=== PATIENT | male | born 1935 | race Caucasian/White ===

== ENCOUNTER → 2020-10-27 08:58 | Outpatient (BNVA) | payer MEDICARE, SELFPAY | PROVIDERS: PCP Internal Medicine; Visit Provider Urology | DX: N20.0 Calculus of kidney (principal); N40.1 Benign prostatic hyperplasia with lower urinary tract symptoms; N13.8 Other obstructive and reflux uropathy; R39.12 Poor urinary stream | CPT/HCPCS: 99202 ==

== ENCOUNTER 2020-11-18 09:57 | Outpatient (REF) | payer MEDICARE, SELFPAY ==
--- NOTE | 2020-11-18 10:00 | US_ITS ---
EXAMINATION: US RETROPERITONEAL COMPLETE (RENAL) CLINICAL INFORMATION: Calculus of kidney. BPH. Poor urinary stream. COMPARISON: CT abdomen and pelvis 06/05/2019. Renal ultrasound 03/21/2019 and 03/21/2018. KUB 01/31/2018 and 12/06/2017. TECHNIQUE: Real-time imaging of the solitary left kidney and bladder. FINDINGS: RIGHT KIDNEY: Surgically absent. LEFT KIDNEY: 14.5 x 6.7 x 5.2 cm (SAG x AP x TRV). The kidney is normal in size, moderately lobulated contour, and normal echogenicity. Renal cortical thickness is normal. No renal calculi or hydronephrosis. There are 2 anechoic cyst in the upper poles measuring 0.8 x 0.7 x 0.6 cm and 1.1 x 0.9 x 1.1 cm. There is pericapsular hypoechoic area in the midpole measuring 5.2 x 0.7 x 0.5 cm. There is trace free fluid around the kidney. BLADDER: Well distended and normal. Left ureteral jet is demonstrated; right is not. Prevoid bladder volume is 181 mL. Postvoid bladder volume is 18 mL. ADDITIONAL FINDINGS: The prostate volume is 17 mL. 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 Left kidney hypoechoic area in the pericapsular region, question old inflammatory process or old hematoma. It measures 5.2 cm. 2 upper pole left renal cysts. They were not visualized on the previous CT abdomen exam 11/10/2017 or ultrasound 12/27/2017.
== END 2020-11-18 09:58 | disposition home or self-care (01) ==
LOC: HO.US 09:57
PROVIDERS: Visit Provider Urology
DX: R39.12 Poor urinary stream (principal); N40.1 Benign prostatic hyperplasia with lower urinary tract symptoms; N13.8 Other obstructive and reflux uropathy
CPT/HCPCS: 76770

== ENCOUNTER → 2020-11-27 10:58 | Outpatient (BNVA) | payer MEDICARE, SELFPAY | PROVIDERS: PCP Internal Medicine; Visit Provider Urology | DX: N40.1 Benign prostatic hyperplasia with lower urinary tract symptoms (principal); N13.8 Other obstructive and reflux uropathy; N28.1 Cyst of kidney, acquired; S37.019A Minor contusion of unspecified kidney, initial encounter | CPT/HCPCS: Q3014 ==

== ENCOUNTER 2021-03-15 10:18 | Outpatient (REF) | payer MEDICARE, SELFPAY ==
[2021-03-15 10:36] LABS: MANUAL DIFF FLAG NO
[2021-03-15 11:06] LABS: Basophils Absolute Auto 0.1 X10*3/uL (0.0-0.2); Basophils Percent Auto 0.6 % (0-2); Eosinophils Absolute Auto 0.2 X10*3/uL (0.0-0.4); Eosinophils Percent Auto 2.8 % (0-4); Hematocrit 43.6 % (42-52); Imm Gran Abs Auto 0.02 X10*3/uL (0.00-0.03); Imm Gran Pct Auto 0.2 % (0.0-0.4); Lymphocytes Absolute Auto 2.7 X10*3/uL (1.2-4.9); Lymphocytes Percent Auto 31.9 % (20-40); Mean Corpuscular HGB Conc 32.1 g/dl (31.0-36.0); Mean Corpuscular Hemoglobin 28.6 pg (27.0-33.0); Mean Corpuscular Volume 89.2 fL (80-98); Mean Platelet Volume 11.2 fL (9.4-12.4); Monocytes Absolute Auto 0.9 X10*3/uL (0.1-1.2); Monocytes Percent Auto 10.8 % (2-11); Neutrophils Absolute Auto 4.6 X10*3/uL (2.0-8.3); Neutrophils Percent Auto 53.7 % (45-73); Platelet Count 176 X10*3/uL (160-400); Red Blood Count 4.89 X10*6/uL (4.60-5.80); Red Cell Distribution Width 14.5 % (11.0-16.0); White Blood Count 8.6 X10*3/uL (4.8-10.8)
[2021-03-15 11:42] LABS: Glucose Urine UA NEG (NEG); Leukocyte Esterase Urine 2+ (NEG); Nitrite Urine NEG (NEG); Urine Blood NEG (NEG); Urine Ketones NEG (NEG); Urine Protein NEG (NEG-TRACE)
[2021-03-15 11:54] LABS: Appearance Urine HAZY; Color Urine YELLOW
[2021-03-15 12:12] LABS: Alanine Aminotransferase 30 U/L (0-40); Albumin Level 4.1 g/dL (3.5-5.0); Alkaline Phosphatase 99 U/L (39-117); Anion Gap 15 (12-20); Aspartate Amino Transferase 24 U/L (5-37); Bilirubin Total 0.6 mg/dL (0.0-1.0); Blood Urea Nitrogen 43 mg/dL (9-16); Calcium 9.3 mg/dL (8.4-10.2); Carbon Dioxide 21 mmol/L (22-29); Chloride 110 mmol/L (96-108); Cholesterol 133 mg/dL; Estimated Glomerular Filt Rate 37; Glucose Fasting 112 mg/dL (60-99); HDL Cholesterol 29 mg/dL; LDL Cholesterol Calculated 85 mg/dl; Potassium 4.8 mmol/L (3.3-5.1); Sodium 141 mmol/L (135-145); Total Protein 6.6 g/dL (6.5-8.0); Triglycerides 95 mg/dL
[2021-03-15 12:19] LABS: PSA,Total (Free>4and<10) 0.32 ng/mL (0.00-4.00)
[2021-03-15 12:32] LABS: RBC Urine 0-2 /HPF (0); Renal Epithelial Cells Urine TRACE /LPF; Squamous Epithelial Cell Urine 1+ /LPF
[2021-03-15 13:35] LABS: Reflex LDLD? No
== END 2021-03-15 10:19 | disposition home or self-care (01) ==
LOC: HO.LNP 10:18
PROVIDERS: Visit Provider Internal Medicine
DX: I10 Essential (primary) hypertension (principal); N40.0 Benign prostatic hyperplasia without lower urinary tract symptoms; E78.00 Pure hypercholesterolemia, unspecified
CPT/HCPCS: 80053; 80061; 81001; 81003; 84153; 85025

== ENCOUNTER 2021-04-02 11:05 | Outpatient (REF) | payer MEDICARE, SELFPAY ==
[2021-04-02 12:52] LABS: Blood Urea Nitrogen 26 mg/dL (9-16); Estimated Glomerular Filt Rate 49
== END 2021-04-02 11:06 | disposition home or self-care (01) ==
LOC: HO.LNP 11:05
PROVIDERS: PCP Internal Medicine; Visit Provider Internal Medicine
DX: R79.89 Other specified abnormal findings of blood chemistry (principal)
CPT/HCPCS: 82565; 84520

== ENCOUNTER → 2021-05-27 10:04 | Outpatient (BNVA) | payer MEDICARE, SELFPAY | PROVIDERS: PCP Internal Medicine; Visit Provider Urology | DX: R39.12 Poor urinary stream (principal) | CPT/HCPCS: 51798; 99212 ==

== ENCOUNTER 2021-09-16 10:15 | Outpatient (REF) | payer MEDICARE, SELFPAY ==
[2021-09-16 11:05] LABS: Alanine Aminotransferase 32 U/L (0-40); Albumin Level 4.2 g/dL (3.5-5.0); Alkaline Phosphatase 145 U/L (39-117); Aspartate Amino Transferase 28 U/L (5-37); Bilirubin Direct 0.4 mg/dL (0.0-0.5); Cholesterol 138 mg/dL; HDL Cholesterol 31 mg/dL; LDL Cholesterol Calculated 87 mg/dl; Total Protein 6.8 g/dL (6.5-8.0); Triglycerides 101 mg/dL
== END 2021-09-16 10:16 | disposition home or self-care (01) ==
LOC: HO.LNP 10:15
PROVIDERS: Visit Provider Internal Medicine
DX: E78.00 Pure hypercholesterolemia, unspecified (principal)
CPT/HCPCS: 80061; 80076

== ENCOUNTER 2021-09-30 12:14 | Outpatient (REF) | payer MEDICARE, SELFPAY ==
--- NOTE | ~2021-09-30 | XR_ITS ---
EXAMINATION: KNEE X-RAY CLINICAL INFORMATION: Pain COMPARISON: Previous x-rays September 2017 and May 2019 TECHNIQUE: Standing AP view of both knees and lateral and sunrise view of the right knee FINDINGS: Right: There is a right 3 component knee replacement in satisfactory fracture, dislocation or x-ray evidence of loosening is seen. There is no joint effusion. There is evidence of atherosclerotic disease. Left knee: There is a left knee replacement in satisfactory position. XR/XR knee RT 2V IMPRESSION: I lateral knee replacements. Atherosclerotic disease.
--- NOTE | ~2021-09-30 | XR_ITS ---
EXAMINATION: XR PELVIS CLINICAL INFORMATION: Hip pain COMPARISON: None TECHNIQUE: AP view of the pelvis. FINDINGS: Bone alignment is normal. No fracture or dislocation is seen. There is bilateral hip arthritis with joint space narrowing and osteophyte formation. Bones of the pelvis are unremarkable. There are degenerative changes of visualized lower lumbar spine. XR/XR pelvis 1-2V IMPRESSION: Bilateral hip arthritis. Degenerative changes of the lumbar spine.
--- NOTE | ~2021-09-30 | XR_ITS ---
EXAMINATION: KNEE X-RAY CLINICAL INFORMATION: Pain COMPARISON: Previous x-rays September 2017 and May 2019 TECHNIQUE: Standing AP view of both knees and lateral and sunrise view of the right knee FINDINGS: Right: There is a right 3 component knee replacement in satisfactory fracture, dislocation or x-ray evidence of loosening is seen. There is no joint effusion. There is evidence of atherosclerotic disease. Left knee: There is a left knee replacement in satisfactory position. XR/XR knee standing BI IMPRESSION: I lateral knee replacements. Atherosclerotic disease.
== END 2021-09-30 12:15 | disposition home or self-care (01) ==
LOC: HO.HOSX 12:14
PROVIDERS: Visit Provider Orthopaedic Surgery
DX: M70.62 Trochanteric bursitis, left hip (principal); M25.561 Pain in right knee
CPT/HCPCS: 20610; 72170; 73560; 73565; 99212; J1100

== ENCOUNTER → 2021-11-25 10:27 | Outpatient (BNVA) | payer MEDICARE, SELFPAY | PROVIDERS: PCP Internal Medicine; Visit Provider Urology | DX: N40.1 Benign prostatic hyperplasia with lower urinary tract symptoms (principal); N20.0 Calculus of kidney; N13.8 Other obstructive and reflux uropathy | CPT/HCPCS: 99212 ==

== ENCOUNTER → 2021-12-27 13:20 | Outpatient (BNVA) | payer MEDICARE, SELFPAY | PROVIDERS: PCP Internal Medicine; Visit Provider Orthopaedic Surgery | DX: M70.62 Trochanteric bursitis, left hip (principal) | CPT/HCPCS: 20610; 99212; J1100 ==

== ENCOUNTER 2022-02-26 12:30 | Emergency (ER) | payer MEDICARE, SELFPAY ==
--- NOTE | ~2022-02-26 | XR_ITS ---
EXAMINATION: XR CHEST CLINICAL INFORMATION: Cough and congestion, COVID positive. COMPARISON: 02/09/2018 chest radiograph. TECHNIQUE: Frontal view of the chest was obtained. FINDINGS: The lungs appear clear. The heart and mediastinal structures are unremarkable. Multilevel sternotomy wires are intact. XR/XR chest 1V IMPRESSION: No acute cardiopulmonary process.
[2022-02-26 12:58] VITALS: BP 132/73; PULSE 57; RESP 16; TEMP 36.3; O2SAT 94; BMI 32.1
[2022-02-26 13:03] VITALS: O2SAT 94
[2022-02-26 13:48] LABS: MANUAL DIFF FLAG NO
[2022-02-26 13:49] LABS: Basophils Percent Auto 0.6 % (0-2); Eosinophils Absolute Auto 0.1 X10*3/uL (0.0-0.4); Eosinophils Percent Auto 1.9 % (0-4); Hematocrit 43.2 % (42.0-52.0); Hemoglobin 14.3 g/dl (14.0-18.0); Imm Gran Abs Auto 0.03 X10*3/uL (0.00-0.03); Imm Gran Pct Auto 0.4 % (0.0-0.4); Lymphocytes Absolute Auto 1.2 X10*3/uL (1.2-4.9); Mean Corpuscular HGB Conc 33.1 g/dl (31.0-36.0); Mean Corpuscular Hemoglobin 28.1 pg (27.0-33.0); Mean Corpuscular Volume 84.9 fL (80.0-98.0); Mean Platelet Volume 10.4 fL (9.4-12.4); Monocytes Absolute Auto 0.9 X10*3/uL (0.1-1.2); Monocytes Percent Auto 12.5 % (2-11); Neutrophils Absolute Auto 4.6 x10*3/uL (2.0-8.3); Neutrophils Percent Auto 66.6 % (45-73); Platelet Count 166 X10*3/uL (160-400); Red Blood Count 5.09 X10*6/uL (4.60-5.80); Red Cell Distribution Width 14.2 % (11.0-16.0); White Blood Count 6.9 X10*3/uL (4.8-10.8)
[2022-02-26 13:49] LABS: IDNOW Serial# 55D5AD1C; Influenza A Negative (Negative); Influenza B2 Negative (Negative)
[2022-02-26 13:52] LABS: COVID-19 Test Negative (Negative)
--- NOTE | 2022-02-26 14:03 | ED_ITS ---
HPI - URI/Sore Throat General Chief Complaint: Upper Respiratory Symptoms Stated Complaint: COVID + Time Seen by Provider: 02/26/22 12:48 Source: patient and family ( at bedside with similar symptoms) Mode of arrival: ambulatory Limitations: no limitations History of Present Illness HPI Narrative: 86-year-old male with a past medical history of hypertension, hyperlipidemia and past surgical history of triple bypass not on any blood thinners per patient presenting to the ED with complaints of productive cough with yellow colored sputum for approximately 10 days. Reports that he is vaccinated to COVID with the Moderna vaccine. Reports that he recently went to [place] and returned back on 02/22/2022. Reports that his and [id number] had similar symptoms. Reports that his just tested positive for COVID with at home test. He reports he took at home test which was negative. He denies any fevers, chills, dizziness, headaches, neck pain/stiffness, loss of taste or smell, sore throat, nasal congestion/rhinorrhea, chest pain or shortness of breath, dyspnea on exertion, orthopnea, palpitations, paresthesias, nausea/vomiting/diarrhea constipation, black or bloody stools, abdominal pain, back pain, dysuria, hematuria, abnormal penile discharge, lower extremity edema or calf tenderness or any other symptoms complaints or concerns at this time MD elicited complaint: cough Onset (ago): day(s) (10) Consistency: constant and progressively worsening Severity: moderate Description of mucous: clear, watery and yellow Able to tolerate fluids by mouth: Yes Exacerbating factors: nothing Relieving factors: nothing Context: sick contacts ([id number] in [place] has similar symptom) and recent travel (They just arrived back from [place] on Monday02/22/22) Associated symptoms: chills, myalgias and cough Treatments prior to arrival: none Related Data Home Medications Medication Instructions Recorded Confirmed amlodipine 10 mg tablet 10 mg PO DAILY 10/27/20 amlodipine 5 mg tablet 5 mg PO DAILY 10/27/20 cephalexin 500 mg capsule 500 mg PO QID 10/27/20 flu vacc 2019-(65yr ml IM 10/27/20 up)-MF59C(PF) 60 mcg(15 mcgx4)/0.5 mL IM syringe lisinopril 10 mg tablet 10 mg PO DAILY 10/27/20 lisinopril 20 1 tab PO DAILY 10/27/20 mg-hydrochlorothiazide 25 mg tablet nitroglycerin 0.4 mg sublingual 1 mg SUBLINGUAL PRN 10/27/20 tablet tamsulosin 0.4 mg capsule 0.4 mg PO DAILY 10/27/20 atorvastatin 80 mg tablet 40 mg PO DAILY tab 09/30/21 metoprolol tartrate 50 mg tablet 25 mg PO BID tab 09/30/21 isosorbide mononitrate 60 mg 60 mg PO DAILY 11/25/21 tablet,extended release 24 hr Previous Rx's Medication Instructions Recorded tamsulosin 0.4 mg capsule 0.8 mg PO BEDTIME 90 Days #180 cap 01/28/22 azithromycin 250 mg tablet See Rx Instructions PO .COMPLEX #6 02/26/22 tab prednisone 20 mg tablet 40 mg PO DAILY 5 Days #10 tab 02/26/22 Allergies Allergy/AdvReac Type Severity Reaction Status Date / Time Codeine Phosphate Allergy Unknown Unknown Verified 12/27/21 13:23 oxycodone [OxyContin] Allergy Unknown Unknown Verified 12/27/21 13:23 codeine [CODEINE] AdvReac Mild NAUSEA & Verified 12/27/21 13:23 VOMITING Review of Systems Review of Systems: Constitutional : No Weight loss, No Fever, No Chills, No Night Sweats, No Fatigue, No Malaise ENT/Mouth : No Hearing loss, No Ear Pain, No Nasal Congestion, No Sinus Pain, No Hoarseness, No sore throat, No Rhinorrhea, No Swallowing Difficulty Eyes: No Eye Pain, No Swelling, No Redness, No Foreign Body, No Discharge, No Vision Changes Cardiovascular : No Chest Pain, No SOB, No Dyspnea on Exertion, No Orthopnea, No Edema, No Palpitations Respiratory : + Cough, + Sputum, No Wheezing, No Smoke Exposure, No Dyspnea Gastrointestinal : No Nausea, No Vomiting, No Diarrhea, No Constipation, No abdominal Pain, No Hematochezia, No Melena Genitourinary : no irregular bleeding, No Dysuria, No Urinary Frequency, No Hematuria, No Urinary Incontinence, No Urgency, No Flank Pain, No Urinary Flow Changes, No Hesitancy Musculoskeletal : No joint pain, No Myalgias, No Joint Swelling Skin : No Skin Lesions, No rash Neuro : No Weakness, No Numbness, No Paresthesias, No Loss of Consciousness, No Dizziness, No Headache Psych : No Anxiety/Panic, No Depression, No SI/HI/AH/VH, No Social Issues, Heme/Lymph: No Bruising, No Bleeding,No Lymphadenopathy Endocrine : No Polyuria, No Polydipsia, No Temperature Intolerance Yes all other systems are reviewed and are negative [facility] Past Medical History Attestation statement: The following information was validated with the patient. Social History Social History Advance Directives: No Advance Directives Information Provided: No Physical Exam Vital Signs: Vital Signs: Last Vital Signs Temp 97.6 F 02/26/22 14:14 Pulse 58 02/26/22 14:14 Resp 17 02/26/22 14:14 BP 168/77 H 02/26/22 14:14 Pulse Ox 95 02/26/22 14:14 BMI result Body Mass Index 32.1 vital signs have been reviewed as normal and appeared to be correct. Blood pressure normal. Heart rate normal. Respiration rate normal. Temperature normal. Oxygen saturation 94. Appearance: Alert. Oriented X3. No acute distress. Head: Normal external exam. Normocephalic. Atraumatic. Eyes: PERRLA. EOMI. Conjunctiva and sclera normal. Eyelids normal. ENT: EAC normal. TM's Normal. Pharynx normal. Uvula midline. Moist mucous membranes. No lesions/ulcerations or masses noted on the tongue. Normal voice. No trismus noted. No drooling noted. No muffled voice noted. Neck: Normal inspection. Neck supple. FROM. No adenopathy. Thyroid Normal. No tracheal deviation noted. No crepitus is noted. No meningeal signs. No neck mass noted. No signs of trauma noted. CVS: Normal heart rate and rhythm. Heart sound normal. Pulses normal throughout. No murmurs/rales/gallops. Respiratory: No respiratory distress. Painless inspiration. Breath sounds n ormal. No wheezes/rales/rhonchi noted. Chest nontender. No crepitus is noted. No signs of trauma noted. No accessory muscle usage noted or decreased air movement noted. No signs of trauma. Abdomen: Soft and nontender. Bowel sounds normal in all 4 quadrants. No distention noted. No organomegaly noted. No visible injury noted. Back: No CVA tenderness. Full range of motion noted. Nontender. No signs of trauma. Patient neuro intact bilaterally and distally on all 4 extremities. Patient's reflexes intact bilaterally and distally on all 4 extremities. No rashes/lesion/induration/fluctuance or signs of infection noted. Skin: Skin warm and dry. Normal skin color. Normal skin turgor. No rashes/lesions/lacerations noted. Extremities: Mild lower extremity edema noted bilaterally. No pitting edema noted. No calf tenderness is noted. Extremities exhibit normal range of motion and nontender. Neuro: Oriented X 3. No motor deficit. No sensory deficit. Reflexes normal. Normal steady gait. No focal neuro deficits noted. CN's II-XII intact bilaterally? Vascular: + radial pulses/+ 2 distal pedal pulses/+2 dorsalis pedis b/l. Normal cap refill. No cyanosis noted to upper extremity nails and lower extremity toes nails. Course Course Course Narrative: 13pm - 86-year-old male with a past medical history of hypertension, hyperlipidemia and past surgical history of triple bypass not on any blood thinners per patient presenting to the ED with complaints of productive cough with yellow colored sputum for approximately 10 days. Reports that he is vaccinated to COVID with t he Moderna vaccine. Reports that he recently went to [place] and returned back on 02/22/2022. Reports that his and [id number] had similar symptoms. Reports that his just tested positive for COVID with at home test. He reports he took at home test which was negative. Plan: Labs, chest x-ray ambulating pulse oximetry then re-evaluate. Reevaluation(s) Reevaluation #1: - labs reviewed and BNP 177 otherwise all other labs are within normal limits. Patient is negative for COVID and for influenza. His actually tested positive for COVID. - ambulating pulse oximetry went from 94 to high 90s per tech. Patient did not desat his oxygen actually went up when he was walking - chest x-ray within normal limits. - therefore at this time will DC home with antibiotics for possible bronchitis along with prednisone and instructions to return if any new or worsening symptoms to follow up with PCP. Patient understands agrees with this plan. Time: 14:23 [facility] - URI/Sore Throat Medical Records Attestation: I reviewed the patient's medical records. Lab Data Attestation: I reviewed the patient's lab results. Result diagrams: 02/26/22 13:42 02/26/22 13:42 Labs: Lab Results 02/26/22 02/26/22 02/26/22 Range/Units 13:09 13:09 13:42 WBC 6.9 (4.8-10.8) X10*3/uL RBC 5.09 (4.60-5.80) X10*6/uL Hgb 14.3 (14.0-18.0) g/dl Hct 43.2 (42.0-52.0) % MCV 84.9 (80.0-98.0) fL MCH 28.1 (27.0-33.0) pg MCHC 33.1 (31.0-36.0) g/dl RDW 14.2 (11.0-16.0) % Plt Count 166 (160-400) X10*3/uL MPV 10.4 (9.4-12.4) fL Immature Gran % (Auto) 0.4 (0.0-0.4) % Neut % (Auto) 66.6 (45-73) % Lymph % (Auto) 18.0 L (20-40) % [place] % (Auto) 12.5 H (2-11) % Eos % (Auto) 1.9 (0-4) % Baso % (Auto) 0.6 (0-2) % Lymph # (Auto) 1.2 (1.2-4.9) X10*3/uL [place] # (Auto) 0.9 (0.1-1.2) X10*3/uL Eos # (Auto) 0.1 (0.0-0.4) X10*3/uL Baso # (Auto) 0.0 (0.0-0.2) X10*3/uL Abs Immat Gran (auto) 0.03 (0.00-0.03) X10*3/uL Absolute Neuts (auto) 4.6 (2.0-8.3) x10*3/uL Absolute Nucleated RBC 0.000 (0.0-0.012) X10*3/uL Nucleated RBC % (auto) 0.0 (0.0-0.2) /100WBC Sodium (135-145) mmol/L Potassium (3.3-5.1) mmol/L Chloride (96-108) mmol/L Carbon Dioxide (22-29) mmol/L Anion Gap (12-20) BUN (9-16) mg/dL Creatinine (0.5-1.4) mg/dL Estim Creat Clear Calc Estimated GFR Random Glucose (60-115) mg/dL Calcium (8.4-10.2) mg/dL Magnesium (1.6-2.6) mg/dL Total Bilirubin (0.0-1.0) mg/dL AST (5-37) U/L ALT (0-40) U/L Alkaline Phosphatase (39-117) U/L B-Natriuretic Peptide (<100) pg/mL Total Protein (6.5-8.0) g/dL Albumin (3.5-5.0) g/dL COVID-19 (OCTAVIO) Negative (Negative) COVID-19 Clin Com See Note Influenza Type A (PATRICIA) Negative (Negative) Influenza Type B (PATRICIA) Negative (Negative) Influenza A & B Note See Note 02/26/22 02/26/22 Range/Units 13:42 13:43 WBC (4.8-10.8) X10*3/uL RBC (4.60-5.80) X10*6/uL Hgb (14.0-18.0) g/dl Hct (42.0-52.0) % MCV (80.0-98.0) fL MCH (27.0-33.0) pg MCHC (31.0-36.0) g/dl RDW (11.0-16.0) % Plt Count (160-400) X10*3/uL MPV (9.4-12.4) fL Immature Gran % (Auto) (0.0-0.4) % Neut % (Auto) (45-73) % Lymph % (Auto) (20-40) % [place] % (Auto) (2-11) % Eos % (Auto) (0-4) % Baso % (Auto) (0-2) % Lymph # (Auto) (1.2-4.9) X10*3/uL [place] # (Auto) (0.1-1.2) X10*3/uL Eos # (Auto) (0.0-0.4) X10*3/uL Baso # (Auto) (0.0-0.2) X10*3/uL Abs Immat Gran (auto) (0.00-0.03) X10*3/uL Absolute Neuts (auto) (2.0-8.3) x10*3/uL Absolute Nucleated RBC (0.0-0.012) X10*3/uL Nucleated RBC % (auto) (0.0-0.2) /100WBC Sodium 137 (135-145) mmol/L Potassium 4.4 (3.3-5.1) mmol/L Chloride 107 (96-108) mmol/L Carbon Dioxide 23 (22-29) mmol/L Anion Gap 11 L (12-20) BUN 25 H (9-16) mg/dL Creatinine 1.23 (0.5-1.4) mg/dL Estim Creat Clear Calc 52.9 Estimated GFR 56 Random Glucose 110 (60-115) mg/dL Calcium 10.1 D (8.4-10.2) mg/dL Magnesium 1.8 (1.6-2.6) mg/dL Total Bilirubin 1.0 (0.0-1.0) mg/dL AST 20 (5-37) U/L ALT 25 (0-40) U/L Alkaline Phosphatase 117 (39-117) U/L B-Natriuretic Peptide 177 H (<100) pg/mL Total Protein 6.3 L (6.5-8.0) g/dL Albumin 3.9 (3.5-5.0) g/dL COVID-19 (OCTAVIO) (Negative) COVID-19 Clin Com Influenza Type A (PATRICIA) (Negative) Influenza Type B (PATRICIA) (Negative) Influenza A & B Note Imaging Data Chest x-ray: Attestation: I personally reviewed and interpreted this imaging study as follows: Radiologist's impression: FINDINGS: The lungs appear clear. The heart and mediastinal structures are unremarkable. Multilevel sternotomy wires are intact. XR/XR chest 1V IMPRESSION: No acute cardiopulmonary process. Discharge Plan Discharge Clinical Impression: Bronchitis, Close exposure to COVID-19 virus Patient Disposition: Home, Self-Care Instructions: Acute Bronchitis (ED) Prescriptions: New azithromycin 250 mg tablet See Rx Instructions PO .COMPLEX Qty: 6 0RF Rx Instructions: take 500 mg today (day 1), then 250 mg for 4 days (days 2-5) prednisone 20 mg tablet 40 mg PO DAILY 5 Days Qty: 10 0RF No Action tamsulosin 0.4 mg capsule 0.8 mg PO BEDTIME 90 Days Qty: 180 3RF lisinopril 10 mg tablet 10 mg PO DAILY 0RF amlodipine 10 mg tablet 10 mg PO DAILY 0RF amlodipine 5 mg tablet 5 mg PO DAILY 0RF nitroglycerin 0.4 mg tablet, sublingual 1 mg sublingual PRN0RF lisinopril-hydrochlorothiazide 20-25 mg tablet 1 tab PO DAILY 0RF tamsulosin 0.4 mg capsule 0.4 mg PO DAILY 0RF Fluad Quad 2020-(65y up)(PF) 60 mcg (15 mcg x 4)/0.5 mL syringe IM 0RF cephalexin 500 mg capsule 500 mg PO QID 0RF atorvastatin 80 mg tablet 40 mg PO DAILY 0RF metoprolol tartrate 50 mg tablet 25 mg PO BID 0RF isosorbide mononitrate 60 mg tablet extended release 24 hr 60 mg PO DAILY 0RF Referrals: Brennen Chavira MD [Primary Care Provider] - 2 days Print Language: Ukrainian
[2022-02-26 14:04] LABS: Alanine Aminotransferase 25 U/L (0-40); Albumin Level 3.9 g/dL (3.5-5.0); Alkaline Phosphatase 117 U/L (39-117); Anion Gap 11 (12-20); Aspartate Amino Transferase 20 U/L (5-37); Blood Urea Nitrogen 25 mg/dL (9-16); Calcium 10.1 mg/dL (8.4-10.2); Carbon Dioxide 23 mmol/L (22-29); Creatinine Clr Calc Pharmacy 52.9; Estimated Glomerular Filt Rate 56; Glucose Random 110 mg/dL (60-115); Magnesium 1.8 mg/dL (1.6-2.6); Total Protein 6.3 g/dL (6.5-8.0)
[2022-02-26 14:08] LABS: B Type Natriuretic Peptide 177 pg/mL (<100)
[2022-02-26 14:14] VITALS: BP 168/77; PULSE 58; RESP 17; TEMP 36.4; O2SAT 95
[2022-02-26 14:17] LABS: Chloride 107 mmol/L (96-108); Potassium 4.4 mmol/L (3.3-5.1); Sodium 137 mmol/L (135-145)
== END 2022-02-26 15:17 | disposition home or self-care (01) ==
PROVIDERS: Physician Assistant Medical; Emergency Provider Emergency Medicine; PCP Internal Medicine
DX: J40 Bronchitis, not specified as acute or chronic (principal); I10 Essential (primary) hypertension; Z20.822 Contact with and (suspected) exposure to COVID-19; Z95.1 Presence of aortocoronary bypass graft
CPT/HCPCS: 36415; 71045; 80053; 83735; 83880; 85025; 87502; 87635; 99283; 99284

== ENCOUNTER 2022-03-18 11:17 | Outpatient (REF) | payer MEDICARE, SELFPAY ==
[2022-03-18 11:34] LABS: MANUAL DIFF FLAG NO
[2022-03-18 11:40] LABS: Basophils Percent Auto 0.3 % (0-2); Eosinophils Absolute Auto 0.2 X10*3/uL (0.0-0.4); Eosinophils Percent Auto 2.2 % (0-4); Hematocrit 48.1 % (42.0-52.0); Hemoglobin 15.6 g/dl (14.0-18.0); Imm Gran Abs Auto 0.02 X10*3/uL (0.00-0.03); Imm Gran Pct Auto 0.2 % (0.0-0.4); Lymphocytes Absolute Auto 2.6 X10*3/uL (1.2-4.9); Lymphocytes Percent Auto 28.3 % (20-40); Mean Corpuscular HGB Conc 32.4 g/dl (31.0-36.0); Mean Corpuscular Hemoglobin 28.2 pg (27.0-33.0); Mean Corpuscular Volume 86.8 fL (80.0-98.0); Mean Platelet Volume 10.8 fL (9.4-12.4); Monocytes Absolute Auto 0.8 X10*3/uL (0.1-1.2); Monocytes Percent Auto 8.5 % (2-11); Neutrophils Absolute Auto 5.6 x10*3/uL (2.0-8.3); Neutrophils Percent Auto 60.5 % (45-73); Platelet Count 215 X10*3/uL (160-400); Red Blood Count 5.54 X10*6/uL (4.60-5.80); Red Cell Distribution Width 14.6 % (11.0-16.0); White Blood Count 9.3 X10*3/uL (4.8-10.8)
[2022-03-18 11:42] LABS: Appearance Urine CLEAR; Color Urine YELLOW; Glucose Urine UA NEG (NEG); Leukocyte Esterase Urine TRACE (NEG); Nitrite Urine NEG (NEG); Urine Blood NEG (NEG); Urine Ketones NEG (NEG); Urine Protein NEG (NEG-TRACE)
[2022-03-18 11:55] LABS: Alanine Aminotransferase 26 U/L (0-40); Albumin Level 4.1 g/dL (3.5-5.0); Alkaline Phosphatase 145 U/L (39-117); Anion Gap 16 (12-20); Aspartate Amino Transferase 20 U/L (5-37); Bilirubin Total 0.8 mg/dL (0.0-1.0); Blood Urea Nitrogen 18 mg/dL (9-16); Calcium 9.7 mg/dL (8.4-10.2); Carbon Dioxide 24 mmol/L (22-29); Chloride 106 mmol/L (96-108); Cholesterol 157 mg/dL; Estimated Glomerular Filt Rate 56; Glucose Fasting 108 mg/dL (60-99); HDL Cholesterol 33 mg/dL; LDL Cholesterol Calculated 107 mg/dl; Potassium 3.9 mmol/L (3.3-5.1); Sodium 142 mmol/L (135-145); Total Protein 6.9 g/dL (6.5-8.0); Triglycerides 89 mg/dL
[2022-03-18 12:15] LABS: PSA,Total (Free>4and<10) 0.33 ng/mL (0.00-4.00)
[2022-03-18 12:29] LABS: RBC Urine 0 /HPF (0); Squamous Epithelial Cell Urine TRACE /LPF; WBC Urine 0-2 /HPF (0-4)
== END 2022-03-18 11:18 | disposition home or self-care (01) ==
LOC: HO.LNP 11:17
PROVIDERS: Visit Provider Internal Medicine
DX: Z12.5 Encounter for screening for malignant neoplasm of prostate (principal); I10 Essential (primary) hypertension; E78.00 Pure hypercholesterolemia, unspecified; N40.0 Benign prostatic hyperplasia without lower urinary tract symptoms
CPT/HCPCS: 80053; 80061; 81001; 84153; 85025

== ENCOUNTER → 2022-03-31 12:15 | Outpatient (BNVA) | payer MEDICARE, SELFPAY | PROVIDERS: PCP Internal Medicine; Visit Provider Orthopaedic Surgery | DX: M70.62 Trochanteric bursitis, left hip (principal); M16.12 Unilateral primary osteoarthritis, left hip; M47.816 Spondylosis without myelopathy or radiculopathy, lumbar region | CPT/HCPCS: 20610; 99212; J1100 ==

== ENCOUNTER → 2022-04-05 10:54 | Outpatient (REF) | payer MEDICARE, SELFPAY ==
--- NOTE | ~2022-04-05 | NM_ITS ---
EXAMINATION: NM BONE SCAN OF THE WHOLE BODY CLINICAL INFORMATION: Increasing alkaline phosphatase with back pain, hip pain, history of kidney cancer and history of knee replacements. COMPARISON: Bone windows from chest CT dated 03/15/2019 and abdominal pelvis dated 11/10/2017. TECHNIQUE: Multiple gamma scintillation camera images of the whole body were performed 2.5 hours following the intravenous administration of 36 mCi Tc-99m MDP. FINDINGS: In the head: Some generalized uptake over the sinuses may represent sinus disease. This would be the maxillary ethmoid region. In the thoracic cage and upper extremities: Some mild uptake in the region of the costovertebral junction of the 6th rib on the right. This may be degenerative. Otherwise the rib uptake is within normal limits. Some uptake in the right greater than left AC joint most consistent with degenerative change and there is also uptake at the region of the sternoclavicular joint on the right which may well be degenerative/active degeneration. In the spine: Some mottled uptake in the thoracic spine is likely degenerative in nature. Some uptake at the thoracolumbar junction right which may well be degenerative in nature. There is also some uptake at L4-L5 on the left greater than L3-L4 and left posterior which may be degenerative. I would recommend current plain films to correlate. In the pelvis: No suspicious uptake. In the lower extremities: Uptake around photopenic areas likely representing the patient's replacements. No intense focus is seen. There is uptake in the ankle/proximal tarsal region of the left foot which may well be degenerative in nature. There is also some uptake in the region of the distal 4th or possibly 3rd digit of the left foot. Uptake is intense here. Again this could be degenerative. Consider plain film. There is some mild uptake in the mid to distal right femoral diaphysis of uncertain etiology. No other definite bony abnormalities are noted. The urinary bladder and faint visualization of the patient's left kidney noted. NM/NM bone scan whole body IMPRESSION: Multiple areas of uptake as described. I would recommend a plain film of the lumbosacral spine to correlate areas of uptake described which may well be degenerative and plain film of the right femur to correlate with a mild area of uptake. Also plain films of the left feet to interrogate the 3rd or 4th distal digit. Otherwise areas of uptake described are likely degenerative
== END ==
LOC: HO.NUCMED 10:54
PROVIDERS: PCP Internal Medicine; Visit Provider Internal Medicine
DX: R74.8 Abnormal levels of other serum enzymes (principal)
CPT/HCPCS: 78306; A9503

== ENCOUNTER → 2022-04-27 10:00 | Outpatient (BNVA) | payer MEDICARE, SELFPAY | PROVIDERS: PCP Internal Medicine; Visit Provider Nurse Practitioner Family | DX: M47.816 Spondylosis without myelopathy or radiculopathy, lumbar region (principal); M62.838 Other muscle spasm | CPT/HCPCS: 99202 ==

== ENCOUNTER 2022-05-05 09:11 | Outpatient (REF) | payer MEDICARE, SELFPAY ==
--- NOTE | ~2022-05-05 | XR_ITS ---
EXAMINATION: XR LUMBOSACRAL SPINE CLINICAL INFORMATION: Spondylosis without myelopathy or radiculopathy. COMPARISON: None TECHNIQUE: Three views of the lumbosacral spine. FINDINGS: There are 6 lumbar vertebrae. There is normal lumbar lordosis. The vertebral heights and alignment is normal. There is loss of disc at virtually at every disc level with moderate ventral spondylosis and a large bridging osteophytes on the right L1-L2 and ventrally at T12-L1 disc level... The paravertebral soft tissues are normal. XR/XR lumbar spine 2-3V IMPRESSION: Mild degenerative disc changes with spondylosis. No visible acute fracture or dislocation seen.
== END 2022-05-05 09:12 | disposition home or self-care (01) ==
LOC: HO.XRAY 09:11
PROVIDERS: PCP Internal Medicine; Visit Provider Nurse Practitioner Family
DX: M47.816 Spondylosis without myelopathy or radiculopathy, lumbar region (principal)
CPT/HCPCS: 72100

== ENCOUNTER → 2022-05-13 15:16 | Outpatient (BNVA) | payer MEDICARE, SELFPAY | PROVIDERS: PCP Internal Medicine; Visit Provider Nurse Practitioner Family | DX: M47.816 Spondylosis without myelopathy or radiculopathy, lumbar region (principal); M62.838 Other muscle spasm; G62.9 Polyneuropathy, unspecified; M21.372 Foot drop, left foot | CPT/HCPCS: 99212 ==

== ENCOUNTER 2022-06-07 06:12 | Outpatient (REF) | payer MEDICARE, SELFPAY ==
--- NOTE | ~2022-06-07 | FL_ITS ---
EXAMINATION: XR FLUOROSCOPY WITH IMAGES CLINICAL INFORMATION: M47.816 - Spondylosis without myelopathy or radiculopathy, lumbar region COMPARISON: Radiographs lumbar spine 05/05/2022 TECHNIQUE: Fluoroscopy performed by pain management physician. Fluoroscopy time: 0.8 minutes. Cumulative Dose: 2.22 mGy. DAP: 6.05 Gy-cm2. Images: 5. FINDINGS: There are spinal needles overlying the bilateral outer L4 and L5 neural foramen. There is trace contrast seen in the respective nerve sheaths. No visible vascular communication. There are multilevel degenerative disc changes again noted with disc narrowing and endplate sclerosis and vertebral spurring. FL/FL guidance in treatment room IMPRESSION: Fluoroscopy for pain management procedures.
== END 2022-06-07 06:13 | disposition home or self-care (01) ==
LOC: HO.RADIR 06:12
PROVIDERS: Visit Provider Anesthesiology
DX: M47.816 Spondylosis without myelopathy or radiculopathy, lumbar region (principal)
CPT/HCPCS: 64493; 64494

== ENCOUNTER → 2022-06-15 11:00 | Outpatient (BNVA) | payer MEDICARE, SELFPAY | PROVIDERS: PCP Internal Medicine; Visit Provider Nurse Practitioner Family | DX: M47.816 Spondylosis without myelopathy or radiculopathy, lumbar region (principal); M62.838 Other muscle spasm; G62.9 Polyneuropathy, unspecified | CPT/HCPCS: Q3014 ==

== ENCOUNTER 2022-07-19 09:57 | Day surgery (SDC) | payer MEDICARE, SELFPAY ==
--- NOTE | ~2022-07-19 | FL_ITS ---
EXAMINATION: XR FLUOROSCOPY WITH IMAGES CLINICAL INFORMATION: Sprint lumbar implant. COMPARISON: None. TECHNIQUE: Fluoroscopy performed by Dr. Abelardo Garcia. Fluoroscopy time: 0.2 minutes. Cumulative Dose: 9.13 mGy. DAP: 1.64 Gy-cm2. Images: 1. FINDINGS: There are bilateral electrodes positioned adjacent to the L4 pedicles. There is loss of disc height at the L5-S1, L4-L5 and L3-L4 disc levels with mild lateral spondylosis. No aggressive lytic or sclerotic process seen. 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 No visible acute fracture or dislocation seen. Fluoroscopy guidance was provided to the referring physician for pain management.
--- NOTE | 2022-07-19 07:28 | MHC.SHP ---
Pre-Procedural Eval Section A Date of Service: 07/19/22 The patient is an INPATIENT: No Changes since office visit: Yes Patient answered all questions The History & Physical has been completed within 30 days and I have reviewed it.: No Section B Chief Complaint: Spondylosis without myelopathy or radiculopathy, l Details of Present Illness: as above Relevant Family History (Specify if Yes): No Relevant Social History: None Present Medications: see Short Stay Collaborative assessment Medical History: No relevant PMH History of Previous Operations: No relevant previous surgery Allergies: Allergies Allergy/AdvReac Type Severity Reaction Status Date / Time oxycodone [OxyContin] Allergy Unknown Unknown Verified 06/07/22 13:46 codeine [CODEINE] AdvReac Mild NAUSEA & Verified 06/07/22 13:46 VOMITING Review of Systems Sugical H&P ROS: Negative: Constitution, Cardiovascular, Respiratory, Neurological, Psychiatric, Hem-Onc, Allergic/Immunologic, Gastrointestinal, Genitourinary, Musculoskeletal, Integumentary, Endocrine and Eyes/Ears/Nose/Throat Exam Surgical H&P Exam: Normal: HEENT, Normal: Heart, Normal: Lungs, Normal: Extremities, Normal: Abdomen, Normal: Skin and Normal: Neurological Plan Diagnosis/Plan: Unchanged I have reviewed the history and physical and performed a pertinent physical examination on my patient. No changes have occurred unless specified.
--- NOTE | 2022-07-19 08:34 | W.PM.OPN ---
Operative Note Operative Note Date of Service: 07/19/22 Narrative: Percutaneous implantation of peripheral nerve stimulation Sprint system. After the risks, benefits and alternatives were discussed with the patient and informed consent was obtained, patient was brought to the operating room and placed in the prone position. ? Time out was performed delineating correct site and side of the procedure , name and of the patient, patient participated in time out procedure.? Patient received antibiotics 2 g cefazolin approximately 30 minutes before the onset of the procedure. C-arm was brought over the operating field and clear picture of the L5 lamina on the right was delineated on the screen. ? The lower back of the patient was prepped with ChloraPrep and draped with full body fenestrated drape. The upper central portion of the lamina was chosen as a target of the needle tip insertion .The L6/ S1 lumbarized vertebra was also detected. After identifying and marking the intended target, the skin around the planned entry point and the subcutaneous tissues were injected with local anesthetic forming skin wheal. A percutaneous sleeve and stimulating probe lead introduction system were assembled, inserted and advanced through the skin wheal to the? point of interest under C-arm view in tunnel vision fashion, the introducer needle was delivered to a location in proximity to the nerve. multiple stimulations were performed and? Nerve target acquisition was confirmed noting generation of? in the? corresponding to the nerve being stimulated. Various electrical parameter combinations were tested overlapping the distribution of the patient?s typical region of pain. After that the procedure was repeated at the left side of the L5 VERTEBRA in the same very fashion. Th patient stated that the stimulation corresponded to the distribution of his pain. The stimulating probe was removed from the introducers and a percutaneous leads were guided through the needle and delivered to a location in similar proximity to the nerve. Final location was verified with electrical stimulation. The introducer needle was removed, and the exposed end of the percutaneous lead was attached to an external stimulator unit. Various electrical parameter combinations were again tested until the patient indicated paresthesia or muscle tension overlapping the distribution of the patient?s typical region of pain. After confirming that lead impedance was in the normal range, the external unit was detached, the needle was removed, and the lead was anchored at the skin. The lead was threaded into the connector block and electrical continuity and desired patient response was confirmed. The connector block was attached to the external stimulator unit. ? The site was covered with a sterile occlusive dressing . Upon completion of the procedure the patient was taken outside the OR where she recovered uneventfully she went home without immediate complications.
[2022-07-19 10:10] VITALS: BMI 31.4
--- NOTE | 2022-07-19 10:56 | P.BOP_ITS ---
Brief Operative Note Date of Service: 07/19/22 Pre-op diagnosis: spondylosis lumbar spine Post-op diagnosis: same Procedure: SPRINT PNS stimulation temporary implantation Implants: none permanent Surgeon: Abelardo Garcia MD Anesthesia: local Was an Board Saw Runner used for this Procedure?: No Estimated blood loss (mL): 4 Pathology: none sent Condition: stable Disposition: PACU
[2022-07-19 11:09] VITALS: BP 113/62; PULSE 52; RESP 20; TEMP 36.8; O2SAT 95
[2022-07-19 12:08] VITALS: BP 115/58; PULSE 52; RESP 18; O2SAT 96
== END 2022-07-19 12:10 | disposition home or self-care (01) ==
PROVIDERS: PCP Internal Medicine; Visit Provider Anesthesiology
PROC: (CPT 64555; principal; 2022-07-19 11:00)
DX: M47.816 Spondylosis without myelopathy or radiculopathy, lumbar region (principal); M62.838 Other muscle spasm; G62.9 Polyneuropathy, unspecified; Z88.8 Allergy status to other drugs, medicaments and biological substances
CPT/HCPCS: 64555; C1778; J0690

== ENCOUNTER → 2022-07-27 14:57 | Outpatient (BNVA) | payer MEDICARE, SELFPAY | PROVIDERS: PCP Internal Medicine; Visit Provider Anesthesiology | DX: M47.816 Spondylosis without myelopathy or radiculopathy, lumbar region (principal); M62.838 Other muscle spasm; G62.9 Polyneuropathy, unspecified | CPT/HCPCS: 99212 ==

== ENCOUNTER → 2022-08-18 10:37 | Outpatient (BNVA) | payer MEDICARE, SELFPAY | PROVIDERS: PCP Internal Medicine; Visit Provider Orthopaedic Surgery | DX: M70.62 Trochanteric bursitis, left hip (principal) | CPT/HCPCS: 20610; 99212; J1100 ==

== ENCOUNTER 2022-09-15 13:13 | Outpatient (REF) | payer MEDICARE, SELFPAY ==
--- NOTE | 2022-09-15 08:00 | EMG_ITS ---
Left tibial and peroneal motor studies were performed. Left superficial peroneal and sural sensory studies were performed. Tibial H-reflex was obtained and some muscles were tested in the leg with a needle. Because of some equipments placed in his lower back. Paraspinals could not be tested. 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 Because of lack of any significant response, type of neuropathy could not be determined. Maybe an upper extremity study can be done to figure out its nature, axonal versus demyelinating. Also, radiculopathy could not be ruled out because of the leads and equipment placed on his back. MD SHREYA Larsen/JONATHAN / [id number]
== END 2022-09-15 13:14 | disposition home or self-care (01) ==
LOC: HO.NEURO 13:13
PROVIDERS: PCP Internal Medicine; Visit Provider Nurse Practitioner Family
DX: G62.9 Polyneuropathy, unspecified (principal); M21.372 Foot drop, left foot
CPT/HCPCS: 95886; 95909

== ENCOUNTER 2022-09-16 10:25 | Outpatient (REF) | payer MEDICARE, SELFPAY ==
[2022-09-16 10:52] LABS: Alanine Aminotransferase 32 U/L (0-40); Alkaline Phosphatase 129 U/L (39-117); Aspartate Amino Transferase 27 U/L (5-37); Bilirubin Direct 0.3 mg/dL (0.0-0.5); Bilirubin Total 0.9 mg/dL (0.0-1.0); Cholesterol 147 mg/dL; HDL Cholesterol 36 mg/dL; LDL Cholesterol Calculated 96 mg/dl; Total Protein 6.9 g/dL (6.5-8.0); Triglycerides 77 mg/dL
[2022-09-16 11:30] LABS: Albumin Level 4.3 g/dL (3.5-5.0)
[2022-09-16 14:49] LABS: Reflex LDLD? No
== END 2022-09-16 10:26 | disposition home or self-care (01) ==
LOC: HO.LNP 10:25
PROVIDERS: Visit Provider Internal Medicine
DX: E78.00 Pure hypercholesterolemia, unspecified (principal)
CPT/HCPCS: 80061; 80076

== ENCOUNTER → 2022-09-19 14:02 | Outpatient (BNVA) | payer MEDICARE, SELFPAY | PROVIDERS: PCP Internal Medicine; Visit Provider Anesthesiology | DX: Z45.49 Encounter for adjustment and management of other implanted nervous system device (principal) | CPT/HCPCS: 99211 ==

== ENCOUNTER → 2022-10-03 14:43 | Outpatient (BNVA) | payer MEDICARE, SELFPAY | PROVIDERS: PCP Internal Medicine; Visit Provider Physician Assistant | DX: R10.12 Left upper quadrant pain (principal); R13.10 Dysphagia, unspecified; R14.0 Abdominal distension (gaseous) | CPT/HCPCS: 99202 ==

== ENCOUNTER 2022-10-04 13:36 | Outpatient (REF) | payer MEDICARE, SELFPAY | END 2022-10-04 13:37 | disposition home or self-care (01) | LOC: HO.LNP 13:36 | PROVIDERS: Visit Provider Physician Assistant | DX: A04.8 Other specified bacterial intestinal infections (principal) | CPT/HCPCS: 87338 ==

== ENCOUNTER → 2022-10-26 09:43 | Outpatient (BNVA) | payer MEDICARE, SELFPAY | PROVIDERS: PCP Internal Medicine; Visit Provider Anesthesiology | DX: G62.9 Polyneuropathy, unspecified (principal); M62.838 Other muscle spasm; M47.816 Spondylosis without myelopathy or radiculopathy, lumbar region | CPT/HCPCS: 99212 ==

== ENCOUNTER 2022-10-27 11:52 | Outpatient (REF) | payer MEDICARE, SELFPAY ==
--- NOTE | ~2022-10-27 | US_ITS ---
EXAMINATION: US RETROPERITONEAL LIMITED (RENAL ONLY) CLINICAL INFORMATION: Calculus of kidney. COMPARISON: Ultrasound retroperitoneal complete (renal) 11/18/2020. CT abdomen and pelvis with contrast 06/05/2019. Ultrasound retroperitoneal limited (renal only) 03/21/2019. X-ray abdomen KUB 01/31/2018 and 12/06/2017. TECHNIQUE: Real-time imaging of the kidneys. FINDINGS: RIGHT KIDNEY: Surgically absent. LEFT KIDNEY: 13.9 x 5.5 x 5.4 cm (SAG x AP x TRV). Lateral midpole 1.1 x 0.9 x 1.0 cm cyst. Upper medial 1.3 x 0.8 x 1.1 cm cyst. Possible extrarenal pelvis. Caliectasis present. Small amount of free fluid adjacent to the lower pole of left kidney. Limited visualization due to bowel gas and body habitus. US/US renal BI IMPRESSION: 1. Right kidney surgically absent. 2. Small amount of fluid adjacent to the lower pole of the left kidney. 3. Caliectasis with possible left extrarenal pelvis. No obstructing renal calculi identified. 4. Small left upper pole cysts, Bosniak 1. No further follow up indicated.
== END 2022-10-27 11:53 | disposition home or self-care (01) ==
LOC: HO.US 11:52
PROVIDERS: Visit Provider Urology
DX: N20.0 Calculus of kidney (principal)
CPT/HCPCS: 76775

== ENCOUNTER 2022-11-11 10:27 | Outpatient (REF) | payer MEDICARE, SELFPAY ==
--- NOTE | ~2022-11-11 | US_ITS ---
EXAMINATION: US ABDOMEN COMPLETE CLINICAL INFORMATION: Left upper quadrant pain. COMPARISON: Renal ultrasound 10/27/2022 and 11/18/2020. CT abdomen and pelvis 06/05/2019. X-ray KUB 01/31/2018 and 12/06/2017. TECHNIQUE: Real-time imaging of the abdominal viscera. Technically limited study secondary to bowel gas and body habitus. FINDINGS: PANCREAS: The head of partially visualized body of the pancreas is homogeneous echotexture without enlargement. The rest of the body and the tail of the pancreas is not seen. ABDOMINAL AORTA: The proximal, mid, and distal segments are normal in caliber. INFERIOR VENA CAVA: Visualized portions are normal. LIVER: The liver is normal in size. The liver contour is normal. There is diffuse increased liver echogenicity. No focal hepatic lesion. There is no intrahepatic biliary duct dilatation seen. GALLBLADDER: The gallbladder is physiologically distended. Multiple mobile gallstones are present. No evidence of gallbladder wall thickening or pericholecystic fluid. COMMON BILE DUCT: Normal in caliber measuring 0.2 cm in diameter. RIGHT KIDNEY: Surgically absent. LEFT KIDNEY: There is anechoic cyst in the upper pole measuring 1.1 x 0.9 x 1.0 cm and upper/midpole measuring 1.5 x 1.0 x 1.4 cm. There is an extrarenal kidney pelvis seen. SPLEEN: Normal. The spleen measures 11.1 cm in maximum dimension. FREE FLUID: None. US/US abdomen complete IMPRESSION: 1. Diffuse hepatic echogenicity without focal lesion. 2. Multiple echogenic gallstones without wall thickening. 3. Right kidney is surgically absent. 4. At least 2 left renal cysts. Extrarenal left kidney pelvis. 5. The rest of the abdominal ultrasound is unremarkable.
== END 2022-11-11 10:28 | disposition home or self-care (01) ==
LOC: HO.US 10:27
PROVIDERS: PCP Internal Medicine; Visit Provider Physician Assistant
DX: R10.12 Left upper quadrant pain (principal); R14.0 Abdominal distension (gaseous); R13.10 Dysphagia, unspecified
CPT/HCPCS: 76700

== ENCOUNTER → 2022-11-18 11:02 | Outpatient (BNVA) | payer MEDICARE, SELFPAY | PROVIDERS: PCP Internal Medicine; Visit Provider Orthopaedic Surgery | DX: M70.62 Trochanteric bursitis, left hip (principal) | CPT/HCPCS: 20610; 99212; J1100 ==

== ENCOUNTER 2022-11-25 08:28 | Outpatient (REF) | payer MEDICARE, SELFPAY ==
--- NOTE | ~2022-11-25 | FL_ITS ---
EXAMINATION: FL BARIUM SWALLOW CLINICAL INFORMATION: Left upper quadrant pain. COMPARISON: None. TECHNIQUE: Barium swallow examination is performed using fluoroscopic evaluation in addition to multiple fluoroscopic spot views. The patient is imaged both upright and prone and using both thick and thin sulfate along with half-inch diameter barium tablet. Fluoroscopy time: 1.5 minutes DAP: 10.049 Gycm2 Images: 37 FINDINGS: Patient swallowed thin and thick barium and a half-inch diameter barium tablet without difficulty. There is normal apposition of the vocal cords while saying E. There is normal elevation of the soft palate while saying candy. No nasopharyngeal reflux or tracheal aspiration was identified. No cricopharyngeal hypertrophy or Zenker's diverticulum is seen. There is dysmotility of the esophagus with tertiary contractions identified. There is gastroesophageal reflux to the level of the thoracic inlet which clears slowly. There is a small hiatal hernia present. No definite mucosal ulceration is appreciated. FL/FL barium swallow IMPRESSION: 1. Esophageal dysmotility. 2. A small hiatal hernia. 3. Gastroesophageal reflux.
== END 2022-11-25 08:29 | disposition home or self-care (01) ==
LOC: HO.XRAY 08:28
PROVIDERS: PCP Internal Medicine; Visit Provider Physician Assistant
DX: R10.12 Left upper quadrant pain (principal); R13.10 Dysphagia, unspecified; R14.0 Abdominal distension (gaseous); N40.1 Benign prostatic hyperplasia with lower urinary tract symptoms; N13.8 Other obstructive and reflux uropathy; N20.0 Calculus of kidney
CPT/HCPCS: 74220; 99212

== ENCOUNTER → 2023-02-20 10:56 | Outpatient (BNVA) | payer MEDICARE, SELFPAY | PROVIDERS: PCP Internal Medicine; Visit Provider Orthopaedic Surgery | DX: M70.62 Trochanteric bursitis, left hip (principal) | CPT/HCPCS: 20610; 99212; J1100 ==

== ENCOUNTER 2023-03-21 10:45 | Outpatient (REF) | payer MEDICARE, SELFPAY ==
[2023-03-21 10:50] LABS: MANUAL DIFF FLAG NO
[2023-03-21 11:15] LABS: Basophils Percent Auto 0.4 % (0-2); Eosinophils Absolute Auto 0.2 X10*3/uL (0.0-0.4); Eosinophils Percent Auto 2.3 % (0-4); Hematocrit 47.4 % (42.0-52.0); Hemoglobin 15.6 g/dl (14.0-18.0); Imm Gran Abs Auto 0.02 X10*3/uL (0.00-0.03); Imm Gran Pct Auto 0.3 % (0.0-0.4); Lymphocytes Absolute Auto 2.3 X10*3/uL (1.2-4.9); Lymphocytes Percent Auto 29.4 % (20-40); Mean Corpuscular HGB Conc 32.9 g/dl (31.0-36.0); Mean Corpuscular Hemoglobin 28.4 pg (27.0-33.0); Mean Corpuscular Volume 86.3 fL (80.0-98.0); Mean Platelet Volume 10.6 fL (9.4-12.4); Monocytes Absolute Auto 0.8 X10*3/uL (0.1-1.2); Monocytes Percent Auto 10.9 % (2-11); Neutrophils Absolute Auto 4.4 x10*3/uL (2.0-8.3); Neutrophils Percent Auto 56.7 % (45-73); Platelet Count 207 X10*3/uL (160-400); Red Blood Count 5.49 X10*6/uL (4.60-5.80); Red Cell Distribution Width 14.6 % (11.0-16.0); White Blood Count 7.7 X10*3/uL (4.8-10.8)
[2023-03-21 11:25] LABS: Appearance Urine Clear; Color Urine Yellow; Glucose Urine UA Negative (Negative); Leukocyte Esterase Urine Trace (Negative); Nitrite Urine Negative (Negative); PH 5.5 (5.0-9.0); UMIC TRIGGER UACC YES; Urine Blood Negative (Negative); Urine Ketones Negative (Negative); Urine Protein Negative (Neg-Trace)
[2023-03-21 11:33] LABS: Bacteria Urine None Seen (None Seen); Hyaline Casts Urine 0-2 /LPF (0-2); RBC Urine 0-2 /HPF (0-2); Squamous Epithelial Cell Urine 0-2 /HPF (0-2); WBC Urine 0-5 /HPF (0-5)
[2023-03-21 12:06] LABS: Alanine Aminotransferase 30 U/L (0-40); Albumin Level 4.3 g/dL (3.5-5.0); Alkaline Phosphatase 137 U/L (39-117); Anion Gap 13 (12-20); Aspartate Amino Transferase 25 U/L (5-37); Bilirubin Total 0.8 mg/dL (0.0-1.0); Blood Urea Nitrogen 18 mg/dL (9-16); Calcium 9.8 mg/dL (8.4-10.2); Carbon Dioxide 25 mmol/L (22-29); Chloride 108 mmol/L (96-108); Cholesterol 154 mg/dL; Estimated Glomerular Filt Rate 58; Glucose Fasting 125 mg/dL (60-99); HDL Cholesterol 34 mg/dL; LDL Cholesterol Calculated 105 mg/dl; PSA,Total (Free>4and<10) 0.74 ng/mL (0.00-4.00); Potassium 3.9 mmol/L (3.3-5.1); Sodium 142 mmol/L (135-145); Total Protein 6.9 g/dL (6.5-8.0); Triglycerides 78 mg/dL
== END 2023-03-21 10:46 | disposition home or self-care (01) ==
LOC: HO.LNP 10:45
PROVIDERS: Visit Provider Internal Medicine
DX: Z12.5 Encounter for screening for malignant neoplasm of prostate (principal); N40.0 Benign prostatic hyperplasia without lower urinary tract symptoms; E78.00 Pure hypercholesterolemia, unspecified; I10 Essential (primary) hypertension
CPT/HCPCS: 80053; 80061; 81001; 84153; 85025

== ENCOUNTER 2023-09-18 10:49 | Outpatient (REF) | payer MEDICARE, SELFPAY ==
[2023-09-18 11:42] LABS: Alanine Aminotransferase 21 U/L (0-40); Albumin Level 3.9 g/dL (3.5-5.0); Alkaline Phosphatase 127 U/L (39-117); Aspartate Amino Transferase 21 U/L (5-37); Bilirubin Direct 0.2 mg/dL (0.0-0.5); Bilirubin Total 0.7 mg/dL (0.0-1.0); Total Protein 6.7 g/dL (6.5-8.0)
[2023-09-18 11:47] LABS: Cholesterol 131 mg/dL (<200); HDL Cholesterol 31 mg/dL (>40); LDL Cholesterol Calculated 83 mg/dL (<100); Triglycerides 86 mg/dL (<150)
[2023-09-18 11:52] LABS: Reflex LDLD? No
== END 2023-09-18 10:50 | disposition home or self-care (01) ==
LOC: HO.LNP 10:49
PROVIDERS: Visit Provider Internal Medicine
DX: E78.00 Pure hypercholesterolemia, unspecified (principal)
CPT/HCPCS: 80061; 80076

== ENCOUNTER 2023-09-23 10:48 | Emergency (ER) | payer MEDICARE, SELFPAY ==
--- NOTE | ~2023-09-23 | CT_ITS ---
EXAMINATION: CT ABDOMEN AND PELVIS WITHOUT CONTRAST CLINICAL INFORMATION: Left groin pain. COMPARISON: Ultrasound abdomen 11/15/2022. CT abdomen and pelvis 06/05/2019. TECHNIQUE: Multidetector volumetric imaging was performed from the superior aspect of the liver through the pubic symphysis. Sagittal and coronal reformatted images were obtained on the technologist's workstation. This CT examination was performed using dose optimization techniques as appropriate, variously including the following: *Automated exposure control *Adjustment of mA and/or kV according to patient size (this includes techniques or standardized protocols for targeted exams where dose is matched to indication/reason for exam; i.e. extremities or head) *Use of iterative reconstruction technique DLP: 764 mGy-cm FINDINGS: LUNG BASES: There is platelike atelectasis left lung base. The heart size is normal. There are coronary artery and mitral valve calcifications. There is mild thickening of the GE junction in the distal esophagus question small hiatal hernia. LIVER, GALLBLADDER, AND BILIARY TREE: The liver is normal in size, shape, and attenuation. No focal hepatic lesion or biliary ductal dilatation is present. The large 1.7 cm radiopaque gallstone without wall thickening. PANCREAS: Unremarkable. SPLEEN: Unremarkable. ADRENAL GLANDS: Unremarkable. KIDNEYS AND URETERS: The kidneys are normal in size, shape, and attenuation. There are 2 4 mm radiopaque calculi in the lower pole left kidney. There is no calyx stasis or or hydronephrosis. There is mild perinephric stranding. The right kidney is absent. BLADDER: Unremarkable. GASTROINTESTINAL TRACT: There is scattered stool, diarrhea gland gas seen throughout the colon without distention. There is mild mural thickening midascending colon with adjacent atelectasis suggestive of acute diverticulitis. No extraluminal air or fluid collection seen. No proximal bowel obstruction. ABDOMINAL WALL: No significant hernia is appreciated. LYMPH NODES: Normal. VASCULAR: Unremarkable. PELVIC VISCERA: No free air or free fluid seen. OSSEOUS STRUCTURES: No aggressive lytic or sclerotic process seen. There is mild indistinctness with vacuum disc phenomena from T12-L1 through L4-S1 disc level. CT/CT abdomen pelvis wo IV con IMPRESSION: 1. Mild mural thickening mid ascending colon with adjacent diverticuli suggestive of acute diverticulitis. No extraluminal air or fluid collection seen. No proximal bowel obstruction. 2. Nonobstructive radiopaque calculi lower pole left kidney. 3. Cholelithiasis without wall thickening. 4. Mild thickening of the GE junction and distal esophagus question small hiatal hernia. 5. Degenerative disc changes with vacuum disc phenomena from T12-L1 through L5-S1 disc level. Fleischner guidelines were followed.
[2023-09-23 11:05] VITALS: BP 155/62; PULSE 67; RESP 16; TEMP 36.4; O2SAT 95; BMI 32.5
--- NOTE | 2023-09-23 11:06 | ED_ITS ---
HPI - Abdominal Pain General Chief Complaint: Abdominal Pain Stated Complaint: quest kidney stone Time Seen by Provider: 09/23/23 11:32 Source: patient Mode of arrival: ambulatory Limitations: no limitations History of Present Illness HPI narrative: 87 yo male wiht PMH of CAD s/p CABG, HLD, HTN, dysphagia, BPH, kidney stones s/p R nephrectomy (RCC) here with c/o L flank pain getting worse over the week but no associated fevers or n/v/d, hematuria/dysuria. He notes he does do exercises and might have hurt himself. He has no rash and the skin is not sensitive. Hurts to move. MD elicited complaint: abdominal pain and flank pain Pertinent past history: kidney stones Onset (ago): week(s) (1) Pain Consistency: intermittent Location: L flank Severity: moderate Quality: aching Radiation: none Migration to: no migration Exacerbating factors: movement Relieving factors: nothing Associated symptoms: denies other symptoms Related Data Home Medications Medication Instructions Recorded Confirmed flu vacc 2020-(65yr ml IM 10/27/20 09/19/22 up)-MF59C(PF) 60 mcg(15 mcgx4)/0.5 mL IM syringe nitroglycerin 0.4 mg sublingual 1 mg sublingual PRN prevention 10/27/20 09/19/22 tablet atorvastatin 80 mg tablet 40 mg PO DAILY 09/30/21 09/23/23 metoprolol tartrate 50 mg tablet 25 mg PO BID 09/30/21 09/23/23 isosorbide mononitrate 60 mg 60 mg PO DAILY 11/25/21 09/23/23 tablet,extended release 24 hr amlodipine 10 mg tablet 10 mg PO DAILY 06/07/22 09/23/23 Previous Rx's Medication Instructions Recorded tamsulosin 0.4 mg capsule 0.8 mg (2 x 0.4 mg) PO BEDTIME 90 01/16/23 days #180 caps omeprazole 20 mg capsule,delayed 20 mg PO DAILY #30 caps 04/03/23 release amoxicillin 875 mg-potassium 1 tab PO BID #13 tabs 09/23/23 clavulanate 125 mg tablet Allergies Allergy/AdvReac Type Severity Reaction Status Date / Time oxycodone [OxyContin] Allergy Unknown Unknown Verified 09/23/23 11:10 codeine [CODEINE] AdvReac Mild Nausea and Verified 09/23/23 11:10 Vomiting Review of Systems Review of Systems Constitutional : No Fever, No Chills ENT/Mouth : No sore throat Eyes: No Eye Pain, No Swelling, No Redness Cardiovascular : No Chest Pain, No SOB Respiratory : No Cough, No Sputum, No Wheezing Gastrointestinal : no Nausea, no Vomiting, No Diarrhea, no abdominal pain Genitourinary : no Dysuria, no urinary frequency, no Hematuria, positive Flank Pain, Musculoskeletal : No joint pain, No Myalgias Skin : No Skin Lesions, No rash Neuro : No Weakness, No Numbness, No Headache Psych : No Anxiety/Panic, No Depression Heme/Lymph: No Bruising, No Lymphadenopathy Endocrine : No Polyuria, No Polydipsia All other systems reviewed and are negative [facility] Past Medical History Attestation statement: The following information was validated with the patient. 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 Oriented X3. No acute distress. Eyes: Pupils equal, round and reactive to light. ENT: Pharynx normal. Neck: Normal inspection. Neck supple. CVS: Normal heart rate and rhythm. Pulses normal. Respiratory: No respiratory distress. Breath sounds normal. Abdomen: Soft and nontender. L flank there is ttp but is seems superficial and over oblique muscles no rash or skin hyperesthesia Skin: Skin warm and dry. Normal skin color. Normal skin turgor. Extremities: No lower extremity edema. No calf ttp Neuro: Oriented X 3. No motor deficit. No sensory deficit. Course Course Course Narrative: RME:?87 yo male with hx DDD, HTN, HDL, BPH, kidney stones, L renal cyst, absent R kidney, follows w/ Dr. Rey, presents w/ LLQ pain w/ radiation to groin beginning yesterday, constant since onset, 8/10 stabing pain. States feels like kidney pain . Last BM last night and was normal. Denies hematuria, dysuria, difficulty urinating, fever, chills N/V. PE: No CVAT. TTP LLQ, no rebound or guarding. Normoactive BS x4. Plan: labs, CT abd/pelvis w/o con Full HPI, ROS and PE to be performed by the primary ED provider. Medical Decision Making Medical Decision Making [facility] Narrative: 87 yo male wiht PMH of CAD s/p CABG, HLD, HTN, dysphagia, BPH, kidney stones s/p R nephrectomy (RCC) here with L flank pain that does seem muscular in nature he has no rash. No or GI symptoms but given history of stones and prior R nephrectomy will obtain CT scan for renal colic. He declines pain medications. Labs, UA and CT scan ordered. Differential Diagnosis Differential Diagnoses: The differential diagnosis associated with the presentation includes abdominal wall strain, renal colic Admission/Observation Consideration of admission/observation: Escalation of care including admission/observation considered not toxic, labs stable can be started on oral antibiotics Lab Data [facility] Lab Attestation statement: I reviewed the patient's lab results. 09/23/23 11:16 09/23/23 11:16 Labs: Lab Results 09/23/23 Range/Units 11:16 WBC 8.9 (4.8-10.8) X10*3/uL RBC 5.10 (4.60-5.80) X10*6/uL Hgb 14.6 (14.0-18.0) g/dl Hct 43.7 (42.0-52.0) % MCV 85.7 (80.0-98.0) fL MCH 28.6 (27.0-33.0) pg MCHC 33.4 (31.0-36.0) g/dl RDW 14.2 (11.0-16.0) % Plt Count 186 (160-400) X10*3/uL MPV 9.8 (9.4-12.4) fL Immature Gran % (Auto) 0.2 (0.0-0.4) % Neut % (Auto) 68.5 (45-73) % Lymph % (Auto) 17.9 L (20-40) % [place] % (Auto) 11.1 H (2-11) % Eos % (Auto) 1.9 (0-4) % Baso % (Auto) 0.4 (0-2) % Lymph # (Auto) 1.6 (1.2-4.9) X10*3/uL [place] # (Auto) 1.0 (0.1-1.2) X10*3/uL Eos # (Auto) 0.2 (0.0-0.4) X10*3/uL Baso # (Auto) 0.0 (0.0-0.2) X10*3/uL Abs Immat Gran (auto) 0.02 (0.00-0.03) X10*3/uL Absolute Neuts (auto) 6.1 (2.0-8.3) x10*3/uL Absolute Nucleated RBC 0.000 (0.0-0.012) X10*3/uL Nucleated RBC % (auto) 0.0 (0.0-0.2) /100WBC Sodium 142 (135-145) mmol/L Potassium 3.9 (3.3-5.1) mmol/L Chloride 109 H (96-108) mmol/L Carbon Dioxide 25 (22-29) mmol/L Anion Gap 12 (12-20) BUN 19 H (9-16) mg/dL Creatinine 1.09 (0.5-1.4) mg/dL Estim Creat Clear Calc 59.0 Estimated GFR > 60 Random Glucose 122 H (60-115) mg/dL Calcium 9.9 (8.4-10.2) mg/dL Magnesium 1.7 (1.6-2.6) mg/dL Lipase 16 (8-78) U/L Independent Interpretation I performed an independent interpretation of an: CT Scan (diverticulitis) Radiology Impression Discussion of test interpretation with radiology: I have reviewed the radiologist's reading. External Record Review External record reviewed: Inpatient record Prescription Management I considered prescription management with: Antibiotic Discharge Plan Discharge Clinical Impression: Diverticulitis Patient Disposition: Home, Self-Care Instructions: Diverticulitis (ED) Additional Instructions: return for fevers, worsening pain, vomiting, bloody stools or any other concerns. take a probiotic while on antibiotic this is over the counter. On amoxicillin-clavulanate, softer bowel movements are to be expected. Call your provider if you move your bowels more than 4 times a day, your bowel movements are almost all liquid, or you get a rash.? incidental findings on CT scan your doctor can be made aware of and follow up on 1. Mild mural thickening mid ascending colon with adjacent diverticuli suggestive of acute diverticulitis. No extraluminal air or fluid collection seen. No proximal bowel obstruction. 2. Nonobstructive radiopaque calculi lower pole left kidney. 3. Cholelithiasis without wall thickening. 4. Mild thickening of the GE junction and distal esophagus question small hiatal hernia. 5. Degenerative disc changes with vacuum disc phenomena from T12-L1 through L5-S1 disc level. Prescriptions: New amoxicillin-pot clavulanate 875-125 mg tablet 1 tab PO BID Qty: 13 0RF No Action tamsulosin 0.4 mg capsule 0.8 mg PO BEDTIME 90 Days Qty: 180 3RF omeprazole 20 mg capsule,delayed release(DR/EC) 20 mg PO DAILY Qty: 30 5RF nitroglycerin 0.4 mg tablet, sublingual 1 mg sublingual PRN (Reason: prevention) Fluad Quad (65y up)(PF) 60 mcg (15 mcg x 4)/0.5 mL syringe IM atorvastatin 80 mg tablet 40 mg PO DAILY metoprolol tartrate 50 mg tablet 25 mg PO BID isosorbide mononitrate 60 mg tablet extended release 24 hr 60 mg PO DAILY amlodipine 10 mg tablet 10 mg PO DAILY
[2023-09-23 11:21] LABS: MANUAL DIFF FLAG NO
[2023-09-23 11:22] LABS: Basophils Percent Auto 0.4 % (0-2); Eosinophils Absolute Auto 0.2 X10*3/uL (0.0-0.4); Eosinophils Percent Auto 1.9 % (0-4); Hematocrit 43.7 % (42.0-52.0); Hemoglobin 14.6 g/dl (14.0-18.0); Imm Gran Abs Auto 0.02 X10*3/uL (0.00-0.03); Imm Gran Pct Auto 0.2 % (0.0-0.4); Lymphocytes Absolute Auto 1.6 X10*3/uL (1.2-4.9); Lymphocytes Percent Auto 17.9 % (20-40); Mean Corpuscular HGB Conc 33.4 g/dl (31.0-36.0); Mean Corpuscular Hemoglobin 28.6 pg (27.0-33.0); Mean Corpuscular Volume 85.7 fL (80.0-98.0); Mean Platelet Volume 9.8 fL (9.4-12.4); Monocytes Percent Auto 11.1 % (2-11); Neutrophils Absolute Auto 6.1 x10*3/uL (2.0-8.3); Neutrophils Percent Auto 68.5 % (45-73); Platelet Count 186 X10*3/uL (160-400); Red Cell Distribution Width 14.2 % (11.0-16.0); White Blood Count 8.9 X10*3/uL (4.8-10.8)
[2023-09-23 11:30] VITALS: BP 174/71; PULSE 75; RESP 16; TEMP 36.9; O2SAT 98
--- NOTE | 2023-09-23 11:43 | PC.NURSE ---
a&ox3, vss and up to date aside from pt being slightly hypertensive at this time. nsr on the air sampling and monitoring. pt states he did not take morning meds - med rec completed - provider aware/speaking w/ pt at this time. pt c/o 06/08 left sided abdominal pain. pt states that pain radiates to flanks bilaterally. denies urinary sx/hx of kidney stones. resting comfortably in no apparent distress. pt aware of plan of care at this time. respirations even and unlabored. call roman placed within reach.
[2023-09-23 11:49] LABS: Anion Gap 12 (12-20); Blood Urea Nitrogen 19 mg/dL (9-16); Calcium 9.9 mg/dL (8.4-10.2); Carbon Dioxide 25 mmol/L (22-29); Chloride 109 mmol/L (96-108); Estimated Glomerular Filt Rate > 60; Glucose Random 122 mg/dL (60-115); Lipase 16 U/L (8-78); Magnesium 1.7 mg/dL (1.6-2.6); Potassium 3.9 mmol/L (3.3-5.1); Sodium 142 mmol/L (135-145)
--- NOTE | 2023-09-23 12:35 | PC.NURSE ---
urine obtained and sent to lab. pt awaiting to go to CT at this time. bedside. call roman placed within reach.
[2023-09-23 12:47] LABS: Appearance Urine Cloudy; Color Urine Yellow; Glucose Urine UA Negative (Negative); Leukocyte Esterase Urine Negative (Negative); Nitrite Urine Negative (Negative); PH 6.5 (5.0-9.0); Urine Blood Negative (Negative); Urine Ketones Negative (Negative); Urine Protein Negative (Neg-Trace)
--- NOTE | 2023-09-23 12:48 | PC.NURSE ---
medications administered per provider order.
[2023-09-23] MEDS: Amoxicillin/Potassium Clav 875 MG TABLET PO (12:54)
--- NOTE | 2023-09-23 12:56 | PC.NURSE ---
medications administered per provider order.
== END 2023-09-23 13:05 | disposition home or self-care (01) ==
PROVIDERS: Physician Assistant Medical; Emergency Provider Emergency Medicine; PCP Internal Medicine
DX: K57.32 Diverticulitis of large intestine without perforation or abscess without bleeding (principal); I10 Essential (primary) hypertension; E78.5 Hyperlipidemia, unspecified
CPT/HCPCS: 36415; 74176; 80048; 81003; 83690; 83735; 85025; 99284

== ENCOUNTER 2023-11-13 11:27 | Outpatient (REF) | payer MEDICARE, SELFPAY ==
--- NOTE | ~2023-11-13 | US_ITS ---
EXAMINATION: US RETROPERITONEAL LIMITED CLINICAL INFORMATION: Cyst of kidney, acquired. COMPARISON: CT abdomen and pelvis without contrast 09/23/2023. Ultrasound abdomen complete 11/11/2022. Renal ultrasound 10/27/2022. TECHNIQUE: Real-time imaging of the left kidney. FINDINGS: RIGHT KIDNEY: Surgically absent. LEFT KIDNEY: 14.7 x 5.7 x 5.1 cm (SAG x AP x TRV). The kidney has normal cortical thickness and cortical echotexture. No evidence of solid renal mass. A few small simple cysts are present, largest measuring up to 1.1 cm. No renal imaging follow-up is recommended for simple cysts. The small calyceal stones previously seen in the lower pole on 09/23/2023 are not sonographically visualized. Trace perinephric fluid is detected. No hydronephrosis. US/US renal LT IMPRESSION: Benign cysts of the left kidney. There are no suspicious-appearing left renal lesions.
== END 2023-11-13 11:28 | disposition home or self-care (01) ==
LOC: HO.US 11:27
PROVIDERS: Visit Provider Urology
DX: N28.1 Cyst of kidney, acquired (principal)
CPT/HCPCS: 76775

== ENCOUNTER 2023-11-24 11:32 | Outpatient (AMB) | payer MEDICARE, SELFPAY ==
--- NOTE | 2023-11-24 11:47 | A.OFFVIS_ITS ---
Intake Intake Visit Reasons: 1Y US(SET) Intake Note: Patient is Present for Follow Up US Urology Medication: Tamsulosin Antibiotic Allergies: None Blood Thinners: None Allergies oxycodone [OxyContin] Allergy (Unknown, Verified 09/23/23 11:10) Unknown codeine [CODEINE] Adverse Reaction (Mild, Verified 09/23/23 11:10) Nausea and Vomiting HPI HPI Comments History of Present Illness Details Robert is a very pleasant male. He is a patient of Dr. Chavira. He is seen for the following urologic conditions - nephrolithiasis - lower urinary tract symptoms Yearly follow-up Normal imaging Continue good response to tamsulosin 12 month follow-up Lower urinary tract symptoms Progressive symptoms Good response to tamsulosin 0.4 mg Nocturia 1-2 times PSA 03/21 0.7 Discussion regarding elevating legs in late afternoon Nephrolithiasis in setting of solitary kidney They are here for - further evaluation of nephrolithiasis Urolithiasis was diagnosed - a number of years ago The patient previously had kidney stones whose composition w - unknown Laboratory investigations include - no recent labs 24 Hour urine evaluation - none on file Prior treatment(s) include - early 2017 left ESWL - 11/19 renal ultrasound left perinephric hematoma. No evidence of stones Prior imaging includes - renal ultrasound March 2018 3 mm left l ower pole - 11/21 absent right kidney, left renal c yst, no evidence of stones - 10/21 renal ultrasound no evidence of stones on left kidney Therapeutic plan - continue renal ultrasound [facility] Medical History (Updated 11/24/23 @ 12:14 by West Rey MD) Nephrolithiasis Dysphagia Peripheral neuropathy Degenerative joint disease (DJD) of lumbar spine Hyperlipidemia Hypertension Renal hematoma BPH w urinary obs/LUTS Surgical History S/P triple vessel bypass Social History Household Members Other:: 4 kids Patient Tobacco Use Status: Never used Tobacco 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 No major barriers to patient understanding were identified. An opportunity to ask questions regarding the treatment plan was provided. All questions were answered. The patient expressed understanding and agreement with the above treatment plan. The patient is aware they should contact our office by phone for worsening of their current condition or the appearance of new urologic symptoms. Compliance is encouraged with any medications and followup testing that is ordered. It is a privilege to participate in the urologic care of your patient. If you have any questions or concerns regarding treatment for the above conditions, or other urologic issues, please do not hesitate to contact me. The office telephone contact is [phone]. This note is constructed using voice recognition software. While every effort has been made to ensure accuracy senior marketing data analyst errors may have been included. Yours sincerely, Dr West Rey MD, [facility] - Urology Providers of Expert, Compassionate Care for the Genitourinary System Coding Level of Care Code Est Pt Level 4 (14658) Diagnoses Nephrolithiasis N20.0
== END 2023-11-24 12:19 | disposition home or self-care (01) ==
PROVIDERS: PCP Internal Medicine; Visit Provider Urology
DX: N20.0 Calculus of kidney (principal)
CPT/HCPCS: 99213

== ENCOUNTER → 2023-11-24 11:32 | Outpatient (BNVA) | payer MEDICARE, SELFPAY | PROVIDERS: Visit Provider Urology | DX: N28.1 Cyst of kidney, acquired (principal); Z87.442 Personal history of urinary calculi; Q60.0 Renal agenesis, unilateral | CPT/HCPCS: 99212 ==

== ENCOUNTER 2024-03-28 10:55 | Outpatient (REF) | payer MEDICARE, SELFPAY ==
[2024-03-28 10:58] LABS: MANUAL DIFF FLAG NO
[2024-03-28 11:14] LABS: Basophils Percent Auto 0.4 % (0-2); Eosinophils Absolute Auto 0.2 X10*3/uL (0.0-0.4); Eosinophils Percent Auto 2.3 % (0-4); Hematocrit 44.9 % (42.0-52.0); Imm Gran Abs Auto 0.02 X10*3/uL (0.00-0.03); Imm Gran Pct Auto 0.2 % (0.0-0.4); Lymphocytes Absolute Auto 2.6 X10*3/uL (1.2-4.9); Lymphocytes Percent Auto 30.5 % (20-40); Mean Corpuscular HGB Conc 33.4 g/dl (31.0-36.0); Mean Corpuscular Volume 86.7 fL (80.0-98.0); Mean Platelet Volume 10.9 fL (9.4-12.4); Monocytes Absolute Auto 0.9 X10*3/uL (0.1-1.2); Monocytes Percent Auto 10.5 % (2-11); Neutrophils Absolute Auto 4.8 x10*3/uL (2.0-8.3); Neutrophils Percent Auto 56.1 % (45-73); Platelet Count 200 X10*3/uL (160-400); Red Blood Count 5.18 X10*6/uL (4.60-5.80); Red Cell Distribution Width 14.6 % (11.0-16.0); White Blood Count 8.6 X10*3/uL (4.8-10.8)
[2024-03-28 11:54] LABS: Alanine Aminotransferase 27 U/L (0-40); Albumin Level 4.1 g/dL (3.5-5.0); Alkaline Phosphatase 131 U/L (39-117); Anion Gap 12 (12-20); Aspartate Amino Transferase 25 U/L (5-37); Blood Urea Nitrogen 18 mg/dL (9-16); Calcium 10.1 mg/dL (8.4-10.2); Carbon Dioxide 26 mmol/L (22-29); Chloride 108 mmol/L (96-108); Cholesterol 124 mg/dL (<200); Estimated Glomerular Filt Rate 59; Glucose Fasting 112 mg/dL (60-99); HDL Cholesterol 33 mg/dL (>40); LDL Cholesterol Calculated 75 mg/dL (<100); Potassium 3.9 mmol/L (3.3-5.1); Sodium 142 mmol/L (135-145); Triglycerides 81 mg/dL (<150)
[2024-03-28 12:03] LABS: PSA,Total (Free>4and<10) 0.58 ng/mL (0.00-4.00)
== END 2024-03-28 10:56 | disposition home or self-care (01) ==
LOC: HO.LNP 10:55
PROVIDERS: Visit Provider Internal Medicine
DX: N40.0 Benign prostatic hyperplasia without lower urinary tract symptoms (principal); E78.00 Pure hypercholesterolemia, unspecified; I10 Essential (primary) hypertension; Z12.5 Encounter for screening for malignant neoplasm of prostate
CPT/HCPCS: 80053; 80061; 84153; 85025

== ENCOUNTER 2024-05-28 10:31 | Emergency (ER) | payer MEDICARE, SELFPAY ==
--- NOTE | ~2024-05-28 | US_ITS ---
EXAMINATION: US VENOUS ULTRASOUND WITH DOPPLER LOWER EXTREMITY, LEFT CLINICAL INFORMATION: Redness and swelling COMPARISON: None available. TECHNIQUE: Ultrasound of the deep veins is performed from the hip to the calf with compression sonography and color and pulse Doppler assessment. Spectral analysis with color-flow imaging is performed. FINDINGS: There is normal venous compression and respiratory variation and augmented flow. The visualized left common femoral vein, superficial femoral vein, profunda femoral vein, popliteal vein, and the trifurcation region shows no evidence of deep venous thrombosis. There is no significant popliteal fossa cyst. If the patient's symptoms persist, followup ultrasound in 5 days 7 days might be of value to exclude proximal propagation from a non-visualized calf vein. US/US venous duplex LE IMPRESSION: No DVT demonstrated in the left lower extremity.
--- NOTE | 2024-05-28 11:08 | ED.EXTPRO ---
HPI - Extremity Problem General Chief complaint: Extremity Problem Stated complaint: Soreness/redness L leg Time Seen by Provider: 05/28/24 12:50 Source: patient Limitations: no limitations History of Present Illness ED Provider: Estee Ravi PA-C HPI Narrative: 88-year-old male with history of prior CVA with left-sided residual deficits, subsequent gait instability who utilizes a cane to ambulate, also requiring a foot brace due to left foot drop, peripheral neuropathy, DJD, hypertension and hyperlipidemia presents with left lower extremity swelling x1 day. Patient has a chronic nonhealing wound superior to the left ankle. He noted the development of redness that began to track upward toward his knee throughout the course of the day. Patient called his primary care provider who suggested he go to the ER to rule out DVT and/or the presence of cellulitis. Patient denies fever. Related Data Home Medications ?Medication ?Instructions ?Recorded ?Confirmed flu vacc (65yr ml IM 10/27/20 09/19/22 up)-MF59C(PF) 60 mcg(15 mcgx4)/0.5 mL IM syringe nitroglycerin 0.4 mg sublingual 1 mg sublingual PRN prevention 10/27/20 09/19/22 tablet atorvastatin 80 mg tablet 40 mg PO DAILY 09/30/21 09/23/23 metoprolol tartrate 50 mg tablet 25 mg PO BID 09/30/21 09/23/23 isosorbide mononitrate 60 mg 60 mg PO DAILY 11/25/21 09/23/23 tablet,extended release 24 hr amlodipine 10 mg tablet 10 mg PO DAILY 06/07/22 09/23/23 Previous Rx's ?Medication ?Instructions ?Recorded amoxicillin 875 mg-potassium 1 tab PO BID #13 tabs 09/23/23 clavulanate 125 mg tablet tamsulosin 0.4 mg capsule 0.8 mg (2 x 0.4 mg) PO BEDTIME 90 01/15/24 days #180 caps omeprazole 20 mg capsule,delayed 20 mg PO DAILY #30 caps 04/02/24 release doxycycline monohydrate 100 mg 100 mg PO BID #14 caps 05/28/24 capsule Allergies Allergy/AdvReac Type Severity Reaction Status Date / Time oxycodone [OxyContin] Allergy Unknown Unknown Verified 05/28/24 11:10 codeine [CODEINE] AdvReac Mild Nausea and Verified 05/28/24 11:10 Vomiting Review of Systems Review of Systems: Yes all other systems are reviewed and are negative Constitutional: Constitutional: Denies fever(s) Cardiovascular: Cardiovascular: Denies chest pain and Denies dyspnea Respiratory: Respiratory: Denies dyspnea Integumentary/Breasts: Skin/Breast: Reports change in pigmentation PMFSH Past Medical History Attestation statement: The following information was validated with the patient. 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 There is a dime-size dry ulceration superior to the left ankle located medially. Warmth and erythema that is patchy that spans upward toward the tibial plateau. Skin: Other: Warm dry Neuro: General: patient oriented x3, no focal motor deficits and CN's II-XI intact bilaterally Psych: Other: Calm cooperative Course Course Course Narrative: This is a Rapid Medical Examination (RME) performed by Courtney Molina PA-C in triage. Full HPI, ROS, assessment and treatment plan per primary provider in the Main ED. 88 yo male with history of CAD s/p CABG, HLD, HTN, dysphagia, BPH, kidney stones s/p R nephrectomy (RCC), history of drop off and neuropathy who presents to the ER from home c/o left lower extremity redness, pain and swelling that started last night. He reports a chronic left lower extremity ulceration that has been present for months but the redness of the lower leg is new. He is newly on plavix for concern of possible recent stroke. VS are stable in triage. LLE with erythema & warmth of the lower leg just proximal to his leg brace, sparing the distal lower leg, 1+ pitting edema and small ulcer to the medial lower leg without drainage. speaking in complete sentences, no distress. afebrile and not tachycardic. Plan: LE doppler r/o DVT, labs Reevaluation(s) Reevaluation #1: 88-year-old male with history of prior CVA with left-sided residual deficits, subsequent gait instability who utilizes a cane to ambulate, also requiring a foot brace due to left foot drop, peripheral neuropathy, DJD, hypertension and hyperlipidemia presents with left lower extremity swelling x1 day. Patient has a chronic nonhealing wound superior to the left ankle. He noted the development of redness that began to track upward toward his knee throughout the course of the day. Patient called his primary care provider who suggested he go to the ER to rule out DVT and/or the presence of cellulitis. Patient denies fever. Problem: Age, gait instability, hypertension History: Per patient I have considered the following differential diagnoses: Cellulitis, purulent cellulitis, erysipelas, DVT Plan: Patient was seen in [facility], screening labs and an ultrasound to rule out DVT were obtained. No DVT. His exam was consistent with minimal cellulitis, we will place on doxycycline he can follow up with his primary care provider within the week. I have independently reviewed the following tests: Labs: Slight leukocytosis, not anemic, no electrolyte abnormality Ultrasound left lower extremity:[address] [place] [address] Ultrasound Report Signed Patient: Robert Flores MR#: [id number] : 1935 Acct:[id number] Age/Sex: 88 / M ADM Date: 05/28/24 Loc: HO.ED Attending Dr: Ordering Physician: Sarah Molina Date of Service: 05/28/24 Procedure(s): US venous duplex LE LT Accession Number(s): [id number] cc: Brennen Chavira MD; Sarah Molina~ EXAMINATION: US VENOUS ULTRASOUND WITH DOPPLER LOWER EXTREMITY, LEFT CLINICAL INFORMATION: Redness and swelling COMPARISON: None available. TECHNIQUE: Ultrasound of the deep veins is performed from the hip to the calf with compression sonography and color and pulse Doppler assessment. Spectral analysis with color-flow imaging is performed. FINDINGS: There is normal venous compression and respiratory variation and augmented flow. The visualized left common femoral vein, superficial femoral vein, profunda femoral vein, popliteal vein, and the trifurcation region shows no evidence of deep venous thrombosis. There is no significant popliteal fossa cyst. If the patient's symptoms persist, followup ultrasound in 5 days 7 days might be of value to exclude proximal propagation from a non-visualized calf vein. US/US venous duplex LE LT IMPRESSION: No DVT demonstrated in the left lower extremity. Medications Administered Discontinued Medications Generic Name Dose Route Start Last Admin Trade Name Freq PRN Reason Stop Dose Admin Doxycycline Monohydrate 100 mg 05/28/24 13:43 05/28/24 14:02 Doxycycline Monohydrate 100 Mg Capsule PO 05/28/24 13:44 100 mg ONCE ONE Administration Medical Decision Making Lab Data 05/28/24 11:23 05/28/24 11:23 Labs: Lab Results 05/28/24 Range/Units 11:23 WBC 11.9 H (4.8-10.8) X10*3/uL RBC 5.11 (4.60-5.80) X10*6/uL Hgb 15.1 (14.0-18.0) g/dl Hct 43.4 (42.0-52.0) % MCV 84.9 (80.0-98.0) fL MCH 29.5 (27.0-33.0) pg MCHC 34.8 (31.0-36.0) g/dl RDW 14.5 (11.0-16.0) % Plt Count 158 L (160-400) X10*3/uL MPV 10.1 (9.4-12.4) fL Immature Gran % (Auto) 0.3 (0.0-0.4) % Neut % (Auto) 75.0 H (45-73) % Lymph % (Auto) 13.5 L (20-40) % [place] % (Auto) 10.6 (2-11) % Eos % (Auto) 0.3 (0-4) % Baso % (Auto) 0.3 (0-2) % Lymph # (Auto) 1.6 (1.2-4.9) X10*3/uL [place] # (Auto) 1.3 H (0.1-1.2) X10*3/uL Eos # (Auto) 0.0 (0.0-0.4) X10*3/uL Baso # (Auto) 0.0 (0.0-0.2) X10*3/uL Abs Immat Gran (auto) 0.04 H (0.00-0.03) X10*3/uL Absolute Neuts (auto) 8.9 H (2.0-8.3) x10*3/uL Absolute Nucleated RBC 0.000 (0.0-0.012) X10*3/uL Nucleated RBC % (auto) 0.0 (0.0-0.2) /100WBC ESR 10 (0-15) MM/HR Sodium 137 (135-145) mmol/L Potassium 3.7 (3.3-5.1) mmol/L Chloride 107 (96-108) mmol/L Carbon Dioxide 24 (22-29) mmol/L Anion Gap 10 L (12-20) BUN 19 H (9-16) mg/dL Creatinine 1.31 (0.5-1.4) mg/dL Estim Creat Clear Calc 47.7 Estimated GFR 52 Random Glucose 157 H (60-115) mg/dL Calcium 10.2 (8.4-10.2) mg/dL Magnesium 1.8 (1.6-2.6) mg/dL Total Bilirubin 1.1 H (0.0-1.0) mg/dL Direct Bilirubin 0.3 (0.0-0.5) mg/dL AST 26 (5-37) U/L ALT 21 (0-40) U/L Alkaline Phosphatase 115 (39-117) U/L C-Reactive Protein 10.28 H (< or = 0.50) mg/dL Total Protein 6.8 (6.5-8.0) g/dL Albumin 3.9 (3.5-5.0) g/dL Discharge Plan Discharge Clinical Impression: Cellulitis Patient Disposition: Home, Self-Care Instructions: Cellulitis (ED) Additional Instructions: The ultrasound study was normal, you do not have a clot in the left leg. You are being treated for cellulitis. See home care instructions. Take the doxycycline as directed and follow up with your primary care provider within a week. Prescriptions: New doxycycline monohydrate 100 mg capsule 100 mg PO BID Qty: 14 0RF No Action tamsulosin 0.4 mg capsule 0.8 mg PO BEDTIME 90 Days Qty: 180 3RF omeprazole 20 mg capsule,delayed release(DR/EC) 20 mg PO DAILY Qty: 30 5RF amoxicillin-pot clavulanate 875-125 mg tablet 1 tab PO BID Qty: 13 0RF nitroglycerin 0.4 mg tablet, sublingual 1 mg sublingual PRN (Reason: prevention) Fluad Quad 2019-(65y up)(PF) 60 mcg (15 mcg x 4)/0.5 mL syringe IM atorvastatin 80 mg tablet 40 mg PO DAILY metoprolol tartrate 50 mg tablet 25 mg PO BID isosorbide mononitrate 60 mg tablet extended release 24 hr 60 mg PO DAILY amlodipine 10 mg tablet 10 mg PO DAILY Interventions: ED Discharge Assessment Last Done: 05/28/24 14:05 Print Language: Maltese
[2024-05-28 11:09] VITALS: BP 159/73; PULSE 88; RESP 16; TEMP 36.7; O2SAT 95; BMI 31.9
[2024-05-28 11:29] LABS: MANUAL DIFF FLAG NO
[2024-05-28 11:32] LABS: Basophils Percent Auto 0.3 % (0-2); Eosinophils Percent Auto 0.3 % (0-4); Hematocrit 43.4 % (42.0-52.0); Hemoglobin 15.1 g/dl (14.0-18.0); Imm Gran Abs Auto 0.04 X10*3/uL (0.00-0.03); Imm Gran Pct Auto 0.3 % (0.0-0.4); Lymphocytes Absolute Auto 1.6 X10*3/uL (1.2-4.9); Lymphocytes Percent Auto 13.5 % (20-40); Mean Corpuscular HGB Conc 34.8 g/dl (31.0-36.0); Mean Corpuscular Hemoglobin 29.5 pg (27.0-33.0); Mean Corpuscular Volume 84.9 fL (80.0-98.0); Mean Platelet Volume 10.1 fL (9.4-12.4); Monocytes Absolute Auto 1.3 X10*3/uL (0.1-1.2); Monocytes Percent Auto 10.6 % (2-11); Neutrophils Absolute Auto 8.9 x10*3/uL (2.0-8.3); Platelet Count 158 X10*3/uL (160-400); Red Blood Count 5.11 X10*6/uL (4.60-5.80); Red Cell Distribution Width 14.5 % (11.0-16.0); White Blood Count 11.9 X10*3/uL (4.8-10.8)
[2024-05-28 11:46] LABS: Alanine Aminotransferase 21 U/L (0-40); Albumin Level 3.9 g/dL (3.5-5.0); Alkaline Phosphatase 115 U/L (39-117); Anion Gap 10 (12-20); Aspartate Amino Transferase 26 U/L (5-37); Bilirubin Direct 0.3 mg/dL (0.0-0.5); Bilirubin Total 1.1 mg/dL (0.0-1.0); Blood Urea Nitrogen 19 mg/dL (9-16); C Reactive Protein 10.28 mg/dL (< or = 0.50); Calcium 10.2 mg/dL (8.4-10.2); Carbon Dioxide 24 mmol/L (22-29); Chloride 107 mmol/L (96-108); Creatinine Clr Calc Pharmacy 47.7; Estimated Glomerular Filt Rate 52; Glucose Random 157 mg/dL (60-115); Magnesium 1.8 mg/dL (1.6-2.6); Potassium 3.7 mmol/L (3.3-5.1); Sodium 137 mmol/L (135-145); Total Protein 6.8 g/dL (6.5-8.0)
--- NOTE | 2024-05-28 11:51 | PC.NURSE ---
patient arrives through external triage with complaints of some redness and swelling to his left lower leg. patient has a small approximately 1.5cm wound on his fuentes that he is being seen for, appears to be healing well. patient states he woke up this morning and his leg appeared more swollen and red and was painful to the touch. some swelling noted below the left knee and some redness noted above brace. brace removed, patient state he has neuropathy and drop foot in that leg so he is unable to feel much. no drainage noted to wound, patient denies pain to wound site. blood work drawn in triage. patient changed into appropriate hospital attire, remains at bedside awaiting MD li
[2024-05-28 12:04] VITALS: BP 117/66; PULSE 78; RESP 14; TEMP 36.6; O2SAT 94
[2024-05-28 12:20] LABS: Erythrocyte Sedimentation Rate 10 MM/HR (0-15)
[2024-05-28] MEDS: Doxycycline Monohydrate 100 MG CAPSULE PO (14:02)
[2024-05-28 14:05] VITALS: BP 117/66; PULSE 78; RESP 14; TEMP 36.6; O2SAT 94
== END 2024-05-28 14:13 | disposition home or self-care (01) ==
PROVIDERS: Physician Assistant; Emergency Provider Emergency Medicine; PCP Internal Medicine
DX: L03.116 Cellulitis of left lower limb (principal); R60.0 Localized edema; Z79.899 Other long term (current) drug therapy
CPT/HCPCS: 36415; 80048; 80076; 83735; 85025; 85652; 86140; 93971; 99284

== ENCOUNTER 2024-08-15 11:35 | Outpatient (AMB) | payer MEDICARE, SELFPAY ==
[2024-08-15 11:40] VITALS: BP 100/58; BMI 31.8
--- NOTE | 2024-08-15 11:40 | MHC.OFFVIS ---
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 of TIA. Was Dx w/ vertugo. Pt had diziness at the time, has not had dizziness spells since and also has a drop foot of the Left LE so he is usually unable to balance very well. 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 He had an episode where he noted some dizziness and vertigo this was associated with some nausea. He was subsequently sent into the hospital and was diagnosed with a TIA at [facility]. He had a CTA of the head and neck demonstrates carotid stenosis right of about 70% left of about 60%. This was performed on 04/20/2024. Unfortunately we do not have the official report of this. He has been seen by pain management in the past as well for neuropathy and radiculopathy. At the current time he seems to be ambulating fairly well with the use of walker. He now presents to us for vascular evaluation. 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 Review of Systems Const All systems reviewed & are unremarkable except as noted in HPI and below Reports no additional complaints ENT Reports Normal hearing present Card Denies chest pain, Denies chest pain at rest, Denies chest pain with activity and Denies pedal edema Resp Denies cough GI Denies abdominal pain Musc Denies abnormal gait, Denies muscle cramps and Denies radiating pain into limb Skin/Breast Denies skin ulcer and Denies wounds Neuro Reports Normal hearing present and Denies abnormal gait Psych Reports no additional complaints Physical Exam Vital Signs: Last Vital Signs BP 118/60 08/15/24 11:52 BMI result Body Mass Index 31.8 Const General: cooperative, healthy appearing and comfortable Orientation/consciousness: oriented to person, oriented to place and oriented to time HEENT Head: Yes normal to inspection Neck Neck: Yes normal visual inspection Carotids: no bruits Chest Chest palpation & inspection: normal inspection of the chest Resp Effort & Inspection: normal respiratory effort and able to speak in complete sentences Auscultation: clear to auscultation bilaterally, no crackles, no rales, no rhonchi and no wheezes Cardio Rate: regular rate Rhythm: regular rhythm Heart sounds: S1 normal heart sound present and S2 normal heart sound present Bruits: no carotid bruits Peripheral pulses: Peripheral pulses 2+ throughout GI Inspection: Yes normal to inspection Skin Wounds: no wounds Hair: normal Neuro General: oriented to person, oriented to place and oriented to time Cranial nerves: Yes CN's II-XII intact bilaterally and Yes Normal hearing present Cognition (Neuro): normal cognition Motor exam (neuro): 5/5 motor strength present throughout Extrem Other: venous exam: No significant superficial varicosities or spider telangiectasias, minimal edema General: No clubbing, No cyanosis and No edema Psych Appearance: grossly normal Mental Status: mental status grossly normal Speech and movement: Normal speech and movement present Results Reviewed Results Reviewed: Reported carotid stenosis of the right of 70% and left of 60% on CTA 04/20/2024 at [facility]. Unfortunately we do not have official report. Assessment & Plan Assessment & Plan (1) Bilateral carotid artery stenosis: Code(s): I65.23 - Occlusion and stenosis of bilateral carotid arteries Category: Medical Plan: In short patient has bilateral carotid stenosis. Unclear if this was the etiology of his problems or not. We are trying to get official records. I have taken the liberty of ordering a carotid ultrasound to get a baseline. At the current time he does seem to be stable. He is being maintained on an aspirin and statin. He will follow up with us after ultrasound testing. In the interim we will try to get official hospital reports. Thank you for allowing us to assist in his care. If there are any questions or concerns please do not hesitate to contact us. Orders: Orders US carotid duplex BI 1 Week I65.23 - Occlusion and stenosis of bilateral carotid arteries Coding Level of Care Code Est Pt Level 4 (93043) Diagnoses Bilateral carotid artery stenosis I65.23
[2024-08-15 11:52] VITALS: BP 118/60
== END 2024-08-15 12:12 | disposition home or self-care (01) ==
PROVIDERS: PCP Internal Medicine; Visit Provider Surgery Vascular Surgery
DX: I65.23 Occlusion and stenosis of bilateral carotid arteries (principal)
CPT/HCPCS: 99213

== ENCOUNTER 2024-10-07 11:02 | Outpatient (REF) | payer MEDICARE, SELFPAY ==
[2024-10-07 11:47] LABS: Alanine Aminotransferase 34 U/L (0-40); Albumin Level 3.9 g/dL (3.5-5.0); Alkaline Phosphatase 117 U/L (39-117); Aspartate Amino Transferase 31 U/L (5-37); Bilirubin Direct 0.2 mg/dL (0.0-0.5); Bilirubin Total 0.6 mg/dL (0.0-1.0); Cholesterol 126 mg/dL (<200); HDL Cholesterol 31 mg/dL (>40); LDL Cholesterol Calculated 78 mg/dL (<100); Total Protein 6.6 g/dL (6.5-8.0); Triglycerides 86 mg/dL (<150)
[2024-10-07 12:21] LABS: Reflex LDLD? No
--- OUTSIDE RECORDS SUMMARY | 2024-10-09 14:58 | XMS_ITS | Encounter Summary ---
Author Name [facility] [place] Organization [facility] [place] [facility] [place] Address [address] [place] [address] Care Team Providers Care Program Writer Name Role Phone JOSI ORTIZ Primary Care Provider MICHAEL Ludwig Unavailable Unavailable HARI RAYMOND Unavailable Unavailable Insurance Providers: All historical and current Section Date Range: From patient's date of to the date document was created. This section includes the names of all active insurance providers for the patient. Insurance Provider Type of Coverage Plan Name Start of Policy Coverage End of Policy Coverage Group Number Member ID Insurance Provider's Telephone Number Policy Prado's Name Patient's Relationship to Policy Prado [place] MED[place] PLAN C PSEUD O MEDFAIZAN JUAN E Sep 29, 2017 [id number] Caleb GARNER PATIENT [place] MEDICARE SUPPLEMEN TAL MEDFAIZAN JUAN E Sep 29, 2017 [id number] Caleb GARNER PATIENT MEDICARE (WNR) MEDICARE (M) PART B Apr 29, 2003 PART B [id number] Caleb GARNER PATIENT MEDICARE (WNR) MEDICARE (M) PART B Apr 29, 2003 PART B [id number] Caleb GARNER PATIENT MEDICARE (WNR) MEDICARE (M) PART A Aug 30, 2000 PART A [id number] Caleb GARNER PATIENT MEDICARE (WNR) MEDICARE (M) PART A Aug 30, 2000 PART A [id number] Caleb GARNER PATIENT Selected Encounter This section includes the information on record at [place] for the Encounter. Date/Time Encounter Type Encounter Description Reason Pro vider Source Oct 02, 2024 11:30 AM Outpatient Encounter OTOLARYNGOLOGY/ENT IHE Encounter Template Text not used by [place] Plan of Treatment: Future Appointments (+ 6 months) and Future Tests (+/- 45 days) The Plan of Treatment section includes future care activities for the patient from all [place] [facility]. This section includes future appointments and future orders which are active, pending or scheduled. Future Appointments This section includes appointments that were scheduled to occur 6 months from the date of the Encounter, up to a maximum of 20 appointments. The data comes from all [facility] facilities. Appointment Date/Time Appointment Type Appointme nt Facility Name Oct 31, 2024 02:00 PM AMBULATORY - MEDICINE [place] [facility] Active, Pending, and Scheduled Orders This section includes a listing of several types of active, pending, and scheduled orders, including clinic medications orders, diagnostic test orders, procedure orders and consult orders; where the start date of the order is 45 days before the date of the Encounter or 45 days after the date of theEncounter. The data comes from all [facility]. Test Date/Time Test Type Test Details Facility Name Oct 01, 2024 05:00 PM Consult Order OTOLARYNGO LOGY/ENT ONE Cons Pump House Technician's Choice [facility] Advance Directives: All historical and current Section Date Range: From patient's date of to the date document was created. This section includes ALL of a patient's completed or amended [place] Advance and Rescinded Directives. The entries below indicate that a directive exists for the patient, but an actual copy is not included with this document. The data comes from all [place] facilities. Date Advance Directives Provider Source Jan 31, 2007 ADVANCE DIRECTIVE NERY GROSSMAN [facility] Encounter Notes: All associated encounter notes This section contains the clinical notes associated to the Encounter. Date/Time Encounter Note(s) Provider Source Oct 02, 2024 11:30 AM LETTERS: LOCAL TITLE: PATIENT LETTER (B) STANDARD TITLE: LETTERS DATE OF NOTE: OCT 02, 2024@11:30 ENTRY DATE: OCT 02, 2024@11:30:36 AUTHOR: ERNESTINE UNDERWOOD COSIGNER: URGENCY: STATUS: COMPLETED OCT 02, 2024 BERNADETTE GARNER [address] [address] Dear BERNADETTE GARNER We would like to assist you in scheduling a OTOLARYNGOLOGY appointment at the [place]. We have been unable to reach you by phone. To schedule this appointment please call toll free Ext [phone]. Our booking appointment hours are Monday through Monday from 8:00 am to 4:00 pm. Please leave a message if you receive voicemail and let us know a good time and telephone number where we can reach you. If we dont hear back from you within 14 days from the date of this letter we will discontinue the request. If you have already scheduled this appointment, please disregard this letter. Your health is important to us. Sincerely, [facility] [address] [facility] [address] [place] [address] [place] [address] ext. [phone] [facility] [address] [facility] [address] [place] [address] [place] [address] [phone] [facility] [address] [facility] [address] [place] [address] [place] [address] ext. [phone] [facility] [address] [place] [address] ext. [phone] ERNESTINE UNDERWOOD [place] [facility]
--- OUTSIDE RECORDS SUMMARY | 2024-10-09 14:58 | XMS_ITS ---
Author Organization Brennen Chavira MD Address [address] [place] [phone] Care Team Providers Care Au Pair Name Role Phone Brennen Chavira Primary Care Provider [phone] REASON FOR VISIT HDF IMMUNIZATIONS Vaccine Route Administration Date Status Comme nts Influenza High Dose IM Intramuscular 07/22/2024 Administer ed Encounters Encounter Location Date Provider Diagnosis Brennen Chavira MD [address] [place] [phone] 07/22/2024 Brennen Chavira Encounter for immunization Z23 ASSESSMENTS Encounter Date Diagnosis Assessment Notes Treatment Notes Treatment Clinical Notes 07/22/2024 Encounter for immunization (ICD-10 - Z23) PLAN OF TREATMENT Next Appt Details Provider Name:Brennen mendez, 10/11/2024 01:30:00 PM, [address] [facility], Suite [facility], [place], [place], [phone], Provider Name:Brennen mendez, 03/28/2025 07:15:00 AM, [address] [facility], [address], [place], [place], [phone], Provider Name:Brennen mendez, 04/04/2025 11:00:00 AM, [address] [facility], [address], [place], [phone],
--- OUTSIDE RECORDS SUMMARY | 2024-10-09 14:58 | XMS_ITS | Encounter Summary ---
Author Name [facility] [place] [place] Organization [facility] [place] Address [address] [place] [address] Care Team Providers Care Job Tracer Name Role Phone JOSI ORTIZ Primary Care [...] Patient's Relationship to Policy Prado ELLIS BCBS [facility] MEDIGAP PLAN C PSEUD O MEDEX BRONLoren E Sep 29, 2017 [id number] [phone] Caleb GARNER PATIENT [place] MEDICARE SUPPLEMEN TAL MEDEX YESSICA E Sep 29, 2017 [id number] Caleb GARNER PATIENT MEDICARE (WNR) MEDICARE (M) PART B Apr 29, 2003 PART B [id number] [phone] Caleb GARNER PATIENT MEDICARE (WNR) MEDICARE (M) PART B Apr 29, 2003 PART B [id number] Caleb GARNER PATIENT MEDICARE (WNR) MEDICARE (M) PART A Aug 30, 2000 PART A [id number] Caleb GARNER PATIENT MEDICARE (WNR) MEDICARE (M) PART A Aug 30, 2000 PART A [id number] Caleb GARNER PATIENT Selected Encounter This section includes the information on record at [place] for the Encounter. Date/Time Encounter Type Encounter Description Reason Pro vider Source Oct 01, 2024 02:00 PM Outpatient Encounter AUDIOLOGY IHE Encounter Template Text not used by [place] Plan of Treatment: Future Appointments (+ 6 months) and Future Tests (+/- 45 days) The Plan of Treatment section includes future care activities for the patient from all [place] treatmentfacilities. This section includes future appointments and future orders which are active, pending or scheduled. Future Appointments This section includes appointments that were scheduled to occur 6 months from the date of the Encounter, up to a maximum of 20 appointments. The data comes from all [place] treatment facilities. Appointment Date/Time Appointment Type Appointme nt Facility Name Oct 31, 2024 02:00 PM AMBULATORY - MEDICINE [place] C [facility] Active, Pending, and Scheduled Orders This section includes a listing of several types of active, pending, and scheduled orders, including clinic medications orders, diagnostic test orders, procedure orders and consult orders; where the start date of the order is 45 days before the date of the Encounter or 45 days after the date of theEncounter. The data comes from all [facility] facilities. Test Date/Time Test Type Test Details Facility Name Oct 01, 2024 05:00 PM Consult Order OTOLARYNGO LOGY/ENT ONE Cons Automobile Body Repairer's Choice [facility] Advance Directives: All historical and current Section Date Range: From patient's date of to the date document was created. This section includes ALL of a patient's completed or amended [place] Advance and Rescinded Directives. The entries below indicate that a directive exists for the patient, but an actual copy is not included with this document. The data comes from all [place] facilities. Date Advance Directives Provider Source Jan 31, 2007 ADVANCE DIRECTIVE NERY GROSSMAN [facility] Encounter Notes: All associated encounter notes This section contains the clinical notes associated to the Encounter. Date/Time Encounter Note(s) Provider Source Oct 01, 2024 03:05 PM CLINICAL WARNING: LOCAL TITLE: COMMUNICATION AUTHORIZATION STANDARD TITLE: CLINICAL WARNING DATE OF NOTE: OCT 01, 2024@15:05 ENTRY DATE: OCT 01, 2024@15:05:17 AUTHOR: NEIL RAMIREZ EXP COSIGNER: URGENCY: STATUS: COMPLETED Family/Caregiver Name: Primary: Consuelo Garner - spouse [phone] Secondary: Nery Mead- daughter [phone] Tertiary: Authorized Clinic & Topics: All Clinic's & Topics: All Care/Coordination Primary Care: All Care/Coordination Mental Health: All Care/Coordination Specialty Care: All Care/Coordination [id number] Protected Info: [X] Drug Abuse [X] Alcohol Abuse [X] HIV [X] Sickle Cell Expiration: Date: [X] At [ ] Through [ ] At end of care /es/ NEIL RAMIREZ LEAD ASSURANCE ENGINEER Signed: 10/01/2024 15:06 NEIL RAMIREZ [place] [facility]
--- OUTSIDE RECORDS SUMMARY | 2024-10-09 14:58 | XMS_ITS ---
Author Organization Brennen Chavira MD Address [address] [place], [place] [id number] Care Team Providers Care Professor Of Radiology Name Role Phone Brennen Chavira Primary Care Provider RESULTS Component Value Reference Range Notes Liver Panel Reviewed date:10/07/2024 12:51:29 PM Interpretation: Performing Lab:[facility], [address] [place] [phone] Notes/Report: Bilirubin Total 0.6 0.0-1.0 mg/dL Bilirubin Direct 0.2 0.0-0.5 mg/dL Aspartate Amino Transferase 31 5-37 U/L Alanine Aminotransferase 34 0-40 U/L Total Protein 6.6 6.5-8.0 g/dL Albumin Level 3.9 3.5-5.0 g/dL Alkaline Phosphatase 117 39-117 U/L Lipid Panel with Reflex Reviewed date:10/08/2024 12:37:25 PM Interpretation: Performing Lab:[facility], [address] [place] [address] Notes/Report: Triglycerides 86 <150 mg/dL Desirable Triglyceride: [...] Location Date Provider Diagnosis Brennen Chavira MD [address] [place] [phone] 10/07/2024 Brennen Chavira Hypercholesterolemia E78.00 ASSESSMENTS Encounter Date Diagnosis Assessment Notes Treatment Notes Treatment Clinical Notes 10/07/2024 Hypercholesterolemia (ICD-10 - E78.00) PLAN OF TREATMENT Next Appt Details Provider Name:Brennen mendez, 10/11/2024 01:30:00 PM, [address] [place] [address], [phone], Provider Name:Brennen mendez, 03/28/2025 07:15:00 AM, [address] [place] [address], [phone], Provider Name:Brennen mendez, 04/04/2025 11:00:00 AM, [address] [place] [address], [phone],
--- OUTSIDE RECORDS SUMMARY | 2024-10-09 14:58 | XMS_ITS | Continuity of Care Document ---
Author Name [facility] Organization [facility] Care Team Providers Care Veterinary Radiologist Name Role Phone [facility] Unavailable Unavailable Problems Combined list of problems from Department of Defense and Veterans Affairs facilities. It does not include entries that were removed or entered in error. 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) Active Condition Jul 31, 2007 Entered By: JAVIER DUKE Comment: T1a N0 M0/I AJCC FORM 07/30/07 [facility] Carpal tunnel syndrome Active Condition Jul 10, 2014 Entered By: VÍCTOR ENRIQUEZ Comment: bilateral, R>L [facility] Carpal Tunnel Syndrome * (ICD-9-CM 354.0) Active Condition [facility] colonoscopy 03/07 normal, few diverticula Active Condition [place] Diabetic peripheral neuropathy (SNOMED CT 811559651) Active Condition [place] duodenal biopsy 03/10/2009 Active Condition March 13, 2009 Entered By: HARRISON MONROE Comment: without pathologic changeMar 30, 2009 Entered By: HARRISON MONROE Comment: EGD 03/07 no Lam's [place] Erectile Dysfunction * (ICD-9-CM 302.72) Active Condition [facility] HEARING LOSS NOS Active Condition JAMILA GUIDRY History of surgery Active Condition Aug 31, 2017 Entered By: JOSI ORTIZ Comment: December 2006 right nephrectomyAug 31, 2017 Entered By: JOSI ORTIZ Comment: CT surgery right handApr 09, 2019 Entered By: JOSI ORTIZ Comment: right nephrectomy - 2nd to renal cell CA [facility] HYPERLIPIDEMIA NEC/NOS Active Condition [facility] Ischemic heart disease Active Condition Jul 04, 2008 Entered By: FERDINAND BOOTHE Comment: Myocardial Stress Perfusion;wall motion;LVEF WNL WHV[facility]ay 2017 Entered By: BETHANY HERNANDEZ Comment: CABG 02/20/2018 [facility] Low Back Pain * (ICD-9-CM 724.2) Active Condition [facility] OBESITY, UNSP Active Condition [facility] Osteoarthrosis involving the knee (ICD-9-CM 715.98) Active Condition [facility] Renal cell carcinoma Active Condition Apr 09, 2019 Entered By: JOSI ORTIZ Comment: right nephrectomy ( PER cardiology notes 02/2019) [facility] Renal Insufficiency Active Condition [facility] Type 2 diabetes mellitus well controlled (SNOMED CT 593426578) Active Condition Aug 31, 2017 Entered By: JOSI ORTIZ Comment: mALB/Cr 8.9 [place] Under care of multiple providers Active Condition Apr 09, 2019 Entered By: JOSI ORTIZ Comment: Cardiology- [facility] - DR FALL/ YENI MACDONALD shower doors and panels fabricator 03/27/2016 Entered By: JOSI ORTIZ Comment: Orthoped- Instrum ( ( [phone]) [facility] Carcinoma, 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) Inactive Condition 01/20/2010 [facility] Chronic ischemic heart disease Inactive Condition 03/28/2018 [facility] CRAMP IN LIMB Inactive Condition 07/05/2006 [facility] [place] HYPERTENSION NOS Inactive Condition 08/23/2004 [facility] [place] Impaired Fasting Glucose Inactive Condition 04/21/2015 [facility] OSTEOARTHROS NOS-UNSPEC Inactive Condition 07/05/2006 [place] UNSPEC HYPRPLASIA PROSTATE Inactive Condition 07/05/2006 [place] VACCIN FOR INFLUENZA Inactive Condition 01/20/2010 [facility] Diagnosis: ICD-10-CM H90.A32 Mix cndct/snrl hear loss,uni,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 Diagnosis [facility] [place] [facility] Diagnosis: ICD-10-CM Z46.0 Encounter for fit/adjst of spectacles and contact lenses Active [facility] Diagnosis: ICD-10-CM H35.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 Medication Details Route Status Patient Instructions Prescription Expires Prescription Number Last Dispense Date Ordering Provider Order Date Order Qty Source AMLODIPINE BESYLATE 10MG TAB TAKE ONE TABLET BY MOUTH ORAL ACTIVE MERHAR,NO B 2023 [facility] ASPIRIN 81MG TAB,EC TAKE ONE TABLET BY MOUTH DAILY ORAL ACTIVE BOOTHECAROL ANN HARD A 2006 [facility] IELD ATORVASTATI N CA 80MG TAB TAKE ONE-HALF TABLET BY MOUTH ONCE DAILY ORAL ACTIVE PETROFF,S 2018 [facility] ISOSORBIDE MONONITRATE 60MG TAB,SA TAKE ONE TABLET BY MOUTH ORAL ACTIVE MERHAR,NO B 2023 [facility] METOPROLOL TARTRATE 50MG TAB TAKE ONE TABLET BY MOUTH TWICE DAILY ORAL ACTIVE PETROFF,S 2018 [facility] OMEPRAZOLE 20MG CAP,EC TAKE 1 CAPSULE BY MOUTH EVERY MORNING 30 MINUTES BEFORE BREAKFAS T ORAL ACTIVE MERHAR,NO AH B 2023 [facility] TAMSULOSIN HCL 0.4MG CAP TAKE 1 CAPSULE BY MOUTH ONCE DAILY ORAL ACTIVE PETROFF,S 2018 [facility] [place] [facility] Allergies, Adverse Reactions, Alerts Combined list of allergies from Department of Defense and Veterans Affairs facilities. It does not include entries that were removed or entered in error. Substance Category Reaction Severity Reaction type Status Date Reported Comments Source AMLODIPINE Propensity to adverse reactions to drug (finding) active 8 [facility] [place] [facility] CODEINE Propensity to adverse reactions to drug (finding) Nausea and vomiting active 8 [facility] CODEINE Propensity to adverse reactions to drug (finding) Nausea and vomiting, Delirium active 7 [facility] [place] [facility] Immunizations Combined list of available immunizations from the Department of Defense and Veterans Affairs facilities. Immunization Series Date Given Administered By Site Reaction Lot Number CVX Code Drug Medical Intern Status Comments Source COVID-19 (MODERNA), MRNA, LNP-S, PF, 100 MCG/0.5 ML DOSE 2 2020 207 complet ed MOD; [id number]; [facility] COVID-19 (MODERNA), MRNA, LNP-S, PF, 100 MCG/0.5 ML DOSE 1 2020 207 complet ed MOD; [id number]; 1 [facility] FLU,3 YRS (HISTORICAL) 2016 88 complet ed [facility] FLU,3 YRS (HISTORICAL) 2015 88 complet ed Site: Left Deltoid [facility] FLU,3 YRS (HISTORICAL) 2014 88 complet ed [facility] PNEUMOCOCCAL CONJUGATE PCV 13 2014 133 complet ed [place] ZOSTER (HISTORICAL) 2014 121 complet ed [place] FLU,3 YRS (HISTORICAL) 2013 88 [facility] [place] FLU,3 YRS (HISTORICAL) 2013 88 complet ed Site: Right Deltoid [facility] [facility] FLU,3 YRS (HISTORICAL) [address] [facility] [place] DTAP, UNSPECIFIED FORMULATION 2012 107 complet ed Site: Left Deltoid [place] FLU,3 YRS (HISTORICAL) 2011 88 complet ed [facility] FLU,3 YRS (HISTORICAL) 2010 88 complet ed Site: Left Deltoid [place] FLU,3 YRS (HISTORICAL) 2009 88 complet ed Site: Left Deltoid [place] FLU,3 YRS (HISTORICAL) 2007 88 complet ed Site: Left Deltoid [place] FLU,3 YRS (HISTORICAL) 2007 88 complet ed [facility] FLU,3 YRS (HISTORICAL) 2006 88 complet ed [facility] PNEUMOCOCCAL, UNSPECIFIED FORMULATION 2006 109 complet ed Site: Right Deltoid [facility] [facility] TD(ADULT) UNSPECIFIED FORMULATION 2006 139 complet ed [facility] FLU,3 YRS (HISTORICAL) 2005 88 complet ed [place] FLU VACCINE (HISTORICAL) 2004 88 complet ed [place] FLU VACCINE (HISTORICAL) 2003 88 complet ed [place] FLU,3 YRS (HISTORICAL) 2002 [place] [place] 88 complet ed [place] FLU,3 YRS (HISTORICAL) 2001 88 complet ed [place] PNEUMOCOCCAL, UNSPECIFIED FORMULATION 2001 109 complet ed Site: Right Deltoid [place] Encounters Combined list of: 1) Encounters from Department of Veterans Affairs facilities going back up to thelast 18 months. 2) Encounters from the Department of Defense facilities going back up to 280 months. Location Location Details Encounter Type Encounter Number Reason For Visit Attending Provider ADM Date DC Date Status Disposition Source [facility] [place] [id number] Diagnos is: ICD-10- CM H35.321 2 Exdtve age-rel mclr degn, right eye, with inact chrdl neovas< br/> ALBERTO COLEMAN H B 09/27 [facility] FIT SPECTACLES MONOFOCAL [id number] Diagnos is: ICD-10- CM Z46.0 Encount er for fit/adj st of spectac les and contact lenses< br/> YOLANDA COLEMANA H B 09/27 [facility] [place] [facility] [place] [facility] Outpatient Encounter [id number] 10/01 [facility] [place] [facility] [place] [facility] [place] [id number] Diagnos is: ICD-10- CM H90.A32 Mix cndct/s nrl hear loss,un i,l ear w rstrcd hear cntra side
SEN[place] 10/01 [facility] [place] [facility] [place] [facility] Outpatient Encounter [id number] 10/02 [place] [facility] [place] [facility] Social History Combined list of available smoking, tobacco, and other social history from Department of Defense and Veterans Affairs facilities. Social History Type Response Date Comment Sourc e Tobacco smoking status [facility] LIFETIME NON-TOBACCO USER 01/29 [place] History of tobacco use LIFETIME NON-TOBACCO USER 5 [place] History of tobacco use LIFETIME NON-SMOKER 08/23/2004 [place] History of tobacco use LIFETIME NON-SMOKER 06/10/2003 [place] History of tobacco use LIFETIME NON-SMOKER 01/07/2002 [place] Plan of Care List of future care activities from [facility] facilities. Additional future care activities may be listed in the Assessment and Plan section. Date/Time Care Activity Care Activity Detail Facili ty 10/31/2024 AMBULATORY - MEDICINE AMBULATORY - MEDICI [place] [facility] [place] [facility] 10/01/2024 Consult Order OTOLARYNGOLOGY/E NT ONE Cons Insurance Marketing Rep's Choice [facility] Advance Directives List of completed, amended, or rescinded Advance Directives on record at [facility] of Veterans Affairs facilities. An actual copy of the Directive is not included. Date Advance Directive Provider Source 01/31/2007 [facility]
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
--- OUTSIDE RECORDS SUMMARY | 2024-10-09 14:58 | XMS_ITS | Encounter Summary ---
Author Name [facility] [place] Organization [place] Address [address] [place] [address] Care Team Providers Care Assigner Name Role Phone JOSI ORTIZ Primary Care [...] Patient's Relationship to Policy Prado ELLIS BCBS [facility] MEDIGAP PLAN C PSEUD O MEDEX BRONLoren E Sep 29, 2017 [id number] [phone] Caleb GARNER PATIENT [place] SUPPLEMEN TAL MEDEX BRONLoren E Sep 29, 2017 [id number] Caleb GARNER PATIENT MEDICARE (WNR) MEDICARE (M) PART B Apr 29, 2003 PART B [id number] Caleb GARNER PATIENT MEDICARE (WNR) MEDICARE (M) PART B Apr 29, 2003 PART B [id number] Caleb GARNER PATIENT MEDICARE (WNR) MEDICARE (M) PART A Aug 30, 2000 PART A [id number] Caleb GARNER PATIENT MEDICARE (WNR) MEDICARE (M) PART A Aug 30, 2000 PART A [id number] [phone] Caleb GARNER PATIENT Selected Encounter This section includes the information on record at [place] for the Encounter. Date/Time Encounter Type Encounter Description Reason Provider Source Oct 01, 2024 02:00 PM TYMPANOMETRY AUDIOLOGY ICD-10-CM H90.A32 Mix cndct/snrl hear loss,uni,l ear w rstrcd hear cntra side SENIOR,SHRADDHA L IHE Encounter Template Text not used by [place] Assessments - Encounter Diagnoses This section includes the primary and secondary diagnoses documented for the Encounter. Date/Time Primary/Secondary Diagnosis Diagnosis Name Provider Source Oct 01, 2024 04:54 PM PRIMARY Mix cndct/snrl hear loss,uni,l ear w rstrcd hear cntra side SENIOR,SHRADDHA L [place] [facility] [place] [facility] Oct 01, 2024 04:54 PM SECONDARY Snsrnrl hear loss, uni, r ear, with rstrcd hear cntra side SENIOR,SHRADDHA L [place] [facility] [place] [facility] Oct 01, 2024 04:54 PM SECONDARY Tinnitus, bilateral SENIOR,SHRADDHA L [place] [facility] [place] [facility] Plan of Treatment: Future Appointments (+ 6 months) and Future Tests (+/- 45 days) The Plan of Treatment section includes future care activities for the patient from all [place] treatmentfacilities. This section includes future appointments and future orders which are active, pending or scheduled. Future Appointments This section includes appointments that were scheduled to occur 6 months from the date of the Encounter, up to a maximum of 20 appointments. The data comes from all [place] treatment facilities. Appointment Date/Time Appointment Type Appointme nt Facility Name Oct 31, 2024 02:00 PM AMBULATORY - MEDICINE [place] [facility] [place] [facility] Active, Pending, and Scheduled Orders This section includes a listing of several types of active, pending, and scheduled orders, including clinic medications orders, diagnostic test orders, procedure orders and consult orders; where the start date of the order is 45 days before the date of the Encounter or 45 days after the date of theEncounter. The data comes from all [place] treatment facilities. Test Date/Time Test Type Test Details Facility Name Oct 01, 2024 05:00 PM Consult Order OTOLARYNGO LOGY/ENT ONE Cons Apprentice [facility] [place] [facility] [place] [facility] Advance Directives: All historical and current Section Date Range: From patient's date of to the date document was created. This section includes ALL of a patient's completed or amended [place] Advance and Rescinded Directives. The entries below indicate that a directive exists for the patient, but an actual copy is not included with this document. The data comes from all [place] facilities. Date Advance Directives Provider Source Jan 31, 2007 ADVANCE DIRECTIVE NERY GROSSMAN [facility] Encounter Notes: All associated encounter notes This section contains the clinical notes associated to the Encounter. Date/Time Encounter Note(s) Provider Source Oct 01, 2024 11:39 AM AUDIOLOGY E & M NO TE: LOCAL TITLE: AUDIOLOGY CLINIC STANDARD TITLE: AUDIOLOGY E & M NOTE DATE OF NOTE: OCT 01, 2024@11:39 ENTRY DATE: OCT 01, 2024@11:39:31 AUTHOR: SHRADDHA RADFORD COSIGNER: URGENCY: STATUS: COMPLETED Dx CODE: H90.A32- Mixed hearing loss, left ear; H90.A21- SNHL, right ear; H93.13- Tinnitus, bilateral APPOINTMENT TYPE: Hearing Evaluation BACKGROUND/HISTORY: Jaleesa was seen today for an initial hearing evaluation, unaccompanied. 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 [place] states that he had very runny and smelly ears as a child and had many ear infections. He denies any history of trauma to the left ear. denies any concerns for his right ear, noting he hears much better from the right than the left ear. reports intermittent tinnitus bilaterally. He also notes that he's started to hear his heartbeat in his left ear only recently. [place] reports recent onset of vertigo as well and notes that it comes on randomly. [place] denies current or past use of hearing aids and denies ever seeing an ENT physician. Medical history includes: Active problems - Computerized Problem List is the source for the followin. Renal cell carcinoma 2. Under care of multiple providers 3. History of surgery 4. Type 2 diabetes mellitus well controlled (SNOMED CT [id number]) 5. Carpal Tunnel Syndrome * 6. Calculus of Kidney 7. Diabetic peripheral neuropathy (SNOMED CT [id number]) 8. colonoscopy 03/07 normal, few diverticula 9. duodenal biopsy 03/10/2009 10. Renal Insufficiency 11. Ischemic heart disease 12. Benign essential hypertension (SNOMED CT [id number]) 13. Low Back Pain * 14. Malignant neoplasm of kidney, except pelvis 15. Osteoarthrosis involving the knee 16. Erectile Dysfunction * 17. OBESITY, UNSP 18. HEARING LOSS NOS 19. HYPERLIPIDEMIA NEC/NOS ASSESSMENT: Results of today's testing are as follows: Otoscopy was WNL for the right ear and revealed a large perforation in the anterior superior of the left TM. Tympanometry revealed normal middle-ear function in the right ear (ECV: 1.3cc) and non-compliant middle-ear system in the left ear with a larger ear canal volume than the right (ECV: 2.0cc). Pure tone audiometric testing under headphones in the right ear revealed normal hearing from 250-2000 Hz, sloping to a moderately-severe to severe sensorineural hearing loss from 0996-6783 Hz. Testing in the left ear revealed moderately- severe to profound mixed hearing loss from 250-8000 Hz. SRT WORD RECOGNITION (Recorded [place] CNC 1/2 Word List) Right 20dBHL 92% @ 85dBHL/55dBm Left 55dBHL 60% @ 90dBHL/60dBm CLINICAL IMPRESSIONS: Given mixed hearing loss in the presence of a tympanic membrane perforation in the left ear, follow-up with ENT is recommended. He was advised that he may be a good candidate for amplification pending medical clearance for hearing aid use. EDUCATION/COUNSELING: The patient was counseled re: today's hearing test results. He demonstrated satisfactory understanding of the education and plan, and was given the opportunity to ask questions throughout today's visit. PLAN: 1. [facility] ENT consult submitted today. 2. [place] was welcomed to return for a 30 min hearing aid selection appointment if/when medical clearance is obtained. Patient Education Education provided on the following topics: Hearing test results Education provided to: P Response to Education: VU [place] Patient P Family F Significant Other SO Verbalizes Understanding VU Returns Demonstration RD Performs Independently PI Lacks Comprehension LC Refused Education RE Not Applicable NA /rosa/ DAVID ANDREWS, CCC-A STAFF HAND PACKAGER Signed: 10/01/2024 16:55 SHRADDHA RADFORD [facility]
--- OUTSIDE RECORDS SUMMARY | 2024-10-09 14:58 | XMS_ITS | Encounter Summary ---
Author Name [facility] Organization [facility] Address [address] [place] [id number] Care Team Providers Care Prop And Effects Designer Name Role Phone JOSI ORTIZ Primary Care [...] Relationship to Policy Prado ELLIS [place] MED[place] PLAN C PSEUD O MEDFAIZAN JUAN E Sep 29, 2017 [id number] Caleb GARNER PATIENT [place] MED[place] SUPPLEMEN TAL MEDEX YESSICA E Sep 29, 2017 [id number] Caleb GARNER PATIENT MEDICARE (WNR) MEDICARE (M) PART B Apr 29, 2003 PART B [id number] Caleb GARNER PATIENT MEDICARE (WNR) MEDICARE (M) PART B Apr 29, 2003 PART B [id number] Caleb GARNER PATIENT MEDICARE (WNR) MEDICARE (M) PART A Aug 30, 2000 PART A [id number] Caleb GARNER PATIENT MEDICARE (WNR) MEDICARE (M) PART A Aug 30, 2000 PART A [id number] [phone] Caleb GARNER PATIENT Selected Encounter This section includes the information on record at [place] for the Encounter. Date/Time Encounter Type Encounter Description Reason Provider Source Sep 27, 2024 08:47 AM FIT SPECTACLES MONOFOCAL OPTOMETRY ICD-10-CM Z46.0 Encounter for fit/adjst of spectacles and contact lenses JR COLEMAN IHE Encounter Template Text not used by [place] Assessments - Encounter Diagnoses This section includes the primary and secondary diagnoses documented for the Encounter. Date/Time Primary/Secondary Diagnosis Diagnosis Name Provider Source Sep 27, 2024 08:47 AM PRIMARY Encounter for fit/adjst of spectacles and contact lenses EMILY MCGHEE [facility] Plan of Treatment: Future Appointments (+ 6 months) and Future Tests (+/- 45 days) The Plan of Treatment section includes future care activities for the patient from all [place] treatmentfacilities. This section includes future appointments and future orders which are active, pending or scheduled. Future Appointments This section includes appointments that were scheduled to occur 6 months from the date of the Encounter, up to a maximum of 20 appointments. The data comes from all [place] treatment facilities. Appointment Date/Time Appointment Type Appointme nt Facility Name Oct 01, 2024 02:00 PM AMBULATORY - REHAB MEDICIN E [facility] [place] [facility] Oct 31, 2024 02:00 PM AM[facility]ULATORY - [facility] [place] [facility] Active, Pending, and Scheduled Orders This section includes a listing of several types of active, pending, and scheduled orders, including clinic medications orders, diagnostic test orders, procedure orders and consult orders; where the start date of the order is 45 days before the date of the Encounter or 45 days after the date of theEncounter. The data comes from all [place] treatment facilities. Test Date/Time Test Type Test Details Facility Name Oct 01, 2024 05:00 PM Consult Order OTOLARYNGO LOGY/ENT ONE Cons Rides Supervisor's Choice [facility] Advance Directives: All historical and current Section Date Range: From patient's date of to the date document was created. This section includes ALL of a patient's completed or amended [place] Advance and Rescinded Directives. The entries below indicate that a directive exists for the patient, but an actual copy is not included with this document. The data comes from all [place] facilities. Date Advance Directives Provider Source Jan 31, 2007 ADVANCE DIRECTIVE NGOCNERY M [facility] Encounter Notes: All associated encounter notes This section contains the clinical notes associated to the Encounter. Date/Time Encounter Note(s) Provider Source Sep 27, 2024 08:47 AM OPTOMETRY NOTE: LOCAL TITLE: OPTOMETRY NOTE STANDARD TITLE: OPTOMETRY NOTE DATE OF NOTE: SEP 27, 2024@08:47 ENTRY DATE: SEP 27, 2024@08:47:30 AUTHOR: SHRADDHA MARIANO COSIGNER: URGENCY: STATUS: COMPLETED OPTOMETRY NOTE Has ADDENDA The quote provided below is for informational purposes only. Please verify prior to the creation of a purchase order. BERNADETTE GARNER 2537 RX INFORMATION OD -0.25 -1.50 X70 Add:0.00 Pzm:0.00 Dir: Prz2:0.00 Dir2: OS -0.25 -1.50 X55 Add:0.00 Pzm:0.00 Dir: Prz2:0.00 Dir2: FITTING INFORMATION FPD:66.5 NPD:66.5 [place]:R: L: SEG HT:R: L: Tint:MORAN Shade:3 [place] Billable Items FRAME: S528 [facility] 54-18-140 Right Lens: PLASTIC SINGLE VISION CLEAR 1.498 PLASTIC CR39 Left Lens: PLASTIC SINGLE VISION CLEAR 1.498 PLASTIC CR39 UV400 SOLID TINT CLIN items 0001 - Single Vision - Glass Plastic Poly The quote provided below is for informational purposes only. Please verify prior to the creation of a purchase order. BERNADETTE GARNER 2537 RX INFORMATION OD +2.25 -1.50 X70 Add:0.00 Pzm:0.00 Dir: Prz2:0.00 Dir2: OS +2.25 -1.50 X55 Add:0.00 Pzm:0.00 Dir: Prz2:0.00 Dir2: FITTING INFORMATION FPD:63.5 NPD:63.5 [place]:R: L: SEG HT:R: L: Tint:None Shade:None [place] Billable Items FRAME: S528 GUNMETAL 54-18-140 Right Lens: POLY SINGLE VISION 1.586 POLY Left Lens: POLY SINGLE VISION 1.586 POLY CLIN items 0001 - Single Vision - Glass Plastic Poly The quote provided below is for informational purposes only. Please verify prior to the creation of a purchase order. BERNADETTE GARNER 2537 RX INFORMATION OD -0.25 -1.50 X70 Add:0.00 Pzm:0.00 Dir: Prz2:0.00 Dir2: OS -0.25 -1.50 X55 Add:0.00 Pzm:0.00 Dir: Prz2:0.00 Dir2: FITTING INFORMATION FPD:66.5 NPD: [place]:R: L: SEG HT:R: L: Tint:None Shade:None [place] Billable Items FRAME: S528 GUNMETAL 54-18-140 Right Lens: PLASTIC SINGLE VISION CLEAR 1.498 PLASTIC CR39 Left Lens: PLASTIC SINGLE VISION CLEAR 1.498 PLASTIC CR39 KLEAR ANTI-REFLECTIVE COATING CLIN items [employer] - AR Coating 0001 - Single Vision - Glass Plastic Poly /rosa/ HSRADDHA MARIANO INSPECTOR WIRE ROPE Signed: 09/27/2024 08:51 Receipt Acknowledged By: 09/30/2024 09:49 /rosa/ Emily Mcghee Optometry Health Chief Meteorologist 09/30/2024 ADDENDUM STATUS: COMPLETED PDS Farm Contractor fit patient with 3 pair(s) of sv eyeglasses on 09/27/2024. OPT HT entered consult(s) as requested for provider signature. /rosa/ Emily Mcghee Optometry Health Chief Meteorologist Signed: 09/30/2024 09:54 SHRADDHA MARIANO CNTRL [facility] [facility]
--- OUTSIDE RECORDS SUMMARY | 2024-10-09 14:59 | XMS_ITS ---
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 Name Role Phone Cait DAVIS, Brennen Primary Care Provider Alexandra Gilliland [phone] Encounters Encounter Location Date Provider Diagnosis [address] [address] 10/04/2023 Alexandra Aguiar Plan Of Treatment No Information Progress Notes * Robert GARNER FDOB:[birth year] (89 yo M)Acc No.[id number]:10/04/2023 Progress Note Patient:Robert KAPLAN Provider:?Alexandra Aguiar DPM :1935???Age:88 Y???Sex:Male Marlon e:10/04/2023 Address:[facility] [address], [id number] Pcp:Brennen Chavira MD Subjective: * Chief Complaints: * ??? * Medical History:? Objective: * Vitals:? Assessment: Plan: * Treatment: * Images: * The named appointment provid er may or may not be the originator of this progress note, and it is not deemed complete until electronically signed by the appointment provider. Sign off status: Pending * Provider:?Alexandra Aguiar DPM Date:?2022 Generated for Printi ng/Faarnoldg/eTransmitting on:?10/09/2024 02:59 PM EST
--- OUTSIDE RECORDS SUMMARY | 2024-10-09 14:59 | XMS_ITS ---
Author Organization [facility] Address [address] [place] [address] Care Team Providers Care Retail Wireless Sales Representative Name Role Phone Brennen Chavira MD Primary Care Provider Unavajorge Aguiar, Alexandra Unavailable [phone] Rey notes Encounters Encounter Location Date Provider Diagnosis [address] [address] 04/11/2023 Alexandra Black Plan Of Treatment No Information Progress Notes * Robert GARNER FDOB:[birth year] (87 yo M)Acc No.[id number]:04/11/2023 Patient:?Robert Garner :1935???Age:87 Y???Sex:Male Address:[address], [place], [address] * true * Date:? Generated for Printi tierra/Dilcia/eTransmitting on:?10/09/2024 01:41 PM EST
--- OUTSIDE RECORDS SUMMARY | 2024-10-09 14:59 | XMS_ITS ---
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 Name Role Phone Brennen Chavira Primary Care Provider ALLERGIES Allergen (clinical drug ingredient) Drug/Non Drug Allergy documented on EMR Reaction Allergy Type Onset Date Status OxyCODONE ER vomiting Drug Allergy Acti ve Vicodin vomiting Drug Allergy Active oxycodone OxyContin vomiting Drug Allergy Active lisinopril Lisinopril cough Drug Allergy Activ e RESULTS Component Value Reference Range Notes Electrocardiogram (EKG) Reviewed date:06/24/2024 11:33:53 AM Interpretation: Performing Lab: Notes/Report: REASON FOR VISIT pre-op clearance urology Dr Woods Laser of renal stone 06-27-24, p [phone] fax [phone], having his lab work done 06-21-2024 thru lab core, EKG to be done if provider feels it needs to be done MEDICATIONS Medication SIG (Take, Route, Frequency, Duration) Notes Start Date End Date Status Nitrostat 0.4 MG as directed Sublingu al every 5 mins times 3 until pain goes for 30 days 08/13/2020 Not-Taking amLODIPine Besylate 10 MG 1 tablet Orall y Once a day Active Metoprolol Tartrate 50 MG TAKE 1 TABLET BY MOUTH TWICE DAILY WITH FOOD Active Atorvastatin Calcium 80 MG TAKE ONE TABLET BY MOUTH EVERY DAY Active Isosorbide Mononitrate ER 30 MG 1 tablet in the morning Orally Once a day Active Tamsulosin HCl 0.4 MG 2 capsule Orally O nce a day 11/02/2020 Active Aspir-Low 81 MG 1 tablet Orally Once a day for 30 day(s) Active Amoxicillin 500 MG 1 capsule Orally david ry 8 hrs for 10 days 06/24/2024 Active VITAL SIGNS BMI 35.06 kg/m2 06/24/2024 Blood pressure systolic 138 mm Hg 06/24/20 24 Blood pressure diastolic 50 mm Hg 024 Height 68.5 in 06/24/2024 Weight 234 lbs 06/24/2024 Encounters Encounter Location Date Provider Diagnosis Brennen Chavira MD [address] [place] [address] Drive [address] [place], [place] [id number] 06/24/2024 Brennen Chavira Coronary artery disease of [place] artery of [place] heart with stable angina pectoris I25.118 ; Acute UTI N39.0 and Pre-op evaluation Z01.818 ASSESSMENTS Encounter Date Diagnosis Assessment Notes Treatment Notes Treatment Clinical Notes 06/24/2024 Coronary artery disease of [place] artery of [place] heart with stable angina pectoris (ICD-10 - I25.118) is having no activity of his coronary disease/ ecg normal. no need for any further evaluation prior to the upcoming surgery 06/24/2024 Acute UTI (ICD-10 - N39.0) tell him he has a uti and he should speak to urology about that in case they didn't call him. i ordered some ab 06/24/2024 Pre-op evaluation (ICD-10 - Z01.818) has been stable. no need for any further evaluation prior to the upcoming surgery. had blood work 05/28 that was all normal PLAN OF TREATMENT Medication Medication Name Sig Start Date Stop Date Notes Amoxicillin 500 MG 1 capsule Orally david ry 8 hrs for 10 days 06/24/2024 Treatment Notes Assessment Notes Coronary artery disease of n ative artery of [place] heart with stable angina pectoris is having no activity of his coronary disease/ ecg normal. no need for any further evaluation prior to the upcoming surgery Acute UTI tell him he has a ut i and he should speak to urology about that in case they didn't call him. i ordered some ab Pre-op evaluation has been stable. no need for any further evaluation prior to the upcoming surgery. had blood work 05/28 that was all normal Next Appt Details Provider Name:Brennen mendez, 10/11/2024 01:30:00 PM, [address] [place] [address], [address], [place], [place], [id number], Provider Name:Brennen mendez, 03/28/2025 07:15:00 AM, [address] [place] [address], [address] [facility], [place], [place], [phone], Provider Name:Brennen mendez, 04/04/2025 11:00:00 AM, [address] [place] [address], [address] [facility], [place], [place], [phone], Progress Notes * Examination Category Sub-Category Detail Notes General Examination GENERAL APPEARANCE: alert, w ell hydrated, in no distress , male HEAD: normocephalic EYES: BOTH EYES, normal THROAT: no erythema, no exud ate, pharynx normal NECK/THYROID: no cervical lymphade nopathy HEART: no murmurs, rubs, ga llops, regular rate and rhythm LUNGS: clear to auscultatio n bilaterally ABDOMEN: soft, nontender, non distended has a prominence of the rt upper quad but appears to be musculaar SKIN: good turgor, warm an d dry
--- OUTSIDE RECORDS SUMMARY | 2024-10-09 14:59 | XMS_ITS ---
Author Organization [facility] Address [address] [place] [address] Care Team Providers Care Insole Filler Name Role Phone Brennen Chavira MD Primary Care Provider Neryvajorge Aguiar, Alexandra Unavailable [phone] REASON FOR VISIT NS 10/04/23 Encounters Encounter Location Date [facility] [address] [address] 10/04/2023 Alexandra Black Plan Of Treatment No Information Progress Notes * Robert GARNER FDOB:[birth year] (88 yo M)Acc No.[id number]:10/04/2023 Patient:?Robert Garner :1935???Age:88 Y???Sex:Male Address:[address], [place], [address] * true * Date:? Generated for Printi tierra/Dilcia/eTransmitting on:?10/09/2024 01:41 PM EST
--- OUTSIDE RECORDS SUMMARY | 2024-10-09 14:59 | XMS_ITS | Patient Health Record ---
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 Name Role Phone Brennen Chavira Primary Care Provider ALLERGIES Allergen (clinical drug ingredient) Drug/Non Drug Allergy documented on EMR Reaction Allergy Type Onset Date Status OxyCODONE ER vomiting Drug Allergy Acti ve Vicodin vomiting Drug Allergy Active oxycodone OxyContin vomiting Drug Allergy Active lisinopril Lisinopril cough Drug Allergy Activ e RESULTS Component Value Reference Range Notes Complete Blood Count Auto Di ff Reviewed date:03/28/2024 07:19:49 PM Interpretation: Performing Lab:[facility], [address] [place] [phone] Notes/Report: White Blood Count 8.6 4.8-10.8 X10*3/uL Red Blood Count 5.18 4.60-5.80 X10*6/uL Hemoglobin 15.0 14.0-18.0 g/dl Hematocrit 44.9 42.0-52.0 % Mean Corpuscular Volume 86.7 80.0-98.0 fL Mean Corpuscular Hemoglobin 29.0 27.0-33.0 pg Mean Corpuscular HGB Conc 33.4 31.0-36.0 g/dl Red Cell Distribution Width 14.6 11.0-16.0 % Platelet Count 200 160-400 X10*3/uL Mean Platelet Volume 10.9 9.4-12.4 fL Neutrophils Percent Auto 56.1 45-73 % Imm Gran Pct Auto 0.2 0.0-0.4 % Lymphocytes Percent Auto 30.5 20-40 % Monocytes Percent Auto 10.5 2-11 % Eosinophils Percent Auto 2.3 0-4 % Basophils Percent Auto 0.4 0-2 % NRBC Pct Auto 0.0 0.0-0.2 /100WBC Neutrophils Absolute Auto 4.8 2.0-8.3 x10*3/u L Imm Gran Abs Auto 0.02 0.00-0.03 X10*3/uL Lymphocytes Absolute Auto 2.6 1.2-4.9 X10*3/u L Monocytes Absolute Auto 0.9 0.1-1.2 X10*3/uL Eosinophils Absolute Auto 0.2 0.0-0.4 X10*3/u L Basophils Absolute Auto 0.0 0.0-0.2 X10*3/uL NRBC Abs Auto 0.000 0.0-0.012 X10*3/uL Comprehensive [place]. Panel Fa st Reviewed date:03/28/2024 07:19:26 PM Interpretation: Performing Lab:[facility], [address] [place] [phone] Notes/Report: Sodium 142 135-145 mmol/L Potassium 3.9 3.3-5.1 mmol/L Chloride 108 96-108 mmol/L Carbon Dioxide 26 22-29 mmol/L Anion Gap 12 12-20 Blood Urea Nitrogen 18 9-16 mg/dL Creatinine 1.16 0.5-1.4 mg/dL Estimated Glomerular Filt Rate 59 NOTE: For -Canadian individuals, multiply the result by 1.210. Chronic Kidney Disease: Estimated GFR < 60 mL/min/1.73m2 Severe Kidney Disease: Estimated GFR < 15 mL/min/1.73m2 Glucose Fasting 112 60-99 mg/dL A fasting glucose from 100-125 mg/dl is considered impaired (pre-diabetes). Calcium 10.1 8.4-10.2 mg/dL Bilirubin Total 1.0 0.0-1.0 mg/dL Aspartate Amino Transferase 25 5-37 U/L Alanine Aminotransferase 27 0-40 U/L Total Protein 7.0 6.5-8.0 g/dL Albumin Level 4.1 3.5-5.0 g/dL Alkaline Phosphatase 131 39-117 U/L Lipid Panel Reviewed date:03/28/2024 12:34:35 PM Interpretation: Performing Lab:[facility], [address] [place] [phone] Notes/Report: Triglycerides 81 <150 mg/dL Desirable Triglyceride: less than 150 mg/dL Borderline High Triglyceride 150-199 mg/dL High Triglyceride: 200-499 mg/dL Very High Triglyceride: greater than or equal to 5OO mg/dL Cholesterol 124 <200 mg/dL Desirable Cholesterol: less than 200 mg/dL Borderline High Cholesterol: 200-239 mg/dL High Cholesterol: greater than 239 mg/dL LDL Cholesterol Calculated 75 <100 mg/dL Desirable LDL: less than 100 mg/dL Near Optimal/Above Optimal LDL: 110-129 mg/dL Borderline High LDL: 130-159 mg/dL High LDL: 160-189 mg/dL Very High LDL: greater than or equal to 190 mg/dL HDL Cholesterol 33 >40 mg/dL Desirable HDL: greater than 40 mg/dL Note: This HDL assay may give artificially low results in patients with liver disease. PSA,Total (Free>4and<10) Reviewed date:03/28/2024 12:37:33 PM Interpretation: Performing Lab:[facility], [address] [place] [phone] Notes/Report: PSA,Total (Free>4and<10) 0.58 0.00-4.00 ng/mL A Free PSA was not performed: The percentage of Free PSA can be used to enhance the differentiation of prostate cancer from benign prostatic disease in subjects whose PSA levels are between 4.0 and 10.0 ng/mL. For subjects whose PSA levels are below 4.0 or above 10.0 ng/mL, the risk of prostate cancer is determined on the basis of the PSA alone. Therefore the % Free PSA is recommended only for those subjects whose PSA levels are between 4.0 and 10.0 ng/mL. PSA methodology: Duran Alinity i Chemiluminescent Microparticle Immunoassay (CMIA) Occult Blood, Stool, Guaiac Reviewed date:04/01/2024 03:02:13 PM Interpretation:Negative Performing Lab: Notes/Report: Negative Occult Blood, Stool, Guaiac Neg Complete Blood Count Auto Di ff Reviewed date:05/28/2024 12:38:02 PM Interpretation: Performing Lab:[facility], [address] [place] [phone] Notes/Report: White Blood Count 11.9 4.8-10.8 X10*3/uL Red Blood Count 5.11 4.60-5.80 X10*6/uL Hemoglobin 15.1 14.0-18.0 g/dl Hematocrit 43.4 42.0-52.0 % Mean Corpuscular Volume 84.9 80.0-98.0 fL Mean Corpuscular Hemoglobin 29.5 27.0-33.0 pg Mean Corpuscular HGB Conc 34.8 31.0-36.0 g/dl Red Cell Distribution Width 14.5 11.0-16.0 % Platelet Count 158 160-400 X10*3/uL Mean Platelet Volume 10.1 9.4-12.4 fL Neutrophils Percent Auto 75.0 45-73 % Imm Gran Pct Auto 0.3 0.0-0.4 % Lymphocytes Percent Auto 13.5 20-40 % Monocytes Percent Auto 10.6 2-11 % Eosinophils Percent Auto 0.3 0-4 % Basophils Percent Auto 0.3 0-2 % NRBC Pct Auto 0.0 0.0-0.2 /100WBC Neutrophils Absolute Auto 8.9 2.0-8.3 x10*3/u L Imm Gran Abs Auto 0.04 0.00-0.03 X10*3/uL Lymphocytes Absolute Auto 1.6 1.2-4.9 X10*3/u L Monocytes Absolute Auto 1.3 0.1-1.2 X10*3/uL Eosinophils Absolute Auto 0.0 0.0-0.4 X10*3/u L Basophils Absolute Auto 0.0 0.0-0.2 X10*3/uL NRBC Abs Auto 0.000 0.0-0.012 X10*3/uL Erythrocyte Sedimentation Ra te Reviewed date:05/28/2024 12:31:00 PM Interpretation: Performing Lab:[address] [phone] Notes/Report: Erythrocyte Sedimentation Rate 10 0-15 MM/HR Patients with polycythemia and many hemoglobin abnormalities may have depressed sed rates whereas patients with anemia may have elevated sed rates. Liver Panel Reviewed date:05/28/2024 12:37:37 PM Interpretation: Performing Lab:[address] [phone] Notes/Report: Bilirubin Total 1.1 0.0-1.0 mg/dL Bilirubin Direct 0.3 0.0-0.5 mg/dL Aspartate Amino Transferase 26 5-37 U/L Alanine Aminotransferase 21 0-40 U/L Total Protein 6.8 6.5-8.0 g/dL Albumin Level 3.9 3.5-5.0 g/dL Alkaline Phosphatase 115 39-117 U/L Basic Metabolic Panel Reviewed date:05/28/2024 12:25:44 PM Interpretation: Performing Lab:[address] [phone] Notes/Report: Sodium 137 135-145 mmol/L Potassium 3.7 3.3-5.1 mmol/L Chloride 107 96-108 mmol/L Carbon Dioxide 24 22-29 mmol/L Anion Gap 10 12-20 Blood Urea Nitrogen 19 9-16 mg/dL Creatinine 1.31 0.5-1.4 mg/dL Creatinine Clr Calc Pharmacy 47.7 eGFR (calculated from the MDRD study equation) and eCrCl (calculated from the Cockcroft-Gault equation) are based on different parameters and may not yield comparable results. If eCrCl result is absurd, please check patient's height/weight. Estimated Glomerular Filt Rate 52 NOTE: For -Canadian individuals, multiply the result by 1.210. Chronic Kidney Disease: Estimated GFR < 60 mL/min/1.73m2 Severe Kidney Disease: Estimated GFR < 15 mL/min/1.73m2 Glucose Random 157 60-115 mg/dL Calcium 10.2 8.4-10.2 mg/dL Magnesium Reviewed date:05/28/2024 12:27:18 PM Interpretation: Performing Lab:[facility], [address] [place] [phone] Notes/Report: Magnesium 1.8 1.6-2.6 mg/dL C Reactive Protein Reviewed date:05/28/2024 12:27:04 PM Interpretation: Performing Lab:[facility], [address] [place] [phone] Notes/Report: C Reactive Protein 10.28 < or = 0.50 mg/dL US venous duplex LE LT Reviewed date:05/28/2024 01:34:10 PM Interpretation: Performing Lab: Notes/Report: [address] [place] [address] Ultrasound Report Signed Patient: Robert Adams MR#: [id number] : 1935 Acct:[id number] Age/Sex: 88 / M ADM Date: 05/28/24 Loc: .ED Attending Dr: Ordering Physician: Sarah Molina Date of Service: 05/28/24 Procedure(s): US venous duplex LE LT Accession Number(s): [id number] cc: Brennen Chavira MD; Sarah Molina EXAMINATION: US VENOUS ULTRASOUND WITH DOPPLER LOWER EXTREMITY, LEFT CLINICAL INFORMATION: Redness and swelling COMPARISON: None available. TECHNIQUE: Ultrasound of the deep veins is performed from the hip to the calf with compression sonography and color and pulse Doppler assessment. Spectral analysis with color-flow imaging is performed. FINDINGS: There is normal venous compression and respiratory variation and augmented flow. The visualized left common femoral vein, superficial femoral vein, profunda femoral vein, popliteal vein, and the trifurcation region shows no evidence of deep venous thrombosis. There is no significant popliteal fossa cyst. If the patient's symptoms persist, followup ultrasound in 5 days 7 days might be of value to exclude proximal propagation from a non-visualized calf vein. US/US venous duplex LE LT IMPRESSION: No DVT demonstrated in the left lower extremity. Dictated By: Arsenio Mcarthur MD Signed By: <Electronically signed by Arsenio Mcarthur MD in OV> 05/28/24 1250 DD/ 1215 TD/TT: Staker Surveying: Electrocardiogram (EKG) Reviewed date:06/24/2024 11:33:53 AM Interpretation: Performing Lab: Notes/Report: Mack Lizarraga Reviewed date:10/07/2024 12:52:06 PM Interpretation: Performing Lab:[facility], [address] [place] [phone] Notes/Report: Mack Lizarraga See Note Specimen held untested for 24 hours; Call to request Chemistry testing. Liver Panel Reviewed date:10/07/2024 12:51:29 PM Interpretation: Performing Lab:[facility], [address] [place] [phone] Notes/Report: Bilirubin Total 0.6 0.0-1.0 mg/dL Bilirubin Direct 0.2 0.0-0.5 mg/dL Aspartate Amino Transferase 31 5-37 U/L Alanine Aminotransferase 34 0-40 U/L Total Protein 6.6 6.5-8.0 g/dL Albumin Level 3.9 3.5-5.0 g/dL Alkaline Phosphatase 117 39-117 U/L Lipid Panel with Reflex Reviewed date:10/08/2024 12:37:25 PM Interpretation: Performing Lab:[facility], [address] [place] [phone] Notes/Report: Triglycerides 86 <150 mg/dL Desirable Triglyceride: [...] in patients with liver disease. REASON FOR REFERRAL Reason bilateral carotid ar jonathan stenosis Diagnosis 1 Bilateral carotid ar jonathan stenosis (I65.23) Referral Organization Brennen Chavira MD Referring Provider First Name Brennen Referring Provider Last Name Cait Referring Provider Speciality Internal M edicine Referred Provider JOSE SMYTH Referred Provider Specialty Vascular Daya joi General Notes Carmen Jiménez 12:20:06 PM EDT > send over [facility] D/C and ER, Carmen Jiménez 05/17/2024 01:33:59 PM EDT > info faxed , Carmen Jiménez 05/21/2024 09:10:28 AM EDT > spoke with office Dr. Smyth is on vacation, was told to call back next week anfter his reviews referral , Triny Moore 06/03/2024 01:32:52 PM EDT > i spoke with office , they have left mr yesica parson to call to set up appt, i will remind him with a phone call. info given to mr adams and he will call for appt, Triny Moore 06/04/2024 10:26:16 AM EDT > MR ADAMS CALLED AND HIS APPT IS BOOKED FOR 08/15/24 Referral Priority Routine Referral Appointment Date 08/15/2024 MEDICATIONS Medication SIG (Take, Route, Frequency, Duration) Notes Start Date End Date Status Nitrostat 0.4 MG as directed Sublingu al every 5 mins times 3 until pain goes for 30 days 08/13/2020 Not-Taking amLODIPine Besylate 10 MG 1 tablet Orall y Once a day Active Tamsulosin HCl 0.4 MG 2 capsule Orally O nce a day 11/02/2020 Active Aspir-Low 81 MG 1 tablet Orally Once a day for 30 day(s) Active Amoxicillin 500 MG 1 capsule Orally david ry 8 hrs for 10 days 06/24/2024 Active Atorvastatin Calcium 80 MG TAKE ONE TABLET BY MOUTH EVERY DAY Active Isosorbide Mononitrate ER 30 MG 1 tablet in the morning Orally Once a day Active Metoprolol Tartrate 50 MG TAKE ONE TABLE T BY MOUTH TWICE A DAY WITH FOOD for 90 Active IMMUNIZATIONS Vaccine Route Administration Date Status Comme nts Flu Vaccine Unknown 09/05/2017 Administered pt was give n the vaccine at the [facility] DECLINED, PNEUMO Unknown 07/18/2017 Administered pt was given the vaccine at the [facility] Prevnar 13 IM Intramuscular 04/21/2015 Administered was gi demetra the vaccine at the [facility] TDaP IM Intramuscular 11/23/2012 Administered was gi demetra the vaccine at the [facility]. Influenza High Dose IM Intramuscular 08/14/2018 Administer ed PPSV23 (Pnemovax) IM Intramuscular 08/17/2018 Administered Fluarix Quadrivalent IM Intramuscular 07/09/2019 Administe red Influenza High Dose Unknown 07/21/2020 Administered [facility] Covid Vaccine Unknown 12/04/2020 Administered Moderna Covid Vaccine Unknown 01/01/2021 Administered Moderna Influenza High Dose IM Intramuscular 07/09/2021 Administer ed SARS-COV-2 Moderna Unknown 09/17/2021 Administered Influenza High Dose IM Intramuscular 08/11/2022 Administer ed Influenza High Dose IM Intramuscular 08/01/2023 Administer ed Influenza High Dose IM Intramuscular 07/22/2024 Administer ed SOCIAL HISTORY Tobacco Use: Social History Observation Description Date Details (start date - stop date) Never Smoker NA - NA Sex Assigned At : Social History Observation Description Sex Assigned At Unknown Tobacco Use/Smoking Question Answer Notes Patient is a nonsmoker Additional Findings: Tobacco Non-User Cu rrent non-smoker, currently using no form of tobacco Alcohol Screen Question Answer Notes Did you have a drink contain ing alcohol in the past year? Yes How often did you have a dri nk containing alcohol in the past year? Monthly or less (1 point) How many drinks did you have on a typical day when you were drinking in the past year? 1 or 2 drinks (0 point) How often did you have 6 or more drinks on one occasion in the past year? Never (0 point) Points 1 Interpretation Negative PROBLEMS Problem Type ICD Code Onset Dates Problem Status W/U Status Risk SNOMED Code Notes Problem Neuropathy (G62.9) Active confirmed 386 554570 Problem Prostatism (N40.0) Active confirmed 114 71940 Problem Diverticulitis of large intestine without perforation or abscess without bleeding (K57.32) Active confirmed 5623672 Problem Essential hypertensi on (I10) Active confirmed 75882230 Problem Kidney stones (N20.0) Active confirmed 28734816 Problem History of renal thierry l cancer (Z85.528) Active confirmed 396758438 Problem Bilateral carotid artery stenosis (I65.23) Active confirmed 168212813 Problem Hypercholesterolemia (E78.00) Active confirmed 82692750 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 922715542 Problem 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) Active confirmed 311232011 Problem 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) Active confirmed 32290941647826410 VITAL SIGNS Blood pressure diastolic 50 mm Hg 06/24/2024 Height 68.5 in 06/24/2024 Blood pressure systolic 138 mm Hg 06/24/2024 Weight 234 lbs 06/24/2024 BMI 35.06 kg/m2 06/24/2024 Encounters Encounter Location Date Provider Diagnosis Brennen Chavira MD [address] [place] [id number] 04/01/2024 Brennen Chavira Coronary artery dise ase of [place] artery of [place] heart with stable angina pectoris I25.118 ; Left foot drop M21.372 ; Essential hypertension I10 ; Hypercholesterolemia E78.00 ; Colon cancer screening Z12.11 and Depression screening Z13.31 Brennen Chavira MD [address] [place] [id number] 03/28/2024 Brennen Chavira Prostatism N40.0 ; Hypercholesterolemia E78.00 and Essential hypertension I10 Brennen Chavira MD [address] [place] [id number] 10/07/2024 Brennen Chavira Hypercholesterolemia E78.00 Brennen Chavira MD [address] [place] [address] [id number] 07/22/2024 Brennen Chavira Encounter for immuni zation Z23 Brennen Chavira MD [address] [place] [id number] 06/10/2024 Brennen Chavira MD [address] [place] [id number] 05/16/2024 Brennen Chavira Bilateral carotid ar jonathan stenosis I65.23 and Vertigo R42 Brennen Chavira MD [address] [place] [id number] 06/24/2024 Brennen Chavira Coronary artery dise ase of [place] artery of [place] heart with stable angina pectoris I25.118 ; Acute UTI N39.0 and Pre-op evaluation Z01.818 Brennen Chavira MD [address] [place], [place] [id number] 05/14/2024 Brennen Chavira MD [address] [place] [id number] 05/30/2024 Brennen Chavira MD [address] [place] [id number] 06/17/2024 Brennen Chavira ASSESSMENTS Encounter Date Diagnosis Assessment Notes Treatment Notes Treatment Clinical Notes 04/01/2024 Coronary artery dise a[place] artery [place] heart with stable angina pectoris (ICD-10 - I25.118) need results from dr talley in [place] from 2 weeks ago/ OFFICE NOTE REQUESTED FROM [facility] 04/01/2024 Left foot drop (ICD- 10 - M21.372) has had for years wears an AFO brace to keep from tripping 03/28/2024 Prostatism (ICD-10 - N40.0) 03/28/2024 Hypercholesterolemia (ICD-10 - E78.00) 10/07/2024 Hypercholesterolemia (ICD-10 - E78.00) 07/22/2024 Encounter for immunization (ICD-10 - Z23) 05/16/2024 Vertigo (ICD-10 - R42) has resolved 05/16/2024 Bilateral carotid ar jonathan stenosis (ICD-10 - I65.23) the hospital wanted him on plavix for one month. apparently they felt it may have been a small tia. will refer to dr smyth. send the hospital records., Total time spent on the date of the encounter is 35 minutes including both face to face time spent and time spent reviewing documentation, pertinent lab data, studies and counseling the patient. 06/24/2024 Coronary artery dise a[place] of [place] artery [place] heart with stable angina pectoris (ICD-10 - I25.118) is having no activity of his coronary disease/ ecg normal. no need for any further evaluation prior to the upcoming surgery 06/24/2024 Acute UTI (ICD-10 - N39.0) tell him he has a uti and he should speak to urology about that in case they didn't call him. i ordered some ab 04/01/2024 Essential hypertensi on (ICD-10 - I10) 03/28/2024 Essential hypertensi on (ICD-10 - I10) 06/24/2024 Pre-op evaluation (I CD-10 - Z01.818) has been stable. no need for any further evaluation prior to the upcoming surgery. had blood work 05/28 that was all normal 04/01/2024 Hypercholesterolemia (ICD-10 - E78.00) 04/01/2024 Colon cancer screeni ng (ICD-10 - Z12.11) guaiac negaitve 04/01/2024 Depression screening (ICD-10 - Z13.31) negative screen PLAN OF TREATMENT Pending Test Test Name Order Date Electrocardiogram (EKG) 02/09/2018 NM bone scan whole body 03/24/2022 XR thoracic spine 2V 04/14/2022 XR femur RT 2V 04/14/2022 XR lumbar spine 2-3V 04/14/2022 XR foot LT 2V 04/14/2022 Next Appt Details Provider Name:Brennen Russell ier, 10/11/2024 01:30:00 PM, [address] [place] [address], [address], [phone], Provider Name:Brennen Russell ier, 03/28/2025 07:15:00 AM, [address] [place] [address], [address], [phone], Provider Name:Brennen Russell ier, 04/04/2025 11:00:00 AM, [address] [place] [address], [phone], Insurance Providers Payer Name Payer Address Payer Phone Subscriber Number Group Number Insured Name Patient Relationship to Insured Coverage Start Date Coverage End Date MEDICARE NHIC [address] [place] [address] [id number] Robert Adams Self - patient is the insured [employer] [place] [address] [place] [address] [phone] [id number] Robert Adams Self - patient is the insured MEDICAL (GENERAL) HISTORY Medical History History ICD Code Pt can not any Pain Meds asending aortic aneurysm see n on ct at [facility] 2018 needs repeat in one year (Order in Nurse Folder for 02/2019) a Lung nodule seen on imaging study R91.1 Lung nodule seen on imaging study Aneurysm I72.[address] chest with no aneurysm Surgical History Surgery Date(Month/Year) total right knee replacement w/ Dr Mirlande williamson 09/2017 Left ESWL 11/[address] Venkat Andrea 2017
--- OUTSIDE RECORDS SUMMARY | 2024-10-09 14:59 | XMS_ITS | Patient Health Record ---
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 . Wear daily for . 09/26/2018 Not-Philip ing Baby Aspirin 83 mg Active Tamsulosin HCl 0.4 MG 1 capsule Orally O nce a day for 30 day(s) Active Metoprolol Tartrate 50 MG 1 tablet with food Orally Twice a day for 30 day(s) Active amLODIPine Besylate 10 MG 1 tablet Orall y Once a day for 30 day(s) Active Isosorbide Mononitrate ER Active Atorvastatin Calcium 80 MG 1 tablet Orally Once a day Active AFO-fixed . 1 . Wear daily for . 04/25/2022 Active Immunizations Vaccine Route Administration Date Status Comme nts Influenza Unknown 07/27/2018 Administered Social History Tobacco Use: Social History Observation Description Date Details (start date - stop date) Never Smoker NA - NA Tobacco Use/Smoking Question Answer Notes Are you a: nonsmoker Additional Findings: Tobacco Non-User Current no n-smoker Alcohol Screen Question Answer Notes Did you have a drink containing alcohol in the p ast year? No Points 0 Interpretation Negative Tobacco use other than smoking: Question Answer Notes Are you an other tobacco user? No Problems Problem Type SNOMED Code ICD Code Onset Dates Problem Status W/U Status Risk Notes Problem Localized, primary osteoarthritis of the ankle and/or foot (705134882) Primary osteoarthritis , left ankle and foot (M19.072) Active confirmed Problem Non-pressure chronic ulcer of other part of left foot limited to breakdown of skin (L97.521) Active confirmed Problem Acquired hammer toe of right foot (8925668708785279) Other hammer toe(s) (acquired), right foot (M20.41) Active confirmed Problem Acquired hammer toe of left foot (1396008791028187) Other hammer toe(s) (acquired), left foot (M20.42) Active confirmed Problem 891261282 Neuropathy (G62.9) Active confirmed Problem 50674986 Unsteady gait (R26.81) Active confirmed Plan Of Treatment Pending Test Test Name Order Date [id number] NAIL, 6 OR MORE 04/25/2022 [id number] NAIL, 6 OR MORE 04/11/2023 80449- Debride <25 sq cm 04/25/2022 69930- Debride <25 sq cm 04/11/2023 Insurance Providers Payer Name Payer Address Payer Phone Subscriber Number Group Number Insured Name Patient Relationship to Insured Coverage Start Date Coverage End Date Medicare National [employer]t [employer] [address] [place] [address] [id number] Robert Flores Self - patient is the insured [employer] [facility] [address] [place] [address] [id number] Robert Flores Self - patient is the insured Medical (General) History Medical History History ICD Code Arthritis Back,Hip,and Knee pain Cancer Diabetic Heart disease High blood pressure Kidney disease Measles Angina Cataracts Numbness Poor circulation Mumps Joint implants/screws Replacement Heart Valves Surgical History Surgery Date(Month/Year) knee surgery kidney surgery 02/2012 bypass surgery kidney cancer kidney stones triple bypass 02/22/2018
== END 2024-10-07 11:03 | disposition home or self-care (01) ==
LOC: HO.LNP 11:02
PROVIDERS: Visit Provider Internal Medicine
DX: E78.00 Pure hypercholesterolemia, unspecified (principal)
CPT/HCPCS: 80061; 80076

== ENCOUNTER 2024-11-06 10:45 | Outpatient (REF) | payer MEDICARE, SELFPAY ==
--- NOTE | ~2024-11-06 | US_ITS ---
CLINICAL HISTORY: N20.0 - Calculus of kidney US Renal Comparison: None Findings: Right nephrectomy by history. Left kidney normal size and echotexture, 14.3 cm length. There are likely Bosniak 1 cysts measuring 1.0 x 1.0 x 1.0 cm and 1.2 x 0.9 x 0.8 cm. No hydronephrosis of either kidney. Normal color Doppler IMPRESSION: 1. No acute findings. This document has been electronically signed by: Joseluis Andrews MD on 11/07/2024 18:14:00
--- OUTSIDE RECORDS SUMMARY | 2024-11-06 11:08 | XMS_ITS | Continuity of Care Document ---
Author Name [facility] Organization [facility] Care Team Providers Care Regional Coordinator Name Role Phone [facility] Unavailable Unavailable Problems Combined list of problems [...] [facility] Benign essential hypertension (SNOMED CT 6702998) Active [facility] Calculus of Kidney Active Condition May 08, 2012 Entered By: TRUPTI TREVINO Comment: s/p lithotripsy 2010 [facility] Carcinoma, 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) Active Condition Jul 31, 2007 Entered By: JAVIER DUKE Comment: T1a N0 M0/I AJCC FORM 07/30/07 [facility] Carpal tunnel syndrome Active Condition Jul 10, 2014 Entered By: VÍCTOR ENRIQUEZ Comment: bilateral, R>L [facility] Carpal Tunnel Syndrome * (ICD-9-CM 354.0) Active Condition [facility] ELD colonoscopy 03/07 normal, few diverticula Active Condition [facility] Diabetic peripheral neuropathy (SNOMED CT 263165311) Active Condition [facility] duodenal biopsy 03/10/2009 Active Condition March 13, 2009 Entered By: HARRISON MONROE Comment: without pathologic changeMar 30, 2009 Entered By: HARRISON MONROE Comment: EGD 03/07 no Lam's [facility] Erectile Dysfunction * (ICD-9-CM 302.72) Active Condition [...] [facility] HYPERLIPIDEMIA NEC/NOS Active Condition [facility] Ischemic heart disease Active Condition Jul 04, 2008 Entered By: FERDINAND BOOTHE Comment: Myocardial Stress Perfusion;wall motion;LVEF WNL WHVAMay 2017 Entered By: BETHANY HERNANDEZ Comment: CABG 02/20/2018 [facility] Low Back [...] 2 diabetes mellitus well controlled (SNOMED CT 798540222) Active Condition Aug 31, 2017 Entered By: JOSI ORTIZ Comment: mALB/Cr 8.9 [facility] Under care of multiple providers Active Condition Apr 09, 2019 Entered By: JOSI ORTIZ Comment: Cardiology- [place] - DR FALL/ YENI MACDONALD supervisor money room 03/27/2016 Entered By: JOSI ORTIZ Comment: Orthoped- Instrum ( ( [phone]) [facility] Carcinoma, 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) Inactive Condition 01/20/2010 [facility] Chronic ischemic heart disease Inactive Condition 03/28/2018 [facility] CRAMP IN LIMB Inactive Condition 07/05/2006 [facility] [place] HYPERTENSION NOS Inactive Condition 08/23/2004 [facility] [place] Impaired Fasting Glucose Inactive Condition 04/21/2015 [facility] OSTEOARTHROS NOS-UNSPEC Inactive Condition 07/05/2006 [facility] UNSPEC HYPRPLASIA PROSTATE Inactive Condition 07/05/2006 [facility] VACCIN FOR INFLUENZA Inactive Condition 01/20/2010 [facility] Diagnosis: ICD-10-CM H90.A21 Snsrnrl hear loss, uni, r ear, with rstrcd hear cntra side Active Diagnosis [facility] Diagnosis: ICD-10-CM H90.A32 Mix cndct/snrl hear loss,uni,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 Medication Details Route Status Patient Instructions Prescription Expires Prescription Number Last Dispense Date Ordering Provider Order Date Order Qty Source AMLODIPINE BESYLATE 10MG TAB TAKE ONE TABLET BY MOUTH ORAL ACTIVE MERHAR,NO AH B 2023 [facility] ASPIRIN 81MG TAB,EC TAKE ONE TABLET BY MOUTH DAILY ORAL ACTIVE BOOTHECAROL ANN HARD A 2006 [facility] IELD ATORVASTATI N CA 80MG TAB TAKE ONE-HALF TABLET BY MOUTH ONCE DAILY ORAL ACTIVE PETROFF,S NNE 2018 [facility] ISOSORBIDE MONONITRATE 60MG TAB,SA TAKE ONE TABLET BY MOUTH ORAL ACTIVE MERHAR,NO AH B 2023 [facility] METOPROLOL TARTRATE 50MG TAB TAKE ONE TABLET BY MOUTH TWICE DAILY ORAL ACTIVE PETROFF,S UANNE 2018 [facility] OMEPRAZOLE 20MG CAP,EC TAKE 1 CAPSULE BY MOUTH EVERY MORNING 30 MINUTES BEFORE BREAKFAS T ORAL ACTIVE MERHAR,NO AH B 2023 [facility] TAMSULOSIN HCL 0.4MG CAP TAKE 1 CAPSULE BY MOUTH ONCE DAILY ORAL ACTIVE TREVONROBINCherie 2018 [facility] Allergies, Adverse Reactions, Alerts Combined list of allergies from Department of Defense and Veterans Affairs facilities. It does not include entries that were removed or entered in error. Substance Category Reaction Severity Reaction type Status Date Reported Comments Source AMLODIPINE Propensity to adverse reactions to drug (finding) active 8 [facility] CODEINE Propensity to adverse reactions to drug (finding) Nausea and vomiting active 8 [facility] CODEINE Propensity to adverse reactions to drug (finding) Nausea and vomiting, Delirium active 7 [facility] [place] [facility] Immunizations Combined list of available immunizations from the Department of Defense and Veterans Affairs facilities. Immunization Series Date Given Administered By Site Reaction Lot Number CVX Code Drug Manager Perioperative Status Comments Source COVID-19 (MODERNA), MRNA, LNP-S, PF, 100 MCG/0.5 ML DOSE 2 2020 207 complet ed MOD; [id number]; [facility] COVID-19 (MODERNA), MRNA, LNP-S, PF, 100 MCG/0.5 ML DOSE 1 2020 207 complet ed MOD; [id number]; 1 [facility] FLU,3 YRS (HISTORICAL) 2016 88 complet ed [facility] FLU,3 YRS (HISTORICAL) 2015 88 complet ed Site: Left Deltoid [facility] FLU,3 YRS (HISTORICAL) 2014 88 complet ed [facility] PNEUMOCOCCAL CONJUGATE PCV 13 2014 133 complet ed [place] ZOSTER (HISTORICAL) 2014 121 complet ed [place] FLU,3 YRS (HISTORICAL) [address] [facility] FLU,3 YRS (HISTORICAL) 2013 88 complet ed Site: Right Deltoid [facility] FLU,3 YRS (HISTORICAL) 2012 88 complet ed [facility] DTAP, UNSPECIFIED FORMULATION 2012 [...] complet ed Site: Right Deltoid [place] Vital Signs Combined list of inpatient and outpatient Vital Signs from Department of Defense and Veterans Affairs, ranging from 12 months to all on record, depending upon the facility. Vital Sign Value Date Comments Source SYSTOLIC BLOOD PRESSURE 148 10/31/2024 14:10:05 [facility] DIASTOLIC BLOOD PRESSURE 76 10/31/2024 14:10:05 [facility] PULSE OXIMETRY 95 10/31/2024 14:10:05 [facility] PAIN 0 10/31/2024 14:10:05 [facility] TEMPERATURE 98.4 10/31/2024 14:10:05 [facility] PULSE 93 10/31/2024 14:10:05 [facility] RESPIRATION 18 10/31/2024 14:10:05 [facility] Encounters Combined list of: 1) Encounters from Department of Veterans Affairs facilities going back up to thelast 18 months. 2) Encounters from the Department of Defense facilities going back up to 280 months. Location Location Details Encounter Type Encounter Number Reason For Visit Attending Provider ADM Date DC Date Status Disposition Source [facility] [place] [id number] 1. Diagnos is: ICD-10- CM H35.321 2 Exdtve age-rel mclr degn, right eye, with inact chrdl neovas< br/> MERHAR,ALBERTO H B 09/27 [facility] FIT SPECTACLES MONOFOCAL [id number] 1. Diagnos is: ICD-10- CM Z46.0 Encount er for fit/adj st of spectac les and contact lenses< br/> MERHAR,ALBERTO H B 09/27 [facility] Outpatient Encounter [id number] 10/01 [facility] [place] [place] [id number] Diagnos is: ICD-10- CM H90.A32 Mix cndct/s nrl hear loss,un i,l ear w rstrcd hear cntra side
SENIOR,[place] L 10/01 [facility] Out[facility] En[facility] [id number] 10/02 [facility] OFF/OP CNSLTJ NEW/EST MOD 40 [id number] Diagnos is: ICD-10- CM H90.A32 Mix cndct/s nrl hear loss,un i,l ear w rstrcd hear cntra side
LISA FAULKNERAUGUST R 10/31 [facility] [id number] BINAURL [id number] Diagnos is: ICD-10- CM H90.A21 Snsrnrl hear loss, uni, r ear, with rstrcd hear cntra side
TIFF RAMÍREZ L 11/04 [facility] [employer] [facility] Social History Combined list of available smoking, tobacco, and other social history from Department of Defense and Veterans Affairs facilities. Social History Type Response Date Comment Sourc e Tobacco smoking status [facility] LIFETIME NON-TOBACCO USER 01/29 [facility] History of tobacco use LIFETIME NON-TOBACCO USER [facility] History of tobacco use LIFETIME NON-SMOKER 08/23/2004 [facility] History of tobacco use LIFETIME NON-SMOKER 06/10/2003 [facility] History of tobacco use LIFETIME NON-SMOKER 01/07/2002 [facility] Plan of Care List of future care activities from [facility] facilities. Additional future care activities may be listed in the Assessment and Plan section. Date/Time Care Activity Care Activity Detail Facili ty 11/26/2024 AMBULATORY - REHAB MEDICINE [facility] Advance Directives List of completed, amended, or rescinded Advance Directives on record at Department of Veterans Affairs facilities. An actual copy of the Directive is not included. Date Advance Directive Provider Source 01/31/2007 [facility] DIRECTIVE [facility]
--- OUTSIDE RECORDS SUMMARY | 2024-11-06 11:09 | XMS_ITS | Patient Health Record ---
Author Organization [facility] Address [address] [place] [address] Care Team Providers Care Publications Writer Name Role Phone Brennen Chavira MD Primary Care Provider Alexandra Gilliland Unavailable [phone] Allergies Allergen (clinical drug ingredient) Drug/Non Drug Allergy documented on EMR Reaction Allergy Type Onset Date Status oxycodone OxyCONTIN Unknown Drug Allergy Active codeine Codeine Unknown Drug Allergy Active oxycodone Oxycodone Unknown Drug Allergy Active Reason For Referral No Information Medications Medication SIG (Take, Route, Frequency, Duration) Notes Start Date End Date Status AFO- Posterior [place] form-fitted to foot and leg . [...] primary osteoarthritis of the ankle and/or foot (009763384) Primary osteoarthritis , left ankle and foot (M19.072) Active confirmed Problem Non-pressure chronic ulcer of other part of left foot limited to breakdown of skin (L97.521) Active confirmed Problem Acquired hammer toe of right foot (4643171655542636) Other hammer toe(s) (acquired), right foot (M20.41) Active confirmed Problem Acquired hammer toe of left foot (1456309184038430) Other hammer toe(s) (acquired), left foot (M20.42) Active confirmed Problem 899525972 Neuropathy (G62.9) Active confirmed Problem 06366373 Unsteady gait (R26.81) Active confirmed Plan Of Treatment Pending Test Test Name Order Date [id number] NAIL, 6 OR MORE 04/25/2022 29924-HAPEDOM NAIL, 6 OR MORE 04/11/2023 38384- Debride <25 sq cm 04/25/2022 08449- Debride <25 sq cm 04/11/2023 Insurance Providers Payer Name Payer Address Payer Phone Subscriber Number Group Number Insured Name Patient Relationship to Insured Coverage Start Date Coverage End Date Medicare [employer] [address] [place] [address] [id number] Robert Flores Self - patient is the insured [employer] [facility] [address] [place] [address] [id number] Robert Flores Self - patient is the [...]
--- OUTSIDE RECORDS SUMMARY | 2024-11-06 11:09 | XMS_ITS | Encounter Summary ---
Author Name [facility] [place] Address [address] [place] [address] Care Team Providers Care Brazing Machine Setter Name Role Phone JOSI ORTIZ Primary Care [...] Relationship to Policy Prado ELLIS [place] MED[place] PLAN C PSEUD O MEDFAIZAN JUAN E Sep 29, 2017 [id number] Caleb GARNER PATIENT [place]BS [place] MED[place]ARE SUPPLEMEN TAL MEDFAIZAN JUAN E Sep 29, 2017 [id number] Caleb AGRNER PATIENT MEDICARE ([facility]) MEDICARE (M) PART B Apr 29, 2003 PART B [id number] Caleb GARNER PATIENT MEDICARE (WNR) MEDICARE (M) PART B Apr 29, 2003 PART B [id number] Caleb GARNER PATIENT MEDICARE (WNR) MEDICARE (M) PART A Aug 30, 2000 PART A [id number] Caleb GARNER PATIENT MEDICARE (WNR) MEDICARE (M) PART A Aug 30, 2000 PART A [id number] Caleb GARNER PATIENT Selected Encounter This section includes the information on record at [place] for the Encounter. Date/Time Encounter Type Encounter [...] neovas MERHAR,JR B [facility] [place] [facility] Sep 27, 2024 12:44 PM SECONDARY Nexdtve age-related mclr degn, left eye, stage unspecified MERHAR,JR B [facility] [place] [facility] Sep 27, 2024 12:44 PM SECONDARY Presence of intraocular lens MERHAR,JR B [facility] [place] [facility] Sep 27, 2024 12:44 PM SECONDARY Regular astigmatism, bilateral MERHAR,JR B [place] [facility] [place] [facility] Plan of Treatment: Future Appointments (+ 6 months) and Future Tests (+/- 45 days) The Plan of Treatment section includes future care activities for the patient from all [place] treatmentfacilities. This section includes future appointments and future orders which are active, pending or scheduled. Future Appointments This section includes appointments that were scheduled to occur 6 months from the date of the Encounter, up to a maximum of 20 appointments. The data comes from all [place] treatment facilities. Appointment Date/Time Appointment Type Appointme nt Facility Name Oct 01, 2024 02:00 PM AMBULATORY - REHAB MEDICIN E [facility] [place] [facility] Oct 31, 2024 02:00 PM AMBULATORY - MEDICINE [facility] Nov 04, 2024 09:00 AM AMBULATORY - REHAB MEDICIN E [facility] Nov 26, 2024 11:00 AM [facility] Advance Directives: All historical and current Section Date Range: From patient's date of to the date document was created. This section includes ALL of a patient's completed or amended [place] Advance and Rescinded Directives. The entries below indicate that a directive exists for the patient, but an actual copy is not included with this document. The data comes from all [place] facilities. Date Advance Directives Provider Source Jan 31, 2007 ADVANCE DIRECTIVE NERY GROSSMAN [facility] Encounter Notes: All associated encounter notes [...] MHx: Code Description R69. Renal cell carcinoma ([facility] 102901675) R69. Under care of multiple providers ([facility] 2702397422114) R69. History of surgery ([facility] 615263464) E11.9 Type 2 diabetes mellitus well controlled ([facility] 009333083) 354.0 Carpal Tunnel Syndrome (ICD-9-CM 354.0) 592.0 Calculus of Kidney (ICD-9-CM 592.0) E11.40 Diabetic peripheral neuropathy ([facility] 762685263) 799.9 colonoscopy 03/07 normal, few diverticula (ICD-9-CM 799.9) 799.9 duodenal biopsy 03/10/2009 (ICD-9-CM 799.9) 799.9 Renal Insufficiency (ICD-9-CM 799.9) R69. Ischemic heart disease ([facility] 766908594) I10. Benign essential hypertension ([facility] 1232135) 724.2 Low Back Pain (ICD-9-CM 724.2) 189.0 [...] diet and exercise. Suicide Screen: C-SSRS Screening [place]-Suicide Severity Rating Scale (C-SSRS Screener) 1. Over [...] to other questions. /rosa/ JR COLEMAN OD Label Paster Signed: 09/27/2024 12:44 JR COLEMAN [facility]
--- OUTSIDE RECORDS SUMMARY | 2024-11-06 11:09 | XMS_ITS | Encounter Summary ---
Author Name [facility] [place] Address [address] [place] [address] Care Team Providers Care Squeegee Operator Name Role Phone JOSI ORTIZ Primary Care [...] Patient's Relationship to Policy Prado ELLIS BCBS [facility] MEDIGAP PLAN C PSEUD O MEDEX BRONLoren E Sep 29, 2017 [id number] [phone] Caleb GARNER PATIENT [place] MED[place]ARE SUPPLEMEN TAL MEDEX BRONLoren E Sep 29, 2017 [id number] [phone] Caleb GARNER PATIENT MEDICARE (WNR) MEDICARE (M) PART B Apr 29, 2003 PART B [id number] Caleb GARNER PATIENT MEDICARE (WNR) MEDICARE (M) PART B Apr 29, 2003 PART B [id number] [phone] Caleb GARNER PATIENT MEDICARE (WNR) MEDICARE (M) PART A Aug 30, 2000 PART A [id number] Caleb GARNER PATIENT MEDICARE (WNR) MEDICARE (M) PART A Aug 30, 2000 PART A [id number] [phone] Caleb GARNER PATIENT Selected Encounter This section includes the information on record at [place] for the Encounter. 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 This section includes future appointments and future orders which are active, pending or scheduled. Future Appointments This section includes appointments that were scheduled to occur 6 months from the date of the Encounter, up to a maximum of 20 appointments. The data comes from all [place] treatment facilities. Appointment Date/Time Appointment Type Appointme nt Facility Name Oct 31, 2024 02:00 PM AMBULATORY - MEDICINE [place] [facility] [place] [facility] Active, Pending, and Scheduled Orders This section includes a listing of several types of active, pending, and scheduled orders, including clinic medications orders, diagnostic test orders, procedure orders and consult orders; where the start date of the order is 45 days before the date of the Encounter or 45 days after the date of theEncounter. The data comes from all [place] treatment facilities. Test Date/Time Test Type Test Details Facility Name Oct 01, 2024 05:00 PM Consult Order OTOLARYNGO LOGY/ENT ONE Cons Body Straightener's Choice [facility] [place] [facility] Advance Directives: All historical and current Section Date Range: From patient's date of to the date document was created. This section includes ALL of a patient's completed or amended [place] Advance and Rescinded Directives. The entries below indicate that a directive exists for the patient, but an actual copy is not included with this document. The data comes from all [place] facilities. Date Advance Directives Provider Source Jan 31, 2007 ADVANCE DIRECTIVE NERY GROSSMAN [facility] Encounter Notes: All associated encounter notes [...] today for an initial hearing evaluation, unaccompanied. 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 [place] states that he had very runny and [...] heartbeat in his left ear only recently. [place] reports recent onset of vertigo as well and notes that it comes on randomly. [place] denies current or past use of hearing aids and denies ever seeing an ENT physician. Medical history includes: Active problems - Computerized Problem List is the source for the followin. Renal cell carcinoma 2. Under care of multiple providers 3. History of surgery 4. Type 2 diabetes mellitus well controlled (SNOMED CT 834548540) 5. Carpal Tunnel Syndrome * 6. Calculus of Kidney 7. Diabetic peripheral neuropathy (SNOMED CT 115277796) 8. colonoscopy 03/07 normal, few diverticula 9. duodenal biopsy 03/10/2009 10. Renal Insufficiency 11. Ischemic heart disease 12. Benign essential hypertension (SNOMED CT 0889058) 13. Low Back Pain * 14. Malignant [...] moderately-severe to severe sensorineural hearing loss from 8418-2759 Hz. Testing in the left ear revealed [...] ask questions throughout today's visit. PLAN: 1. [facility] ENT consult submitted today. 2. [place] was welcomed to return for a 30 [...] Applicable NA /rosa/ DAVID ANDREWS, CCC-A STAFF TROUBLE CLERK Signed: 10/01/2024 16:55 SHRADDHA RADFORD CNTRL [facility]
--- OUTSIDE RECORDS SUMMARY | 2024-11-06 11:09 | XMS_ITS | Encounter Summary ---
Author Name [facility] [place] Organization [place] Address [address] [place] [address] Care Team Providers Care Ballet Professor Name Role Phone JOSI ORTIZ Primary Care Provider MICHAEL Luwdig Unavailable Unavailable HARI RAYMOND Unavailable Unavailable Insurance [...] Patient's Relationship to Policy Prado ELLIS BCBS [facility] MEDIGAP PLAN C PSEUD O MEDEX BRONLoren E Sep 29, 2017 [id number] [phone] Caleb GARNER PATIENT [place]BS [place] MED[place]ARE SUPPLEMEN TAL MEDEX YESSICA E Sep 29, 2017 [id number] Caleb GARNER PATIENT MEDICARE (WNR) MEDICARE (M) PART B Apr 29, 2003 PART B [id number] Caleb GARNER PATIENT MEDICARE (WNR) MEDICARE (M) PART B Apr 29, 2003 PART B [id number] Caleb GARNER PATIENT MEDICARE (WNR) MEDICARE (M) PART A Aug 30, 2000 PART A [id number] Caleb GARNER PATIENT MEDICARE (WNR) MEDICARE (M) PART A Aug 30, 2000 PART A [id number] Caleb GARNER PATIENT Selected Encounter This section includes the information on record at [place] for the Encounter. Date/Time Encounter Type Encounter Description Reason Pro vider Source Oct 01, 2024 02:00 PM Outpatient Encounter AUDIOLOGY IHE Encounter Template Text not used by [place] Plan of Treatment: Future Appointments (+ 6 [...] 31, 2024 02:00 PM AMBULATORY - MEDICINE ME C NTRL [facility] Active, Pending, and Scheduled Orders This section includes a listing of several types of active, pending, and scheduled orders, including clinic medications orders, diagnostic test orders, procedure orders and consult orders; where the start date of the order is 45 days before the date of the Encounter or 45 days after the date of theEncounter. The data comes from all [facility] facilities. Test Date/Time Test Type Test Details Facility Name Oct 01, 2024 05:00 PM Consult Order OTOLARYNGO LOGY/ENT ONE Cons Salvager's Choice [facility] Advance Directives: All historical and current Section Date Range: From patient's date of to the date document was created. This section includes ALL of a patient's completed or amended [place] Advance and Rescinded Directives. The entries below indicate that a directive exists for the patient, but an actual copy is not included with this document. The data comes from all [place] facilities. Date Advance Directives Provider Source Jan 31, 2007 ADVANCE DIRECTIVE NERY GROSSMAN [facility] Encounter Notes: All associated encounter notes This section contains the clinical notes associated to the Encounter. Date/Time Encounter Note(s) Provider Source Oct 01, 2024 03:05 PM CLINICAL WARNING: LOCAL TITLE: COMMUNICATION AUTHORIZATION STANDARD TITLE: CLINICAL WARNING DATE OF NOTE: OCT 01, 2024@15:05 ENTRY DATE: OCT 01, 2024@15:05:17 AUTHOR: NEIL RAMIREZ EXP COSIGNER: URGENCY: STATUS: COMPLETED Family/Caregiver Name: Primary: Consuelo Garner - spouse [phone] Secondary: Nery Mead- daughter [phone] Tertiary: Authorized Clinic & Topics: All Clinic's & Topics: All Care/Coordination Primary Care: All Care/Coordination Mental Health: All Care/Coordination Specialty Care: All Care/Coordination [id number] Protected Info: [X] Drug Abuse [X] Alcohol Abuse [X] HIV [X] Sickle Cell Expiration: Date: [X] At [ ] Through [ ] At end of care /es/ NEIL RAMIREZ LEAD BRICK PAVING CHECKER Signed: 10/01/2024 15:06 NEIL RAMIREZ [place] [facility]
--- OUTSIDE RECORDS SUMMARY | 2024-11-06 11:09 | XMS_ITS ---
Author Organization [facility] Address [address] [place] [address] Care Team Providers Care Potato Peeling Machine Operator Name Role Phone Brennen Chavira MD Primary Care Provider Neryvajorge Aguiar, Alexandra Unavailable [phone] REASON FOR VISIT NS 10/04/23 Encounters Encounter [facility] Date [facility] [address] [address] 10/04/2023 Alexandra Black Plan Of Treatment No Information Progress Notes * Robert GARNER FDOB:[birth year] (88 yo M)Acc No.[id number]:10/04/2023 Patient:?Robert Garner :1935???Age:88 Y???Sex:Male Address:[address], [place], [address] * true * Date:? Generated for Printi tierra/Dilcia/eTransmitting on:?11/06/2024 11:09 AM EST
--- OUTSIDE RECORDS SUMMARY | 2024-11-06 11:09 | XMS_ITS | Encounter Summary ---
Author Name [place] Address [address] [place] [address] Care Team Providers Care Greenhouse Transplanter Name Role Phone JOSI ORTIZ Primary Care [...] Relationship to Policy Prado ELL[place] MED[place] PLAN C PSEUD O MEDEX YESSICA E Sep 29, 2017 [id number] Caleb GARNER PATIENT [place]BS [place] MED[place]ARE SUPPLEMEN TAL [facility] Sep 29, 2017 [id number] [phone] Caleb GARNER PATIENT MEDICARE ([facility]) MEDICARE (M) PART B Apr 29, 2003 PART B [id number] Caleb GARNER PATIENT MEDICARE (R) MEDICARE (M) PART B Apr 29, 2003 PART B [id number] Caleb GARNER PATIENT MEDICARE (WNR) MEDICARE (M) PART A Aug 30, 2000 PART A [id number] aCleb GARNER PATIENT MEDICARE (WNR) MEDICARE (M) PART A Aug 30, 2000 PART A [id number] [phone] Caleb GARNER PATIENT Selected Encounter This section includes the information on record at [place] for the Encounter. Date/Time Encounter Type Encounter Description Reason Provider Source Nov 04, 2024 09:00 AM HEARING AID XM&SLCTN BINAURL AUDIOLOGY ICD-10-CM H90.A21 Snsrnrl hear loss, uni, r ear, with rstrcd hear cntra side TRUPTI RAMÍREZ E Encounter Template Text not used by [place] Assessments - Encounter Diagnoses This section includes the primary and secondary diagnoses documented for the Encounter. Date/Time Primary/Secondary Diagnosis Diagnosis Name Provider Source Nov 04, 2024 09:28 AM PRIMARY Snsrnrl hear loss, uni, r ear, with rstrcd hear cntra side [facility] Nov 04, 2024 09:28 AM SECONDARY Mix cndct/snrl hear loss,uni,l ear w rstrcd hear cntra side [facility]PTI RAM[facility]Z [facility] Plan of Treatment: Future Appointments (+ 6 months) and Future Tests (+/- 45 days) The Plan of Treatment section includes future care activities for the patient from all [place] treatmentfacilities. This section includes future appointments and future orders which are active, pending or scheduled. Future Appointments This section includes appointments that were scheduled to occur 6 months from the date of the Encounter, up to a maximum of 20 appointments. The data comes from all [place] treatment facilities. Appointment Date/Time Appointment Type Appointme nt Facility Name Nov 26, 2024 11:00 AM AMBULATORY - REHAB MEDICIN E [facility] Advance Directives: All historical and current Section Date Range: From patient's date of to the date document was created. This section includes ALL of a patient's completed or amended [place] Advance and Rescinded Directives. The entries below indicate that a directive exists for the patient, but an actual copy is not included with this document. The data comes from all [place] facilities. Date Advance Directives Provider Source Jan 31, 2007 ADVANCE DIRECTIVE NERY GROSSMAN [facility] Encounter Notes: All associated encounter notes This section contains the clinical notes associated to the Encounter. Date/Time Encounter Note(s) Provider Source Nov 04, 2024 09:17 AM AUDIOLOGY E & M NO TE: LOCAL TITLE: AUDIOLOGY CLINIC STANDARD TITLE: AUDIOLOGY E & M NOTE DATE OF NOTE: NOV 04, 2024@09:17 ENTRY DATE: NOV 04, 2024@09:18 AUTHOR: TRUPTI RAMÍREZ EXP COSIGNER: URGENCY: STATUS: COMPLETED Dx: Sensorineural hearing loss, right ear Mixed hearing loss, left ear was seen today for a hearing aid selection appointment. He has been medically cleared for amplification. Hearing aid styles and options were discussed. [place] denies having a pacemaker and reports he is interested in rechargeable hearing aids. Ear impressions were taken without incident for both ears given 's verbal consent. New, binaural Oticon Real 1 mini BTE-R hearing aids will be ordered. [place] is scheduled for a hearing aid fitting appointment on 11/26/24 at 11am. RTC placed. /rosa/ Marshall Frost, CCC-A Cheese Factory Worker Signed: 11/04/2024 09:29 Receipt Acknowledged By: 11/04/2024 09:42 /rosa/ NEIL RAMIREZ LEAD SOFTWARE QUALITY TESTER TRUPTI RAMÍREZ [place] [facility] [facility]
--- OUTSIDE RECORDS SUMMARY | 2024-11-06 11:09 | XMS_ITS ---
Author Organization [facility] Address [address] [place] [address] Care Team Providers Care Take Down Inspector Name Role Phone Cait DAVIS, Brennen Primary Care Provider Alexandra Gilliland [phone] Encounters Encounter Location Date Provider Diagnosis [address] [address] 10/04/2023 Alexandra Aguiar Plan Of Treatment No Information Progress Notes * Robert GARNER FDOB:[birth year] (89 yo M)Acc No.[id number]:10/04/2023 Progress Note Patient:Robert KAPLAN Provider:?Alexandra Aguiar DPM :1935???Age:88 Y???Sex:Male Marlon e:10/04/2023 Address:[facility] [address], [facility] Pcp:Brennen Chavira MD Subjective: * Chief Complaints: [...] Aguiar DPM Date:?2022 Generated for Printi ng/Faarnoldg/eTransmitting on:?11/06/2024 11:09 AM EST
--- OUTSIDE RECORDS SUMMARY | 2024-11-06 11:09 | XMS_ITS | Encounter Summary ---
Author Name [facility] [place] Address [address] [place] [id number] Care Team Providers Care Housing Inspectors Name Role Phone JOSI ORTIZ Primary Care [...] Relationship to Policy Prado ELLIS [place] PLAN C PSEUD O MEDEX YESSICA E Sep 29, 2017 [id number] [phone] Caleb GARNER PATIENT [place]BS [place] MED[place]ARE SUPPLEMEN TAL [facility] Sep 29, 2017 [id number] [phone] Caleb GARNER PATIENT MEDICARE ([facility]) MEDICARE (M) PART B Apr 29, 2003 PART B [id number] Caleb GARNER PATIENT MEDICARE (R) MEDICARE (M) PART B Apr 29, 2003 PART B [id number] Caleb GARNER PATIENT MEDICARE (WNR) MEDICARE (M) PART A Aug 30, 2000 PART A [id number] Caleb GARNER PATIENT MEDICARE (WNR) MEDICARE (M) PART A Aug 30, 2000 PART A [id number] Caleb GARNER PATIENT Selected Encounter This section includes the information on record at [place] for the Encounter. Date/Time Encounter Type Encounter Description Reason Provider Source Oct 31, 2024 02:00 PM OFF/OP CNSLTJ NEW/EST MOD 40 OTOLARYNGOLOGY/ENT ICD-10-CM H90.A32 Mix cndct/snrl hear loss,uni,l ear w rstrcd hear cntra side EDUAR PEREZ [facility] Encounter Template Text not used by [place] Assessments - Encounter Diagnoses This section includes the primary and secondary diagnoses documented for the Encounter. Date/Time Primary/Secondary Diagnosis Diagnosis Name Provider Source Oct 31, 2024 02:52 PM PRIMARY Mix cndct/snrl hear loss,uni,l ear w rstrcd hear cntra side [facility] [place] [facility] Oct 31, 2024 02:52 PM SECONDARY Tinnitus, bilateral EDUAR PEREZ [facility] [place] [facility] Plan of Treatment: Future Appointments (+ 6 months) and Future Tests (+/- 45 days) The Plan of Treatment section includes future care activities for the patient from all [place] treatmentfacilities. This section includes future appointments and future orders which are active, pending or scheduled. Future Appointments This section includes appointments that were scheduled to occur 6 months from the date of the Encounter, up to a maximum of 20 appointments. The data comes from all [place] treatment facilities. Appointment Date/Time Appointment Type Appointme nt Facility Name Nov 04, 2024 09:00 AM [facility] [place] [facility] Nov 26, 2024 11:00 AM [facility]UL[facility] - [facility] [place] [facility] Vital Signs: All taken on the encounter date This section contains inpatient and outpatient Vital Signs collected on the date of the Encounter. Date/Time Temperature Pulse Blood Pressure Respiratory Rate SP02 Pain Height Weight Body Mass Index Source Oct 31, 2024 02:10 PM 98.4 93 148/76 18 95 0 [place] [facility] [place] [facility] Advance Directives: All historical and current Section Date Range: From patient's date of to the date document was created. This section includes ALL of a patient's completed or amended [place] Advance and Rescinded Directives. The entries below indicate that a directive exists for the patient, but an actual copy is not included with this document. The data comes from all [place] facilities. Date Advance Directives Provider Source Jan 31, 2007 ADVANCE DIRECTIVE NERY GROSSMAN [facility] Encounter Notes: All associated encounter notes This section contains the clinical notes associated to the Encounter. Date/Time Encounter Note(s) Provider Source Oct 31, 2024 02:46 PM OTOLARYNGOLOGY CONSULT: LOCAL TITLE: CONSULT REPORT/OTOLARYNGOLOGY STANDARD TITLE: OTOLARYNGOLOGY CONSULT DATE OF NOTE: OCT 31, 2024@14:46 ENTRY DATE: OCT 31, 2024@14:46:10 AUTHOR: EDUAR PEREZ COSIGNER: URGENCY: STATUS: COMPLETED CONSULT REQUESTED FROM OCT 31, 2024 BERNADETTE GARNER is a 89 y/o NON- smoker WHITE MALE, previously in [employer] FROM Jan TO Jan from [employer] [facility] [place] [employer], w/chief complaint of LEFT ASYMMETRIC MIXED HEARING LOSS 89-year-old male, non-smoker presents with a longstanding history of decreased hearing in the left ear. Patient states that ever since he was a kid he has noted decreased hearing in the left ear. He states that he had frequent ear infections as a kid where he would have drainage and he would go to [facility]. He never had ear surgery. 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 He has noted for many many years that the hearing in his left ear was shot . He has not had any ear infections since childhood. He has mild bilateral tinnitus. No vertigo. He had significant noise exposure when in the he was exposed to B-52's that were very loud. He did not have a lot of exposure to firearms. He has noted over the years that his hearing is generally been declining. He has never worn hearing aids. PMHx: Active problems - Computerized Problem List is the source for the followin. Renal cell carcinoma 2. Under care of multiple providers 3. History of surgery 4. Type 2 diabetes mellitus well controlled (SNOMED CT 050286068) 5. Carpal Tunnel Syndrome * 6. Calculus of Kidney 7. Diabetic peripheral neuropathy (SNOMED CT 957033741) 8. colonoscopy 03/07 normal, few diverticula 9. duodenal biopsy 03/10/2009 10. Renal Insufficiency 11. Ischemic heart disease 12. Benign essential hypertension (SNOMED CT 4665201) 13. Low Back Pain * 14. Malignant neoplasm of kidney, except pelvis 15. Osteoarthrosis involving the knee 16. Erectile Dysfunction * 17. OBESITY, UNSP 18. HEARING LOSS NOS 19. HYPERLIPIDEMIA NEC/NOS Service Connected Disabilities with % Eligibility: NSC VERIFIED MEDS: Active Outpatient Medications (including Supplies): Non-VA AMLODIPINE BESYLATE 10MG TAB 10MG BY MOUTH ACTIVE Non-VA ASPIRIN 81MG EC TAB 81MG BY MOUTH DAILY ACTIVE Non-VA ATORVASTATIN CALCIUM 80MG TAB 40MG BY MOUTH ONCE ACTIVE DAILY Non-VA ISOSORBIDE MONONITRATE 60MG SA TAB 60MG BY MOUTH ACTIVE Non-VA METOPROLOL TARTRATE 50MG TAB 50MG BY MOUTH TWICE ACTIVE DAILY Non-VA OMEPRAZOLE 20MG EC CAP 20MG BY MOUTH EVERY MORNING ACTIVE 30 MINUTES BEFORE BREAKFAST Non-VA TAMSULOSIN HCL 0.4MG CAP 0.4MG BY MOUTH ONCE DAILY ACTIVE ALL: AMLODIPINE, CODEINE Fam Hx: Non - contributory Soc Hx: LIFETIME NON-SMOKER ROS: Denies any other relavent ROS Vitals Enter at: Oct 31, 2024@14:10:05 BP: 148/76 P: 93 R: 18 T: 98.4 229 lb [103.87 kg] (10/04/2017 10:45) BMI: 32.0 CONSTITUTION: GENERAL APPEARANCE:Well developed, well nourished and groomed. No apparent acute or chronic distress. HEAD, FACE, SALIVARY GLANDS AND TMJ: Palpation of Parotid and Submandibular glands: Normal. Facial Mobility: Normal. EAR, NOSE, MOUTH AND THROAT: Pinnas - normal. Otoscopic exam: RIGHT EAR: EXTERNAL AUDITORY CANAL NORMAL, TYMPANIC MEMBRANE MOBILE, MILDTYMPANOSCLEROSIS LEFT EAR: EXTERNAL AUDITORY CANAL NORMAL, TYMPANIC MEMBRANE SEVERE TYMPANOSCLEROSIS WITH DECREASED MOBILITY DECREASED HEARING MODERATE Nasal Interior: Turbinates and middle meatus - Inferior turbinates normal. Normal mucosa with no swelling, polyps, active bleeding or evidence of bleeding. Lips, Teeth and Gums: Lips normal. BILATERAL DENTURES Oral Cavity and Oropharynx: Oral mucosa with normal color and moisture. Anterior 2/3rds of tongue normal. Breath quality normal. Hard palate normal. Normal floor of mouth, Posterior pharynx normal. ABSENT TONSILS NECK AND THYROID: Neck: no adenopathy; no neck masses. RESPIRATORY: Respiratory effort normal. LYMPH NODES: Neck nodes: normal. NEUROLOGIC: Higher integrative functions: Normal orientation, memory, attention span and concentration, language, and fund of knowledge. Cranial nerves: Cranial nerves II-XII grossly intact and symmetrical. PSYCHIATRIC: Mood and affect: normal and appropriate to the situation. AUDIOGRAM 10-01-2024 Otoscopy was WNL for the right ear [...] moderately-severe to severe sensorineural hearing loss from 7283-5493 Hz. Testing in the left ear revealed moderately- severe to profound mixed hearing loss from 250-8000 Hz. SRT WORD RECOGNITION (Recorded [place] [facility] 1/2 Word List) Right 20dBHL 92% @ 85dBHL/55dBm Left 55dBHL 60% @ 90dBHL/60dBm Assessment/Plan OCT 31, 2024: 89-year-old male with left mixed hearing loss and right high-frequency sensorineural hearing loss. Physical exam shows severe tympanosclerosis on the left with decreased mobility. I reviewed the patient's audiogram with him. There is no evidence of cholesteatoma. Patient has no recent history of ear infections. Given patient's underlying hearing loss amplification would be necessary even without the middle ear conductive loss. THEREFORE PATIENT IS MEDICALLY CLEARED FOR AMPLIFICATION. He will follow-up as needed. All questions were answered. Complete encounter includes: Review of past medical records Time spent with patient including obtaining history, physical exam, shared decision making, procedures, counseling and answering questions. Post visit documentation to include but not limited to medication and lab ordering. Total time = Minimum 45 min MEDICATION RECONCILIATION Outpatient: Has the patient been taking medications as documented in the EMLR? YES: The patient has been taking medications as documented in the EMLR. Essential Medication List for Review used to complete this medication reconciliation. INCLUDED IN THIS LIST: Alphabetical list of active outpatient prescriptions dispensed from this [facility] (local) and dispensed from another [place] or [facility] facility (remote) as well as inpatient orders (local, pending and active), local clinic medications, locally documented non-VA medications, and local prescriptions that have or been discontinued in the past 90 days. - All changes in medications, including all non-VA/Herbal/OTC medications were entered into CPRS. - If there were any medications the patient should no longer take, they were discontinued. - The patient/caregiver was instructed to update this list, discard old lists, and take this list to the next appointment, whether with a VA or non-VA provider. JLV Link Data on this list may not be complete. Please check JLV. Allergies/ADRs (Tool #5) FACILITY ALLERGY/ADR -------- [facility] [place] [facility] AMLODIPINE [facility] [place] [facility]INE [facility] ([facility] INCLUDED IN THIS LIST: Alphabetical list of active outpatient prescriptions dispensed from this [place] (local) and dispensed from another [place] or [facility] facility (remote) as well as inpatient orders (local pending and active), local clinic medications, locally documented non-VA medications, and local prescriptions that have or been discontinued in the past 90 days. Non-VA Meds Last Documented On: Sep 27, 2024 NOTE The display of VA prescriptions dispensed from another [place] or [facility] facility (remote) is limited to active outpatient prescription entries matched to National Drug File at the originating site and may not include some items such as investigational drugs, compounds, etc. NOT INCLUDED IN THIS LIST: Medications self-entered by the patient into personal health records (i.e. ANPI) are NOT included in this list. Non-VA medications documented outside this [place], remote inpatient orders (regardless of status) and remote clinic medications are NOT included in this list. The patient and provider must always discuss medications the patient is taking, regardless of where the medication was dispensed or obtained. Non-VA AMLODIPINE BESYLATE 10MG TAB TAKE ONE TABLET BY MOUTH Medication prescribed by Non-VA provider. Non-VA ASPIRIN 81MG EC TAB TAKE ONE TABLET BY MOUTH DAILY Non-VA medication recommended by VA provider. Non-VA ATORVASTATIN CALCIUM 80MG TAB TAKE ONE-HALF TABLET BY MOUTH ONCE DAILY Medication prescribed by Non-VA provider. percardiology note 02/2019 Non-VA ISOSORBIDE MONONITRATE 60MG SA TAB TAKE ONE TABLET BY MOUTH Medication prescribed by Non-VA provider. Non-VA METOPROLOL TARTRATE 50MG TAB TAKE ONE TABLET BY MOUTH TWICE DAILY Medication prescribed by Non-VA provider. per Cardiology note 02/2019 Non-VA OMEPRAZOLE 20MG EC CAP TAKE 1 CAPSULE BY MOUTH EVERY MORNING 30 MINUTES BEFORE BREAKFAST Medication prescribed by Non-VA provider. Non-VA TAMSULOSIN HCL 0.4MG CAP TAKE 1 CAPSULE BY MOUTH ONCE DAILY Medication prescribed by Non-VA provider. per cardiology note 02/2019 SUPPLIES /rosa/ Eduar Perez MD Otolaryngology Signed: 10/31/2024 14:55 EDUAR PEREZ [facility]
--- OUTSIDE RECORDS SUMMARY | 2024-11-06 11:09 | XMS_ITS | Encounter Summary ---
Author Name [place] Address [address] [place] [address] Care Team Providers Care Office Aide Name Role Phone JOSI ORTIZ Primary Care [...] Relationship to Policy Prado ELLIS [place] MED[place] PLAN C PSEUD O MEDFAIZAN JUAN E Sep 29, 2017 [id number] [phone] Caleb GARNER PATIENT BCBS [place] MEDICARE SUPPLEMEN TAL MEDEX YESSICA E Sep 29, 2017 [id number] [phone] Caleb GARNER PATIENT MEDICARE (WNR) MEDICARE ([place]) PART B Apr 29, 2003 PART B [id number] aCleb GARNER PATIENT MEDICARE (WNR) MEDICARE (M) PART B Apr 29, 2003 PART B [id number] Caleb GARNER PATIENT MEDICARE (WNR) MEDICARE (M) PART A Aug 30, 2000 PART A [id number] Caleb GARNER PATIENT MEDICARE (WNR) MEDICARE (M) PART A Aug 30, 2000 PART A [id number] Caleb GARNER PATIENT Selected Encounter This section includes the information on record at [place] for the Encounter. Date/Time Encounter Type Encounter Description Reason Provider Source Sep 27, 2024 08:47 AM FIT SPECTACLES MONOFOCAL OPTOMETRY ICD-10-CM Z46.0 Encounter for fit/adjst of spectacles and contact lenses JR COLEMAN IHE Encounter Template Text not used by [place] Assessments - Encounter Diagnoses This section includes the primary and secondary diagnoses documented for the Encounter. Date/Time Primary/Secondary Diagnosis Diagnosis Name Provider Source Sep 27, 2024 08:47 AM PRIMARY Encounter for fit/adjst of spectacles and contact lenses [facility] Plan of Treatment: Future Appointments (+ 6 months) and Future Tests (+/- 45 days) The Plan of Treatment section includes future care activities for the patient from all [place] treatmentfacilities. This section includes future appointments and future orders which are active, pending or scheduled. Future Appointments This section includes appointments that were scheduled to occur 6 months from the date of the Encounter, up to a maximum of 20 appointments. The data comes from all [place] treatment facilities. Appointment Date/Time Appointment Type Appointme nt Facility Name Oct 01, 2024 02:00 PM [facility] [place] [facility] Oct 31, 2024 02:00 PM [facility] Active, Pending, and Scheduled Orders This section includes a listing of several types of active, pending, and scheduled orders, including clinic medications orders, diagnostic test orders, procedure orders and consult orders; where the start date of the order is 45 days before the date of the Encounter or 45 days after the date of theEncounter. The data comes from all [place] treatment facilities. Test Date/Time Test Type Test Details Facility Name Oct 01, 2024 05:00 PM Consult Order OTOLARYNGO LOGY/ENT ONE Cons Spiral Machine Operator's Choice [facility] Advance Directives: All historical and current Section Date Range: From patient's date of to the date document was created. This section includes ALL of a patient's completed or amended [place] Advance and Rescinded Directives. The entries below indicate that a directive exists for the patient, but an actual copy is not included with this document. The data comes from all [place] facilities. Date Advance Directives Provider Source Jan 31, 2007 ADVANCE DIRECTIVE NGOCNERY [facility] Encounter Notes: All associated encounter notes [...] Dir: [email or web address]:0.00 Dir2: FITTING INFORMATION FPD:66.5 NPD:66.5 Barton:R: L: SEG HT:R: L: Tint:MORAN Shade:3 [place] Billable Items FRAME: S528 [place] [...] Dir: Prz2:0.00 Dir2: FITTING INFORMATION FPD:63.5 NPD:63.5 Barton:R: L: SEG HT:R: L: Tint:None Shade:None VA [...] Dir: Prz2:0.00 Dir2: FITTING INFORMATION FPD:66.5 NPD: Barton:R: L: SEG HT:R: L: Tint:None Shade:None [place] Billable Items FRAME: S528 GUNMETAL [id number] Right Lens: PLASTIC SINGLE VISION CLEAR 1.498 PLASTIC CR39 Left Lens: PLASTIC SINGLE VISION CLEAR 1.498 PLASTIC CR39 KLEAR ANTI-REFLECTIVE COATING CLIN items [employer] - AR Coating 0001 - Single Vision - Glass Plastic Poly /rosa/ SHRADDHA MARIANO EMERGENCY COMMUNICATIONS DISPATCHER Signed: 09/27/2024 08:51 Receipt Acknowledged By: 09/30/2024 09:49 /rosa/ Emily Mcghee Optometry Health Humanities Department Chair 09/30/2024 ADDENDUM STATUS: COMPLETED PDS Wig Comber fit patient with 3 pair(s) of sv eyeglasses on 09/27/2024. OPT HT entered consult(s) as requested for provider signature. /rosa/ Emily Mcghee Optometry Health Humanities Department Chair Signed: 09/30/2024 09:54 SHRADDHA MARIANO [facility]
--- OUTSIDE RECORDS SUMMARY | 2024-11-06 11:09 | XMS_ITS | Encounter Summary ---
Author Name [place] Address [address] [place] [address] Care Team Providers Care Fabrication Operator Name Role Phone JOSI ORTIZ Primary [...] Relationship to Policy Prado ELLIS [place] MED[place] PLAN C PSEUD O MEDFAIZAN JUAN E Sep 29, 2017 [id number] [phone] Caleb GARNER PATIENT BCBS [place] MEDICARE SUPPLEMEN TAL MEDFAIZAN JUAN E Sep 29, 2017 [id number] Caleb GARNER PATIENT MEDICARE (WNR) MEDICARE ([place]) PART B Apr 29, 2003 PART B [id number] Caleb GARNER PATIENT MEDICARE (WNR) MEDICARE ([place]) PART B Apr 29, 2003 PART B [id number] [phone] Caleb GARNER PATIENT MEDICARE (WNR) MEDICARE ([place]) PART A Aug 30, 2000 PART A [id number] Caleb GARNER PATIENT MEDICARE (WNR) MEDICARE ([place]) PART A Aug 30, 2000 PART A [id number] [phone] Caleb GARNER PATIENT Selected Encounter This section includes the information on record at [place] for the Encounter. Date/Time Encounter Type Encounter Description Reason Pro vider Source Oct 02, 2024 11:30 AM Outpatient Encounter OTOLARYNGOLOGY/ENT IHE Encounter Template Text not used by [place] Plan of Treatment: Future Appointments (+ 6 months) and Future Tests (+/- 45 days) The Plan of Treatment section includes future care activities for the patient from [facility] [place] [facility] This section includes future appointments and future orders which are active, pending or scheduled. Future Appointments This section includes appointments that were scheduled to occur 6 months from the date of the Encounter, up to a maximum of 20 appointments. The data comes from all [facility] facilities. Appointment Date/Time Appointment Type Appointme nt Facility Name Oct 31, 2024 02:00 PM AMBULATORY - MEDICINE [place] C [facility] Active, Pending, and Scheduled Orders This section includes a listing of several types of active, pending, and scheduled orders, including clinic medications orders, diagnostic test orders, procedure orders and consult orders; where the start date of the order is 45 days before the date of the Encounter or 45 days after the date of theEncounter. The data comes from all [facility]. Test Date/Time Test Type Test Details Facility Name Oct 01, 2024 05:00 PM Consult Order OTOLARYNGO LOGY/ENT ONE Cons Internal Corrosion Specialist's Choice [facility] Advance Directives: All historical and current Section Date Range: From patient's date of to the date document was created. This section includes ALL of a patient's completed or amended [place] Advance and Rescinded Directives. The entries below indicate that a directive exists for the patient, but an actual copy is not included with this document. The data comes from all [place] facilities. Date Advance Directives Provider Source Jan 31, 2007 ADVANCE DIRECTIVE NERY GROSSMAN [facility] Encounter Notes: All associated encounter notes This section contains the clinical notes associated to the Encounter. Date/Time Encounter Note(s) Provider Source Oct 02, 2024 11:30 AM LETTERS: LOCAL TITLE: PATIENT LETTER (B) STANDARD TITLE: LETTERS DATE OF NOTE: OCT 02, 2024@11:30 ENTRY DATE: OCT 02, 2024@11:30:36 AUTHOR: ERNESTINE UNDERWOOD COSIGNER: URGENCY: STATUS: COMPLETED OCT 02, 2024 BERNADETTE GARNER [address] [address] Dear BERNADETTE GARNER We would like to assist you in scheduling a OTOLARYNGOLOGY appointment at the [place]. We have been unable to reach you by phone. To schedule this appointment please call toll free Ext [phone]. Our booking appointment hours are Monday through [...] Your health is important to us. Sincerely, [facility] [address] [facility] [address] [place] [address] [place] [address] ext. [phone] [facility] [address] [facility] [address] [place] [address] [place] [address] [phone] [facility] [address] [facility] [address] [place] [address] [place] [address] ext. [phone] [facility] [address] [place] [address] ext. [phone] ERNESTINE UNDERWOOD [place] CN[facility]
== END 2024-11-06 10:46 | disposition home or self-care (01) ==
LOC: HO.HMGCX 10:45
PROVIDERS: PCP Internal Medicine; Visit Provider Urology
DX: N20.0 Calculus of kidney (principal)
CPT/HCPCS: 76775

== ENCOUNTER → 2024-11-06 10:49 | Outpatient (BNV) | payer MEDICARE, SELFPAY | PROVIDERS: PCP Internal Medicine; Visit Provider Specialist | DX: N20.0 Calculus of kidney (principal) | CPT/HCPCS: 76775 ==

== ENCOUNTER → 2024-12-06 10:53 | Outpatient (BNVA) | payer MEDICARE, SELFPAY | PROVIDERS: PCP Internal Medicine; Visit Provider Urology ==

== ENCOUNTER 2025-02-12 13:50 | Outpatient (AMB) | payer MEDICARE, SELFPAY ==
--- NOTE | 2025-02-12 13:54 | MHC.OFFVIS ---
Intake Visit Reasons: cysto Intake Note: Patient is present for Cystoscopy Urology Medication:TAMSULSOIN Antibiotic Allergy:NONE Blood Thinner:NONE Lot:[id number] Exp:03/07/27 [employer] Professional Required: No Allergies oxycodone [OxyContin] Allergy (Unknown, Verified 02/12/25 13:55) Unknown codeine [CODEINE] Adverse Reaction (Mild, Verified 02/12/25 13:55) Nausea and Vomiting HPI Comments Details: Robert is a very pleasant male. He is a patient of Dr. Chavira. He is seen for the following urologic conditions - nephrolithiasis - lower urinary tract symptoms Cystoscopy for narrowing of urinary stream Normal Primary issue is urinary urgency Trial Cialis Three-month follow-up Lower urinary tract symptoms Progressive symptoms Good response to tamsulosin 0.8 mg Nocturia 1-2 times PSA 03/21 0.7 Discussion regarding elevating legs in late afternoon Nephrolithiasis in setting of solitary kidney They are here for - further evaluation of nephrolithiasis Urolithiasis was diagnosed - a number of years ago The patient previously had kidney stones whose composition w - unknown Laboratory investigations include - no recent labs 24 Hour urine evaluation - none on file Prior treatment(s) include - early 2017 left ESWL - 11/19 renal ultrasound left perinephric hematoma. No evidence of stones Prior imaging includes - renal ultrasound March 2018 3 mm left lower pole - 11/21 absent right kidney, left renal cyst, no evidence of stones - 10/21 renal ultrasound no evidence of stones on left kidney - 10/22 renal ultrasound Therapeutic plan - continue renal ultrasound [facility] Medical History Nephrolithiasis Dysphagia Peripheral neuropathy Degenerative joint disease (DJD) of lumbar spine Hyperlipidemia Hypertension Renal hematoma BPH w urinary obs/LUTS Surgical History S/P triple vessel bypass Social History Household Members Other:: 4 kids Patient Tobacco Use Status: Never used Tobacco 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 Review of Systems Const Denies chills and Denies fever(s) Card Reports no additional complaints and Denies syncope Resp Denies cough GI Denies abdominal pain and Denies heartburn Reports as per HPI and Denies change in libido Neuro Denies syncope Psych Denies change in libido Endo Denies change in libido Physical Exam Const General: cooperative, healthy appearing, comfortable and no acute distress Orientation/consciousness: patient oriented x3 HEENT Face and sinus: Yes normal facial exam Mouth: moist mucous membranes Neck Neck: Yes normal visual inspection, Yes full ROM and Yes trachea midline Chest Chest palpation & inspection: normal inspection of the chest Resp Effort & Inspection: normal respiratory effort, able to speak in complete sentences and no respiratory distress GI Inspection: Yes normal to inspection Back/Spine/Pelvis Cervical Spine: normal cervical lordosis Thoracic/Lumbar Spine: thoracic and lumbar spine normal to inspection Skin General skin exam: no rashes or lesions noted Neuro General: patient oriented x3, gait normal, tone normal and moves all extremities Extrem General: Yes normal to inspection and Yes capillary refill normal Office Procedures Cystoscopy Consent Discussed risk and benefit or proposed procedure with the patient. Information consent for procedure given to the patient. Discussed technical aspects, risks, benefits and alternatives in full. Addressed all of the patient's questions and concerns regarding the procedure. The patient demonstrated knowledge and understanding. They wish to proceed with this procedure. Preparation The patient was prepped in the usual manner. A oil truck driver was present and in the room. Genitalia was prepped with betadine solution in a sterile manner. Lidocaine Jelly 2% was placed into the urethra and 16Fr flexible Olympus cystoscope was inserted into the meatus after adequate lubrication. Procedure Cystoscopy performed using a disposable Urovue digital 16 Romansh cystoscope. 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 - 40792-[id number] DISPOSABLE SCOPE URO-G FLEXIBLE SCOPE Procedure code (CPT) selection complete Office Meds lidocaine HCl 2 % mucosal jelly in applicator Performing Provider: West Rey MD [facility] Administered by: Estee Pedersen RN on 02/12/25 14:19 Dose Route Admin Location Dispensed Lot Number Expiration Date [facility] Process Development Technician 10 mL intra-urethral 10 mL nitrofurantoin monohydrate/macrocrystals 100 mg capsule Performing Provider: West Rey MD Performing Location: [facility] Administered by: Estee Pedersen RN on 02/12/25 14:19 Dose Route Admin Location Dispensed Lot Number Expiration Date [facility] Process Development Technician 100 mg PO 1 cap Assessment & Plan Assessment & Plan (1) Urinary urgency: Code(s): R39.15 - Urgency of urination Category: Medical Plan Three-month follow-up office PVR Orders: Orders AMB Urinalysis Automated Today Z13.9 - Encounter for screening, unspecified AMB Cystoscopy Today N20.0 - Calculus of kidney, R39.12 - Poor urinary stream Medications: New tadalafil [id number] [facility] [id number] Member [id number] 5 mg PO DAILY 90 days 90 tabs 0RF urinry urge R39.15 - Urgency of urination Patient Instructions: This note is constructed using voice recognition software. While every effort has been made to ensure accuracy radiology transcriptionist errors may have been included. Imaging studies, laboratory and physical exam results were discussed and reviewed in detail. No major barriers to patient understanding were identified. An opportunity to ask questions regarding the treatment plan was provided. All questions were answered. The patient expressed understanding and agreement with the above treatment plan. The patient is aware they should contact our office by phone for worsening of their current condition or the appearance of new urologic symptoms. Compliance is encouraged with any medications and followup testing that is ordered. It is a privilege to participate in the urologic care of your patient. If you have any questions or concerns regarding treatment for the above conditions, or other urologic issues, please do not hesitate to contact me. The office telephone contact is [phone]. Sincerely, Dr West Rey MD, [facility] - Urology Compassionate Specialist Care for the Genitourinary System Coding Level of Care Code Est Pt Level 4 (49009) Complex EM visit Add On G2211 Diagnoses Urinary urgency R39.15 CPT Codes Cystoscopy - CPT: 64645-[id number] ([id number])
--- OUTSIDE RECORDS SUMMARY | 2025-02-12 16:31 | XMS_ITS | Encounter Summary ---
Author Name [facility] [place] Organization [facility] [place] Address [address] [place] [address] Care Team Providers Care Art Gallery Director Name Role Phone JOSI ORTIZ Primary Care [...] Relationship to Policy Prado E[place] MED[place] PLAN C PSEUD O MEDEX YESSICA E Sep 29, 2017 [id number] Caleb GARNER PATIENT [place] MED[place]ARE SUPPLEMEN TAL MEDEX [facility] E Sep 29, 2017 [id number] [phone] Caleb GARNER PATIENT MEDICARE ([facility]) MEDICARE (M) PART B Apr 29, 2003 PART B [id number] Caleb GARNER PATIENT MEDICARE (R) MEDICARE (M) PART B Apr 29, 2003 PART B [id number] [phone] Caleb GARNER PATIENT MEDICARE (WNR) MEDICARE (M) PART B Apr 29, 2003 PART B [id number] Caleb GARNER PATIENT MEDICARE (WNR) MEDICARE (M) PART A Aug 30, 2000 PART A [id number] Caleb GARNER PATIENT MEDICARE (WNR) MEDICARE (M) PART A Aug 30, 2000 PART A [id number] [phone] Caleb GARNER PATIENT MEDICARE (WNR) MEDICARE (M) PART A Aug 30, 2000 PART A [id number] [phone] Caleb GARNER PATIENT Selected Encounter This section includes the information on record at [place] for the Encounter. Date/Time Encounter Type Encounter Description Reason Provider Source Nov 04, 2024 09:00 AM HEARING AID XM&SLCTN [facility]INA[facility] AUDIOLOGY ICD-10-CM H90.A21 Snsrnrl hear loss, uni, r ear, with rstrcd hear cntra side TRUPTI RAMÍREZ [facility] Encounter Template Text not used by [place] Assessments - Encounter Diagnoses This section includes the primary and secondary diagnoses documented for the Encounter. Date/Time Primary/Secondary Diagnosis Diagnosis Name Provider Source Nov 04, 2024 09:28 AM PRIMARY Snsrnrl hear loss, uni, r ear, with rstrcd hear cntra side TRUPTI RAMÍREZ [facility] Nov 04, 2024 09:28 AM SECONDARY Mix cndct/snrl hear loss,uni,l ear w rstrcd hear cntra side TRUPTI RAMÍREZ [facility] Plan of Treatment: Future Appointments (+ 6 months) and Future Tests (+/- 45 days) The Plan of Treatment section includes future care activities for the patient from all [place] treatmentfacilities. This section includes future appointments and future orders which are active, pending or scheduled. Future Appointments This section includes appointments that were scheduled to occur 6 months from the date of the Encounter, up to a maximum of 20 appointments. The data comes from all [place] treatment facilities. Appointment Date/Time Appointment Type Appointme nt Facility Name Nov 26, 2024 11:00 AM AMBULATORY - REHAB MEDICIN E [facility] Dec 13, 2024 10:00 AM AMBULATORY - RE[facility]AB MEDICIN E [facility] Advance Directives: All historical and current Section Date Range: From patient's date of to the date document was created. This section includes ALL of a patient's completed or amended [place] Advance and Rescinded Directives. The entries below indicate that a directive exists for the patient, but an actual copy is not included with this document. The data comes from all [place] facilities. Date Advance Directives Provider Source Jan 31, 2007 ADVANCE DIRECTIVE [facility] Encounter Notes: All associated encounter notes This section contains the clinical notes associated to the Encounter. Date/Time Encounter Note(s) Provider Source Nov 04, 2024 09:17 AM AUDIOLOGY E & M NO TE: [facility] TITLE: AUDIOLOGY CLINIC STANDARD TITLE: AUDIOLOGY E & M NOTE DATE OF NOTE: NOV 04, 2024@09:17 ENTRY DATE: NOV 04, 2024@09:18 AUTHOR: TRUPTI RAMÍREZ EXP COSIGNER: URGENCY: STATUS: COMPLETED AUDIOLOGY CLINIC Has ADDENDA Dx: Sensorineural hearing loss, right ear Mixed hearing loss, left ear Dunbar was seen today for a hearing aid selection appointment. He has been medically cleared for amplification. Hearing aid styles and options were discussed. Dunbar denies having a pacemaker and reports he is interested in rechargeable hearing aids. Ear impressions were taken without incident for both ears given 's verbal consent. New, binaural Oticon Real 1 mini BTE-R hearing aids will be ordered. Dunbar is scheduled for a hearing aid fitting appointment on 11/26/24 at 11am. RTC placed. /rosa/ Marshall Frost, CCC-A It Recruiter Signed: 11/04/2024 09:29 Receipt Acknowledged By: 11/04/2024 09:42 /rosa/ NEIL RAMIREZ LEAD JALOUSIE INSTALLER 11/21/2024 ADDENDUM STATUS: COMPLETED Hearing aids received and certified, upcoming appointment scheduled on 11/26/2024. /rosa/ KUN CALIXTO Audiology Health Manager Of Loss Prevention Operations Signed: 11/21/2024 07:38 TRUPTI RAMÍREZ [facility]
--- OUTSIDE RECORDS SUMMARY | 2025-02-12 16:32 | XMS_ITS ---
Author Organization [facility] Address [address] [place] [address] Care Team Providers Care Router Setter Name Role Phone Brennen Chavira MD Primary Care Provider Neryvajorge Aguiar, Alexandra Unavailable [phone] REASON FOR VISIT NS 10/04/23 Encounters Encounter [facility] Date [facility] [address] [address] 10/04/2023 Alexandra Black Plan Of Treatment No Information Progress Notes * Robert GARNER FDOB:[birth year] (88 yo M)Acc No.[id number]:10/04/2023 Patient:?Robert Garner :1935???Age:88 Y???Sex:Male Address:[address], [address], [place], [address] * true * Date:? Generated for Printi ng/Faarnoldg/eTransmitting on:?02/12/2025 04:32 PM EDT
--- OUTSIDE RECORDS SUMMARY | 2025-02-12 16:32 | XMS_ITS | Patient Health Record ---
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 Name Role Phone Brennen Chavira Primary Care Provider [phone] Allergies Allergen (clinical drug ingredient) Drug/Non Drug Allergy documented on EMR Reaction Allergy Type Onset Date Status OxyCODONE ER vomiting Drug Allergy Acti ve Vicodin vomiting Drug Allergy Active oxycodone OxyContin vomiting Drug Allergy Active Lisinopril cough Drug Allergy Active Results Component Value Reference Range Notes Complete Blood Count Auto Di ff Reviewed date:03/28/2024 07:19:49 PM Interpretation: Performing Lab:[facility], [address] [place] [phone] Notes/Report: White Blood Count 8.6 4.8-10.8 X10*3/uL [...] NRBC Abs Auto 0.000 0.0-0.012 X10*3/uL Comprehensive Notus. Panel Fa st Reviewed date:03/28/2024 07:19:26 PM Interpretation: Performing Lab:[facility], [address] [place] [phone] Notes/Report: Sodium 142 135-145 mmol/L Potassium 3.9 3.3-5.1 mmol/L Chloride 108 96-108 mmol/L Carbon Dioxide 26 22-29 mmol/L Anion Gap 12 12-20 Blood Urea Nitrogen 18 9-16 mg/dL Creatinine 1.16 0.5-1.4 mg/dL Estimated Glomerular Filt Rate 59 NOTE: For -[place]ub[place] individuals, multiply the result by 1.210. Chronic [...] Panel Reviewed date:03/28/2024 12:34:35 PM Interpretation: Performing Lab:[facility], [address] [place] [phone] Notes/Report: Triglycerides 81 <150 mg/dL Desirable Triglyceride: [...] (Free>4and<10) Reviewed date:03/28/2024 12:37:33 PM Interpretation: Performing Lab:[facility], [address] [place] [phone] Notes/Report: PSA,Total (Free>4and<10) 0.58 0.00-4.00 ng/mL A [...] Duran Alinity i Chemiluminescent Microparticle Immunoassay (CMIA) Liver Panel Reviewed date:10/07/2024 12:51:29 PM Interpretation: Performing Lab:[facility], [address] [place] [phone] Notes/Report: Bilirubin Total 0.6 0.0-1.0 mg/dL Bilirubin Direct 0.2 0.0-0.5 mg/dL Aspartate Amino Transferase 31 5-37 U/L Alanine Aminotransferase 34 0-40 U/L Total Protein 6.6 6.5-8.0 g/dL Albumin Level 3.9 3.5-5.0 g/dL Alkaline Phosphatase 117 39-117 U/L Lipid Panel with Reflex Reviewed date:10/08/2024 12:37:25 PM Interpretation: Performing Lab:[facility], [address] [place] [phone] Notes/Report: Triglycerides 86 <150 mg/dL Desirable Triglyceride: [...] low results in patients with liver disease. Occult Blood, Stool, Guaiac Reviewed date:04/01/2024 03:02:13 PM Interpretation:Negative Performing Lab: Notes/Report: Negative Occult Blood, Stool, Guaiac Neg Electrocardiogram (EKG) Reviewed date:06/24/2024 11:33:53 AM Interpretation: Performing Lab: Notes/Report: Complete Blood Count Auto Di ff Reviewed date:05/28/2024 12:38:02 PM Interpretation: Performing Lab:[facility], [address] [place] [phone] Notes/Report: White Blood Count 11.9 4.8-10.8 X10*3/uL [...] te Reviewed date:05/28/2024 12:31:00 PM Interpretation: Performing Lab:[facility], [address] [place] [phone] Notes/Report: Erythrocyte Sedimentation Rate 10 0-15 MM/HR Patients with polycythemia and many hemoglobin abnormalities may have depressed sed rates whereas patients with anemia may have elevated sed rates. Liver Panel Reviewed date:05/28/2024 12:37:37 PM Interpretation: Performing Lab:[facility], [address] [place] [phone] Notes/Report: Bilirubin Total 1.1 0.0-1.0 mg/dL Bilirubin Direct 0.3 0.0-0.5 mg/dL Aspartate Amino Transferase 26 5-37 U/L Alanine Aminotransferase 21 0-40 U/L Total Protein 6.8 6.5-8.0 g/dL Albumin Level 3.9 3.5-5.0 g/dL Alkaline Phosphatase 115 39-117 U/L Basic Metabolic Panel Reviewed date:05/28/2024 12:25:44 PM Interpretation: Performing Lab:[facility], [address] [place] [phone] Notes/Report: Sodium 137 135-145 mmol/L Potassium 3.7 [...] Estimated Glomerular Filt Rate 52 NOTE: For -[place] individuals, multiply the result by 1.210. Chronic Kidney Disease: Estimated GFR < 60 mL/min/1.73m2 Severe Kidney Disease: Estimated GFR < 15 mL/min/1.73m2 Glucose Random 157 60-115 mg/dL Calcium 10.2 8.4-10.2 mg/dL Magnesium Reviewed date:05/28/2024 12:27:18 PM Interpretation: Performing Lab:[facility], [address] [place] [phone] Notes/Report: Magnesium 1.8 1.6-2.6 mg/dL C Reactive Protein Reviewed date:05/28/2024 12:27:04 PM Interpretation: Performing Lab:[facility], [address] [place] [phone] Notes/Report: C Reactive Protein 10.28 < or = 0.50 mg/dL US venous duplex LE LT Reviewed date:05/28/2024 01:34:10 PM Interpretation: Performing Lab: Notes/Report: [address] [address] Ultrasound Report Signed Patient: Robert Adams MR#: [id number] 281 : 1935 Acct:[id number] Age/Sex: 88 / M ADM Date: 05/28/24 Loc: .ED Attending Dr: Ordering Physician: Sarah Molina Date of Service: 05/28/24 Procedure(s): US venous duplex LE LT Accession Number(s): [id number] cc: Brennen Chavira MD; Sarah Molina EXAMINATION: [...] in OV> 05/28/24 1250 DD/ 1215 TD/TT: Public Relations Professional: [address] [address] Ultrasound Report Signed Patient: Guy Adams MR#: [id number] 281 : 1935 Acct:[id number] Age/Sex: 88 / M ADM Date: 05/28/24 Loc: .ED Attending Dr: Ordering Physician: Sarah Molina Date of Service: 05/28/24 Procedure(s): US venous duplex LE LT Accession Number(s): [id number] cc: Brennen Chavira MD; Sarah Molina EXAMINATION: US VENOUS ULTRASOUND WITH DOPPLER LOWER EXTREMITY, LEFT CLINICAL INFORMATION: Redness and swelling COMPARISON: None available. TECHNIQUE: Ultrasound of the de ep veins is performed from the hip to the calf with compression sonograp hy and color and pulse Doppler assessment. Spectral analysis with color-flow imaging is performed. FINDINGS: There is normal veno us compression and respiratory variation and augmented flow. The visualized left common femoral vein, superficial femoral vein, profun da femoral vein, popliteal vein, and the trifurcation [...] in OV> 05/28/24 1250 DD/ 1215 TD/TT: Public Relations Professional: Mack Lizarraga Reviewed date:10/07/2024 12:52:06 PM Interpretation: Performing Lab:[facility], [address] [place] [phone] Notes/Report: Mack Lizarraga See Note Specimen held untested for 24 hours; Call to request Chemistry testing. US renal BI Reviewed date:11/08/2024 05:26:01 PM Interpretation: Performing Lab: Notes/Report: [facility] [address] Ultrasound Report Signed Patient: Robert Adams MR#: [id number] 281 : 1935 Acct:[id number] Age/Sex: 89 / M ADM Date: 11/06/24 Loc: HO.HMGCX Attending Dr: West Rey MD Ordering Physician: West Rey MD Date of Service: 11/06/24 Procedure(s): US renal BI Accession Number(s): [id number] cc: West Rey MD; Brennen Chavira MD CLINICAL HISTORY: N20.0 - Calculus of kidney US Renal Comparison: None Findings: Right nephrectomy by history. Left kidney normal size and echotexture, 14.3 cm length. There are likely Bosniak 1 cysts measuring 1.0 x 1.0 x 1.0 cm and 1.2 x 0.9 x 0.8 cm. No hydronephrosis of either kidney. Normal color Doppler IMPRESSION: 1. No acute findings. This document has been electronically signed by: Joseluis Andrews MD on 11/07/2024 18:14:00 Dictated By: Joseluis Andrews MD Signed By: <Electronically signed by Joseluis Andrews MD in OV> 11/07/241813 DD/ 13 TD/TT: 11/07/241813 Public Relations Professional: [facility] [address] [place] [address] [place] [address] Ultrasound Report Signed Patient: Guy Adams MR#: [id number] 281 : 1935 Acct:[id number] Age/Sex: 89 / M ADM Date: 11/06/24 [facility]: West Rey MD Ordering Physician: West Rey MD Date of Service: 11/06/24 Procedure(s): US lucho Perez Accession Number(s): [id number] cc: West Rey MD; Brennen Chavira MD CLINICAL HISTORY: N20.0 - Calculus of kidney US Renal Comparison: None Findings: Right nephrectomy by history. Left kidney normal size and echotexture, 14.3 cm length. There are likely Bosniak 1 cysts measuring 1.0 x 1.0 x 1.0 cm and 1.2 x 0.9 x 0.8 cm. No hydronephrosis of either kidney. Normal color Doppler IMPRESSION: 1. No acute findings. This document has be en electronically signed by: Joseluis Andrews MD on 11/07/2024 18:14:00 Dictated By: Joseluis Andrews MD Signed By: <Electronically signed by Joseluis Andrews MD in OV> 11/07/241813 DD/ 13 TD/TT: 11/07/241813 Public Relations Professional: Reason For Referral Reason bilateral carotid ar jonathan stenosis Diagnosis [...] Referral Priority Routine Referral Appointment Date 08/15/2024 Medications Medication SIG (Take, Route, Frequency, Duration) Notes Start Date End Date Status amLODIPine Besylate 10 MG 1 tablet Orall y Once a day Active Isosorbide Mononitrate ER 30 MG 1 tablet in the morning Orally Once a day Active Aspir-Low 81 MG 1 tablet Orally Once a day for 30 day(s) Active Tamsulosin HCl 0.4 MG 2 capsule Orally O nce a day 11/02/2020 Active Meclizine HCl 25 MG 1 tablet as needed O rally every 12 hrs for 10 days 01/27/2025 Active Ondansetron HCl 4 MG 1 tablet Orally Onc e a day for 5 days 01/27/2025 Active Nitrostat 0.4 MG as directed Sublingu al every 5 mins times 3 until pain goes 08/13/2020 Active Atorvastatin Calcium 80 MG TAKE 1 TABLET BY MOUTH EVERY DAY for 90 Active Metoprolol Tartrate 50 MG TAKE ONE TABLE T BY MOUTH TWICE A DAY WITH FOOD Active Immunizations Vaccine Route Administration Date Status Comme nts Flu Vaccine Unknown 09/05/2017 Administered pt was give n the vaccine at the [facility] DECLINED, PNEUMO Unknown 07/18/2017 Administered pt was given the vaccine at the [facility] Prevnar 13 IM Intramuscular 04/21/2015 Administered was gi demetra the vaccine at the [facility] TDaP IM Intramuscular 11/23/2012 Administered was gi demetra the vaccine at the [facility]. Influenza High Dose IM Intramuscular 08/14/2018 Administer [...] High Dose IM Intramuscular 07/22/2024 Administer ed Social History Tobacco Use: Social History Observation Description Date Details (start date - stop date) Never Smoker NA - NA Tobacco Use/Smoking Question Answer Notes Patient is [...] Never (0 point) Points 1 Interpretation Negative Problems Problem Type SNOMED Code ICD Code Onset Dates Problem Status W/U Status Risk Notes Problem 796609419 Neuropathy (G62.9) Active confirmed Problem 16995342 Prostatism (N40.0) Active confirmed Problem 0229685 Diverticulitis o f large intestine without perforation or abscess without bleeding (K57.32) Active confirmed Problem 95531355 Essential hypert ension (I10) Active confirmed Problem 26008550 Kidney stones (N20.0) Active confirmed Problem 914859826 History of renal cell cancer (Z85.528) Active confirmed Problem 544303805 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) Active confirmed Problem 89117811 Hypercholesterol emia (E78.00) Active confirmed Problem 065090485 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 Problem 099526280 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) Active confirmed Problem 49511367910863141 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) Active confirmed Vital Signs Blood pressure diastolic 60 mm Hg 01/27/2025 Height 68.5 in 01/27/2025 Blood pressure systolic 124 mm Hg 01/27/2025 Weight 242 lbs 01/27/2025 BMI 36.26 kg/m2 01/27/2025 Encounters Encounter Location Date Provider Diagnosis Brennen Chavira MD [address] [place] [id number] 03/28/2024 Brennen Chavira Prostatism N40.0 ; Hypercholesterolemia E78.00 and Essential hypertension I10 Brennen Chavira MD [address] [place] [id number] 07/22/2024 Brennen Chavira Encounter for immuni zation Z23 Brennen Chavira MD [address] [place] [id number] 10/07/2024 Brennen Chavira Hypercholesterolemia E78.00 Brennen Chavira MD [address] [place] [id number] 04/01/2024 Brennen Chavira Coronary artery dise [place] artery of [place] heart with stable angina pectoris I25.118 ; Left foot drop M21.372 ; Essential hypertension I10 ; Hypercholesterolemia E78.00 ; Colon cancer screening Z12.11 and Depression screening Z13.31 Brennen Chavira MD [address] [place] [id number] 05/16/2024 Brennen Chavira Bilateral carotid ar jonathan stenosis I65.23 and Vertigo R42 Brennen Chavira MD [address] [place] [id number] 06/24/2024 Brennen Chavira Coronary artery dise [place] artery of [place] heart with stable angina pectoris I25.118 ; Acute UTI N39.0 and Pre-op evaluation Z01.818 Brennen Chavira MD [address] [place] [id number] 10/15/2024 Brennen Chavira Angina concurrent wi th and due to 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 I25.709 ; Hypercholesterolemia E78.00 and Essential hypertension I10 Brennen Chavira MD [address] [place] [id number] 01/27/2025 Brennen Chavira Vertigo R42 Brennen Chavira MD [address] [place] [id number] 05/14/2024 Brennen Chavira MD [address] [place] [address] [id number] 05/30/2024 Brennen Chavira MD [address] [place] [address] [id number] 06/17/2024 Brennen Chavira Assessments Encounter Date Diagnosis (ICD Code) Assessment Notes Treatment Notes Treatment Clinical Notes Section Notes 03/28/2024 Prostatism (ICD-10 - N40.0) 03/28/2024 Hypercholesterolemia (ICD-10 - E78.00) 07/22/2024 Encounter for immunization (ICD-10 - Z23) 10/07/2024 Hypercholesterolemia (ICD-10 - E78.00) 04/01/2024 Coronary artery dise [place] artery of [place] heart with stable angina pectoris (ICD-10 - I25.118) need results from dr talley in [place] from 2 weeks ago/ OFFICE NOTE REQUESTED FROM [facility] 04/01/2024 Left foot drop (ICD- 10 - M21.372) has had for years wears an AFO brace to keep from tripping 05/16/2024 Bilateral carotid artery stenosis (ICD-10 - I65.23) the hospital wanted [...] lab data, studies and counseling the patient. 05/16/2024 Vertigo (ICD-10 - R42) has resolved 06/24/2024 Coronary artery dise [place] artery [place] heart with stable angina pectoris (ICD-10 - I25.118) is having no activity of his coronary disease/ ecg normal. no need for any further evaluation prior to the upcoming surgery 06/24/2024 Acute UTI (ICD-10 - N39.0) tell him he has a uti and he should speak to urology about that in case they didn't call him. 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 encouraged to take nitro for pain. had echo that was normal/ cholesterol was good and lft's normal, will continue current regiment 10/15/2024 Hypercholesterolemia (ICD-10 - E78.00) stable, will continue current regiment 01/27/2025 Vertigo (ICD-10 - R42) has b een evaluated at [facility] for this 9 mo ago when it was worse. had ct angio and ct head./ have gien him a maneuver for that, patient verbalized understanding of medication nd directions for use, will continue to monitor sx's 03/28/2024 Essential hypertensi on (ICD-10 - I10) 04/01/2024 Essential hypertensi on (ICD-10 - I10) 06/24/2024 Pre-op evaluation (ICD-10 - Z01.818) has been stable. no need for any further evaluation prior to the upcoming surgery. had blood work 05/28 that was all normal 10/15/2024 Essential hypertensi on (ICD-10 - I10) doing well, will continue current regiment 04/01/2024 Hypercholesterolemia (ICD-10 - E78.00) 04/01/2024 Colon cancer screeni ng (ICD-10 - Z12.11) guaiac negaitve 04/01/2024 Depression screening (ICD-10 - Z13.31) negative screen Plan Of Treatment Pending Test Test Name Order Date Electrocardiogram (EKG) 02/09/2018 NM bone scan whole body 03/24/2022 XR thoracic spine 2V 04/14/2022 XR femur RT 2V 04/14/2022 XR lumbar spine 2-3V 04/14/2022 XR foot LT 2V 04/14/2022 Next Appt Details Provider Name:Brennen Russell ier, 03/28/2025 07:15:00 AM, [address], [address], [place], [place], [id number], Provider Name:Brennen Russell ier, 04/04/2025 11:00:00 AM, [address], [address], [place], [place], [id number], Insurance Providers Payer Name Payer Address Payer Phone Subscriber Number Group Number Insured Name Patient Relationship to Insured Coverage Start Date Coverage End Date MEDICARE NHIC [address] [place] [address] [id number] [place] Self - patient is the insured [employer] [place] [address] [place] [address] [phone] [id number] Mark Robert Self - patient is the insured Medical (General) History Medical History History ICD Code Pt can not any Pain Meds asending aortic aneurysm see n on ct at [facility] 2018 needs repeat in one year (Order [...]
--- OUTSIDE RECORDS SUMMARY | 2025-02-12 16:32 | XMS_ITS ---
Author Name [facility] [place] Organization [facility] [place] Address [address] [place] [id number] Care Team Providers Care Director Business Intelligence Name Role Phone JOSI ORTIZ Primary Care [...] Relationship to Policy Prado ELLIS [place] MED[place]AP PLAN C PSEUD O MEDEX BRONLoren E Sep 29, 2017 [id number] Caleb GARNER PATIENT [place] MED[place]ARE SUPPLEMEN TAL MEDEX YESSICA E Sep 29, 2017 [id number] Caleb GARNER PATIENT MEDICARE (WNR) MEDICARE (M) PART B Apr 29, 2003 PART B [id number] [phone] Caleb GARNER PATIENT MEDICARE (WNR) MEDICARE (M) PART B Apr 29, 2003 PART B [id number] [phone] Caleb GARNER PATIENT MEDICARE (WNR) MEDICARE (M) PART B Apr 29, 2003 PART B [id number] Caleb GARNER PATIENT MEDICARE (WNR) MEDICARE (M) PART A Aug 30, 2000 PART A [id number] Caleb GARNER PATIENT MEDICARE (WNR) MEDICARE (M) PART A Aug 30, 2000 PART A [id number] [phone] Caleb GARNER PATIENT MEDICARE (WNR) MEDICARE (M) PART A Aug 30, 2000 PART A [id number] Caleb GARNER PATIENT Selected Encounter This section includes the information on record at [place] for the Encounter. 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 Date/Time Encounter Note(s) Provider Source Jan 30, 2025 09:09 AM ADDENDUM: LOCAL TITLE: Addendum STANDARD TITLE: ADDENDUM DATE OF NOTE: JAN 30, 2025@09:09:14 ENTRY DATE: JAN 30, 2025@09:09:15 AUTHOR: KUN CALIXTO COSIGNER: URGENCY: STATUS: COMPLETED Strawberry returned IOI-BREAUX Outcome Measure to the clinic via mail with an overall score of 21 Based on this score: i. No follow-up call is indicated __ ii. 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 He had previously been evaluated and found to exhibit significant hearing loss for which amplification was recommended. is a new hearing aid user. How does the patient best learn? Verbal instruction, demonstration Does the patient have any cultural and yazidi beliefs, emotional barriers, physical or cognitive limitations, and communication barriers which may impact his ability to learn? No Desire and motivation to learn? Good OBJECTIVE (O): Physical fit of hearing aids was good. Patient verified comfort. Verification of an appropriate acoustic response was obtained using Real Ear measurements (speech mapping) and NAL-NL2 targets. The patient reported good subjective benefit as well. Feedback physician practice manager was run. Hearing aids were found to be meeting targets adequately and MPO was not exceeding estimated UCL. Settings stored in JR. ASSESSMENT (A): The following devices were issued: Make: OTICON Model: REAL 1 MINIBTE-R Right Serial Number: [id number] Left Serial Number: [id number] Battery size: Rechargeable Warranty ends: 12/12/27 Trial Period ends: 05/11/25 Earmold Information: Canal lock molds Tubing: R- size 3 thin tube, L- 13M tubing Program(s): Automatic Button(s): Short press= Synced V, R- Raise, L- Lower Long press= Program Extra-long press= Power on/off Fitting Formula: NAL-NL2 Remote Programming: HAs are capable Bluetooth: Strawberry not interested Counseling was completed throughout todays appointment using a standardized curriculum that includes but is not limited to; realistic expectations with amplification in adverse listening environments, acclimatization to own voice and environmental sounds (following real-ear measurements), the importance of consistent use of amplification, proper insertion/removal, care and maintenance (including wax guards/domes if applicable), signal and alerts of devices, and charging/batteries. The was provided the opportunity to practice in office and reports confidence/understanding in all items reviewed. Time Spent= 20 minutes The patient was informed of and signed/agreed to [place] policy on hearing aid issuance: Yes Users are responsible for the maintenance and security of their devices. Determination of need to replace a hearing aid is made by the [place] ticket collector. Hearing aids will not be replaced in cases of neglect, abuse, or excessive loss. Items issued are for personal use only. Prognosis for successful hearing aid use is good. PLAN (P): 1. Follow-up for programming/adjustments as needed. 2. The International Outcome Inventory-Hearing Aids (IOI-BREAUX) will be mailed to the in four weeks. He was asked to complete and mail back to clinic after completion. Patient Education Education provided on the following topics: Hearing aid use, care, maintenance Education provided to: P Response to Education: ROMANA DONIS, PI [place] Patient P Family F Significant Other SO Verbalizes Understanding VU Returns Demonstration RD Performs Independently PI Lacks Comprehension LC Refused Education RE Not Applicable NA /rosa/ DAVID ANDREWS, [facility]-A STAFF LENO SEWER Signed: 12/13/2024 10:52 KUN CALIXTO [place] [facility]TR[facility] Dec 13, 2024 07:48 AM AUDIOLOGY E & M NOTE: LOCAL TITLE: AUDIOLOGY CLINIC STANDARD TITLE: AUDIOLOGY E & M NOTE DATE OF NOTE: DEC 13, 2024@07:48 ENTRY DATE: DEC 13, 2024@07:48:46 AUTHOR: SHRADDHA RADFORD EXP COSIGNER: URGENCY: STATUS: COMPLETED AUDIOLOGY CLINIC Has ADDENDA Dx CODE: Z46.1- Encounter for Fitting/Programming Hearing Aid(s); 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 He had previously been evaluated and found to exhibit significant hearing loss for which amplification was recommended. Strawberry is a new hearing aid user. How does the patient best learn? Verbal instruction, demonstration Does the patient have any cultural and yazidi beliefs, emotional barriers, physical or cognitive limitations, and communication barriers which may impact his ability to learn? No Desire and motivation to learn? Good OBJECTIVE (O): Physical fit of hearing aids was good. Patient verified comfort. Verification of an appropriate acoustic response was obtained using Real Ear measurements (speech mapping) and NAL-NL2 targets. The patient reported good subjective benefit as well. Feedback physician practice manager was run. Hearing aids were found to be meeting targets adequately and MPO was not exceeding estimated UCL. Settings stored in JR. ASSESSMENT (A): The following devices were issued: Make: OTICON Model: REAL 1 MINIBTE-R Right Serial Number: [id number] Left Serial Number: [id number] Battery size: Rechargeable Warranty ends: 12/12/27 Trial Period ends: 05/11/25 Earmold Information: Canal lock molds Tubing: R- size 3 thin tube, L- 13M tubing Program(s): Automatic Button(s): Short press= Synced V, R- Raise, L- Lower Long press= Program Extra-long press= Power on/off Fitting Formula: NAL-NL2 Remote Programming: HAs are capable Bluetooth: not interested Counseling was completed throughout todays appointment using a standardized curriculum that includes but is not limited to; realistic expectations with amplification in adverse listening environments, acclimatization to own voice and environmental sounds (following real-ear measurements), the importance of consistent use of amplification, proper insertion/removal, care and maintenance (including wax guards/domes if applicable), signal and alerts of devices, and charging/batteries. The was provided the opportunity to practice in office and reports confidence/understanding in all items reviewed. Time Spent= 20 minutes The patient was informed of and signed/agreed to [place] policy on hearing aid issuance: Yes Users are responsible for the maintenance and security of their devices. Determination of need to replace a hearing aid is made by the [place] ticket collector. Hearing aids will not be replaced in cases of neglect, abuse, or excessive loss. Items issued are for personal use only. Prognosis for successful hearing aid use is good. PLAN (P): 1. Follow-up for programming/adjustments as needed. 2. The International Outcome Inventory-Hearing Aids (IOI-BREAUX) will be mailed to the in four weeks. He was asked to complete and mail back to clinic after completion. Patient Education Education provided on the following topics: Hearing aid use, care, maintenance Education provided to: P Response to Education: ROMANA DONIS, PI [place] Patient P Family F Significant Other SO Verbalizes Understanding VU Returns Demonstration RD Performs Independently PI Lacks Comprehension LC Refused Education RE Not Applicable NA /DAVID Aguero, [facility]-A STAFF [place] SEWER Signed: 12/13/2024 10:52 01/30/2025 ADDENDUM STATUS: COMPLETED returned IOI-BREAUX Outcome Measure to the clinic via mail with an overall score of 21 Based on this score: i. No follow-up call is indicated __ ii. Follow-up call is indicated and fitting clinician will be notified _XX_ /alexia CALIXTO [facility] [employer] Signed: 01/30/2025 09:09 Receipt Acknowledged By: 01/31/2025 15:32 /DAVID Aguero, [facility]-A STAFF [place] SEWER 01/31/2025 ADDENDUM STATUS: COMPLETED Called today re: low IOI-BREAUX score and to offer a hearing aid check appointment. Cell phone called, no answer and voicemail full. Called home phone and left a message with the audiology clinic number to call back. If Strawberry calls back he can be offered a 30 min HAC with an ticket collector. /DAVID Aguero, [facility]-A STAFF L[place] SEWER Signed: 01/31/2025 15:33 SHRADDHA RADFORD [place] CNT[facility]
--- OUTSIDE RECORDS SUMMARY | 2025-02-12 16:32 | XMS_ITS ---
Author Organization [facility] Address [address] [place] [address] Care Team Providers Care Stylist Apprentice Name Role Phone Cait DAVIS, Brennen Primary Care Provider Alexandra Gilliland [phone] Encounters Encounter Location Date Provider Diagnosis [address] [address] 10/04/2023 Alexandra Aguiar Plan Of Treatment No Information Progress Notes * Robert GARNER FDOB:[birth year] (89 yo M)Acc No.[id number]:10/04/2023 Progress Note Patient:Robert KAPLAN Provider:?Alexandra Aguiar DPM :1935???Age:88 Y???Sex:Male Marlon e:10/04/2023 Address:[facility] [address], [facility] Pcp:Brennen Chavira MD Subjective: * Chief Complaints: [...] Aguiar DPM Date:?2022 Generated for Printi ng/Faarnoldg/eTransmitting on:?02/12/2025 04:32 PM EDT
--- OUTSIDE RECORDS SUMMARY | 2025-02-12 16:32 | XMS_ITS | Clinical Summary ---
Author Organization [facility] Address [address] [facility] [place] [phone] Phone Care Team Providers Care Party Plan Sales Unit Sales Leader Name Role Phone Brennen Chavira MD Primary Care Provider Allergies Active Allergy Reactions Criticality Noted Date Comments Codeine Nausea and/or Vomiting 03/23/2018 Oxycodone Nausea and/or Vomiting 03/23/2018 Medications Medication Sig Dispensed Refills Start Date End Date Status aspirin 81 MG EC tablet Take 81 mg by mouth daily. Active tamsulosin (FLOMAX) 0.4 mg CapIndications:BPH (benign prostatic hyperplasia) 2 tablets at hs 90 capsule 5 02/02/2021 Active omeprazole (PRILOSEC) 20 MG capsule Take 1 capsule by mouth every morning. 08/31/2023 Active atorvastatin (LIPITOR) 80 MG tablet Take 1 tablet by mouth every morning. 02/20/2024 Active metoprolol tartrate (LOPRESSOR) 50 MG tablet Take 50 mg by mouth 2 (two) times a day with meals. 12/18/2023 Active nitroglycerin (NITROSTAT) 0.[address] 1 tablet (0.4 mg total) under the tongue every 5 (five) minutes as needed for chest pain. 25 tablet 5 03/13/2024 Active amLODIPine (NORVASC) 10 MG tablet take one tablet by mouth every day 90 tablet 3 07/31/2024 Active isosorbide mononitrate (IMDUR) 60 MG 24 hr tablet TAKE ONE TABLET BY MOUTH EVERY DAY 90 tablet 3 11/12/2024 Active Active Problems Problem Noted Date Diagnosed Date Carotid stenosis 08/14/2024 Assessment & Plan (08/14/2024 2:05 PM EDT): Says he was recently diagnosed with carotid stenosis after some episodes of dizziness He was seen at [facility] for this, I do not access to any testing results or notes to reflect this He has an appointment with the vascular specialist tomorrow for this in [place] but he does not remember the name I have requested the MA here to get the records from [facility] Already on aspirin/atorvastatin. Dyspnea on exertion 08/14/2024 Assessment & Plan (08/14/2024 2:07 PM EDT): Still having a lot of dyspnea on exertion This is really limiting his exertional capacity, not relieving walking much because of this Had an echocardiogram 03/18/2021 which showed normal EF and diastolic function. Aortic sclerosis but no stenosis Will get repeat echo prior to his next appointment Obesity due to excess calories without serious c omorbidity 06/01/2020 Assessment & Plan (02/02/2021 11:51 AM EDT): He is overweight however he is having difficulty with exercise due to the ongoing and worsening shortness of breath with activity. We did discuss eating a heart healthy diet and trying to increase his exercise to lose weight, which may help with his shortness of breath. Assessment & Plan (06/01/2020 1:16 PM EDT): BMI 33.47. We discussed weight loss goal of 20 to 30 pounds. Discussed importance of leading heart healthy lifestyle with regular exercise of 30 minutes daily, Mediterranean diet, restriction of sodium intake, and maintenance of ideal body weight. 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 He still having stable anginal symptoms that he says are unchanged since he last saw Dr. Marcus LDL goal for this patient to be less than 70 at least Continue atorvastatin 80 mg daily Continue aspirin 81 mg daily For antianginal therapy we will continue him on his Norvasc as well as metoprolol I have asked the MA here to request recent lab work as well as note from PCP office Assessment & Plan (09/07/2023 12:52 PM EST): When I saw him last, he was reporting chest pain when he was exercising. He doesn't do much in way of aerobic exercise, but he does a fair amount of upper body strength exercises. This is when he gets the discomfort. To be sure this isn't ischemic pain given his history of CAD, I ordered a nuclear stress test. Nuclear stress test on 08/25 (see above) without evidence of ischemia. Normal EF. He and his are happy to hear that his chest discomfort is likely musculoskeletal. We will continue to optimize his cardiovascular risk factors. He will remain on 81 mg aspirin indefinitely. Continue atorvastatin with LDL goal < 70 mg/dL. Has lab work coming up before physical with PCP next month. He will request that these results be sent to our office. Assessment & Plan (08/10/2023 2:28 PM EDT): Today, he reports mild left-sided chest pains when he is exercising. It is difficult to discern whether or not this is truly anginal- as he doesn't do much aerobic exercise (walks with a cane). At any rate, it is concerning him and he has a history of bypass surgery. He feels that this discomfort is slightly reminiscent to what he was experiencing leading up to his CABG. Will repeat nuclear stress test and see him back in follow up afterwards. Assessment & Plan (07/29/2021 11:34 AM EDT): He does continue to have some symptoms with shortness of breath and slight chest pain on occasion. He is started on Imdur 30 mg on his last appointment and we will increase that today to 60 mg daily. In addition he will remain on aspirin 81 mg daily, amlodipine 10 mg daily, Toprol 50 mg twice daily, atorvastatin 80 mg daily. If he continues to have shortness of breath with slight chest pain we will consider a right and left heart catheterization at that time once medical management has been obtained. He will come back in for follow-up visit in 6 weeks for blood pressure, and medication management. He would like to lose weight and asked if he could do some light weight training which I told him that that was fine as long as he does not push himself too much and developed chest pain. If he does develop worsening chest pain then we will move right to the left heart catheterization. He also asked about intermittent fasting to lose weight which is relatively harmless and he can try to see if this helps him lose some weight. Assessment & Plan (02/02/2021 11:50 AM EDT): Patient has a history of CAD status post CABG x3 on 02/20/2018 and sees ALCALA to LAD, vein graft to OM1, vein graft to PDA). He had been endorsing ongoing exertional chest discomfort and his amlodipine was increased to 10 mg daily which has helped with this. He had a nuclear stress test which did not reveal any ischemia. He does complain of worsening shortness of breath with activity that does resolve about 3 minutes with resting. He has not had an echocardiogram and we will obtain 1 with the next few weeks. We will leave his medications as they are for now. Assessment & Plan (08/19/2020 2:27 PM EDT): Patient has CAD with CABG x3 on 02/20/2018 (ALCALA to LAD, vein graft to OM1, vein graft to PDA). He has been endorsing ongoing exertional chest discomfort over the past few months. He was trialed on amlodipine for better treatment of his exertional angina which seemed to work for a short time, but he is back in the office today stating that it is continuing to occur and bother him. We will proceed at this time with a nuclear stress test and adjust the plan or medication regimen pending those results. In the meantime, I have educated the patient on symptoms that would warrant an emergency department visit. He states understanding. He denies any rest symptoms at this time. We also discussed the appropriateness of physical activity and I asked the patient not to increase his physical activity regimen until we know what is going on. He also did endorse some lightheadedness when he bends over and stands up quickly. I discussed with him his hydration status. I also asked him to start checking his blood pressures and pulses at home a few times a week and writing them down so we know what his baseline vitals are before I decrease his medications that I feel necessary at this point for his cardiac health. Assessment & Plan (06/01/2020 1:12 PM EDT): History of CABG x3 on 02/20/2018 (ALCALA to LAD, vein graft to OM1, vein graft to PDA). Patient was complaining of episodic exertional angina which has nearly completely resolved with initiation of amlodipine 5 mg daily. He should continue on his metoprolol, Lipitor and aspirin. Continue to optimize risk factors. Assessment & Plan (03/27/2019 12:29 PM EDT): He is status post three-vessel CABG in January 2018. Excessively complete cardiac rehab. He is now exercising regularly at the gym. Continue on aspirin lifelong, he is appropriately on a beta-sheila and a statin. We will continue to optimize his risk factors. Assessment & Plan (06/27/2018 1:02 PM EDT): - He is status post three-vessel CABG in January 2018. He continues to do well and his recovery and is participating in cardiac rehabilitation. He is motivated to continue exercising. - He will continue on aspirin lifelong, continue on metoprolol, atorvastatin. He is now 3 months out from surgery, and he may be able to stop clopidogrel at this time. I will confirm with Dr. Marcus. Continue to optimize other cardiac risk factors. Assessment & Plan (03/23/2018 2:43 PM EDT): He is status post three-vessel bypass February 20, 2018 at [facility] with a ALCALA to LAD, vein graft to OM1 and vein graft to PDA. He seems to be recovering quite well. He should remain on aspirin lifelong. I would continue him on the clopidogrel for at least 3 months out from the bypass surgery then I suspect he can come off of this. We'll continue to optimize his cardiac risk factors. I will set him up in cardiac rehabilitation at [facility]. Benign essential hypertension 03/23/2018 Assessment & Plan (08/14/2024 2:02 PM EDT): Not really checking this reliably at home Pressure okay here in the office today 130/78 I have asked him to start checking his blood pressure at least a couple times a week at home Will continue current antihypertensives without change Assessment & Plan (08/10/2023 2:27 PM EDT): Under fair control. Continue above medications. Will reassess after stress testing. Assessment & Plan (07/29/2021 11:32 AM EDT): Blood pressure is 130/78 today. We will increase his isosorbide mononitrate to 60 mg daily given that he still has some shortness of breath and slight chest pains at times. If he reaches maximum medical therapy and continues to have shortness of breath we will consider a right and left heart catheterization at that time. For now he will continue amlodipine 10 mg daily, metoprolol 50 mg twice daily in addition to the Imdur 60 mg daily Assessment & Plan (02/02/2021 11:49 AM EDT): .Blood pressures well controlled today at 118/70. BP goal less than 130/80. He is on amlodipine 10 mg daily, hydrochlorothiazide 12.5 mg daily, lisinopril 10 mg, metoprolol 50 mg twice daily. He will remain on these medications Assessment & Plan (08/19/2020 2:28 PM EDT): Blood pressure in the office today 136/62. I have asked the patient to start checking his blood pressures at home so I know what his baseline is before adjust medications as he is endorsing some lightheadedness when he stands up quickly. Assessment & Plan (06/01/2020 1:13 PM EDT): Blood pressure goal of less than 130/90. He is currently at goal. Continue current treatment. Assessment & Plan (03/27/2019 12:30 PM EDT): Blood pressure is well controlled in the office today. He reports his blood pressure tends to run in the 130s/70s, he is about there today in the office. Continue current dosage of lisinopril. I have encouraged him to exercise more and to lose some weight. Assessment & Plan (06/27/2018 1:06 PM EDT): - Blood pressure is somewhat elevated office today and per review of blood pressure logs from cardiac rehabilitation he also generally runs in the 140s to 160s systolic. - He reports that he is taking his medications as ordered. He is only on metoprolol at this time for blood pressure control. Will consult with Dr. Marcus for further management and titration of medications. - He continues to have his blood pressures monitored at cardiac rehabilitation. He will return to the office in one to 2 months for further management of his blood pressure. Assessment & Plan (03/23/2018 2:43 PM EDT): His blood pressures well controlled on the metoprolol. Other hyperlipidemia 03/23/2018 Assessment & Plan (08/14/2024 2:02 PM EDT): LDL goal less than 70 Continue atorvastatin 80 Requesting recent labs from PCP Assessment & Plan (09/07/2023 12:53 PM EST): See above. Assessment & Plan (07/29/2021 11:32 AM EDT): Continue atorvastatin 80 mg daily Assessment & Plan (02/02/2021 11:49 AM EDT): Continue atorvastatin 80 mg daily. Assessment & Plan (08/19/2020 2:28 PM EDT): Continue atorvastatin 80 mg daily. Assessment & Plan (06/01/2020 1:13 PM EDT): LDL goal of less than 70. Currently on Lipitor 80 mg daily. Patient states he had recent lipids done within last month. Requesting copy forwarded from PCP. Assessment & Plan (03/27/2019 12:30 PM EDT): I do not see a recent lipid panel in our system, he says this was recently checked by his primary care. Continue atorvastatin, goal LDL less than 70 mg/dL. Assessment & Plan (06/27/2018 1:00 PM EDT): - Continue with atorvastatin. He is also exercising regularly and has made dietary changes. He will have a lipid panel completed prior to his next visit in this office. Assessment & Plan (03/23/2018 2:42 PM EDT): Continue atorvastatin. Immunizations No known immunizations Social History Tobacco Use Types Packs/Day Years Used Date Smoking Tobacco: Never Smokeless Tobacco: Never Tobacco Cessation:Counseling Given: Not Answered Education Answer Date Recorded Are you interested in more education? Not on nora e 02/23/2023 Are you concerned about learning? Not on file 02/23/2023 No 02/23/2023 No 02/23/2023 Digital Access Answer Date Recorded No 03/25/2023 No 03/25/2023 Reliable internet access at home? Not on file 03/25/2023 Device with a working camera? Not on file Sex and Gender Information Value Date Recorded Sex Assigned at Not on file Gender Identity Not on file Sexual Orientation Not on file Last Filed Vital Signs Vital Sign Reading Time Taken Comments Blood Pressure 130/78 08/14/2024 1:17 PM EDT Pulse 79 08/14/2024 1:17 PM EDT Temperature - - Respiratory Rate 18 06/25/2018 2:36 PM EDT Oxygen Saturation 98% 08/14/2024 1:17 PM EDT Inhaled Oxygen Concentration - - Weight 108 kg (238 lb) 08/14/2024 1:17 PM EDT Height 180.3 cm (5' 10.98 ) 08/14/2024 1:17 PM E DT Body Mass Index 33.21 08/14/2024 1:17 PM EDT Plan of Treatment Upcoming Encounters Date Type Department Care Team (Late st Contact Info) Description 02/26/2025 11:20 AM EDT Office Visit [facility] [address] [place] [address] [address] [place] [address] Dwayne Marcus MD [address] [facility], [address] [place] [address] [email or web address] Health Maintenance Due Date Last Done Comments DEPRESSION SCREENING 1947 ZOSTER VACCINES (1 of 2) 1985 RSV VACCINE (1 - 1-dose 75+ series) 2010 Adult Td,Tdap Booster 11/23/2022 11/23/2012 COVID-19 VACCINE (4 - 2023-2 5 season) 2024 09/17/2021, 01/01/2021, 12/04/2020 PNEUMOCOCCAL VACCINES (50+ years) Completed 08/17/2018, 07/18/2017, 04/21/2015 HEPATITIS A VACCINES Aged Out No long er eligible based on patient's age to complete this topic HIB VACCINES Aged Out No longer eligi ble based on patient's age to complete this topic MENINGOCOCCAL VACCINES (ACWY) Aged Out No longer eligible based on patient's age to complete this topic Medical Devices Not on file Robert Flores Personal/Family Self [address] [place], [place] Robert Flores Personal/Family Self [address] [place], [place] Robert Flores Personal/Family Self [address] [place], [place] Robert Flores Personal/Family Self [address] [address] Robert Flores Personal/Family Self [address] [place] [address] Robert Flores Personal/Family Self [address] [place] [id number] Robert Flores Personal/Family Self [address] [place] [id number] Robert Flores Personal/Family Self 1935 [address] [address] Care Teams Party Plan Sales Unit Sales Leader Relationship Specialty Start Date End Date Brennen Chavira MD [address] [place] [address] [place] [address] PCP - General Internal Medicine 08/28/20 Additional Source Comments The information contained in this document represents components of the legal health record. It is not the complete legal health record.[facility]
--- OUTSIDE RECORDS SUMMARY | 2025-02-12 16:32 | XMS_ITS | Continuity of Care Document ---
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 Condition Jul 31, 2007 Entered By: JAVIER DUKE Comment: T1a N0 M0/I AJCC FORM 07/30/07 [facility] Carpal tunnel syndrome Active Condition Jul 10, 2014 Entered By: VÍCTOR ENRIQUEZ Comment: bilateral, R>L [facility] Carpal Tunnel Syndrome * (ICD-9-CM 354.0) Active Condition [facility] ELD colonoscopy 03/07 normal, few diverticula Active Condition [facility] Diabetic peripheral neuropathy (SNOMED CT 608275153) Active Condition [facility] duodenal biopsy 03/10/2009 Active Condition March 13, 2009 Entered By: HARRISON MONROE Comment: without pathologic changeMar 30, 2009 Entered By: HARRISON MONROE Comment: EGD 03/07 no Lam's [facility] Erectile Dysfunction * (ICD-9-CM 302.72) Active Condition [...] [facility] HYPERLIPIDEMIA NEC/NOS Active Condition [facility] Ischemic heart disease Active Condition Jul 04, 2008 Entered By: FERDINAND BOOTHE Comment: Myocardial Stress Perfusion;wall motion;LVEF WNL WHVAMay 2017 Entered By: BETHANY HERNANDEZ Comment: CABG 02/20/2018 [facility] Low Back Pain [...] 2 diabetes mellitus well controlled (SNOMED CT 343426338) Active Condition Aug 31, 2017 Entered By: JOSI ORTIZ Comment: mALB/Cr 8.9 [facility] Under care of multiple providers Active Condition Apr 09, 2019 Entered By: JOSI ORTIZ Comment: Cardiology- [facility] - DR FALL/ YENI MACDONALD wind energy technician 03/27/2016 Entered By: JOSI ORTIZ Comment: Orthoped- Instrum ( ( [phone]) [facility] Carcinoma, 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) Inactive Condition 01/20/2010 [facility] Chronic ischemic heart disease Inactive Condition 03/28/2018 [facility] CRAMP IN LIMB Inactive Condition 07/05/2006 [facility] [place] HYPERTENSION NOS Inactive Condition 08/23/2004 [facility] [place] Impaired Fasting Glucose Inactive Condition 04/21/2015 [facility] OSTEOARTHROS NOS-UNSPEC Inactive Condition 07/05/2006 [facility] UNSPEC HYPRPLASIA PROSTATE Inactive Condition 07/05/2006 [facility] VACCIN FOR INFLUENZA Inactive Condition 01/20/2010 [facility] [place] [facility] Diagnosis: ICD-10-CM H90.A32 Mix cndct/snrl hear loss,uni,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 Diagnosis [facility] Diagnosis: ICD-10-CM H90.A21 Snsrnrl hear loss, uni, r ear, with rstrcd hear cntra side [facility] Diagnosis: ICD-10-CM Z46.0 Encounter for fit/adjst of spectacles and contact lenses Active Diagnosis [facility] Diagnosis: ICD-10-CM H35.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 IELD ATORVASTATI N CA 80MG TAB TAKE ONE-HALF TABLET BY MOUTH ONCE DAILY ORAL ACTIVE PETROFF,S NNE 2018 [facility] ISOSORBIDE MONONITRATE 60MG TAB,SA TAKE ONE TABLET BY MOUTH ORAL ACTIVE MERHAR,NO AH B 2023 [facility] METOPROLOL TARTRATE 50MG TAB TAKE ONE TABLET BY MOUTH TWICE DAILY ORAL ACTIVE PETROFF,S UANNE 2018 [facility] OMEPRAZOLE 20MG CAP,EC TAKE 1 CAPSULE BY MOUTH EVERY MORNING 30 MINUTES BEFORE BREAKFAS T ORAL ACTIVE MERHAR,NO AH B 2023 [facility] TAMSULOSIN HCL 0.4MG CAP TAKE 1 CAPSULE BY MOUTH ONCE DAILY ORAL ACTIVE TREVONROBINCherie 2018 [facility] Allergies, Adverse Reactions, Alerts Combined list of allergies from Department of Defense and Veterans Affairs facilities. It does not include entries that were removed or entered in error. Substance Category Reaction Severity Reaction type Status Date Reported Comments Source AMLODIPINE Propensity to adverse reactions to drug (finding) active [facility] CODEINE Propensity to adverse reactions to drug (finding) Nausea and vomiting active 8 [facility] CODEINE Propensity to adverse reactions to drug (finding) Nausea and vomiting, Delirium active 7 [facility] [place] [facility] Immunizations Combined list of available immunizations from the Department of Defense and Veterans Affairs facilities. Immunization Series Date Given Administered By Site Reaction Lot Number CVX Code Drug Agency Trainer Status Comments Source COVID-19 (MODERNA), MRNA, LNP-S, PF, 100 MCG/0.5 ML DOSE 2 2020 207 complet ed MOD; [id number]; 1 [facility] COVID-19 (MODERNA), MRNA, LNP-S, PF, 100 MCG/0.5 ML DOSE 1 2020 207 complet ed MOD; [id number]; 1 [place] [facility] FLU,3 YRS (HISTORICAL) 2016 88 complet ed [facility] FLU,3 YRS (HISTORICAL) 2015 88 complet ed Site: Left Deltoid [place] [facility] FLU,3 YRS (HISTORICAL) 2014 88 complet ed [facility] PNEUMOCOCCAL CONJUGATE PCV 13 2014 133 complet ed [place] [facility] (HISTORICAL) 2014 121 complet ed [place] FLU,3 YRS (HISTORICAL) 2013 88 complet ed [facility] FLU,3 [...] from Department of Veterans Affairs facilities going backup to the last 18 months, not all [place] inpatient encounters are included; 2) Encounters from the Department of Defense facilities going backup to 280 months. Location Location Details Encounter Type Encounter Number Reason For Visit Attending Provider ADM Date DC Date Status Disposition Source [facility] Outpatient Encounter [id number] 11/24 [facility] [place] 1 [id number] 1. Diagnos is: ICD-10- CM H35.321 2 Exdtve age-rel mclr degn, right eye, with inact chrdl neovas VIRGINIAALBERTO H B 09/27 [facility] [place] FIT SPECTACLES MONOFOCAL [id number] Diagnos is: ICD-10- CM Z46.0 Encount er for fit/adj st of spectac les and contact lenses YOLANDA COLEMANA H B 09/27 [facility] Out[facility] Encounter [id number] 10/01 [facility] [place] [place] [id number] Diagnos is: ICD-10- CM H90.A32 Mix cndct/s nrl hear loss,un i,l ear w rstrcd hear cntra side [place] 10/01 [facility] Out[facility] En[facility] [id number] 1.10/02 [facility] OFF/OP CNSLTJ NEW/EST MOD 40 [id number] Diagnos is: ICD-10- CM H90.A32 Mix cndct/s nrl hear loss,un i,l ear w rstrcd hear cntra side LISA FAULKNER R 10/31 [facility] HEARING AID XM&SLCTN BINAURL [id number] Diagnos is: ICD-10- CM H90.A21 Snsrnrl hear loss, uni, r ear, with rstrcd hear cntra side TIFF RAMÍREZ L 11/04 [facility] Out[facility] En[facility] [id number] [facility] [place] HEARING SERVICE [id number] Diagnos is: ICD-10- CM H90.A32 Mix cndct/s nrl hear loss,un i,l ear w rstrcd hear cntra side [place] 12/13 [facility] En[facility] [id number] 1.12/24 [facility] En[facility] [id number] [facility] Social History Combined list of available smoking, tobacco, and other social history from Department of Defense and Veterans Affairs facilities. Social History Type Response Date Comment Sourc e Tobacco smoking status NHIS LIFETIME NON-TOBACCO USER 01/29 [facility] History of tobacco use LIFETIME NON-TOBACCO USER [facility] History of tobacco use LIFETIME NON-SMOKER 08/23/2004 [facility] History of tobacco use LIFETIME NON-SMOKER 06/10/2003 [facility] History of tobacco use LIFETIME NON-SMOKER 01/07/2002 [facility] Advance Directives List of completed, amended, or rescinded Advance Directives on record at Department of Veterans Affairs facilities. An actual copy of the Directive is not included. Date Advance Directive Provider Source 01/31/2007 ADVANCE DIRECTIVE [facility]
--- OUTSIDE RECORDS SUMMARY | 2025-02-12 16:32 | XMS_ITS | Encounter Summary ---
Author Organization [facility] Address [address] [place] [address] Phone Care Team Providers Care Gas Pumper Name Role Phone Brennen Chavira MD Primary Care Provider Encounter Details Date Type Department Care Team (Late st Contact Info) Description 02/02/2021 Procedure Pass Echo Lab [address] [place] [address] Social History Tobacco Use Types Packs/Day Years Used Date Smoking Tobacco: Never Smokeless Tobacco: Never Sex and Gender Information Value Date Recorded Sex Assigned at Not on file Gender Identity Not on file Sexual Orientation Not on file documented as of this encounter Plan of Treatment Upcoming Encounters Date Type Department Care Team (Late st Contact Info) Description 02/26/2025 11:20 AM EDT Office Visit [facility] [address] [place] [address] Dr [address] [place] [address] Dwayne Marcus MD [address], [facility] [address] [place] [address] documented as of this encounter Visit Diagnoses Not on filedocumented in this encounter Care Teams Gas Pumper Relationship Specialty Start Date End Date Brennen Chavira MD [address] [place] [address] Dr COLLADO [address] [place] [phone] PCP - General Internal Medicine 08/28/20 documented as of this encounter Additional Source Comments The information contained in this document represents components of the legal health record. It is not the complete legal health record.[facility]
--- OUTSIDE RECORDS SUMMARY | 2025-02-12 16:32 | XMS_ITS | Encounter Summary ---
Author Name [facility] [place] [facility] [place] [facility] [place] Address [address] [place] [address] Care Team Providers Care Tanning Wheel Operator Name Role Phone JOSI ORTIZ Primary [...] OF [place] MEDIGAP PLAN C PSEUD O MEDFAIZAN JUAN E Sep 29, 2017 [id number] Caleb GARNER PATIENT [place] MEDICARE SUPPLEMEN TAL MEDFAIZAN JUAN E Sep 29, 2017 [id number] [phone] Caleb GARNER PATIENT MEDICARE ([facility]) MEDICARE (M) PART B Apr 29, 2003 PART B [id number] Caleb GARNER PATIENT MEDICARE (WNR) MEDICARE (M) PART B Apr 29, 2003 PART B [id number] [phone] Calbe GARNER PATIENT MEDICARE (WNR) MEDICARE (M) PART B Apr 29, 2003 PART B [id number] Caleb GARNER PATIENT MEDICARE (WNR) MEDICARE (M) PART A Aug 30, 2000 PART A [id number] Caleb GARNER PATIENT MEDICARE (WNR) MEDICARE (M) PART A Aug 30, 2000 PART A [id number] Caleb GARNER PATIENT MEDICARE (WNR) MEDICARE (M) PART A Aug 30, 2000 PART A [id number] Caleb GARNER PATIENT Selected Encounter This section includes the information on record at [place] for the Encounter. 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 Date/Time Primary/Secondary Diagnosis Diagnosis Name Provider Source Sep 27, 2024 12:44 PM PRIMARY Exdtve age-rel mclr degn, right eye, with inact chrdl neovas MERHAR,JR B [place] [facility] [place] [facility] Sep 27, 2024 12:44 PM SECONDARY Nexdtve age-related mclr degn, left eye, stage unspecified MERHAR,JR B [place] [facility] [place] [facility] Sep 27, 2024 12:44 PM SECONDARY Presence of intraocular lens MERHAR,JR B [place] [facility] [place] [facility] Sep 27, 2024 12:44 PM SECONDARY Regular astigmatism, bilateral MERHAR,JR B [place] [facility] [place] [facility] Plan of Treatment: Future Appointments (+ 6 months) and Future Tests (+/- 45 days) The Plan of Treatment section includes future care activities for the patient from all VA treatmentfacilities. This section includes future appointments and [...] - REHAB MEDICIN E [facility] [place] [facility] Oct 31, 2024 02:00 PM AMBULATORY - MEDICINE [facility] [place] [facility] Nov 04, 2024 09:00 AM AMBULATORY - REHAB MEDICIN E [facility] [place] [facility] Nov 26, 2024 11:00 AM AMBULATORY - REHAB MEDICIN E [facility] [place] [facility] Dec 13, 2024 10:00 AM AMBULATORY - [facility] E [facility] Advance Directives: All historical and current [...] MHx: Code Description R69. Renal cell carcinoma ([facility] [id number]) R69. Under care of multiple providers ([facility] [id number]) R69. History of surgery ([facility] [id number]) E11.9 Type 2 diabetes mellitus well controlled ([facility] [id number]) 354.0 Carpal Tunnel Syndrome (ICD-9-CM 354.0) 592.0 Calculus of Kidney (ICD-9-CM 592.0) E11.40 Diabetic peripheral neuropathy ([facility] [id number]) 799.9 colonoscopy 03/07 normal, few diverticula (ICD-9-CM 799.9) 799.9 duodenal biopsy 03/10/2009 (ICD-9-CM 799.9) 799.9 Renal Insufficiency (ICD-9-CM 799.9) R69. Ischemic heart disease ([facility] [id number]) I10. Benign essential hypertension ([facility] [id number]) 724.2 Low Back Pain (ICD-9-CM 724.2) 189.0 [...] diet and exercise. Suicide Screen: C-SSRS Screening [place]-Suicide Severity Rating Scale (C-SSRS Screener) 1. Over [...] to other questions. /rosa/ JR COLEMAN OD Seasonal Delivery Driver Signed: 09/27/2024 12:44 JR COLEMAN [place] [facility] [place]
--- OUTSIDE RECORDS SUMMARY | 2025-02-12 16:32 | XMS_ITS | Encounter Summary ---
Author Name [facility] Organization [facility] [place] Address [address] [place] [address] Care Team Providers Care Dental Office Assistant Name Role Phone JOSI ORTIZ Primary Care [...] Patient's Relationship to Policy Prado ELLIS BCBS [facility] MEDIGAP PLAN C PSEUD O MEDEX BRONLoren E Sep 29, 2017 [id number] Caleb GARNER PATIENT [place] MEDICARE SUPPLEMEN TAL MEDEX BRONLoren E Sep 29, 2017 [id number] Caleb GARNER PATIENT MEDICARE (WNR) MEDICARE (M) PART B Apr 29, 2003 PART B [id number] [phone] Caleb GARNER PATIENT MEDICARE (WNR) MEDICARE (M) PART B Apr 29, 2003 PART B [id number] Caleb GARNER PATIENT MEDICARE (WNR) MEDICARE (M) PART B Apr 29, 2003 PART B [id number] [phone] Caleb GARNER PATIENT MEDICARE (WNR) MEDICARE (M) PART A Aug 30, 2000 PART A [id number] Caleb GARNER PATIENT MEDICARE (WNR) MEDICARE (M) PART A Aug 30, 2000 PART A [id number] Caleb GARNER PATIENT MEDICARE (WNR) MEDICARE (M) PART A Aug 30, 2000 PART A [id number] Caleb GARNER PATIENT Selected Encounter This section includes the information on record at [place] for the Encounter. Date/Time Encounter Type Encounter Description Reason Provider Source Oct 01, 2024 02:00 PM TYMPANOMETRY AUDIOLOGY ICD-10-CM H90.A32 Mix cndct/snrl hear loss,uni,l ear w rstrcd hear cntra side SHRADDHA RADFORD E Encounter Template Text not used by [place] Assessments - Encounter Diagnoses This section includes the primary and secondary diagnoses documented for the Encounter. Date/Time Primary/Secondary Diagnosis Diagnosis Name Provider Source Oct 01, 2024 04:54 PM PRIMARY Mix cndct/snrl hear loss,uni,l ear w rstrcd hear cntra side SHRADDHA RADFORD [place] [facility] [place] [facility] Oct 01, 2024 04:54 PM SECONDARY Snsrnrl hear loss, uni, r ear, with rstrcd hear cntra side SHRADDHA RADFORD [place] [facility] [place] [facility] Oct 01, 2024 04:54 PM SECONDARY Tinnitus, bilateral SHRADDHA RADFORD [place] [facility] [place] [facility] Plan of Treatment: Future Appointments (+ 6 months) and Future Tests (+/- 45 days) The Plan of Treatment section includes future care activities for the patient from all [place] treatmentfacilities. This section includes future appointments and future orders which are active, pending or scheduled. Future Appointments This section includes appointments that were scheduled to occur 6 months from the date of the Encounter, up to a maximum of 20 appointments. The data comes from all [place] treatment facilities. Appointment Date/Time Appointment Type Appointme nt Facility Name Oct 31, 2024 02:00 PM AMBULATORY [facility] MEDICINE [facility] [place] [facility] Nov 04, 2024 09:00 AM AMBULATORY - REHAB MEDICIN E [facility] [place] [facility] Nov 26, 2024 11:00 AM AMBULATORY - REHAB MEDICIN E [facility] [place] [facility] Dec 13, 2024 10:00 AM AMBULATORY - REHAB MEDICIN E [place] [facility] Advance Directives: All historical and current Section Date Range: From patient's date of to the date document was created. This section includes ALL of a patient's completed or amended [place] Advance and Rescinded Directives. The entries below indicate that a directive exists for the patient, but an actual copy is not included with this document. The data comes from all [place] facilities. Date Advance Directives Provider Source Jan 31, 2007 ADVANCE DIRECTIVE NERY [facility] Encounter Notes: All associated encounter notes This section contains the clinical notes associated to the Encounter. Date/Time Encounter Note(s) Provider Source Oct 01, 2024 11:39 AM AUDIOLOGY E & M NO TE: [facility] TITLE: AUDIOLOGY CLINIC STANDARD TITLE: AUDIOLOGY E & M NOTE DATE OF NOTE: OCT 01, 2024@11:39 ENTRY DATE: OCT 01, 2024@11:39:31 AUTHOR: SHRADDHA RADFORD COSIGNER: URGENCY: STATUS: COMPLETED Dx CODE: H90.A32- Mixed hearing loss, left ear; H90.A21- SNHL, right ear; H93.13- Tinnitus, bilateral APPOINTMENT TYPE: Hearing Evaluation BACKGROUND/HISTORY: Jaleesa was seen today for an initial hearing evaluation, unaccompanied. 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 states that he had very runny and [...] heartbeat in his left ear only recently. reports recent onset of vertigo as well and notes that it comes on randomly. [place] denies current or past use of hearing aids and denies ever seeing an ENT physician. Medical history includes: Active problems - Computerized Problem List is the source for the followin. Renal cell carcinoma 2. Under care of multiple providers 3. History of surgery 4. Type 2 diabetes mellitus well controlled (SNOMED CT 858040250) 5. Carpal Tunnel Syndrome * 6. Calculus of Kidney 7. Diabetic peripheral neuropathy (SNOMED CT 416241515) 8. colonoscopy 03/07 normal, few diverticula 9. duodenal biopsy 03/10/2009 10. Renal Insufficiency 11. Ischemic heart disease 12. Benign essential hypertension (SNOMED CT 7758798) 13. Low Back Pain * 14. Malignant [...] moderately-severe to severe sensorineural hearing loss from 3849-2244 Hz. Testing in the left ear revealed [...] ask questions throughout today's visit. PLAN: 1. [facility] ENT consult submitted today. 2. [place] was welcomed to return for a 30 [...] Applicable NA /rosa/ DAVID ANDREWS, CCC-A STAFF SECRETARY OF STATE Signed: 10/01/2024 16:55 SHRADDHA RADFORD CNTBeckieL GENAROTRCha [facility]
--- OUTSIDE RECORDS SUMMARY | 2025-02-12 16:33 | XMS_ITS | Encounter Summary ---
Author Organization [facility] Address [address] [place] [address] Phone Care Team Providers Care Communications Equipment Supervisor Name Role Phone Brennen Chavira MD Primary Care Provider Encounter Details Date Type Department Care Team (Late st Contact Info) Description 08/14/2024 Procedure Pass Echo Lab [address] [place], [place] [id number] Social History Tobacco Use Types Packs/Day Years Used Date Smoking Tobacco: Never Smokeless Tobacco: Never Education Answer Date Recorded Are you interested [...] Encounters Date Type Department Care Team (Late Contact Info) Description 02/26/2025 11:20 AM EDT Office Visit [facility] [address] [place] [address] [facility] [address] [place] [address] Dwayne Marcus MD [address], [address] [place] [address] [email or web address] documented as of this encounter Visit Diagnoses Not on filedocumented in this encounter Care Teams Communications Equipment Supervisor Relationship Specialty Start Date End Date Brennen Chavira MD [address] [place] [address] [place] [address] PCP - General Internal Medicine 08/28/20 documented as of this encounter Additional Source Comments The information contained in this document represents components of the legal health record. It is not the complete legal health record.[facility]
--- OUTSIDE RECORDS SUMMARY | 2025-02-12 16:33 | XMS_ITS | Encounter Summary ---
Author Organization [employer] [facility] Address [address] 7 [place] [address] Care Team Providers Care Assistant Professor Of Psychology Name Role Phone Unavailable Primary Care Provider Unavailabl e Reason for Visit * Reason Comments Dentures Encounter Details Date Type Department Care Team (Late st Contact Info) Description 02/12/2025 9:00 AM EDT Office Visit [facility] ADULT D[facility] [address], [place] [phone] Bennett Jimenez DMD [address] [place] [address] Social History Tobacco Use Types Packs/Day Years Used Date Smoking Tobacco: Never Assessed Sex and Gender Information Value Date Recorded Sex Assigned at Male 01/23/2025 3:35 PM EDT Legal Sex Male 3:30 PM EDT Gender Identity Male 01/23/2025 3:35 PM EDT Sexual Orientation Straight 01/23/2025 3: 35 PM EDT documented as of this encounter Progress Notes * Bennett Jimenez DMD - 02/12/2025 9:00 AM EDT C/C: loose F/F I.O.E: loose F/F, especially the /F, lower alveolar ridge resorption E.O.E: wnl OCS: wnl Head and neck: wnl Radiographic: full upper and lower edentulous Dx: loose F/F Tx: Reline F/F or new F/F We will send PE for reline of F/F first (Pt preference) and see what happens Idalia documented in this encounter Plan of Treatment Scheduled Orders Name Type Priority Associated Diagnoses Orde r Schedule RELINE COMPLETE MANDIBULAR DENTURE (LABORATORY) Dental Routine 1 st arting 02/12/2025 RELINE COMPLETE MAXILLARY DENTURE (LABORATORY) Dental Routine [address] arting 02/12/2025 documented as of this encounter Procedures Procedure Name Priority Date/Time Associated Diagnosis Comments PERIODIC ORAL EVALUATION - ESTABLISHED PATIENT Routine 02/12/2025 9:00 AM EDT PANORAMIC RADIOGRAPHIC IMAGE Routine 02/12/2025 9:00 AM EDT documented in this encounter Visit Diagnoses Not on filedocumented in this encounter
--- OUTSIDE RECORDS SUMMARY | 2025-02-12 16:33 | XMS_ITS ---
Author Organization Brennen Chavira MD Address [address] [place], [place] [phone] Care Team Providers Care Arc Trimmer Name Role Phone Brennen Chavira Primary Care Provider Results Component Value Reference Range Notes Liver Panel Reviewed date:10/07/2024 12:51:29 PM Interpretation: Performing Lab:[facility], [address] [place] [id number] Notes/Report: Bilirubin Total 0.6 0.0-1.0 mg/dL Bilirubin Direct 0.2 0.0-0.5 mg/dL Aspartate Amino Transferase 31 5-37 U/L Alanine Aminotransferase 34 0-40 U/L Total Protein 6.6 6.5-8.0 g/dL Albumin Level 3.9 3.5-5.0 g/dL Alkaline Phosphatase 117 39-117 U/L Lipid Panel with Reflex Reviewed date:10/08/2024 12:37:25 PM Interpretation: Performing Lab:[facility], [facility] [place] [address] Notes/Report: Triglycerides 86 <150 mg/dL Desirable Triglyceride: [...] Location Date Provider Diagnosis Brennen Chavira MD [address] [place] [phone] 10/07/2024 Brennen Chavira Hypercholesterolemia E78.00 Assessments Encounter Date Diagnosis (ICD Code) Assessment Notes Treatment Notes Treatment Clinical Notes Section Notes 10/07/2024 Hypercholesterolemia (ICD-10 - E78.00) Plan Of Treatment Next Appt Details Provider Name:Brennen mendez, 03/28/2025 07:15:00 AM, [address] [place] [address], [address], [phone], Provider Name:Brennen mendez, 04/04/2025 11:00:00 AM, [address] [place] [address], [address], [phone], Progress Notes * Robert FLORESDOB:1935 (89 yo M)Acc No.[id number]:10/07/2024 Progress Note Patient:?Robert FLORES Provider:?Brennen Chavira MD :1935???Age:89 Y???Sex:Male Marlon e:10/07/2024 Address:[address] [place] [address], [place] [address], [place], [place] Subjective: * Chief Complaints: * ???1. FASTING LIPIDS. * Medical History:? Objective: * Vitals:? Assessment: * Assessment: 1.?Hypercholesterolemia - E7 8.00 (Primary)??? Plan: * Treatment: * Procedure Codes:?51736 VENIP UNCT, ROUTINE* * * The named appointment provid er may or may not be the originator of this progress note, and it is not deemed complete until electronically signed by the appointment provider. Sign off status: Pending * Provider:?Brennen Chavira MD Date:?1 12/08/2023 Generated for Tiffany mayorga/Dilcia/Cal on:?02/12/2025 04:32 PM EDT
--- OUTSIDE RECORDS SUMMARY | 2025-02-12 16:33 | XMS_ITS | Patient Health Record ---
Author Organization [facility] Address [address] [place] [address] Care Team Providers Care Technical Service Rep Name Role Phone Brennen Chavira MD Primary Care Provider Durga Gillilandmie Unavailable [phone] Allergies Allergen (clinical drug ingredient) Drug/Non Drug Allergy documented on EMR Reaction Allergy Type Onset Date Status oxycodone OxyCONTIN Unknown Drug Allergy Active codeine Codeine Unknown Drug Allergy Active oxycodone Oxycodone Unknown Drug Allergy Active Reason For Referral No Information Medications Medication SIG (Take, Route, Frequency, Duration) Notes Start Date End Date Status AFO- Posterior [place] form-fitted to foot and leg . 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.521) Active confirmed Problem Acquired hammer toe of right foot (5236859387012320) Other hammer toe(s) (acquired), right foot (M20.41) Active confirmed Problem Acquired hammer toe of left foot (3314929851921779) Other hammer toe(s) (acquired), left foot (M20.42) Active confirmed Problem 950991398 Neuropathy (G62.9) Active confirmed Problem 88051845 Unsteady gait (R26.81) Active confirmed Plan Of Treatment Pending Test Test Name Order Date [id number] NAIL, 6 OR MORE 04/25/2022 [id number] NAIL, 6 OR MORE 04/11/2023 15524- Debride <25 sq cm 04/25/2022 85763- Debride <25 sq cm 04/11/2023 Insurance Providers Payer Name Payer Address Payer Phone Subscriber Number Group Number Insured Name Patient Relationship to Insured Coverage Start Date Coverage End Date Medicare National [employer]t [employer] [address] [place] [address] [id number] Robert Flores Self - patient is the insured [employer] [facility] [address] [place] [address] [phone] [id number] Robert Flores Self - patient is the [...]
--- OUTSIDE RECORDS SUMMARY | 2025-02-12 16:33 | XMS_ITS | Clinical Summary ---
Author Organization [employer] Address [address] [facility] 7t [place] [address] Care Team Providers Care Mortgage Servicing Specialist Name Role Phone Unavailable Primary Care Provider Unavailabl e Allergies Active Allergy Reactions Criticality Noted Date Comments Codeine Nausea And Vomiting 10/14/2008 Other Reaction(s): Nausea and vomiting, Delirium Oxycodone Nausea And Vomiting,Vomiting 03/23/2018 Oxycodone Hcl Vomiting 02/12/2025 Medications amLODIPine (Norvasc) 10 MG tablet Take 10 mg by mouth. 04/20/2024 Active aspirin 81 MG EC tablet Take 1 tablet by mouth Once per day. 04/19/2007 Active atorvastatin (Lipitor) 80 MG tablet Take 0.5 tablets by mouth Once per day. 04/09/2019 Active atorvastatin (Lipitor) 80 MG tablet Take 80 mg by mouth Once per day. Active clopidogrel (Plavix) 75 MG tablet Take 1 tablet by mouth Once per day. 04/23/2024 Active doxycycline (Monodox) 100 MG capsule Take 1 capsule by mouth 2 times daily. 05/28/2024 Active isosorbide mononitrate ER (Imdur) 60 MG 24 hr tablet Take 60 mg by mouth. 09/27/2024 Active isosorbide mononitrate ER (Imdur) 30 MG 24 hr tablet 1 tablet in the morning. Active Meclizine HCl 25 MG chewable tablet 1 tablet 2 times daily. 01/27/2025 Active metoprolol tartrate (Lopressor) 50 MG tablet Take 1 tablet by mouth 2 times daily. 04/09/2019 Active Encounters Date Type Department Care Team Description 02/12/2025 9:00 AM EDT Office Visit [facility] ADULT DENTAL [address] [place] [address] Bennett Jimenez DMD from Last 3 Months Social History Tobacco Use Types Packs/Day Years Used Date Smoking Tobacco: Never Assessed Sex and Gender Information Value Date Recorded Sex Assigned at Male 01/23/2025 3:35 PM EDT Legal Sex Male 3:30 PM EDT Gender Identity Male 01/23/2025 3:35 PM EDT Sexual Orientation Straight 01/23/2025 3: 35 PM EDT Plan of Treatment Health Maintenance Due Date Last Done Comments Dental Prophylaxis 1935 Dental X-Ray: Bitewings 1935 Depression Screening 1935 Lipid Panel 1935 SDOH Screening 1935 Alcohol/Substance Use Screening 1947 Tobacco Screening 1947 RSV Patients and Patients Aged 60 years or older (1 - 1-dose 75+ series) 2010 Zoster Vaccines (2 of 3) 06/16/2015 04/21/2015 DTaP/Tdap/Td Vaccines (3 - Td or Tdap) 11/23/2022 11/23/2012, 11/16/2012, 11/30/2006 COVID-19 Vaccine ( - season) 2024 10/13/2022, 09/17/2021, 01/01/2021, Additional history exists Dental Oral Exam 08/15/2025 02/12/2025 Dental X-Ray: Full Mouth 02/14/2028 02/12/2025 Pneumococcal Vaccine: 50+ Years Completed 08/17/2018, 07/18/2017, 04/21/2015, Additional history exists Influenza Vaccine Completed 07/22/2024, , 08/11/2022, Additional history exists HIB Vaccines Aged Out No longer eligi ble based on patient's age to complete this topic HPV Vaccines Aged Out No longer eligi ble based on patient's age to complete this topic Hepatitis A Vaccines Aged Out No long er eligible based on patient's age to complete this topic Hepatitis B Vaccines Aged Out No long er eligible based on patient's age to complete this topic IPV Vaccines Aged Out No longer eligi ble based on patient's age to complete this topic Meningococcal Vaccine Aged Out No stuart anne eligible based on patient's age to complete this topic RSV under 20 months Aged Out No longe r eligible based on patient's age to complete this topic Rotavirus Vaccines Aged Out No longer eligible based on patient's age to complete this topic Procedures Procedure Name Priority Date/Time Associated Diagnosis Comments PANORAMIC RADIOGRAPHIC IMAGE Routine 02/12/2025 9:00 AM EDT PERIODIC ORAL EVALUATION - ESTABLISHED PATIENT Routine 02/12/2025 9:00 AM EDT from Last 3 Months
--- OUTSIDE RECORDS SUMMARY | 2025-02-12 16:33 | XMS_ITS | Encounter Summary ---
Author Name [facility] Organization [facility] Address [address] [place] [address] Care Team Providers Care Certification And Selection Specialist Name Role Phone JOSI ORTIZ Primary Care [...] Patient's Relationship to Policy Prado ELLIS BCBS [facility] MEDIGAP PLAN C PSEUD O MEDEX BRONLoren E Sep 29, 2017 [id number] Caleb GARNER PATIENT [place] MEDICARE SUPPLEMEN TAL MEDEX YESSICA E Sep 29, 2017 [id number] Caleb GARNER PATIENT MEDICARE (WNR) MEDICARE (M) PART B Apr 29, 2003 PART B [id number] Caleb AGRNER PATIENT MEDICARE (WNR) MEDICARE (M) PART B Apr 29, 2003 PART B [id number] Caleb GARNER PATIENT MEDICARE (WNR) MEDICARE (M) PART B Apr 29, 2003 PART B [id number] Caleb GARNER PATIENT MEDICARE (WNR) MEDICARE (M) PART A Aug 30, 2000 PART A [id number] Caleb GARNER PATIENT MEDICARE (WNR) MEDICARE (M) PART A Aug 30, 2000 PART A [id number] Caleb GARNER PATIENT MEDICARE (WNR) MEDICARE (M) PART A Aug 30, 2000 PART A [id number] Caelb GARNER PATIENT Selected Encounter This section includes the information on record at [place] for the Encounter. Date/Time Encounter Type Encounter Description Reason Pro vider Source Nov 26, 2024 11:00 AM Outpatient Encounter AUDIOLOGY IHE Encounter Template Text not used by [place] Plan of Treatment: Future Appointments (+ 6 months) and Future Tests (+/- 45 days) The Plan of Treatment section includes future care activities for the patient from all [place] treatmentfacilities. This section includes future appointments and future orders which are active, pending or scheduled. Future Appointments This section includes appointments that were scheduled to occur 6 months from the date of the Encounter, up to a maximum of 20 appointments. The data comes from all [place] treatment facilities. Appointment Date/Time Appointment Type Appointme nt Facility Name Dec 13, 2024 10:00 AM AMBULATORY - REHAB MEDICIN E [place] [facility] Advance Directives: All historical and current Section Date Range: From patient's date of to the date document was created. This section includes ALL of a patient's completed or amended [place] Advance and Rescinded Directives. The entries below indicate that a directive exists for the patient, but an actual copy is not included with this document. The data comes from all [place] facilities. Date Advance Directives Provider Source Jan 31, 2007 ADVANCE DIRECTIVE NERY [facility] Encounter Notes: All associated encounter notes This section contains the clinical notes associated to the Encounter. Date/Time Encounter Note(s) Provider Source Nov 26, 2024 01:38 PM CLERICAL NOTE: LOCAL TITLE: APPOINTMENT NO SHOW STANDARD TITLE: CLERICAL NOTE DATE OF NOTE: NOV 26, 2024@13:38 ENTRY DATE: NOV 26, 2024@13:38:37 AUTHOR: SHRADDHA RADFORD EXP COSIGNER: URGENCY: STATUS: COMPLETED Patient Name: BERNADETTE GARNER Patient SSN: [id number] Date and time of Appointment No show : 11/26/24 11:00 PATIENT PHONE - [phone] PHONE NUMBER [CELLULAR] - Patient's medical record was reviewed. Follow-up actions were determined and initiated: Please check/complete as applies: [ ]Telephoned Directly [ ]Re-scheduled for next available appt [X]Sent a N0-show letter ( must call for appointment) [ ]Other (Emergent/Overbook, etc.): Additional Comments: None Future Clinic Visits 10/01/2025 10:30 [facility] 1 AM /rosa/ DAVID ANDREWS, CCC-A STAFF ELEVATOR CONSTRUCTOR HYDRAULIC Signed: 11/26/2024 13:38 Receipt Acknowledged By: 11/26/2024 15:24 /rosa/ IZABEL MATTSON ADVANCED CARROT HARVESTER SHRADDHA RADFORD [place] [facility]
--- OUTSIDE RECORDS SUMMARY | 2025-02-12 16:33 | XMS_ITS ---
Author Organization Brennen Chavira MD Address [address] [place], [place] [address] Care Team Providers Care Paint Roller Cover Machine Setter Name Role Phone Brennen Chavira Primary Care Provider Allergies Allergen (clinical drug ingredient) Drug/Non Drug Allergy documented on EMR Reaction Allergy Type Onset Date Status OxyCODONE ER vomiting Drug Allergy Acti ve Vicodin vomiting Drug Allergy Active oxycodone OxyContin vomiting Drug Allergy Active Lisinopril cough Drug Allergy Active REASON FOR VISIT dizzy spells off and [...] Location Date Provider Diagnosis Brennen Chavira MD [address] [place] [address] [place] [phone] 01/27/2025 Brennen Chavira Vertigo R42 Assessments Encounter Date Diagnosis (ICD Code) Assessment Notes Treatment Notes Treatment Clinical Notes Section Notes 01/27/2025 Vertigo (ICD-10 - R42) has been evaluated at [facility] for this 9 mo ago when it [...] Notes Vertigo has been evaluated a t [facility] for this 9 mo ago when it was worse. had ct angio and ct head./ have gien him a maneuver for that, patient verbalized understanding of medication nd directions for use, will continue to monitor sx's Next Appt Details Provider Name:Brennen mendez, 03/28/2025 07:15:00 AM, [address] [place] [address], [address], [place], [place], [phone], Provider Name:Brennen mendez, 04/04/2025 11:00:00 AM, [address], [address], [place], [phone], Progress Notes * Robert FLORESDOB:1935 (89 yo M)Acc No.[id number]:01/27/2025 Progress Notes Patient:?Robert FLORES Provider:?Brennen Chavira MD :1935???Age:89 Y???Sex:Male Marlon e:01/27/2025 Address:[facility] [address], [id number] Subjective: * Chief Complaints: * ???Dizzy spells off and on x 2 months but this weekend vomited x 2 after the dizzyspellAccompanied by * HPI: ???Symptom(s):?patient is a 89 yo male here with complaint of vertigo and vomiting. had a terrible headache and vomiting.room spinning. had vertigo last summer, had vertigo went by ambulance to [place]. * ROS:?General/Constitutional:?Denies?Chills.?Denies?Fatigue.?Denies?Fever.?Admits?Headache.?ENT:?Patient denies?decreased sense of smell, any loss of taste, sore throat.?Denies?Sore throat.?Respiratory:?Denies?Cough.?Denies?Shortness of breath at rest.?Denies?Shortness of breath with exertion.?Gastrointestinal:?Denies?Abdominal pain.?Denies?Diarrhea.?Admits?Nausea.?Admits?Vomiting,?x 2 this weekend after a dizzy spell.?Musculoskeletal:?Patient denies?muscle aches.?Peripheral Vascular:?Patient denies?red and blue toes.? * Medical History:? * Surgical History:? * Hospitalization/Major Diagno stic Procedure:? * Medications:?TakingAspir-Low 81 MG Tablet Delayed Release 1 tablet [...] reviewed and reconciled with the patient * Allergies:?OxyContin: vomiti ngOxyCODONE ER: vomitingVicodin: vomitingLisinopril: cough Objective: * Vitals:?Ht: 68.5, Wt: 242, B UT:36.26, BP:124/60, Wt-k.77. * Examination: ???General Examination: ?GENERAL APPEARANCE:?alert, well hydrated, in no distress.?HEAD:?normocephalic.?EYES:?no nystagmus.?NECK/THYROID:?no carotid bruit.?SKIN:?good turgor.?HEART:?no murmurs, rubs, gallops, regular rate and rhythm.?LUNGS:?no wheezes, rales, rhonchi, good air movement, clear to auscultation bilaterally.? Assessment: * Assessment: 1.?Vertigo - R42 (Primary)?? ? Plan: * Treatment: * Procedure Codes:? * * Sign off status: Completed true * Provider:?Brennen Chavira MD Date:?0 01/27/2025 Generated for Printi ng/Dilcia/eTransmitting on:?02/12/2025 08:57 AM EDT History and Physical Notes * HPI [...]
--- OUTSIDE RECORDS SUMMARY | 2025-02-12 16:33 | XMS_ITS ---
Author Organization Brennen Chavira MD Address [address] [place], [place] [phone] Care Team Providers Care Computer Terminal Operator Name Role Phone Brennen Chavira Primary Care Provider Allergies Allergen (clinical drug ingredient) Drug/Non Drug Allergy documented on EMR Reaction Allergy Type Onset Date Status OxyCODONE ER vomiting Drug Allergy Acti ve Vicodin vomiting Drug Allergy Active oxycodone OxyContin vomiting Drug Allergy Active Lisinopril cough Drug Allergy Active REASON FOR VISIT 6 MO F/U Medications [...] Date Provider Diagnosis Brennen Chavira MD [address] [place], [place] [phone] 10/15/2024 Brennen Chavira Angina concurrent wi th [...] 07:15:00 AM, [address], [address], [place], [place], [phone], Provider Name:Brennen Russell ier, 04/04/2025 11:00:00 AM, [address], [address], [place], [phone], Progress Notes * PATSY RobertDOB:1935 (89 yo M)Acc No.[id number]:10/15/2024 Progress Notes Patient:?Robert Flores Provider:?Brennen Chavira MD :1935???Age:89 Y???Sex:Male Marlon e:10/15/2024 Address:[address] [place] [address], [place] [address], [facility] Subjective: * Chief Complaints: * ???6 MO F/U * HPI: ???Symptom(s):? patient is a 89 yo male here for 6 month follow up visit. just had echo last week. back to see him after the holiday. * ROS:?General/Constitutional:?Denies?Chills.?Denies?Fatigue.?Denies?Fever.?Denies?Headache.?ENT:?Patient denies?decreased sense of smell , any loss of taste , sore throat.?Denies?Sore throat.?Respiratory:?Denies?Cough.?Denies?Shortness of breath at rest.?Denies?Shortness of breath with exertion.?Gastrointestinal:?Denies?Diarrhea.?Denies?Nausea.?Musculoskeletal:?Patient denies?muscle aches.?Peripheral Vascular:?Patient denies?red and blue toes.? [...] * Allergies:?OxyContin: vomiti ngOxyCODONE ER: vomitingVicodin: vomitingLisinopril: coughyes[Allergies Verified] Objective: * Vitals:?Ht: 68.5, Wt:238, BM I:35.66, BP:134/58 weight is up 4 pounds since 06-24-24. * ???Past Orders: ???Lab:Liver Panel (Order Da te - 10/07/2024) (Collection Date - 10/07/2024) ? Value Reference Range ?Bilirubin Total 0.6 0.0- 1.0 - mg/dL ?Bilirubin Direct 0.2 0.0 -0.5 - mg/dL ?Aspartate Amino Transferase 31 5-37 - U/L ?Alanine Aminotransferase 34 0-40 - U/L ?Total Protein 6.6 6.5-8. 0 - g/dL ?Albumin Level 3.9 3.5-5. 0 - g/dL ?Alkaline Phosphatase 117 39-117 - U/L ???Lab:Lipid Panel with Refl ex (Order Date - 10/07/2024) (Collection Date - 10/07/2024) ? Value Reference Range ?Triglycerides 86 <150 - mg/dL ?Cholesterol 126 <200 - m g/dL ?LDL Cholesterol Calculated 78 <100 - mg/dL ?HDL Cholesterol 31 L >40 - mg/dL * Examination: ???General Examination: ?GENERAL APPEARANCE:?alert, well hydrated, in no distress.?HEAD:?normocephalic.?SKIN:?good turgor.?HEART:?no murmurs, rubs, gallops , regular rate and rhythm.?LUNGS:?no wheezes, rales, rhonchi , good air movement , clear to auscultation bilaterally.? 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 Plan: * Treatment: 2.?Hypercholesterolemia? Continue Atorvastatin Calcium Tablet, 80 MG, TAKE ONE TABLET BY MOUTH EVERY DAY.?? Notes: stable, will continue current regiment?? 3.?Essential hypertension? Continue amLODIPine Besylate Tablet, 10 MG, 1 tablet, Orally, Once a day;?Continue Isosorbide Mononitrate ER Tablet Extended Release 24 Hour, 30 MG, 1 tablet in the morning, Orally, Once a day; Continue Metoprolol Tartrate Tablet, 50 MG, TAKE ONE TABLET BY MOUTH TWICE A DAY WITH FOOD.?? Notes: doing well, will continue current regiment?? * Procedure Codes:?G2211 Compl ex e/m visit add on * * Sign off status: Completed true * Provider:?Brennen Chavira MD Date:?1 12/16/2023 Generated for [place] tierra/Dilcia/eTransmitting on:?02/12/2025 04:33 PM EDT History and Physical Notes * [...]
== END 2025-02-12 14:45 | disposition home or self-care (01) ==
LOC: HO.HUSH 13:50
PROVIDERS: PCP Internal Medicine; Visit Provider Urology
DX: R39.15 Urgency of urination (principal); N20.0 Calculus of kidney; R39.12 Poor urinary stream; Z13.9 Encounter for screening, unspecified
CPT/HCPCS: 52000; 99214; G2211

== ENCOUNTER → 2025-02-12 13:50 | Outpatient (BNVA) | payer MEDICARE, SELFPAY | PROVIDERS: PCP Internal Medicine; Visit Provider Urology | DX: R39.15 Urgency of urination (principal); N20.0 Calculus of kidney; R39.12 Poor urinary stream; Q60.0 Renal agenesis, unilateral | CPT/HCPCS: 52000; 81003; 99212 ==

== ENCOUNTER 2025-03-28 11:09 | Outpatient (REF) | payer MEDICARE, SELFPAY ==
[2025-03-28 11:24] LABS: MANUAL DIFF FLAG NO
[2025-03-28 11:45] LABS: Basophils Absolute Auto 0.1 X10*3/uL (0.0-0.2); Basophils Percent Auto 0.6 % (0-2); Eosinophils Absolute Auto 0.2 X10*3/uL (0.0-0.4); Eosinophils Percent Auto 1.9 % (0-4); Hematocrit 44.1 % (42.0-52.0); Hemoglobin 14.3 g/dl (14.0-18.0); Imm Gran Abs Auto 0.02 X10*3/uL (0.00-0.03); Imm Gran Pct Auto 0.2 % (0.0-0.4); Lymphocytes Absolute Auto 2.7 X10*3/uL (1.2-4.9); Lymphocytes Percent Auto 30.5 % (20-40); Mean Corpuscular HGB Conc 32.4 g/dl (31.0-36.0); Mean Corpuscular Hemoglobin 28.2 pg (27.0-33.0); Monocytes Absolute Auto 0.9 X10*3/uL (0.1-1.2); Monocytes Percent Auto 10.3 % (2-11); Neutrophils Absolute Auto 4.9 x10*3/uL (2.0-8.3); Neutrophils Percent Auto 56.5 % (45-73); Platelet Count 184 X10*3/uL (160-400); Red Blood Count 5.07 X10*6/uL (4.60-5.80); Red Cell Distribution Width 14.7 % (11.0-16.0); White Blood Count 8.7 X10*3/uL (4.8-10.8)
[2025-03-28 11:46] LABS: Bacteria Urine None Seen (None Seen); Hyaline Casts Urine 0-2 /LPF (0-2); RBC Urine 0-2 /HPF (0-2)
[2025-03-28 11:52] LABS: Appearance Urine Clear; Color Urine Yellow; Glucose Urine UA Negative (Negative); Leukocyte Esterase Urine Small (1+) (Negative); Nitrite Urine Negative (Negative); UMIC TRIGGER UACC YES; Urine Blood Negative (Negative); Urine Ketones Negative (Negative); Urine Protein Negative (Neg-Trace)
[2025-03-28 11:53] LABS: UACC Culture Trigger YES; WBC Urine 0-5 /HPF (0-5)
--- OUTSIDE RECORDS SUMMARY | 2025-03-28 12:07 | XMS_ITS | Clinical Summary ---
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
[2025-03-28 12:42] LABS: Alanine Aminotransferase 32 U/L (0-40); Alkaline Phosphatase 135 U/L (39-117); Anion Gap 14 (12-20); Aspartate Amino Transferase 33 U/L (5-37); Bilirubin Total 0.6 mg/dL (0.0-1.0); Blood Urea Nitrogen 26 mg/dL (9-16); Calcium 9.8 mg/dL (8.4-10.2); Carbon Dioxide 23 mmol/L (22-29); Chloride 110 mmol/L (96-108); Cholesterol 126 mg/dL (<200); Estimated Glomerular Filt Rate 59; Glucose Fasting 113 mg/dL (60-99); HDL Cholesterol 30 mg/dL (>40); LDL Cholesterol Calculated 77 mg/dL (<100); Potassium 4.2 mmol/L (3.3-5.1); Sodium 143 mmol/L (135-145); Total Protein 6.8 g/dL (6.5-8.0); Triglycerides 97 mg/dL (<150)
[2025-03-28 12:52] LABS: PSA,Total (Free>4and<10) 0.68 ng/mL (0.00-4.00)
== END 2025-03-28 11:10 | disposition home or self-care (01) ==
LOC: HO.LNP 11:09
PROVIDERS: Visit Provider Internal Medicine
DX: N40.0 Benign prostatic hyperplasia without lower urinary tract symptoms (principal); I10 Essential (primary) hypertension; E78.00 Pure hypercholesterolemia, unspecified; Z12.5 Encounter for screening for malignant neoplasm of prostate
CPT/HCPCS: 80053; 80061; 81001; 84153; 85025; 87086

== ENCOUNTER 2025-04-22 10:39 | Inpatient (IN) | payer MEDICARE, SELFPAY ==
--- NOTE | ~2025-04-22 | CT_ITS ---
EXAMINATION: CT CERVICAL SPINE WITHOUT CONTRAST CLINICAL INFORMATION: Trauma, fall DLP: 1354 mGY*cm COMPARISON: None available. TECHNIQUE: Axial CT was performed from the skull base through upper T3. No contrast This CT examination was performed using dose optimization techniques as appropriate, variously including the following: *Automated exposure control *Adjustment of mA and/or kV according to patient size (this includes techniques or standardized protocols for targeted exams where dose is matched to indication/reason for exam; i.e. extremities or head) *Use of iterative reconstruction technique FINDINGS: There are severe degenerative changes involving the C1-C2 articulation. Posterior C1 ring articulates with the C2 spinous process. There is also amorphous calcification in the soft tissues extending from clivus to posterior C2 body and and ligamentum flavum at C2. There is sclerosis and degenerative cystic change in the dense. Degenerative disc disease is most advanced at C5-6 and C6-7 with moderate to severe loss of disc height, endplate irregularity, osteophytes, and faint calcification within the disc. There is likely spinal stenosis, most pronounced at C6-7. There is also moderate to severe facet arthropathy with sclerosis and osteophytes. This is most advanced on the right at C3-4 and C4-5. Bony foraminal narrowing is most advanced at C3-4 on the right No fractures are evident. Soft tissues are grossly unremarkable. 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 No acute fracture. Fleischner guidelines were followed. Electronically signed by: Rodrigue Kitchen MD 04/22/2025 12:49 PM EDT
--- NOTE | ~2025-04-22 | FL_ITS ---
EXAMINATION: FL GUIDANCE ONLY HISTORY: Left distal femur fracture COMPARISON: Correlation is made with plain films of the left knee dated 04/22/2025. TECHNIQUE: Fluoroscopy time: 0.5 minutes. Cumulative Dose: 3.61 mGy. DAP: 0.0620 mGym2 Images: 7. FINDINGS: Fluoroscopic spot films of the left femur demonstrate internal fixation of the previously seen fracture of the distal femoral metaphysis with a sideplate and multiple orthopedic screws. Again seen is a total knee prosthesis. FL/FL guidance in OR IMPRESSION: Fluoroscopy during procedure. Please see procedure report for additional information. Electronically signed by: Quan Kramer MD 04/24/2025 07:03 AM EDT
--- NOTE | ~2025-04-22 | CT_ITS ---
EXAMINATION: CT HEAD WITHOUT CONTRAST CLINICAL INFORMATION: Trauma, fell COMPARISON: None available. TECHNIQUE: Contiguous axial imaging was performed from the skull base to vertex without intravenous administration of contrast. This CT examination was performed using dose optimization techniques as appropriate, variously including the following: *Automated exposure control *Adjustment of mA and/or kV according to patient size (this includes techniques or standardized protocols for targeted exams where dose is matched to indication/reason for exam; i.e. extremities or head) *Use of iterative reconstruction technique DLP: 1354 mGY*cm FINDINGS: There is no acute ischemic change. Moderate periventricular and deep white matter hypodensities are present, typically associated with chronic small vessel ischemic disease. There is no intracranial hemorrhage. There is no mass-effect or midline shift. There is mild generalized atrophy. Ventricles are mildly prominent given the degree of atrophy. Focal calcification is present in the right globe, medial to the iris/lense. Mild mucosal thickening is present in the maxillary sinuses and anterior ethmoid air cells. There is also opacification of the left greater than right mastoid air cells. There are no bony abnormalities. CT/CT head/brain wo IV con IMPRESSION: No acute intracranial abnormality. 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 Ventricles are mildly prominent given the degree of atrophy raising question of normal pressure hydrocephalus. Mild chronic mucosal thickening in the maxillary sinuses and ethmoid air cells. Bilateral mastoid air cell effusions. Electronically signed by: Rodrigue Kitchen MD 04/22/2025 12:42 PM EDT
--- NOTE | ~2025-04-22 | XR_ITS ---
EXAMINATION: XR LUMBOSACRAL SPINE CLINICAL INFORMATION: fall COMPARISON: May 05, 2022 TECHNIQUE: AP and cross lateral views FINDINGS: Multilevel marginal osteophyte formation and endplate sclerosis and decreased intervertebral disc height. Vacuum phenomenon at L5-S1. Grade 1 anterolisthesis L4-5. No lytic or blastic lesions. S-shaped curvature of the lumbar spine. Degenerative changes in the hips. Vascular complications, aorta and iliac arteries. XR/XR lumbar spine 2-3V IMPRESSION: Multilevel thoracolumbar spondylosis. Grade 1 anterolisthesis L4-5. Atherosclerosis disease. Electronically signed by: Marcelino Soliz MD 04/22/2025 02:48 PM EDT
--- NOTE | ~2025-04-22 | XR_ITS ---
EXAMINATION: XR KNEE, LEFT CLINICAL INFORMATION: fall , fracture COMPARISON: None available. TECHNIQUE: AP and lateral x-rays of the left knee. FINDINGS: 3 compartment uteroplasty has been performed. There is a fracture just cephalad to the femoral component extending from the anterior margin of the femoral component and extending obliquely through the distal diaphysis of the femur. There is there is 30% posterior offset of the femoral component relative to the femoral diaphysis. There is mild lateral offset distal to the fracture. Moderate vascular calcifications are present in the femoral artery and popliteal artery. There is a joint effusion. XR/XR knee LT 2V IMPRESSION: Periprosthetic fracture just cephalad to the femoral component of a left knee arthroplasty. Fracture line extends to the anterior superior margin of the femoral component. Electronically signed by: Rodrigue Kitchen MD 04/22/2025 02:51 PM EDT
--- NOTE | ~2025-04-22 | XR_ITS ---
EXAMINATION: XR HIP, LEFT CLINICAL INFORMATION: fall COMPARISON: None available. TECHNIQUE: AP and cross lateral views of the left hip. FINDINGS: No acute cortical disruption or gross malalignment. No lytic or blastic lesions. Degenerative changes in the stents as well as and the left sacroiliac joint as well as the coxofemoral joint. Vascular calcifications. 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 Atherosclerosis disease, peripheral. Electronically signed by: Marcleino Soliz MD 04/22/2025 02:46 PM EDT
--- NOTE | ~2025-04-22 | XR_ITS ---
Exam: 2 view lower leg, left TECHNIQUE: AP and lateral x-rays of the left lower leg. INDICATION: Fall, femoral fracture. Prior: None FINDINGS: Total knee arthroplasty is noted. 2 surgical carley are present in the soft tissues medial to the calf region. There is moderate fatty replacement of the lower leg musculature. Moderate vascular calcifications are also present. Degenerative changes are present in the midfoot with degenerative cysts and marginal osteophytes. No fractures are identified in the tibia and fibula. XR/XR tibia fibula LT 2V IMPRESSION: No tibia and fibula fracture. Electronically signed by: Rodrigue Kitchen MD 04/22/2025 02:53 PM EDT
[2025-04-22 11:00] VITALS: BP 134/63; BP 152/78; PULSE 79; RESP 18; TEMP 36.3; O2SAT 93; BMI 32.8
--- NOTE | 2025-04-22 11:07 | PC.NURSE ---
patient a&ox3, vss, c/o lle 08/08 pain also complaint of back pain, walks with cane at baseline, pt awaiting provider evaluation.
--- OUTSIDE RECORDS SUMMARY | 2025-04-22 12:49 | XMS_ITS | Clinical Summary ---
Author Organization [employer] Address [address] [facility] [address] [place] [address] Care Team Providers Care Vp Sales Name Role Phone Unavailable Primary Care Provider [...] Description 02/12/2025 9:00 AM EDT Office Visit [facility] [address] [place] [address] Bennett Jimenez DMD from Last 3 Months [...]
--- NOTE | 2025-04-22 13:07 | ED_ITS ---
HPI - General Adult General Chief complaint: Fall Stated complaint: fell on L knee Time Seen by Provider: 04/22/25 11:40 Source: patient Mode of arrival: ambulatory Limitations: no limitations History of Present Illness ED Provider: Tk Chairez HPI narrative: 89 yold male with pmh of bilateral carotid artery stenosis, muscle spasm, osteoartmrhtitis, left knee replacment presents to the ED for left knee pain after falling unto left knee. Patient states he was going up the stairs to appointment and he tripped over his cane an fell unto his left knee. patient heard a pop in left knee. Patient denies hitting head, loss of concsciosness, chest pain, abdominal pain, neck pain, or dizziness. Related Data Home Medications ?Medication ?Instructions ?Recorded ?Confirmed flu vacc 2020-21(65yr ml IM 10/27/20 09/19/22 up)-MF59C(PF) 60 mcg(15 mcgx4)/0.5 mL IM syringe nitroglycerin 0.4 mg sublingual 1 mg sublingual PRN pr evention 10/27/20 09/19/22 tablet atorvastatin 80 mg tablet 40 mg PO DAILY 09/30/2108/31 metoprolol tartrate 50 mg tablet 25 mg PO BID 09/30/21 09/23/23 isosorbide mononitrate 60 mg 60 mg PO DAILY 11/25/21 1 11/23/22 tablet,extended release 24 hr amlodipine 10 mg tablet 10 mg PO DAILY 06/07/2208/31 Previous Rx's ?Medication ?Instructions ?Recorded amoxicillin 875 mg-potassium 1 tab PO BID #13 tabs clavulanate 125 mg tablet doxycycline monohydrate 100 mg 100 mg PO BID #14 caps 05/28/24 capsule omeprazole 20 mg capsule,delayed 20 mg PO DAILY #30 ca ps 09/25/24 release tamsulosin 0.4 mg capsule 0.8 mg (2 x 0.4 mg) PO BEDTI ME 90 01/23/25 days #180 caps tadalafil 5 mg tablet 5 mg PO DAILY urinry urge 90 days 02/12/25 #90 tabs Allergies Allergy/AdvReac Type Severity Reaction Status Date / Time oxycodone (OxyContin) Allergy Unknown Unknown Verified 04/22/25 11:03 codeine (CODEINE) AdvReac Mild Nausea and Verified 04/22/25 11:03 Vomiting Review of Systems 2 Review of Systems: left knee pain, low back diana Yes all other systems are reviewed and are negative [facility] Past Medical History Medical History Nephrolithiasis Dysphagia Peripheral neuropathy Degenerative joint disease (DJD) of lumbar spine Hyperlipidemia Hypertension Renal hematoma BPH w urinary obs/LUTS Surgical History S/P triple vessel bypass Social History Social History Household Members Other:: 4 kids Patient Tobacco Use Status: Never used Tobacco Smoked in Last 30 Days: No Use of substances other than those prescribed or required for medical reasons: No Advance Directives: Yes Advance Directives Information Provided: No Advance Directives on File: No Do you have a plan to hurt others: No Plan Nutrition Risks: No Nutritional Risk 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 Physical Exam ED Vital Signs: Vital Signs - 24 hr 04/22/25 11:00 Temperature 97.3 F Pulse Rate 79 Respiratory Rate 18 Blood Pressure 134/63 Pulse Oximetry 93 Oxygen Delivery Method Room Air BMI result Body Mass Index 32.8 Const General: cooperative, healthy appearing, comfortable, no acute distress, well developed, alert, awake and Physically active [facility] Head: Yes normal to inspection, Yes No palpable skull fracture present, Yes normocephalic, Yes atraumatic and No abrasion Eyes General: appearance normal, both eyes and all related structures Neck Neck: Yes normal visual inspection, Yes full ROM, Yes no lymphadenopathy, Yes no meningeal signs, Yes trachea midline, Yes supple, No anterior neck swelling and No tender Chest Chest palpation & inspection: normal inspection of the chest and normal palpation of entire chest wall Resp Effort & Inspection: normal respiratory effort and able to speak in complete sentences Cardio Jugular venous distension: no JVD Heart sounds: S1 normal heart sound present and S2 normal heart sound present GI Inspection: Yes normal to inspection Palpation (GI): Soft to palpation, not firm, nontender, no guarding and not rigid General: Yes no CVA tenderness Back/Spine/Pelvis Back: no CVA tenderness and No back tenderness Skin General skin exam: no rashes or lesions noted, elasticity normal and turgor normal Neuro General: tone normal, moves all extremities, Normal light touch and pain sensation, no meningeal signs, no focal motor deficits, CN's II-XI intact bilaterally and normal sensation to monofilament Extrem Knee images: 2 1. positive for tenderness on palpation. Negative ecchymosis, crepitus or deformity. Negative for erythema. Negative from warmth or stiffness. 2. positive for tenderness on palpation. Negative ecchymosis, crepitus or deformity. Negative for erythema. Negative from warmth or stiffness. Psych Appearance: grossly normal, well kempt and not disheveled Medications Administered Discontinued Medications Generic Name Dose Route Start Last Admin Trade Name Freq PRN Reason Stop Dose Admin Morphine Sulfate 2 mg 04/22/25 13:34 04/22/25 13:53 Morphine Sulfate 2 Mg/Ml Cartridge IM 04/22/25 13:35 2 mg ONCE ONE Administration Protocol Morphine Sulfate 4 mg 04/22/25 15:29 04/22/25 16:24 Morphine Sulfate 4 Mg/Ml Cartridge IVPUSH 04/22/25 15:30 4 mg ONCE ONE Administration Protocol Ondansetron HCl 4 mg 04/22/25 16:21 04/22/25 16:24 Ondansetron Hcl 4 Mg/2 Ml Vial IVPUSH 04/22/25 16:22 4 mg ONCE ONE Administration Medical Decision Making Medical Decision Making [facility] Narrative: 89-year-old male presents to ED for a mechanical fall. Images ordered. 4:47pm: Patient positive for fracture of femur above left knee arthroplasty due to fall. Rest of images negative for any acute emergent etiologies. Labs morphine ordered. Case discussed with orthopedic PA surgeon on-call Liana recommends patient be admitted to hospitalist service and they will follow up patient for surgical evaluation. Patient has whole-body evaluated negative for signs of life-threatening etiology. Differential Diagnosis Differential Diagnoses: The differential diagnosis associated with the presentation includes (Fracture, dislocation, sprain, brain bleed, cervical spine fracture) Admission/Observation Consideration of admission/observation: Escalation of care including admission/observation considered Lab Data [facility] Lab Attestation statement: I reviewed the patient's lab results. 04/22/25 16:17 04/22/25 16:17 Labs: Lab Results 04/22/25 Range/Units 16:17 WBC 11.8 H (4.8-10.8) X10*3/uL RBC 5.12 (4.60-5.80) X10*6/uL Hgb 14.6 (14.0-18.0) g/dl Hct 42.6 (42.0-52.0) % MCV 83.2 (80.0-98.0) fL MCH 28.5 (27.0-33.0) pg MCHC 34.3 (31.0-36.0) g/dl RDW 14.4 (11.0-16.0) % Plt Count 177 (160-400) X10*3/uL MPV 10.2 (9.4-12.4) fL Immature Gran % (Auto) 0.4 (0.0-0.4) % Neut % (Auto) 82.9 H (45-73) % Lymph % (Auto) 9.2 L (20-40) % [place] % (Auto) 6.9 (2-11) % Eos % (Auto) 0.3 (0-4) % Baso % (Auto) 0.3 (0-2) % Lymph # (Auto) 1.1 L (1.2-4.9) X10*3/uL [place] # (Auto) 0.8 (0.1-1.2) X10*3/uL Eos # (Auto) 0.0 (0.0-0.4) X10*3/uL Baso # (Auto) 0.0 (0.0-0.2) X10*3/uL Abs Immat Gran (auto) 0.05 H (0.00-0.03) X10*3/uL Absolute Neuts (auto) 9.8 H (2.0-8.3) x10*3/uL Absolute Nucleated RBC 0.000 (0.0-0.012) X10*3/uL Nucleated RBC % (auto) 0.0 (0.0-0.2) /100WBC PT 13.2 H (10.9-12.4) SEC INR 1.2 H (0.9-1.1) APTT 38.5 H (26.0-36.8) SEC Sodium 139 (135-145) mmol/L Potassium 4.3 (3.3-5.1) mmol/L Chloride 109 H (96-108) mmol/L Carbon Dioxide 22 (22-29) mmol/L Anion Gap 12 (12-20) BUN 20 H (9-16) mg/dL Creatinine 1.01 (0.5-1.4) mg/dL Estim Creat Clear Calc 61.5 Estimated GFR > 60 Random Glucose 117 H (60-115) mg/dL Calcium 9.5 (8.4-10.2) mg/dL Total Bilirubin 1.0 (0.0-1.0) mg/dL AST 39 H (5-37) U/L ALT 26 (0-40) U/L Alkaline Phosphatase 131 H (39-117) U/L Total Protein 7.1 (6.5-8.0) g/dL Albumin 4.2 (3.5-5.0) g/dL Independent Interpretation I performed an independent interpretation of an: Plain X-Ray and CT Scan Radiology Impression Discussion of test interpretation with radiology: I have reviewed the radiologist's reading. Independent Historian Clinical information obtained from an independent historian. History obtained from or confirmed by: Other (Patient) Prescription Management I considered prescription management with: Pain Medication Discharge Plan Discharge Clinical Impression: Closed femur fracture Patient Disposition: Admitted As Inpatient
[2025-04-22] MEDS: Morphine Sulfate 2 MG/ML CARTRIDGE IM (13:53)
--- NOTE | 2025-04-22 14:00 | PC.NURSE ---
pt medicated per candida
[2025-04-22 16:22] LABS: MANUAL DIFF FLAG NO
[2025-04-22] MEDS: ondansetron HCL 4 MG/2 ML VIAL IVPUSH (16:24)
[2025-04-22] MEDS: Morphine Sulfate 4 MG/ML CARTRIDGE IVPUSH (16:24)
[2025-04-22 16:26] LABS: Basophils Percent Auto 0.3 % (0-2); Eosinophils Percent Auto 0.3 % (0-4); Hematocrit 42.6 % (42.0-52.0); Hemoglobin 14.6 g/dl (14.0-18.0); Imm Gran Abs Auto 0.05 X10*3/uL (0.00-0.03); Imm Gran Pct Auto 0.4 % (0.0-0.4); Lymphocytes Absolute Auto 1.1 X10*3/uL (1.2-4.9); Lymphocytes Percent Auto 9.2 % (20-40); Mean Corpuscular HGB Conc 34.3 g/dl (31.0-36.0); Mean Corpuscular Hemoglobin 28.5 pg (27.0-33.0); Mean Corpuscular Volume 83.2 fL (80.0-98.0); Mean Platelet Volume 10.2 fL (9.4-12.4); Monocytes Absolute Auto 0.8 X10*3/uL (0.1-1.2); Monocytes Percent Auto 6.9 % (2-11); Neutrophils Absolute Auto 9.8 x10*3/uL (2.0-8.3); Neutrophils Percent Auto 82.9 % (45-73); Platelet Count 177 X10*3/uL (160-400); Red Blood Count 5.12 X10*6/uL (4.60-5.80); Red Cell Distribution Width 14.4 % (11.0-16.0); White Blood Count 11.8 X10*3/uL (4.8-10.8)
--- NOTE | 2025-04-22 16:37 | PC.NURSE ---
iv inserted, labs drawn, pt medicated per order
[2025-04-22 16:40] LABS: INTERNATIONAL NORM RATIO 1.2 (0.9-1.1); Prothrombin Time 13.2 SEC (10.9-12.4)
[2025-04-22 16:43] LABS: Partial Thromboplastin Time 38.5 SEC (26.0-36.8)
--- NOTE | 2025-04-22 16:49 | P.HPHOSP_ITS ---
History of Present Illness Date of Service: 04/22/25 Chief Complaint: Fall 89 yold male with pmh of bilateral carotid artery stenosis, muscle spasm, osteoartmrhtitis, left knee replacment presents to the ED for left knee pain after falling down up stairs onto his left knee. Patient states he was going up the stairs to appointment and he tripped over his cane an fell unto his left knee. Patient denies hitting head, loss of consciousness, chest pain, abdominal pain, neck pain, or dizziness. In the ER, knee x-ray showed periprosthetic fracture. All of the imaging including lumbar spine x-ray, hip and pelvis x- ray, tibia/fibula x-ray, cervical spine CT and head CT all negative for acute abnormality. Patient's labs all within acceptable limits. Patient will be admitted for further management and treatment of acute knee fracture. Review of Systems 2 Review of Systems: Denies any recent fever chills or decrease in appetite respiratory denies any shortness of breath or cough cardiovascular denied chest pain gastrointestinal denies any dysphagia abdominal pain nausea vomiting or diarrhea genitourinary denies any dysuria frequency or hematuria musculoskeletal left knee pain neuropsych denies any weakness or seizures all other systems reviewed are negative [facility] [place] Medical History Nephrolithiasis Dysphagia Peripheral neuropathy Degenerative joint disease (DJD) of lumbar spine Hyperlipidemia Hypertension Renal hematoma BPH w urinary obs/LUTS Surgical History S/P triple vessel bypass Social History Household Members Other:: 4 kids Patient Tobacco Use Status: Never used Tobacco Smoked in Last 30 Days: No Use of substances other than those prescribed or required for medical reasons: No Advance Directives: Yes Advance Directives Information Provided: No Advance Directives on File: No Do you have a plan to hurt others: No Plan Nutrition Risks: No Nutritional Risk 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 Allergies Allergy/AdvReac Type Severity Reaction Status Date / Time oxycodone (OxyContin) Allergy Unknown Unknown Verified 04/22/25 11:03 codeine (CODEINE) AdvReac Mild Nausea and Verified 04/22/25 11:03 Vomiting Home Medications ?Medication ?Instructions ?Recorded ?Confirmed ?Last Taken ?Type flu vacc 2020-21(65yr ml IM 10/27/20 09/19/22 Unkn own History up)-MF59C(PF) 60 mcg(15 mcgx4)/0.5 mL IM syringe nitroglycerin 0.4 mg sublingual 1 mg sublingual PRN pr evention 10/27/20 09/19/22 09/22/23 History tablet atorvastatin 80 mg tablet 40 mg PO DAILY 09/30/2108/3109/22/23 History metoprolol tartrate 50 mg tablet 25 mg PO BID 09/30/21 09/23/23 09/22/23 History isosorbide mononitrate 60 mg 60 mg PO DAILY 11/25/21 1 11/23/22 09/22/23 History tablet,extended release 24 hr amlodipine 10 mg tablet 10 mg PO DAILY 06/07/2208/3109/22/23 History Physical Exam 2 Vital Signs and Narrative: Vital Signs: Last Vital Signs Temp 97.3 F 04/22/25 11:00 Pulse 79 04/22/25 11:00 Resp 18 04/22/25 11:00 BP 134/63 04/22/25 11:00 Pulse Ox 93 04/22/25 11:00 O2 Del Method Room Air 04/22/25 11:00 BMI result Body Mass Index 32.8 Appearing in no acute distress head is normocephalic atraumatic eyes pupils are PERRLA sclera is anicteric mouth throat mucous membranes are intact and moist neck is supple no lymphadenopathy, no JVD noted lung sounds are clear to auscultation heart regular rate rhythm, clear S1, S2 positive bowel sounds, abdomen is soft, nontender neuro patient is alert x3, no focal deficits Results Labs 04/22/25 16:17 04/22/25 16:17 Labs: Laboratory Results - last 24 hr 04/22/25 16:17 MCV 83.2 MCH 28.5 MCHC 34.3 RDW 14.4 Plt Count 177 MPV 10.2 Immature Gran % (Auto) 0.4 Neut % (Auto) 82.9 H Lymph % (Auto) 9.2 L Woodward % (Auto) 6.9 Eos % (Auto) 0.3 Baso % (Auto) 0.3 Lymph # (Auto) 1.1 L Woodward # (Auto) 0.8 Eos # (Auto) 0.0 Baso # (Auto) 0.0 Abs Immat Gran (auto) 0.05 H Absolute Neuts (auto) 9.8 H Absolute Nucleated RBC 0.000 Nucleated RBC % (auto) 0.0 PT 13.2 H INR 1.2 H APTT 38.5 H Imaging Radiologist's Impressions: Impressions Head CT 04/22/25 11:06 IMPRESSION: No acute intracranial abnormality. 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 Ventricles are mildly prominent given the degree of atrophy raising question of normal pressure hydrocephalus. Mild chronic mucosal thickening in the maxillary sinuses and ethmoid air cells. Bilateral mastoid air cell effusions. 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 No acute fracture. Fleischner guidelines were followed. Electronically signed by: Rodrigue Kitchen MD 04/22/2025 12:49 PM EDT RP Knee X-Ray 04/22/25 13:08 IMPRESSION: Periprosthetic fracture just cephalad to the femoral component of a left knee arthroplasty. Fracture line extends to the anterior superior margin of the femoral component. Electronically signed by: Rodrigue Kitchen MD 04/22/2025 02:51 PM EDT RP Tibia/Fibula X-Ray 04/22/25 13:09 IMPRESSION: No tibia and fibula fracture. Electronically signed by: Rodrigue Kitchen MD 04/22/2025 02:53 PM EDT RP Hip/Pelvis X-Ray 04/22/25 13:18 IMPRESSION: Mild osteoarthrosis without acute fracture or dislocation. Atherosclerosis disease, peripheral. Electronically signed by: Marcelino Soliz MD 04/22/2025 02:46 PM EDT RP Lumbar Spine X-Ray 04/22/25 14:30 IMPRESSION: Multilevel thoracolumbar spondylosis. Grade 1 anterolisthesis L4-5. Atherosclerosis disease. Electronically signed by: Marcelino Soliz MD 04/22/2025 02:48 PM EDT Assessment and Plan (1) Closed femur fracture: Status: Acute Plan 89-year-old man admitted after a fall and found to have periprosthetic fracture Clinical fall leading to periprosthetic fracture Knee x-ray showing the above Orthopedic surgery consultation Pain management NPO after midnight for likely surgical procedure Hypertension Stable blood pressure Hold antihypertensives for now as patient is preoperative Hyperlipidemia Hold statin for now BPH Tamsulosin GERD PPI DVT prophylaxis with pneumatic compression boots Full code Med rec pending Quality Stroke Does the patient have a stroke diagnosis?: No VTE Prior VTE?: No VTE Risk Level:: Medical - moderate - high VTE Device Contraindication: N/A - Device Ordered VTE Drug Contraindication: Treatment Not Indicated
[2025-04-22 16:55] LABS: Alanine Aminotransferase 26 U/L (0-40); Albumin Level 4.2 g/dL (3.5-5.0); Alkaline Phosphatase 131 U/L (39-117); Anion Gap 12 (12-20); Aspartate Amino Transferase 39 U/L (5-37); Blood Urea Nitrogen 20 mg/dL (9-16); Calcium 9.5 mg/dL (8.4-10.2); Carbon Dioxide 22 mmol/L (22-29); Chloride 109 mmol/L (96-108); Creatinine Clr Calc Pharmacy 61.5; Estimated Glomerular Filt Rate > 60; Glucose Random 117 mg/dL (60-115); Potassium 4.3 mmol/L (3.3-5.1); Sodium 139 mmol/L (135-145); Total Protein 7.1 g/dL (6.5-8.0)
[2025-04-22 17:00] VITALS: BP 136/68; PULSE 79; RESP 14; TEMP 36.8; O2SAT 94
--- NOTE | 2025-04-22 17:04 | PM.CNOR ---
History of Present Illness HPI Consult date: 04/22/25 Chief complaint: Fell on L Knee Narrative: 89-year-old male admitted to the hospital after fall Status post left TKA approximately 20 years ago X-rays in the ED reveal periprosthetic fracture of the left distal femur Patient reports pain well-controlled Diminished sensation and movement capacity in the left foot is chronic, patient suffers from chronic neuropathy and foot drop in the left foot No other acute complaints or concerns at this time Review of Systems Review of Systems: Yes all other systems are reviewed and are negative PMFSH Past Medical History Medical History Nephrolithiasis Dysphagia Peripheral neuropathy Degenerative joint disease (DJD) of lumbar spine Hyperlipidemia Hypertension Renal hematoma BPH w urinary obs/LUTS Surgical History Surgical History S/P triple vessel bypass Social History Social History Household Members Other:: 4 kids Patient Tobacco Use Status: Never used Tobacco Smoked in Last 30 Days: No Use of substances other than those prescribed or required for medical reasons: No Advance Directives: Yes Advance Directives Information Provided: No Advance Directives on File: No Do you have a plan to hurt others: No Plan Nutrition Risks: No Nutritional Risk 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 Meds Allergies Allergy/AdvReac Type Severity Reaction Status Date / Time oxycodone (OxyContin) Allergy Unknown Unknown Verified 04/22/25 11:03 codeine (CODEINE) AdvReac Mild Nausea and Verified 04/22/25 11:03 Vomiting Active Medications: Current Medications Acetaminophen (Acetaminophen 325 Mg Tablet) 650 mg PO Q6H PRN PRN Reason: Pain, Mild 1-3,fever,headache Calcium Carbonate (Calcium Carbonate 750 Mg Tab.Chew) 750 mg PO Q4H PRN PRN Reason: Heartburn Magnesium Hydroxide (Milk Of Magnesia 30 Ml Oral.Susp) 30 ml PO DAILY PRN PRN Reason: Constipation Melatonin (Melatonin 3 Mg Tablet) 6 mg PO BEDTIME PRN PRN Reason: Insomnia Morphine Sulfate (Morphine Sulfate 4 Mg/Ml Cartridge) 2 mg IVPUSH Q6H PRN; Protocol PRN Reason: Pain, Severe (Pain Scale 7-10) Ondansetron HCl (Ondansetron Hcl 4 Mg/2 Ml Vial) 4 mg IVPUSH Q8H PRN PRN Reason: Nausea and Vomiting Oxycodone HCl (Oxycodone Hcl Immed Release 5 Mg Tablet) 5 mg PO Q6H PRN PRN Reason: Pain, Moderate(Pain Scale 4-6) Sodium Chloride (0.9 % Sodium Chloride Flush 3 Ml Syringe) 3 [facility] Medications ?Medication ?Instructions ?Recorded ?Confirmed ?Last Taken ?Type flu vacc 2019-(65yr ml IM 10/27/20 09/19/22 Unknown History up)-MF59C(PF) 60 mcg(15 mcgx4)/0.5 mL IM syringe nitroglycerin 0.4 mg sublingual 1 mg sublingual PRN prevention 10/27/20 09/19/22 09/22/23 History tablet atorvastatin 80 mg tablet 40 mg PO DAILY 09/30/21 09/23/23 09/22/23 History metoprolol tartrate 50 mg tablet 25 mg PO BID 09/30/21 09/23/23 09/22/23 History isosorbide mononitrate 60 mg 60 mg PO DAILY 11/25/21 09/23/23 09/22/23 History tablet,extended release 24 hr amlodipine 10 mg tablet 10 mg PO DAILY 06/07/22 09/23/23 09/22/23 History Physical Exam Vital Signs: Vital Signs: Last Vital Signs Temp 98.3 F 04/22/25 17:00 Pulse 79 04/22/25 17:00 Resp 14 04/22/25 17:00 BP 136/68 04/22/25 17:00 Pulse Ox 94 04/22/25 17:00 O2 Del Method Room Air 04/22/25 17:00 BMI result Body Mass Index 32.8 Extrem: Other: There is a visible and palpable step-off deformity in the patient's distal femur just proximal to the knee joint No erythema, ecchymosis, edema noted No lacerations, abrasions, open areas No evidence of infection Distal sensation diminished but intact, at patient baseline Capillary refill brisk Results Labs 04/22/25 16:17 04/22/25 16:17 Labs: Abnormal lab results 04/22/25 Range/Units 16:17 WBC 11.8 H (4.8-10.8) X10*3/uL Neut % (Auto) 82.9 H (45-73) % Lymph % (Auto) 9.2 L (20-40) % Lymph # (Auto) 1.1 L (1.2-4.9) X10*3/uL Abs Immat Gran (auto) 0.05 H (0.00-0.03) X10*3/uL Absolute Neuts (auto) 9.8 H (2.0-8.3) x10*3/uL PT 13.2 H (10.9-12.4) SEC INR 1.2 H (0.9-1.1) APTT 38.5 H (26.0-36.8) SEC Chloride 109 H (96-108) mmol/L BUN 20 H (9-16) mg/dL Random Glucose 117 H (60-115) mg/dL AST 39 H (5-37) U/L Alkaline Phosphatase 131 H (39-117) U/L H & H 04/22/25 Range/Units 16:17 Hgb 14.6 (14.0-18.0) g/dl Hct 42.6 (42.0-52.0) % Coagulation 04/22/25 Range/Units 16:17 INR 1.2 H (0.9-1.1) All other labs normal. Diagnostic results Knee x-ray: report reviewed and image reviewed Assessment and Plan (1) Closed fracture of left distal femur: Status: Acute Plan 1. Periprosthetic distal femur fracture of the left knee Date of injury 04/22/2025 I educated the patient about the condition. I discussed both operative and nonoperative treatment options. The patient would like to proceed with surgery. The risks and benefits of operative treatment were discussed with the patient and the patient wishes to proceed with surgery. These risks include, but are not limited to, risk of damage to blood vessels, nerves, tendons, infection, blood clots, blood loss/potential need for blood transfusion postoperatively, recurrence, incomplete relief of preoperative symptoms, persistent pain, possible need for further surgery, and the risks associated with regional blocks and/or anesthesia. Plan is to take the patient to the operating room on 04/22/2025 for the following procedures: 1. Left distal femur ORIF with lateral plate All of the patient and his family's questions are answered at bedside today Patient's requests phone call when time of surgery tomorrow is known Admit to medicine service NPO at midnight for surgery tomorrow Continue with all other recommendations per Medicine Procedures Date of Service Date of Service: 04/22/25
--- NOTE | 2025-04-22 17:14 | PC.NURSE ---
ortho in room speaking to patient, pt to be npo at midnight
[2025-04-22] MEDS: Acetaminophen 325 MG TABLET 650 MG PO ×2 (18:35→23:54)
[2025-04-22] MEDS: traMADoL HCL 50 MG TABLET PO (18:35)
--- NOTE | 2025-04-22 18:36 | PC.NURSE ---
pt medicated for 6/10 pain, with tramadol, pt tylenol was scheduled and not a prn with a pain scale so it was given as well.
--- NOTE | 2025-04-22 19:23 | PHA.MEDREC ---
Pharmacy Consult ? Medication Reconciliation Pharmacy has completed the medication reconciliation. Spoke to patient to confirm medication list. Patient confirmed he's taking atorvastatin 80 mg daily, metoprolol tartrate 50 mg bid and he's still taking tamsulosin 0.8 mg at bedtime (even though his last fill was on 10/29/24 for 90 day supply). Last dose of medication was this morning 04/22/25.
--- NOTE | 2025-04-22 20:19 | PC.NURSE ---
placed 16fr ribera with EDT. Pt tolerated well. immediate ouptut of clear yellow urine 700ml.
[2025-04-22 21:09] VITALS: RESP 19
[2025-04-22] MEDS: Morphine Sulfate 4 MG/ML CARTRIDGE 2 MG IVPUSH ×2 (21:09→23:54)
[2025-04-22 21:11] VITALS: BP 135/71; PULSE 81; RESP 17; TEMP 36.7; O2SAT 95
[2025-04-22 21:41] VITALS: BMI 33.3
[2025-04-22 22:00] VITALS: BP 151/70; PULSE 80; RESP 18; TEMP 36.6; O2SAT 95
--- NOTE | 2025-04-22 22:02 | HO.SKINPHOTO ---
Location: left lower leg Category: skin tear Stage: Length: Width: Depth: cm Location: Category: Stage: Length: Width: Depth: cm Location: Category: Stage: Length: Width: Depth: cm Location: Category: Stage: Length: Width: Depth: cm Location: Category: Stage: Length: Width: Depth: cm Location: Category: Stage: Length: Width: Depth: cm
[2025-04-22] MEDS: 0.9 % Sodium Chloride Flush 3 ML SYRINGE IVFLUSH (23:55)
[2025-04-23] VITALS (12 sets, daily range): BP systolic 138–168; BP diastolic 60–71; PULSE 68–87; RESP 16–18; TEMP 36–36.9; O2SAT 90–97
[2025-04-23] MEDS: Acetaminophen 325 MG TABLET 650 MG PO ×2 (05:56→23:43)
[2025-04-23] MEDS: Morphine Sulfate 4 MG/ML CARTRIDGE 2 MG IVPUSH ×2 (06:02→09:31)
[2025-04-23 07:13] LABS: Hematocrit 42.2 % (42.0-52.0); Hemoglobin 14.2 g/dl (14.0-18.0); Mean Corpuscular HGB Conc 33.6 g/dl (31.0-36.0); Mean Corpuscular Hemoglobin 28.5 pg (27.0-33.0); Mean Corpuscular Volume 84.7 fL (80.0-98.0); Mean Platelet Volume 10.4 fL (9.4-12.4); Platelet Count 175 X10*3/uL (160-400); Red Blood Count 4.98 X10*6/uL (4.60-5.80); Red Cell Distribution Width 14.6 % (11.0-16.0); White Blood Count 14.7 X10*3/uL (4.8-10.8)
[2025-04-23 07:35] LABS: Anion Gap 12 (12-20); Blood Urea Nitrogen 18 mg/dL (9-16); Calcium 9.1 mg/dL (8.4-10.2); Carbon Dioxide 25 mmol/L (22-29); Chloride 107 mmol/L (96-108); Creatinine Clr Calc Pharmacy 65.9; Estimated Glomerular Filt Rate > 60; Glucose Random 138 mg/dL (60-115); Sodium 140 mmol/L (135-145)
[2025-04-23] MEDS: traMADoL HCL 50 MG TABLET PO (08:01)
[2025-04-23] MEDS: Metoprolol Tartrate 50 MG TABLET PO ×2 (08:01→19:57)
[2025-04-23] MEDS: 0.9 % Sodium Chloride Flush 3 ML SYRINGE IVFLUSH (08:04)
[2025-04-23] MEDS: Lactated Ringers 1,000 ML 80 ML IVCONT (10:23)
--- NOTE | 2025-04-23 11:19 | P.PNIM_ITS ---
Subjective Subjective Date of Service: 04/23/25 Interval History: F\U Knee fracture, Fall Pending surgical intervention pain under fair control no other events Review of Systems Review of Systems: Yes all other systems are reviewed and are negative Physical Exam 2 Vital Signs: Vital Signs: Last Vital Signs Temp 97.8 F 04/23/25 06:53 Pulse 78 04/23/25 06:53 Resp 16 04/23/25 06:53 BP 142/65 H 04/23/25 06:53 Pulse Ox 92 04/23/25 06:53 O2 Del Method Room Air 04/23/25 06:53 BMI result Body Mass Index 33.3 Const: Other: Constitutional : interactive, not in distress Cardiovascular : no JVP, no lower extremity edema Respiratory : bilateral chest movement, not in resp distress Gastrointestinal: soft, lax, Non tender Skin : Warm, Dry Extremities: Lt knee swelling, decrease ROM, cold compressors and ICe on top Neurological : Alert & oriented , No focal deficit Objective Data Active Medications Acetaminophen (Acetaminophen 325 Mg Tablet) 650 mg PO Q6H PRN PRN Reason: Pain, Mild 1-3,fever,headache Acetaminophen (Acetaminophen 325 Mg Tablet) 650 mg PO Q6H [facility] Last Admin: 04/23/25 05:56 Dose: 650 mg Documented By: YOGI Calcium Carbonate (Calcium Carbonate 750 Mg Tab.Chew) 750 mg PO Q4H PRN PRN Reason: Heartburn Lactated Ringer's (Lr) 1,000 mls @ 80 mls/hr IVCONT .[id number] [facility] Last Admin: 04/23/25 10:23 Dose: 80 mls/hr Documented By: NATHALIE Magnesium Hydroxide (Milk Of Magnesia 30 Ml Oral.Susp) 30 ml PO DAILY PRN PRN Reason: Constipation Melatonin (Melatonin 3 Mg Tablet) 6 mg PO BEDTIME PRN PRN Reason: Insomnia Metoprolol Tartrate (Metoprolol Tartrate 50 Mg Tablet) 50 mg PO BID [facility]; Protocol Last Admin: 04/23/25 08:01 Dose: 50 mg Documented By: NATHALIE Morphine Sulfate (Morphine Sulfate 4 Mg/Ml Cartridge) 2 mg IVPUSH Q3H PRN; Protocol PRN Reason: Pain, Severe (Pain Scale 7-10) Last Admin: 04/23/25 09:31 Dose: 2 mg Documented By: NATHALIE Ondansetron HCl (Ondansetron Hcl 4 Mg/2 Ml Vial) 4 mg IVPUSH Q8H PRN PRN Reason: Nausea and Vomiting Sodium Chloride (0.9 % Sodium Chloride Flush 3 Ml Syringe) 3 ml IVFLUSH QSHIFT [facility] Last Admin: 04/23/25 08:04 Dose: 3 ml Documented By: NATHALIE Tamsulosin HCl (Tamsulosin Hcl 0.4 Mg Capsule) 0.8 mg PO BEDTIME [facility] Tramadol HCl (Tramadol Hcl 50 Mg Tablet) 50 mg PO Q4H PRN PRN Reason: Pain, Moderate(Pain Scale 4-6) Last Admin: 04/23/25 08:01 Dose: 50 mg Documented By: NATHALIE Labs 04/23/25 05:53 04/23/25 05:53 Labs: Laboratory Results - last 24 hr 04/22/25 04/22/25 04/23/25 16:17 20:03 05:53 MCV 83.2 84.7 MCH 28.5 28.5 MCHC 34.3 33.6 RDW 14.4 14.6 Plt Count 177 175 MPV 10.2 10.4 Immature Gran % (Auto) 0.4 Neut % (Auto) 82.9 H Lymph % (Auto) 9.2 L [place] % (Auto) 6.9 Eos % (Auto) 0.3 Baso % (Auto) 0.3 Lymph # (Auto) 1.1 L [place] # (Auto) 0.8 Eos # (Auto) 0.0 Baso # (Auto) 0.0 Abs Immat Gran (auto) 0.05 H Absolute Neuts (auto) 9.8 H Absolute Nucleated RBC 0.000 0.000 Nucleated RBC % (auto) 0.0 0.0 PT 13.2 H INR 1.2 H APTT 38.5 H Anion Gap 12 12 Estim Creat Clear Calc 61.5 65.9 Estimated GFR > 60 > 60 Random Glucose 117 H 138 H Calcium 9.5 9.1 Total Bilirubin 1.0 AST 39 H ALT 26 Alkaline Phosphatase 131 H Total Protein 7.1 Albumin 4.2 Blood Type O Positive Antibody Screen NEGATIVE Assessment and Plan (1) Closed femur fracture: Status: Acute (2) Fall: Status: Acute Plan 89-year-old man admitted after a fall and found to have periprosthetic fracture Mechanical fall leading to periprosthetic fracture Knee x-ray showing Periprosthetic fracture just cephalad to the femoral component of a left knee arthroplasty. Fracture line extends to the anterior superior margin of the femoral component. Orthopedic surgery planning of ORIF today Pain management NPO Hypertension Stable blood pressure Start MEtoprolol 50 mg bid Hold rest of antihypertensives for now and restart as tolerated post Op Hyperlipidemia Hold statin for now BPH Tamsulosin GERD PPI DVT prophylaxis with pneumatic compression boots Full code The patient will need inpatient overnight stay for planned surgical intervention Quality Stroke Does the patient have a stroke diagnosis?: No VTE Prior VTE?: No VTE Risk Level:: Medical - moderate - high VTE Device Contraindication: N/A - Device Ordered VTE Drug Contraindication: Treatment Not Indicated
--- NOTE | 2025-04-23 13:50 | P.CONAN_ITS ---
[facility] Active Problems Active Problems: All Active Problems (Updated 04/23/25 @ 11:22 by Valorie Nava MD) Fall (Acute) Closed fracture of left distal femur (Acute) Closed femur fracture (Acute) Urinary urgency (Acute) Bilateral carotid artery stenosis (Acute) Nephrolithiasis (Acute) Bloating (Acute) H/O colonoscopy (Acute) LUQ pain (Acute) Left foot drop (Acute) Muscle spasm (Acute) Spondylosis of lumbar spine (Acute) Osteoarthritis of left hip (Acute) Close exposure to COVID-19 virus (Acute) Greater trochanteric bursitis of left hip (Acute) Renal cyst (Acute) Weak urinary stream (Acute) Past Medical History Medical History Nephrolithiasis Dysphagia Peripheral neuropathy Degenerative joint disease (DJD) of lumbar spine Hyperlipidemia Hypertension Renal hematoma BPH w urinary obs/LUTS Functional capacity: independent ambulation Family History Family history of problems with anesthesia: No Surgical History Surgical History S/P triple vessel bypass History of Problems with Anesthesia: Yes (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) Social History Social History Household Members: Spouse Household Members Other:: 4 kids [facility] Do you presently have visiting nurse or other home services: No Patient Tobacco Use Status: Never used Tobacco Advance Directives Date on File: 04/22/25 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 Meds Allergies Allergy/AdvReac Type Severity Reaction Status Date / Time oxycodone (OxyContin) Allergy Unknown Unknown Verified 04/22/25 11:03 codeine (CODEINE) AdvReac Mild Nausea and Verified 04/22/25 11:03 Vomiting Active Medications: Current Medications Acetaminophen (Acetaminophen 325 Mg Tablet) 650 mg PO Q6H PRN PRN Reason: Pain, Mild 1-3,fever,headache Acetaminophen (Acetaminophen 325 Mg Tablet) 650 mg PO Q6H [facility] Last Admin: 04/23/25 12:37 Dose: Not Given Calcium Carbonate (Calcium Carbonate 750 Mg Tab.Chew) 750 mg PO Q4H PRN PRN Reason: Heartburn Lactated Ringer's (Lr) 1,000 mls @ 80 mls/hr IVCONT .[id number] [facility] Last Admin: 04/23/25 10:23 Dose: 80 mls/hr Magnesium Hydroxide (Milk Of Magnesia 30 Ml Oral.Susp) 30 ml PO DAILY PRN PRN Reason: Constipation Melatonin (Melatonin 3 Mg Tablet) 6 mg PO BEDTIME PRN PRN Reason: Insomnia Metoprolol Tartrate (Metoprolol Tartrate 50 Mg Tablet) 50 mg PO BID [facility]; Protocol Last Admin: 04/23/25 08:01 Dose: 50 mg Morphine Sulfate (Morphine Sulfate 4 Mg/Ml Cartridge) 2 mg IVPUSH Q3H PRN; Protocol PRN Reason: Pain, Severe (Pain Scale 7-10) Last Admin: 04/23/25 09:31 Dose: 2 mg Ondansetron HCl (Ondansetron Hcl 4 Mg/2 Ml Vial) 4 mg IVPUSH Q8H PRN PRN Reason: Nausea and Vomiting Sodium Chloride (0.9 % Sodium Chloride Flush 3 Ml Syringe) 3 ml IVFLUSH QSHIFT [facility] Last Admin: 04/23/25 08:04 Dose: 3 ml Tamsulosin HCl (Tamsulosin Hcl 0.4 Mg Capsule) 0.8 mg PO BEDTIME [facility] Tramadol HCl (Tramadol Hcl 50 Mg Tablet) 50 mg PO Q4H PRN PRN Reason: Pain, Moderate(Pain Scale 4-6) Last Admin:t 04/23/25 08:01 Dose: 50 mg Home Medications ?Medication ?Instructions ?Recorded ?Confirmed ?Last Taken ?Type nitroglycerin 0.4 mg sublingual 0.4 mg sublingual Q5M PRN Chest 10/27/20 04/22/25 09/22/23 History tablet Pain atorvastatin 80 mg tablet 80 mg PO DAILY 09/30/2103/3104/22/25 History metoprolol tartrate 50 mg tablet 50 mg PO BID 09/30/21 04/22/25 04/22/25 History isosorbide mononitrate 60 mg 60 mg PO DAILY 11/25/21 0 04/22/25 04/22/25 History tablet,extended release 24 hr amlodipine 10 mg tablet 10 mg PO DAILY 06/07/2203/3104/22/25 History tadalafil 5 mg tablet 5 mg PO DAILY PRN urinAry ur ge 04/22/25 04/22/25 Unknown History Exam Exam Date and Time: 04/04/2025 Height,Weight and Vital Signs: Height 5 ft 11 in Weight 108.3 kg Last Vital Signs Temp 97.8 F 04/23/25 06:53 Pulse 78 04/23/25 06:53 Resp 16 04/23/25 06:53 BP 142/65 H 04/23/25 06:53 Pulse Ox 92 04/23/25 06:53 O2 Del Method Room Air 04/23/25 06:53 Pertinent Lab Results Pertinent Lab Results: Laboratory Tests 04/22/25 04/22/25 04/23/25 16:17 20:03 05:53 WBC 11.8 H 14.7 H RBC 5.12 4.98 Hgb 14.6 14.2 Hct 42.6 42.2 MCV 83.2 84.7 MCH 28.5 28.5 MCHC 34.3 33.6 RDW 14.4 14.6 Plt Count 177 175 MPV 10.2 10.4 Immature Gran % (Auto) 0.4 Neut % (Auto) 82.9 H Lymph % (Auto) 9.2 L [place] % (Auto) 6.9 Eos % (Auto) 0.3 Baso % (Auto) 0.3 Lymph # (Auto) 1.1 L [place] # (Auto) 0.8 Eos # (Auto) 0.0 Baso # (Auto) 0.0 Abs Immat Gran (auto) 0.05 H Absolute Neuts (auto) 9.8 H Absolute Nucleated RBC 0.000 0.000 Nucleated RBC % (auto) 0.0 0.0 PT 13.2 H INR 1.2 H APTT 38.5 H Sodium 139 140 Potassium 4.3 4.0 Chloride 109 H 107 Carbon Dioxide 22 25 Anion Gap 12 12 BUN 20 H 18 H Creatinine 1.01 0.95 Estim Creat Clear Calc 61.5 65.9 Estimated GFR > 60 > 60 Random Glucose 117 H 138 H Calcium 9.5 9.1 Total Bilirubin 1.0 AST 39 H ALT 26 Alkaline Phosphatase 131 H Total Protein 7.1 Albumin 4.2 Blood Type O Positive Antibody Screen NEGATIVE Airway TM Dist: >3cm Neck ROM: Full Denture: Upper (full) Partial: Lower (full upper and lower dentures) Loose/Missing/Broken Teeth: No Heart: rrr Lungs: cta Assessment and Plan Final Anesthetic Review Family History of Problems with Anesthesia: No History of Problems with Anesthesia: Yes (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
--- NOTE | 2025-04-23 14:09 | MHC.SHP ---
Pre-Procedural Eval Section A - 24 Hr Update-Section A only Date of Service: 04/23/25 The patient is an INPATIENT: Yes Changes since office visit: No Cold of Flu in the past 2 weeks, No New Medical Problems, No Changes in Medication and No Patient answered all questions The patient has been examined within 24 hours of the surgical procedure. The History & Physical has been completed within 30 days and I have reviewed it.: Yes Section B - Complete if H&P > 30 days Chief Complaint: Fall, knee fracture Allergies: Allergies Allergy/AdvReac Type Severity Reaction Status Date / Time oxycodone (OxyContin) Allergy Unknown Unknown Verified 04/22/25 11:03 codeine (CODEINE) AdvReac Mild Nausea and Verified 04/22/25 11:03 Vomiting Plan I have reviewed the history and physical and performed a pertinent physical examination on my patient. No changes have occurred unless specified. Time Spent With Patient Time: Total time managing care of this patient today ____ minutes.
--- NOTE | 2025-04-23 14:35 | HO.WOUND ---
Wound Consult: Initial 89yr old?male admitted to [facility] on 04/22/25- See progress notes and H&P for detailed history.? Wound consult placed for Left Lower Leg wound.? Patient agreeable to assessment and photo documentation.? Patient reports the wound has been present for sometime is unable to tell me the time frame - he reports the knee injury was on his way to outpt wound clinic for treatment of left leg wound. Patient reports baseline neuropathy. Left Lower Leg Etiology: ?Unknown Etiology ?Present on Admission Wound Bed: pink tissue - appears to be dry Drainage / Odor: none noted Edges: ? well defined Alejandra wound: hyperpigmentation tissue ? No Induration, Fluctuance or Warmth noted Pain: denies - reports neuropathy Goals of Treatment: foam to allow for moist wound healing Recommendations: 1. Turn and Reposition every 2 hours and as needed for patient comfort.? Use pillows or wedges to support off loading positions. 2. Off Load all bony prominences with use of pillows and heel boots if needed.? Apply Preventative foams where needed. ? 3. Monitor for incontinence and moisture control, use barrier creams when needed for prevention and treatment. 4. Provide adequate and supplemental nutrition.? 5. Order or Continue low air loss mattress. 6. When applicable maintain blood glucose levels per Providers order. Left Leg - Cleanse with NS moist gauze, Apply skin prep to the periwound, cover with a foam dressing change every 2-3 days. Re-consult wound care Nurse for wound deterioration or wound changes.
[2025-04-23] MEDS: ceFAZolin Sodium/Dextrose,Iso 2 GM/50 ML PIGGYBACK IV ×2 (16:10→21:58)
--- NOTE | 2025-04-23 17:33 | P.BOP_ITS ---
Brief Operative Note Date of Service: 04/23/25 Pre-op diagnosis: Left distal femur periprosthetic fracture Post-op diagnosis: same Procedure: ORIF distal femur Implants: Melvin Pangea Surgeon: Jesus Perez MD Anesthesia: GETA and regional Was an Scheduling Agent used for this Procedure?: Yes Scheduling Agent: Liana Tiwari Estimated blood loss (mL): 250 IV fluids (mL): 1,000 Pathology: none sent Condition: stable Disposition: PACU
[2025-04-23] MEDS: Tamsulosin HCL 0.4 MG CAPSULE 0.8 MG PO (19:57)
[2025-04-24] MEDS: Lactated Ringers 1,000 ML 80 ML IVCONT (03:24)
[2025-04-24 04:17] VITALS: BP 145/67; PULSE 61; RESP 18; TEMP 36.4; O2SAT 94
[2025-04-24] MEDS: Acetaminophen 325 MG TABLET 650 MG PO ×4 (06:00→23:52)
[2025-04-24 06:01] LABS: MANUAL DIFF FLAG NO
[2025-04-24 06:19] LABS: Basophils Percent Auto 0.1 % (0-2); Hematocrit 39.8 % (42.0-52.0); Hemoglobin 13.4 g/dl (14.0-18.0); Imm Gran Abs Auto 0.06 X10*3/uL (0.00-0.03); Imm Gran Pct Auto 0.4 % (0.0-0.4); Lymphocytes Percent Auto 7.1 % (20-40); Mean Corpuscular HGB Conc 33.7 g/dl (31.0-36.0); Mean Corpuscular Hemoglobin 28.8 pg (27.0-33.0); Mean Corpuscular Volume 85.4 fL (80.0-98.0); Mean Platelet Volume 10.5 fL (9.4-12.4); Monocytes Absolute Auto 1.2 X10*3/uL (0.1-1.2); Monocytes Percent Auto 8.7 % (2-11); Neutrophils Absolute Auto 11.5 x10*3/uL (2.0-8.3); Neutrophils Percent Auto 83.7 % (45-73); Platelet Count 157 X10*3/uL (160-400); Red Blood Count 4.66 X10*6/uL (4.60-5.80); Red Cell Distribution Width 14.4 % (11.0-16.0); White Blood Count 13.8 X10*3/uL (4.8-10.8)
[2025-04-24 06:28] LABS: Anion Gap 14 (12-20); Blood Urea Nitrogen 17 mg/dL (9-16); Calcium 9.1 mg/dL (8.4-10.2); Carbon Dioxide 22 mmol/L (22-29); Chloride 105 mmol/L (96-108); Creatinine Clr Calc Pharmacy 64.6; Estimated Glomerular Filt Rate > 60; Glucose Random 147 mg/dL (60-115); Sodium 137 mmol/L (135-145)
[2025-04-24 07:26] VITALS: BP 157/69; PULSE 62; RESP 16; TEMP 36.7; O2SAT 92
[2025-04-24] MEDS: traMADoL HCL 50 MG TABLET PO (08:00)
[2025-04-24] MEDS: Metoprolol Tartrate 50 MG TABLET PO ×2 (08:00→20:09)
--- NOTE | 2025-04-24 08:22 | PM.PNORT ---
Subjective Subjective Date of Service: 04/24/25 Interval history: 89-year-old male postop day 1 status post left distal femur ORIF Patient resting comfortably in bed this morning Pain well managed No acute events overnight No other acute complaints or concerns at this time Physical Exam Vital Signs: Vital Signs: Last Vital Signs Temp 98.1 F 04/24/25 07:26 Pulse 62 04/24/25 07:26 Resp 16 04/24/25 07:26 BP 157/69 H 04/24/25 07:26 Pulse Ox 92 04/24/25 07:26 O2 Del Method Nasal Cannula 04/24/25 07:26 O2 Flow Rate 5 04/24/25 07:26 BMI result Body Mass Index 33.3 Extrem: Other: Dressing on left knee clean, dry, intact No evidence of surrounding erythema, ecchymosis No evidence of infection Patient is able to flex and extend the digits of the left foot minimally, but this is the patient's baseline due to pre-existing foot drop in the left foot Compartments soft, nontender Distal sensation intact Capillary refill brisk Procedures Date of Service Date of Service: 04/24/25 Progress Note: A&P Assessment and plan (1) Closed fracture of left distal femur: Status: Acute Plan 1. Status post ORIF of left distal femur DOS 04/23/2025 Patient appears to be recovering well postoperatively Patient is educated about the typical recovery course Begin working with PT/OT Continue pain management Begin Lovenox for DVT prophylaxis Dispo planning-PT/OT eval, medical clearance, case management Time Spent With Patient Time: Total time managing care of this patient today ____ minutes. Quality Stroke Does the patient have a stroke diagnosis?: No VTE Prior VTE?: No VTE Risk Level:: Medical - moderate - high VTE Device Contraindication: N/A - Device Ordered VTE Drug Contraindication: Treatment Not Indicated
--- NOTE | 2025-04-24 08:43 | HO.POSTANES ---
Post Anesthesia Evaluation Post Anesthesia Evaluation Date of Service: 04/24/25 Vital Signs: Vital Signs Temp Pulse Resp BP Pulse Ox O2 Del Method O2 Flow Rate 04/24/25 07:26 98.1 F 62 16 157/69 H 92 Nasal Cannula 5 04/24/25 04:17 97.6 F 61 18 145/67 H 94 Nasal Cannula 5 04/23/25 23:43 97.7 F 70 18 149/71 H 94 Nasal Cannula 5 Anesthesia: General Mental Status: Awake Pain Control: Satisfactory Nausea/Vomiting: None Hydration: Adequate Anesthesia-Related Issues: No Anes. Related Issues
--- NOTE | 2025-04-24 12:38 | MHC.CM.PN ---
DCP STR, CM MET WT PT AND FAMILY, THEY WOULD PREFER [facility] MESSAGE SENT TO [facility] TO COFIRM OPEN BED/BED OFFER
--- NOTE | 2025-04-24 13:04 | P.PNIM_ITS ---
Subjective Subjective Date of Service: 04/24/25 Interval History: seen and examined this morning follow up for mechanical fall, status post left distal femur ORIF Awake, alert, resting comfortably in chair No overnight events Today shortness of breath. Pain adequately controlled Constitutional Constitutional: Denies chills and Denies fever(s) Cardiovascular Cardiovascular: Denies chest pain, Denies palpitations and Denies dyspnea Respiratory Respiratory: Denies cough and Denies dyspnea Endocrine Endocrine: Denies palpitations Physical Exam 2 Vital Signs: Vital Signs: Last Vital Signs Temp 98.1 F 04/24/25 07:26 Pulse 62 04/24/25 07:26 Resp 16 04/24/25 07:26 BP 157/69 H 04/24/25 07:26 Pulse Ox 92 04/24/25 07:26 O2 Del Method Nasal Cannula 04/24/25 07:26 O2 Flow Rate 5 04/24/25 07:26 BMI result Body Mass Index 33.3 Const: General: cooperative and comfortable Nutritional Appearance: average body habitus Orientation/consciousness: patient oriented x3 Resp: Effort & Inspection: normal respiratory effort, able to speak in complete sentences, no respiratory distress and no use of accessory muscles Cardio: Rate: regular rate GI: Inspection: Yes normal to inspection Neuro: General: patient oriented x3 Extrem: Other: left leg dressing clean and dry, no staining Objective Data Active Medications Acetaminophen (Acetaminophen 325 Mg Tablet) 650 mg PO Q6H PRN PRN Reason: Pain, Mild 1-3,fever,headache Acetaminophen (Acetaminophen 325 Mg Tablet) 650 mg PO Q6H [facility] Last Admin: 04/24/25 12:02 Dose: 650 mg Documented By: DEONDRE Calcium Carbonate (Calcium Carbonate 750 Mg Tab.Chew) 750 mg PO Q4H PRN PRN Reason: Heartburn Enoxaparin Sodium (Enoxaparin Sodium 40 Mg/0.4 Ml Syringe) 40 mg SUBCUT Q24H [facility] Magnesium Hydroxide (Milk Of Magnesia 30 Ml Oral.Susp) 30 ml PO DAILY PRN PRN Reason: Constipation Melatonin (Melatonin 3 Mg Tablet) 6 mg PO BEDTIME PRN PRN Reason: Insomnia Metoprolol Tartrate (Metoprolol Tartrate 50 Mg Tablet) 50 mg PO BID [facility]; Protocol Last Admin: 04/24/25 08:00 Dose: 50 mg Documented By: DEONDRE Morphine Sulfate (Morphine Sulfate 4 Mg/Ml Cartridge) 2 mg IVPUSH Q3H PRN; Protocol PRN Reason: Pain, Severe (Pain Scale 7-10) Last Admin: 04/23/25 09:31 Dose: 2 mg Documented By: NATHALIE Ondansetron HCl (Ondansetron Hcl 4 Mg/2 Ml Vial) 4 mg IVPUSH Q8H PRN PRN Reason: Nausea and Vomiting Sodium Chloride (0.9 % Sodium Chloride Flush 3 Ml Syringe) 3 ml IVFLUSH QSHIFT [facility] Last Admin: 04/24/25 08:01 Dose: Not Given Documented By: DEONDRE Non-Admin Reason: IV Running Tamsulosin HCl (Tamsulosin Hcl 0.4 Mg Capsule) 0.8 mg PO BEDTIME [facility] Last Admin: 04/23/25 19:57 Dose: 0.8 mg Documented By: GAVI Tramadol HCl (Tramadol Hcl 50 Mg Tablet) 50 mg PO Q4H PRN PRN Reason: Pain, Moderate(Pain Scale 4-6) Last Admin: 04/24/25 08:00 Dose: 50 mg Documented By: DEONDRE Labs 04/24/25 05:35 04/24/25 05:35 Labs: Laboratory Results - last 24 hr 04/24/25 05:35 MCV 85.4 MCH 28.8 MCHC 33.7 RDW 14.4 Plt Count 157 L MPV 10.5 Immature Gran % (Auto) 0.4 Neut % (Auto) 83.7 H Lymph % (Auto) 7.1 L [place] % (Auto) 8.7 Eos % (Auto) 0.0 Baso % (Auto) 0.1 Lymph # (Auto) 1.0 L [place] # (Auto) 1.2 Eos # (Auto) 0.0 Baso # (Auto) 0.0 Abs Immat Gran (auto) 0.06 H Absolute Neuts (auto) 11.5 H Absolute Nucleated RBC 0.000 Nucleated RBC % (auto) 0.0 Anion Gap 14 Estim Creat Clear Calc 64.6 Estimated GFR > 60 Random Glucose 147 H Calcium 9.1 Assessment and Plan (1) Closed fracture of left distal femur: Status: Acute Plan This is an 89-year-old male with history of hypertension, hyperlipidemia, BPH admitted after a fall and found to have periprosthetic fracture of left femur Mechanical fall leading to periprosthetic fracture Knee x-ray showing Periprosthetic fracture just cephalad to the femoral component of a left knee arthroplasty. Fracture line extends to the anterior superior margin of the femoral component. seen by ortho s/p ORIF 04/23 Lovenox for DVT prophylaxis PT recommended short-term rehab Hypertension continue Metoprolol 50 mg bid, resume norvasc and imdur Hold rest of antihypertensives for now and restart as tolerated post Op Hyperlipidemia Hold statin for now BPH continue Tamsulosin GERD PPI DVT prophylaxis with - lovenox Full code dispo - STR Requires ongoing inpatient stay for postoperative care, safe disposition Quality Stroke Does the patient have a stroke diagnosis?: No VTE Prior VTE?: No VTE Risk Level:: Medical - moderate - high VTE Device Contraindication: N/A - Device Ordered VTE Drug Contraindication: Treatment Not Indicated
[2025-04-24 13:09] VITALS: BP 149/69; PULSE 60; RESP 18; TEMP 36.3; O2SAT 94
[2025-04-24] MEDS: amLODIPine Besylate 10 MG TABLET PO (15:27)
[2025-04-24] MEDS: 0.9 % Sodium Chloride Flush 3 ML SYRINGE IVFLUSH ×2 (15:28→20:10)
[2025-04-24 16:00] VITALS: BP 159/72; PULSE 66; RESP 18; TEMP 36.8; O2SAT 91
[2025-04-24] MEDS: Enoxaparin Sodium 40 MG/0.4 ML SYRINGE SUBCUT (16:45)
[2025-04-24 19:21] VITALS: BP 136/66; PULSE 64; RESP 18; TEMP 36.4; O2SAT 92
[2025-04-24] MEDS: Tamsulosin HCL 0.4 MG CAPSULE 0.8 MG PO (20:09)
[2025-04-25 03:35] VITALS: BP 137/65; PULSE 58; RESP 16; TEMP 36.8; O2SAT 91
[2025-04-25] MEDS: Acetaminophen 325 MG TABLET 650 MG PO ×2 (05:45→12:52)
[2025-04-25 07:29] VITALS: BP 161/71; PULSE 56; RESP 16; TEMP 36.6; O2SAT 92
[2025-04-25] MEDS: Isosorbide Mononitrate 60 MG TAB.ER.24H PO (08:05)
[2025-04-25] MEDS: Omeprazole 20 MG CAPSULE.DR PO (08:05)
[2025-04-25] MEDS: amLODIPine Besylate 10 MG TABLET PO (08:05)
[2025-04-25] MEDS: 0.9 % Sodium Chloride Flush 3 ML SYRINGE IVFLUSH (08:08)
[2025-04-25] MEDS: Metoprolol Tartrate 50 MG TABLET PO (08:10)
--- NOTE | 2025-04-25 08:32 | PM.PNORT ---
Subjective Subjective Date of Service: 04/25/25 Interval history: 89-year-old male postop day 2 status post left distal femur ORIF Patient resting comfortably in bed this morning Pain well managed No acute events overnight No other acute complaints or concerns at this time Physical Exam Vital Signs: Vital Signs: Last Vital Signs Temp 97.8 F 04/25/25 07:29 Pulse 56 04/25/25 07:29 Resp 16 04/25/25 07:29 BP 161/71 H 04/25/25 07:29 Pulse Ox 92 04/25/25 07:29 O2 Del Method Room Air 04/25/25 07:29 O2 Flow Rate 5 04/24/25 07:26 BMI result Body Mass Index 33.3 Extrem: Other: Dressing on left knee clean, dry, intact No evidence of surrounding erythema, ecchymosis No evidence of infection Patient is able to flex and extend the digits of the left foot minimally, but this is the patient's baseline due to pre-existing foot drop in the left foot Compartments soft, nontender Distal sensation intact Capillary refill brisk Procedures Date of Service Date of Service: 04/25/25 Progress Note: A&P Assessment and plan (1) Closed fracture of left distal femur: Status: Acute Plan 1. Status post ORIF of left distal femur DOS 04/23/2025 Patient appears to be recovering well postoperatively Patient is educated about the typical recovery course Dressing changed today due to probable discharge to rehab today Begin working with PT/OT Continue pain management Begin Lovenox for DVT prophylaxis Dispo planning-PT/OT eval, medical clearance, case management Time Spent With Patient Time: Total time managing care of this patient today ____ minutes. Quality Stroke Does the patient have a stroke diagnosis?: No VTE Prior VTE?: No VTE Risk Level:: Medical - moderate - high VTE Device Contraindication: N/A - Device Ordered VTE Drug Contraindication: Treatment Not Indicated
[2025-04-25 09:29] VITALS: BP 161/71; PULSE 56; O2SAT 92
--- NOTE | 2025-04-25 09:31 | PM.DS ---
DS: Providers Provider Date of Service: 04/25/25 Date of admission: 04/22/25 16:53 Date of discharge: 04/25/25 Primary care physician: Brennen Chavira MD Consults: 04/22/25 17:21 Consult to Orthopedics Routine Consulting Provider: [facility] Reason for consultation: femur fx Has provider been notified: Yes 04/22/25 21:53 Consult to Wound Care Routine Reason for consultation: skin tear left lower leg Attending physician on discharge: Jeromy Lopez Discharging clinician: Jenni Park DS: Diagnosis Discharge Diagnosis (1) Closed fracture of left distal femur: Status: Acute DS: Summary Hospital Course Hospital Course: From H&P on the day of admission 89 yold male with pmh of bilateral carotid artery stenosis, muscle spasm, osteoartmrhtitis, left knee replacment presents to the ED for left knee pain after falling down up stairs onto his left knee. Patient states he was going up the stairs to appointment and he tripped over his cane an fell unto his left knee. Patient denies hitting head, loss of consciousness, chest pain, abdominal pain, neck pain, or dizziness. In the ER, knee x-ray showed periprosthetic fracture. All of the imaging including lumbar spine x-ray, hip and pelvis x-ray, tibia/fibula x-ray, cervical spine CT and head CT all negative for acute abnormality. Patient's labs all within acceptable limits. Patient will be admitted for further management and treatment of acute knee fracture Mechanical fall leading to periprosthetic fracture Knee x-ray showing Periprosthetic fracture just cephalad to the femoral component of a left knee arthroplasty. Fracture line extends to the anterior superior margin of the femoral component. He was seen by orthopedic surgery and had ORIF 04/23. He was started on Lovenox for DVT prophylaxis. PT recommended short-term rehab. Will need outpatient follow up with ortho. Time Attestation Total time managing care of this patient today: 35 mintues. Discharge Coordination Time (in mins): 35 Quality: Safe Use of Opioids Does Pt have an Active Cancer Diagnosis on the Problem List?: No Quality: Stroke Does the patient have a stroke diagnosis?: No Physical Exam Vital Signs: Vital Signs: Last Vital Signs Temp 97.8 F 04/25/25 07:29 Pulse 56 04/25/25 07:29 Resp 16 04/25/25 07:29 BP 161/71 H 04/25/25 07:29 Pulse Ox 92 04/25/25 07:29 O2 Del Method Room Air 04/25/25 07:29 O2 Flow Rate 5 04/24/25 07:26 BMI result Body Mass Index 33.3 Const: General: cooperative and comfortable Nutritional Appearance: average body habitus Orientation/consciousness: patient oriented x3 Resp: Effort & Inspection: normal respiratory effort, able to speak in complete sentences, no respiratory distress and no use of accessory muscles Cardio: Rate: regular rate GI: Inspection: Yes normal to inspection Neuro: General: patient oriented x3 Extrem: Other: left leg dressing clean and dry, no staining Discharge Plan Discharge Anticipated Discharge Date/Time: 04/25/25 10:00 Patient Disposition: Xfer [facility] Discharge Diagnosis: mechanical fall periprosthetic fracture of left femur s/p ORIF Referrals: Delroy Zavala [Outside] - 1 Week Brennen Chavira MD [Primary Care Provider, Medical] - 1 Week Liana Tiwari PA-C [Physician Director Data Management, Orthopedics] - 2 Weeks Referral Note: 05/07/25 10:00 [facility] Orthopedic Surgeons Liana Tiwari PA-C Discharge Medications: New enoxaparin 40 mg/0.4 mL Syringe 40 mg subcut Q24H 42 Days Qty: 16.8 0RF tramadol 50 mg Tablet 50 mg PO Q4H PRN (Reason: pain (scale score 7-10)) Qty: 10 0RF Continued omeprazole 20 mg capsule,delayed release(DR/EC) 20 mg PO DAILY Qty: 30 5RF tamsulosin 0.4 mg capsule 0.8 mg PO BEDTIME 90 Days Qty: 180 3RF tadalafil 5 mg tablet 5 mg PO DAILY PRN (Reason: urinAry urge) Rx Instructions: [id number] [facility] [id number] Member [id number] nitroglycerin 0.4 mg tablet, sublingual 0.4 mg sublingual Q5M PRN (Reason: Chest Pain) atorvastatin 80 mg tablet 80 mg PO DAILY metoprolol tartrate 50 mg tablet 50 mg PO BID isosorbide mononitrate 60 mg tablet extended release 24 hr 60 mg PO DAILY amlodipine 10 mg tablet 10 mg PO DAILY Discharge Orders: Discharge Order (Routine); Ordered 04/25/25 Ordered By: Jenni Park Activity on Discharge: As tolerated Stand Alone Forms: Patient Portal Discharge page Print Language: Nicaraguan Activity Restrictions/Additional Instructions: Physical therapy for ORIF distal femur: totally nonweightbearing on left lower extremity, range of motion No showering, no tub bath-keep dressing clean dry and intact No driving for 6 weeks Continue Lovenox once a day for 6 weeks Follow-up with [facility] in 2 weeks Care Plan Goals: see below Health Concerns: periprosthetic left femur fracture s/p ORIF Plan of Treatment: Six weeks of DVT prophylaxis with Lovenox pain management; PT/OT Outpatient follow-up with Orthopedic surgery Assessment: see discharge summary
--- NOTE | 2025-04-25 10:50 | MHC.CM.PN ---
Addendum entered by Sol Ravi 04/25/25 12:10: PER SNF REQUEST, TRANSPORT RESCHEDULED FOR 1500 HOURS PT AWARE, VM MSG LEFT FOR PTS , MARGARET [phone] Original Note: PT CLEARED TO DC TO STR TODAY, PER HIS PREFERENCE, HE WILL DC TO [facility] TRANSPORT BOOKED WITH [facility]GE FOR 1300 HOURS PT AND AWARE
--- NOTE | 2025-04-25 11:42 | W.PM.OPN ---
Operative Note Operative Note Date of Service: 04/23/25 Narrative: Date of Service: 04/23/25 Pre-op diagnosis: Left distal femur periprosthetic fracture Post-op diagnosis: same Procedure: ORIF distal femur Implants: Melvin Patoa Surgeon: Jesus Perez MD Anesthesia: GETA and regional Was an Academic Affairs Coordinator used for this Procedure?: Yes Academic Affairs Coordinator: Liana Tiwari Estimated blood loss (mL): 250 IV fluids (mL): 1,000 Pathology: none sent Condition: stable Disposition: PACU Indications: This 89-year-old gentleman with a distal femur comminuted periprosthetic fracture consented to undergo ORIF. There was a closed box of the femur so retrograde nailing was not possible. Procedure in detail: Patient was brought to the operating room and placed supine on the radiolucent fracture table. He was prepped and draped in standard sterile fashion and a time out was called to identify proper site, proper procedure and IV antibiotics per weight were administered. I began by making a lateral incision from the lateral joint and proximal approximately 10 cm. The iliotibial band was incised and the vastus lateralis retracted. I used the Werewolf Wand for hemostasis. There was adequate distal bone for me to get 2 bicortical locking screws and 4 unicortical locking screws into the distal fragment. I did this by obtaining true lateral radiographs of the plate and, while ensuring it was in appropriate position proximally, placed my locking screws using standard technique. I then turned my attention to the proximal fragment. A lag screw was used to suck the shaft to the plate and biplanar fluoroscopy confirmed that the reduction was excellent on both the AP and lateral projections. I therefore placed 4 additional bicortical locking screws into the proximal fragment. The proximal 2 screws required an additional stab incision which was made over the proximal aspect of the plate. Blunt dissection was taken down to the plate and screws were inserted using standard AO technique. The position of the plate and the fracture reduction were confirmed with biplanar fluoroscopy and were anatomic. Once satisfied with this I removed all non essential instrumentation and irrigated copiously. I closed with absorbable sutures and skin carley. Patient was then placed in sterile dressing and extubated. He was brought to the recovery room in stable condition. There were no known complications.
[2025-04-25 14:13] VITALS: BP 134/63; PULSE 71; RESP 18; TEMP 36.3; O2SAT 93
== END 2025-04-25 14:15 | disposition skilled nursing facility (03) | DRG 481 ==
LOC: HO.ED 16:51 → HO.EDOVER 17:15 → HO.S3 19:04
PROVIDERS: Orthopaedic Surgery; Physician Assistant; Student in an Organized Health Care Education/Training Program; Admitting Provider Nurse Practitioner Acute Care; Emergency Provider Emergency Medicine; PCP Internal Medicine; Visit Provider Physician Assistant Medical
PROC: 0QSC04Z Reposition Left Lower Femur with Internal Fixation Device, Open Approach (ICD-10-PCS; principal; 2025-04-23 16:30)
DX: S72.402A Unspecified fracture of lower end of left femur, initial encounter for closed fracture (principal); M97.11XA Periprosthetic fracture around internal prosthetic right knee joint, initial encounter; W19.XXXA Unspecified fall, initial encounter; I10 Essential (primary) hypertension; E78.5 Hyperlipidemia, unspecified; N40.0 Benign prostatic hyperplasia without lower urinary tract symptoms; K21.9 Gastro-esophageal reflux disease without esophagitis; Z79.899 Other long term (current) drug therapy
CPT/HCPCS: 36415; 70450; 72100; 72125; 73502; 73560; 73590; 80048; 80053; 85025; 85027; 85610; 85730; 86850; 86900; 86901; 97162; 97166; 97530; 97535; 99285; C1713; J0131; J0690; J1100; J1650; J2003; J2270; J2405; J2704; J3010; J7120

== ENCOUNTER → 2025-04-22 11:43 | Outpatient (BNV) | payer MEDICARE, SELFPAY | PROVIDERS: Emergency Provider Emergency Medicine; PCP Internal Medicine; Visit Provider Radiology Diagnostic Radiology | DX: M50.30 Other cervical disc degeneration, unspecified cervical region (principal); I67.82 Cerebral ischemia; H74.8X3 Other specified disorders of middle ear and mastoid, bilateral; M47.815 Spondylosis without myelopathy or radiculopathy, thoracolumbar region; G95.19 Other vascular myelopathies; I70.202 Unspecified atherosclerosis of native arteries of extremities, left leg; M97.02XA Periprosthetic fracture around internal prosthetic left hip joint, initial encounter; S72.92XA Unspecified fracture of left femur, initial encounter for closed fracture; M43.08 Spondylolysis, sacral and sacrococcygeal region | CPT/HCPCS: 72100; 73502 ==

== ENCOUNTER → 2025-04-22 16:53 | Outpatient (BNV) | payer MEDICARE, SELFPAY | PROVIDERS: Admitting Provider Nurse Practitioner Acute Care; Emergency Provider Emergency Medicine; PCP Internal Medicine | DX: S72.402A Unspecified fracture of lower end of left femur, initial encounter for closed fracture (principal) | CPT/HCPCS: 99222 ==

== ENCOUNTER → 2025-04-22 16:53 | Outpatient (BNV) | payer MEDICARE, SELFPAY | PROVIDERS: Admitting Provider Nurse Practitioner Acute Care; Emergency Provider Emergency Medicine; PCP Internal Medicine; Visit Provider Nurse Practitioner Acute Care | DX: S72.402A Unspecified fracture of lower end of left femur, initial encounter for closed fracture (principal) | CPT/HCPCS: 99232; 99239 ==

== ENCOUNTER 2025-05-07 09:44 | Outpatient (REF) | payer MEDICARE, SELFPAY ==
--- NOTE | ~2025-05-07 | XR_ITS ---
CLINICAL HISTORY: S72.402A - Unspecified fracture of lower end of left femur, initial enco... 2 view left femur Comparison: None provided Findings: Iatrogenic findings with surgical hardware and skin carley noted with minimal healing of distal fibular fracture. No other fractures or dislocations. Components of the knee prosthesis are well aligned and intact No knee effusion. No significant arthritic change. No other radiopaque foreign body. IMPRESSION: 1. Iatrogenic findings in distal femur. This document has been electronically signed by: Joseluis Andrews MD on 05/08/2025 08:57:40
== END 2025-05-07 09:45 | disposition home or self-care (01) ==
LOC: HO.HOSX 09:44
PROVIDERS: Visit Provider Physician Assistant
DX: S72.402D Unspecified fracture of lower end of left femur, subsequent encounter for closed fracture with routine healing (principal); X58.XXXD Exposure to other specified factors, subsequent encounter
CPT/HCPCS: 73552; 99212

== ENCOUNTER 2025-05-07 09:44 | Outpatient (AMB) | payer MEDICARE, SELFPAY ==
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
--- NOTE | 2025-05-07 10:02 | MHC.OFFVIS ---
Intake Visit Reasons: PO- 2wk left distal femur ORIF 04/23/25 Intake Note: Robert is a 89 year old male who presents today for a post operative appointment s/p left distal femur ORIF 04/23/25. Patent reports he is doing well. Having little pain when pressure is applied. He has stopped taking his pain medication and has been taking Tylenol. Allergies oxycodone (OxyContin) Allergy (Unknown, Verified 05/07/25 10:03) Unknown codeine (CODEINE) Adverse Reaction (Mild, Verified 05/07/25 10:03) Nausea and Vomiting HPI HPI PO- 2wk left distal femur ORIF 04/23/25: Details: Mr. Flores is an 89-year-old male accompanied by his status post left distal femur periprosthetic fracture with ORIF performed on 04/23/[address] Perez. Patient is currently residing at a nursing facility. He reports he has been compliant with nonweightbearing on the left lower extremity. Pain is managed. No additional complaints. 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 Ángel intact. No surrounding erythema or drainage. No signs of infection. NVI. Assessment & Plan Assessment & Plan (1) Closed fracture of left distal femur: Code(s): S72.402A - Unspecified fracture of lower end of left femur, initial encounter for closed fracture Category: Medical Plan While in the office today, the patient's ángel were removed and Steri-Strips were applied. He will continue to remain nonweightbearing until 3 months postoperatively. Should continue taking Lovenox until 6 weeks postoperatively. Physical therapy to continue nonweightbearing left lower extremity with the use of a walker. Range of motion of the hip and knee to avoid stiffness. He will follow up in 4 weeks with repeat x-rays, sooner if needed. X-rays of the left femur which were obtained while in the office today and were reviewed by me, Liana Tiwari PA-C, revealed intact orthopedic hardware with routine healing. Orders: Orders XR femur LT 2V Today S72.402A - Unspecified fracture of lower end of left femur, initial encounter for closed fracture Coding Level of Care Code Global (47334) Diagnoses Closed fracture of left distal femur S72.402A
--- OUTSIDE RECORDS SUMMARY | 2025-05-07 10:16 | XMS_ITS | Patient Health Record ---
Author Organization [facility] Address [address] [place] [address] Care Team Providers Care Stained Glass Glazier Helper Name Role Phone Brennen Chavira MD Primary Care Provider Quan Pandey [phone] Allergies Allergen (clinical drug ingredient) Drug/Non Drug Allergy documented on EMR Reaction Allergy Type Onset Date Status lisinopril Lisinopril cough Drug Allergy Activ e Vicodin vomiting Drug Allergy Active oxycodone OxyCONTIN nausea and vomiting Drug Allergy Active Reason For Referral No Information Medications Medication SIG (Take, Route, Frequency, Duration) Notes Start Date End Date Status amLODIPine Besylate 10 MG 1 tablet Orall y Once a day Active Atorvastatin Calcium 80 MG 1 tablet Oral ly Once a day Active Aspirin Adult Low Dose 81 MG 1 tablet Or ally Once a day Active Omeprazole 20 MG 1 capsule 1/2 to 1 h our before morning meal Orally Once a day Active Nitroglycerin 0.4 MG 1 tablet under the tongue and allow to dissolve as needed. Take every 5 minutes up to 3 times if chest pain persists Sublingual Three times a day Active Metoprolol Tartrate 50 MG 1 tablet with food Orally Twice a day Active Isosorbide Mononitrate ER 60 MG 1 tablet in the morning Orally Once a day Active Social History Tobacco Use: Social History Observation Description Date Details (start date - stop date) Never Smoker NA - NA Tobacco Control (Standard) Question Answer Notes Tobacco use: Nonsmoker AUDIT-C (Standard) Question Answer Notes Did you have a drink containing alcohol in the p ast year? No Points 0 Interpretation Negative Problems Problem Type SNOMED Code ICD Code Onset Dates Problem Status W/U Status Risk Notes Problem Flatulence, eructation and gas pain (969470538) Bloating (R14.0) Active confirmed Problem Gallstones (049971610) Gallstones (K80.20) Active confirmed Problem Gastroesophageal reflux disease (094278594) GERD (gastroesophag eal reflux disease) (K21.9) Active confirmed Vital Signs Blood pressure diastolic 77 mm Hg 04/22/2025 Height 71 in 04/22/2025 Blood pressure systolic 111 mm Hg 04/22/2025 Weight 230 lbs 04/22/2025 BMI 32.07 kg/m2 04/22/2025 Encounters Encounter Location Date Provider Diagnosis [facility] [address] [place] [address] 04/22/2025 Quan Cardenas Bloating R14.0 ; GIANNA D (gastroesophageal reflux disease) K21.9 and Gallstones K80.20 Assessments Encounter Date Diagnosis (ICD Code) Assessment Notes Treatment Notes Treatment Clinical Notes Section Notes 04/22/2025 Bloating (ICD-10 - R14.0) You can take some over the counter Simethicone for gas and bloating---Gas- X, Phayzyme, Beano Overall, Mr. Garner appears quite well and is not having any particularly new or worrisome GI complaints at this time. We did review his symptoms of some abdominal bloating and gas but I do not think those are related to any significant intra-abdominal issue nor GI pathology. I did recommend that he try some kdsa-jtu-ogoghnf simethicone product for that as needed. I do not think he needs an antispasmodic given the description of his symptoms and the fact that they do not particularly bother him. I do not think he needs any other medication or diagnostic intervention in that regard. I did advise him to certainly let me know if those worsen or become associated with any other symptoms such as fever, vomiting, or change in bowel habits. We did discuss his history of gallstones but those seem to be completely asymptomatic as he has no right sided abdominal pain at this time. I did review potential symptoms of gallbladder disease such as right upper quadrant pain, jaundice, and fevers. I did advise him that if those occur he should call you for surgical referral or certainly go to the ER as needed. In regard to his reflux this seems to be stable on his current regimen of omeprazole. He is not having any worsening symptoms or worrisome symptoms to suggest the need for an upper endoscopy at this time. Given his age of 89 I would hold off on that unless there were worrisome symptoms from the reflux such as dysphagia. Given his age, clinical history, and normal hemoglobin, I do not think a colonoscopy is required either. At this point, if things remain well, I have advised him to see me again as needed. Mr. Garner was very comfortable with this plan. Thank you again for allowing me to have participated in Mr. Garner's care. Please do not hesitate to contact me if I can be of any further assistance in the future. 04/22/2025 GERD (gastroesophag eal reflux disease) (ICD-10 - K21.9) Continue omeprazole for the heartburn and reflux---call me if things worsen Overall, Mr. Garner appears quite well and is not having any particularly new or worrisome GI complaints at this time. We did review his symptoms of some abdominal bloating and gas but I do not think those are related to any significant intra-abdominal issue nor GI pathology. I did recommend that he try some ceso-fpr-hwyhcel simethicone product for that as needed. I do not think he needs an antispasmodic given the description of his symptoms and the fact that they do not particularly bother him. I do not think he needs any other medication or diagnostic intervention in that regard. I did advise him to certainly let me know if those worsen or become associated with any other symptoms such as fever, vomiting, or change in bowel habits. We did discuss his history of gallstones but those seem to be completely asymptomatic as he has no right sided abdominal pain at this time. I did review potential symptoms of gallbladder disease such as right upper quadrant pain, jaundice, and fevers. I did advise him that if those occur he should call you for surgical referral or certainly go to the ER as needed. In regard to his reflux this seems to be stable on his current regimen of omeprazole. He is not having any worsening symptoms or worrisome symptoms to suggest the need for an upper endoscopy at this time. Given his age of 89 I would hold off on that unless there were worrisome symptoms from the reflux such as dysphagia. Given his age, clinical history, and normal hemoglobin, I do not think a colonoscopy is required either. At this point, if things remain well, I have advised him to see me again as needed. Mr. Garner was very comfortable with this plan. Thank you again for allowing me to have participated in Mr. Garner's care. Please do not hesitate to contact me if I can be of any further assistance in the future. 04/22/2025 Gallstones (ICD-10 - K80.20) Let Dr. Chavira know, or go to the ER, if you start having right upper abdominal pain from the gallstones---yo kaylene edmonduld need a surgical referral Overall, Mr. Garner appears quite well and is not having any particularly new or worrisome GI complaints at this time. We did review his symptoms of some abdominal bloating and gas but I do not think those are related to any significant intra-abdominal issue nor GI pathology. I did recommend that he try some yvew-xgf-yqmbwok simethicone product for that as needed. I do not think he needs an antispasmodic given the description of his symptoms and the fact that they do not particularly bother him. I do not think he needs any other medication or diagnostic intervention in that regard. I did advise him to certainly let me know if those worsen or become associated with any other symptoms such as fever, vomiting, or change in bowel habits. We did discuss his history of gallstones but those seem to be completely asymptomatic as he has no right sided abdominal pain at this time. I did review potential symptoms of gallbladder disease such as right upper quadrant pain, jaundice, and fevers. I did advise him that if those occur he should call you for surgical referral or certainly go to the ER as needed. In regard to his reflux this seems to be stable on his current regimen of omeprazole. He is not having any worsening symptoms or worrisome symptoms to suggest the need for an upper endoscopy at this time. Given his age of 89 I would hold off on that unless there were worrisome symptoms from the reflux such as dysphagia. Given his age, clinical history, and normal hemoglobin, I do not think a colonoscopy is required either. At this point, if things remain well, I have advised him to see me again as needed. Mr. Garner was very comfortable with this plan. Thank you again for allowing me to have participated in Mr. Garner's care. Please do not hesitate to contact me if I can be of any further assistance in the future. Plan Of Treatment No Information Insurance Providers Payer Name Payer Address Payer Phone Subscriber Number Group Number Insured Name Patient Relationship to Insured Coverage Start Date Coverage End Date MEDICARE OF [place] [address] [place] [address] [phone] [id number] BERNADETTE GARNER Self - patient is the insured 0 MEDEX ATTN CLAIMS [address] [place] [address] [id number] BERNADETTE GARNER Self - patient is the insured Medical (General) History Medical History History ICD Code Lung nodule Neuropathy/drop foot on the left Hypertension Nephrolithiasis-sees Dr. Rey Denies DM, CVA, Lung disease [place] 2017 GERD Right renal cancer as below Hyperlipidemia Gallstones seen on 2022 ultr asound. We reviewed that at the March 2025 office visit and he is asymptomatic in that regard. 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
--- OUTSIDE RECORDS SUMMARY | 2025-05-07 10:16 | XMS_ITS | Clinical Summary ---
Author Organization [employer] Address [address] [facility] 7[address] [place] [address] Care Team Providers Care Supervisor Pullet Farm Name Role Phone Unavailable Primary Care Provider [...] 02/12/2025 9:00 AM EDT Office Visit [facility] [address] [place] [address] Bennett Jimenez DMD from Last 3 Months [...] Tdap) 11/23/2022 11/23/2012, 11/16/2012, 11/30/2006 COVID-19 Vaccine (5 - season) 2024 10/13/2022, 09/17/2021, 01/01/2021, Additional history exists Influenza Vaccine (#1) 2025 , 08/01/2023, 08/11/2022, Additional history exists Dental Oral Exam 08/15/2025 02/12/2025 Dental X-Ray: Full Mouth 02/14/2028 02/12/2025 Pneumococcal Vaccine: 50+ Years Completed 08/17/2018, 07/18/2017, 04/21/2015, Additional history exists HIB Vaccines Aged Out [...]
--- OUTSIDE RECORDS SUMMARY | 2025-05-07 10:16 | XMS_ITS | Patient Health Record ---
Author Organization [facility] Address [address] [place] [address] Care Team Providers Care Manual Plate Filler Name Role Phone Brennen Chavira MD Primary Care Provider Alexandra Gilliland Unavailable [phone] Allergies Allergen (clinical drug ingredient) Drug/Non Drug Allergy documented on EMR Reaction Allergy Type Onset Date Status oxycodone OxyCONTIN Unknown Drug Allergy Active codeine Codeine Unknown Drug Allergy Active oxycodone Oxycodone Unknown Drug Allergy Active Reason For Referral No Information Medications Medication SIG (Take, Route, Frequency, Duration) Notes Start Date End Date Status AFO- Posterior [place] Spring form-fitted to foot and leg . . Wear daily; Duration: . 09/26/2018 Not-Taking Baby Aspirin 83 mg Active Tamsulosin HCl 0.4 MG 1 capsule Orally O nce a day; Duration: 30 day(s) Active Metoprolol Tartrate 50 MG 1 tablet with food Orally Twice a day; Duration: 30 day(s) Active amLODIPine Besylate 10 MG 1 tablet Orall y Once a day; Duration: 30 day(s) Active Isosorbide Mononitrate ER Active Atorvastatin Calcium 80 MG 1 tablet Orally Once a day Active AFO-fixed . 1 . Wear daily; Duration: . 04/25/2022 Active Immunizations Vaccine Route Administration [...] primary osteoarthritis of the ankle and/or foot (620363001) Primary osteoarthritis , left ankle and foot (M19.072) Active confirmed Problem Non-pressure chronic ulcer of other part of left foot limited to breakdown of skin (L97.521) Active confirmed Problem Acquired hammer toe of right foot (6334937151433549) Other hammer toe(s) (acquired), right foot (M20.41) Active confirmed Problem Acquired hammer toe of left foot (5789554372185072) Other hammer toe(s) (acquired), left foot (M20.42) Active confirmed Problem Neuropathy (446517628) Neuropathy (G62.9) Active confirmed Problem Unsteady gait (25532193) Unsteady gait (R26.81) Active confirmed Plan Of Treatment Pending Test Test Name Order Date [id number] NAIL, 6 OR MORE 04/25/2022 [id number] NAIL, 6 OR MORE 04/11/2023 11217- Debride <25 sq cm 04/25/2022 41501- Debride <25 sq cm 04/11/2023 Insurance Providers Payer Name Payer Address Payer Phone Subscriber Number Group Number Insured Name Patient Relationship to Insured Coverage Start Date Coverage End Date Medicare National Govt Svcs Inc [address] [place] [address] [id number] Robert Flores Self - patient is the insured [employer] Blue Shield [address] [place] [address] [phone] [id number] Robert Flores Self - patient is the [...]
== END 2025-05-07 10:54 | disposition home or self-care (01) ==
LOC: HO.HOS 09:44
PROVIDERS: Visit Provider Physician Assistant
DX: S72.402A Unspecified fracture of lower end of left femur, initial encounter for closed fracture (principal)
CPT/HCPCS: 99024

== ENCOUNTER → 2025-05-07 10:11 | Outpatient (BNV) | payer MEDICARE, SELFPAY | PROVIDERS: Visit Provider Specialist | DX: S72.402A Unspecified fracture of lower end of left femur, initial encounter for closed fracture (principal) | CPT/HCPCS: 73552 ==

== ENCOUNTER 2025-06-06 08:02 | Outpatient (REF) | payer MEDICARE, SELFPAY ==
--- NOTE | ~2025-06-06 | XR_ITS ---
EXAMINATION: XR FEMUR 2 VIEWS LEFT HISTORY: S72.402A - Unspecified fracture of lower end of left femur, initial encounter... COMPARISON: Comparison is made with the prior examination dated 05/07/2025. FINDINGS: AP and lateral views of the left femur are submitted. Again seen is a total knee prosthesis. The patient is again noted to be status post internal fixation of a comminuted fracture of the distal femoral metaphysis with a sideplate and multiple orthopedic screws. The hardware is intact and unchanged in appearance. The fracture line remains visible are slightly blurred, consistent with healing. There are vascular calcifications. XR/XR femur LT 2V IMPRESSION: Healing internally fixed comminuted fracture of the distal femoral metaphysis. Electronically signed by: Quan Kramer MD 06/06/2025 11:17 AM EDT
== END 2025-06-06 08:03 | disposition home or self-care (01) ==
LOC: HO.HOSX 08:02
PROVIDERS: Visit Provider Physician Assistant
DX: S72.402D Unspecified fracture of lower end of left femur, subsequent encounter for closed fracture with routine healing (principal)
CPT/HCPCS: 73552; 99212

== ENCOUNTER 2025-06-06 10:29 | Outpatient (AMB) | payer MEDICARE, SELFPAY ==
--- OUTSIDE RECORDS SUMMARY | 2025-04-28 06:41 | XMS_ITS ---
Author Organization Brennen Chavira MD Address [address] [place] [phone] Care Team Providers Care Window Display Designer Name Role Phone Brennen Chavira Primary Care Provider REASON FOR VISIT discharge Encounters Encounter Location Date Provider Diagnosis Brennen Chavira MD [address] [place] [address] [place] [phone] 04/28/2025 Brennen Chavira Plan Of Treatment Next Appt Details Provider Name:Brennen mendez, 10/03/2025 07:30:00 AM, [address] [place] [address], [place] [address], [place], [place], [phone], Provider Name:Brennen mendez, 10/09/2025 02:00:00 PM, [address] [place] [address], [address], [phone], Provider Name:Brennen mendez, 04/02/2026 08:00:00 AM, [address], [address], [place], [place], [phone], Provider Name:Brennen Praneeth Yvonne mendez, 04/09/2026 02:30:00 PM, [address], [address], [place], [phone], Progress Notes * Robert FLORESDOB:1935 (89 yo M)Acc No.[id number]:04/28/2025 Patient: Robert CONRAD :1935 A ge:89 Y S ex:Male Address:[address] [place], [place] [address], [address], [place], [address] * * Date:
--- OUTSIDE RECORDS SUMMARY | 2025-06-06 10:34 | XMS_ITS | Clinical Summary ---
Author Organization [employer] Address [address] [facility] [address] [place] [address] Care Team Providers Care Project Design Engineer Name Role Phone Unavailable Primary Care Provider [...] by mouth 2 times daily. 04/09/2019 Active Social History Tobacco Use Types Packs/Day Years [...] 9:00 AM EDT from Last 3 Months or Most Recently Relevant to Health Maintenance
--- OUTSIDE RECORDS SUMMARY | 2025-06-06 10:34 | XMS_ITS | Clinical Summary ---
Author Organization [facility] Address [address] [facility] [address] [place] [phone] Phone Care Team Providers Care Sandwich Hand Name Role Phone Brennen Chavira MD Primary Care Provider Allergies Active Allergy Reactions Criticality Noted Date Comments Codeine Nausea and/or Vomiting 03/23/2018 Oxycodone Nausea and/or Vomiting 03/23/2018 Medications aspirin 81 MG EC tablet Take 81 mg by mouth daily. Active tamsulosin (FLOMAX) 0.4 mg CapIndications:B PH (benign prostatic hyperplasia) 2 tablets at hs [...] episodes of dizziness He was seen at [facility] for this, I do not access to any testing results or notes to reflect this He has an appointment with the vascular specialist tomorrow for this in [place] but he does not remember the name I have requested the [place] here to get the records from [facility] Already on aspirin/atorvastatin. Dyspnea on exertion 08/14/2024 [...] post three-vessel bypass February 20, 2018 at [facility] with a ALCALA to LAD, vein graft [...] set him up in cardiac rehabilitation at [facility]. Benign essential hypertension 03/23/2018 Assessment & [...] Recorded Sex Assigned at Not on file Legal Sex Male 11:22 AM EDT Gender Identity Not on file Sexual Orientation Not on file Last Filed Vital Signs Vital Sign Reading Time Taken Comments Blood Pressure 146/86 02/26/2025 11:25 AM EDT Pulse 77 02/26/2025 11:25 AM EDT Temperature - - Respiratory Rate 18 06/25/2018 2:36 PM EDT Oxygen Saturation 97% 02/26/2025 11:25 AM EDT Inhaled Oxygen Concentration - - Weight 110.2 kg (243 lb) 02/26/2025 11:25 AM EDT Height 177.8 cm (5' 10 ) 02/26/2025 11:25 AM EDT Body Mass Index 34.87 02/26/2025 11:25 AM EDT Plan of Treatment Upcoming Encounters Date Type Department Care Team (Late st Contact Info) Description 07/02/2025 12:30 PM EDT Office Visit [facility] [address] [place] [address] 3rd Floor, [address] [place] [address] Juan R Jordan, [address] [address] [email or web address] Health Maintenance Due Date Last Done Comments [...] age to complete this topic MENINGOCOCCAL VACCINES (B) Aged Out N o longer eligible based on patient's age to complete this topic Medical Devices Not on file Insurance [address] [place] [address] MEDICARE PART A & B [employer] CROSS MEDEX SUPPLEMENT MEDICARE PART A & B [employer] MEDEX SUPPLEMENT MEDICARE PART A & B [employer] MEDEX SUPPLEMENT MEDICARE PART A & B MEDEX SUPPLEMENT MEDICARE PART A & B [employer] MEDEX SUPPLEMENT MEDICARE PART A & B [employer] CROSS MEDEX SUPPLEMENT MEDICARE PART A & B [employer] CROSS MEDEX SUPPLEMENT MEDICARE PART A & B [employer] CROSS MEDEX SUPPLEMENT MEDICARE PART A & B [employer] MEDEX SUPPLEMENT Care Teams Sandwich Hand Relationship Specialty Start Date End Date Brennen Chavira MD [address] [place] [address] [place] [address] PCP - General Internal Medicine 08/28/20 Additional Source Comments The information contained in this document represents components of the legal health record. It is not the complete legal health record.[facility]
--- OUTSIDE RECORDS SUMMARY | 2025-06-06 10:34 | XMS_ITS | Patient Health Record ---
Author Organization [facility] Address [address] [place] [address] Care Team Providers Care Engineering And Scientific Programmer Name Role Phone Brennen Chavira MD Primary Care Provider Alexandra Gilliland Unavailable [phone] Allergies Allergen (clinical drug ingredient) Drug/Non Drug Allergy documented on EMR Reaction Allergy Type Onset Date Status oxycodone OxyCONTIN Unknown Drug Allergy Active codeine Codeine Unknown Drug Allergy Active oxycodone Oxycodone Unknown Drug Allergy Active Reason For Referral No Information Medications Medication SIG (Take, Route, Frequency, Duration) Notes Start Date End Date Status AFO- Posterior [place] Spring form-fitted to foot and leg . [...] primary osteoarthritis of the ankle and/or foot (978873028) Primary osteoarthritis , left ankle and foot (M19.072) Active confirmed Problem Non-pressure chronic ulcer of other part of left foot limited to breakdown of skin (L97.521) Active confirmed Problem Acquired hammer toe of right foot (9897213110094115) Other hammer toe(s) (acquired), right foot (M20.41) Active confirmed Problem Acquired hammer toe of left foot (3093431041656443) Other hammer toe(s) (acquired), left foot (M20.42) Active confirmed Problem Neuropathy (760006798) Neuropathy (G62.9) Active confirmed Problem Unsteady gait (00852580) Unsteady gait (R26.81) Active confirmed Plan Of Treatment Pending Test Test Name Order Date [id number] NAIL, 6 OR MORE 04/25/2022 [id number] NAIL, 6 OR MORE 04/11/2023 83369- Debride <25 sq cm 04/25/2022 23423- Debride <25 sq cm 04/11/2023 Insurance Providers Payer Name Payer Address Payer Phone Subscriber Number Group Number Insured Name Patient Relationship to Insured Coverage Start Date Coverage End Date Medicare National Govt Svcs Inc [address] [facility] [place] [place] [address] [id number] Robert Flores Self - patient is the insured Medex Blue Shield [address] [place] [address] [phone] [id number] Robert Flores Self - patient is the [...]
--- OUTSIDE RECORDS SUMMARY | 2025-06-06 10:34 | XMS_ITS | Patient Health Record ---
Author Organization [facility] Address [address] [place] [address] Care Team Providers Care Supervisor Photoengraving Name Role Phone Brennen Chavira MD Primary Care Provider Quan Pandey [phone] Allergies Allergen (clinical drug ingredient) Drug/Non Drug [...] Notes Problem Flatulence, eructation and gas pain (011082353) Bloating (R14.0) Active confirmed Problem Gallstones (488611071) Gallstones (K80.20) Active confirmed Problem GERD (gastroesophage al reflux disease) (K21.9) Active confirmed Vital Signs Blood pressure diastolic 77 mm Hg 04/22/2025 Height 71 in 04/22/2025 Blood pressure systolic 111 mm Hg 04/22/2025 Weight 230 lbs 04/22/2025 BMI 32.07 kg/m2 04/22/2025 Encounters Encounter Location Date Provider Diagnosis [facility] [address] [place] [address] 04/22/2025 Quan Cardenas Bloating R14.0 ; GIANNA [...] I did recommend that he try some rwrj-zdb-qspnbhm simethicone product for that as needed. I [...] I did recommend that he try some pvoq-doy-kjopvdg simethicone product for that as needed. I [...] right upper abdominal pain from the gallstones---yo u mayitould need a surgical referral Overall, Mr. Garner appears quite well and is not having any particularly new or worrisome GI complaints at this time. We did review his symptoms of some abdominal bloating and gas but I do not think those are related to any significant intra-abdominal issue nor GI pathology. I did recommend that he try some vtvf-nkx-pirjxdl simethicone product for that as needed. 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 Rey Denies DM, CVA, Lung disease [place] 2018 GERD Right renal cancer as below Hyperlipidemia Gallstones seen on 2022 ultr asound. We reviewed that at the March 2025 office visit and he is asymptomatic in that regard. Surgical History Surgery Date(Month/Year) Right hand Bilateral knee replacements 2016 Right kidney removed for cancer 2017 3V CABG 2018
--- NOTE | 2025-06-06 10:47 | MHC.OFFVIS ---
Vital Signs 06/06/25 11:14 Height 5 ft 11 in Intake Visit Reasons: PO - left distal femur ORIF 04/23/25 NE Intake Note: Robert is a 89 year old male who presents today for a post operative appointment s/p left distal femur ORIF 04/23/25 NE. At his last visit his carley were removed and steri strips were applied. Patient reports he is doing well and he has been working with physical therapy. Allergies oxycodone (OxyContin) Allergy (Unknown, Verified 06/06/25 10:53) Unknown codeine (CODEINE) Adverse Reaction (Mild, Verified 06/06/25 10:53) Nausea and Vomiting HPI HPI PO - left distal femur ORIF 04/23/25 NE: Details: Mr. Flores is an 89-year-old male who presents to the office today for routine follow-up status post left distal femur ORIF performed on 04/23/[address] Perez. Patient is currently residing at a rehab facility and working with physical therapy. He has been nonweightbearing on the left lower extremity with the use of a walker since surgery. Patient reports that physical therapy is going very well. He experiences no pain. He is looking forward to discharging home. His accompanies him at today's visit and reports that his house has been remodeled to be handicap accessible. No additional complaints at this time. 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 No surrounding erythema or drainage. No signs of infection. Incision site is well approximated and completely healed. Patient is able to demonstrate left knee range of motion 0-100 degrees. I do believe the patient is able to perform more range of motion but is currently on a stretcher for transportation. Denies any numbness or tingling. Able to dorsiflex and plantar flex. NVI. Psych Appearance: grossly normal Mental Status: mental status grossly normal Attitude: cooperative Assessment & Plan Assessment & Plan (1) Closed fracture of left distal femur: Code(s): S72.402A - Unspecified fracture of lower end of left femur, initial encounter for closed fracture Category: Medical Plan Mr. Flores is an 89-year-old male who presents to the office today for routine follow-up status post left distal femur ORIF performed on 04/23/[address] Perez. Patient is currently residing at a rehab facility and working with physical therapy. He has been nonweightbearing on the left lower extremity with the use of a walker since surgery. Patient reports that physical therapy is going very well. He experiences no pain. He is looking forward to discharging home. His accompanies him at today's visit and reports that his house has been remodeled to be handicap accessible. No additional complaints at this time. While in the office today, I re-educated the patient that he is to remain a total of 3 months nonweightbearing on the left lower extremity. I have recommended physical therapy continue to work on the patient on glute core and quad strengthening as well as to remain nonweightbearing on the left lower extremity. He may ambulate with the use of a walker. I educated the patient that once he is able to demonstrate a physical therapy that he is safe to discharge home the rehab facility we will do so. The patient's was asking for a letter stating that the patient needs his house to be handicap accessible and will require the use of multiple DM is in order to maintain independent living. I provided this note to her while in the office today. He will follow up in 6 weeks with repeat x-rays, sooner if needed. X-rays of the left femur which were obtained while in the office today and were reviewed by me, Liana Te PA-C, revealed intact orthopedic hardware with routine healing. Orders: Orders XR femur LT 2V Today S72.402A - Unspecified fracture of lower end of left femur, initial encounter for closed fracture Coding Level of Care Code Global (92454) Diagnoses Closed fracture of left distal femur S72.402A
== END 2025-06-06 11:26 | disposition home or self-care (01) ==
LOC: HO.HOS 10:29
PROVIDERS: Visit Provider Physician Assistant
DX: S72.402A Unspecified fracture of lower end of left femur, initial encounter for closed fracture (principal)
CPT/HCPCS: 99024

== ENCOUNTER → 2025-06-06 10:30 | Outpatient (BNV) | payer MEDICARE, SELFPAY | PROVIDERS: Visit Provider Radiology Diagnostic Radiology | DX: S72.352D Displaced comminuted fracture of shaft of left femur, subsequent encounter for closed fracture with routine healing (principal) | CPT/HCPCS: 73552 ==

== ENCOUNTER 2025-07-18 08:11 | Outpatient (REF) | payer MEDICARE, SELFPAY ==
--- OUTSIDE RECORDS SUMMARY | 2025-03-28 03:15 | XMS_ITS ---
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 Role Phone Brennen Chavira Primary Care Provider Results Component Value Reference Range Notes Complete Blood Count Auto Di ff Reviewed date:03/30/2025 11:56:09 AM Interpretation: Performing Lab:[facility], [address] [place] [phone] Notes/Report: White Blood Count 8.7 4.8-10.8 X10*3/uL Red Blood Count 5.07 4.60-5.80 X10*6/uL Hemoglobin 14.3 14.0-18.0 g/dl Hematocrit 44.1 42.0-52.0 % Mean Corpuscular Volume 87.0 80.0-98.0 fL Mean Corpuscular Hemoglobin 28.2 27.0-33.0 pg Mean Corpuscular HGB Conc 32.4 31.0-36.0 g/dl Red Cell Distribution Width 14.7 11.0-16.0 % Platelet Count 184 160-400 X10*3/uL Mean Platelet Volume 11.0 9.4-12.4 fL Neutrophils Percent Auto 56.5 45-73 % Imm Gran Pct Auto 0.2 0.0-0.4 % Lymphocytes Percent Auto 30.5 20-40 % Monocytes Percent Auto 10.3 2-11 % Eosinophils Percent Auto 1.9 0-4 % Basophils Percent Auto 0.6 0-2 % NRBC Pct Auto 0.0 0.0-0.2 /100WBC Neutrophils Absolute Auto 4.9 2.0-8.3 x10*3/u L Imm Gran Abs Auto 0.02 0.00-0.03 X10*3/uL Lymphocytes Absolute Auto 2.7 1.2-4.9 X10*3/u L Monocytes Absolute Auto 0.9 0.1-1.2 X10*3/uL Eosinophils Absolute Auto 0.2 0.0-0.4 X10*3/u L Basophils Absolute Auto 0.1 0.0-0.2 X10*3/uL NRBC Abs Auto 0.000 0.0-0.012 X10*3/uL Comprehensive [place]. Panel Fa st Reviewed date:03/30/2025 11:55:45 AM Interpretation: Performing Lab:[facility], [address] [place] [phone] Notes/Report: Sodium 143 135-145 mmol/L Potassium 4.2 3.3-5.1 mmol/L Slight Hemolysis.Interpret result with caution. Chloride 110 96-108 mmol/L Carbon Dioxide 23 22-29 mmol/L Anion Gap 14 12-20 Blood Urea Nitrogen 26 9-16 mg/dL Creatinine 1.17 0.5-1.4 mg/dL Estimated Glomerular Filt Rate 59 Chronic Kidney Disease: Estimated GFR < 60 mL/min/1.73m2 Severe Kidney Disease: Estimated GFR < 15 mL/min/1.73m2 Glucose Fasting 113 60-99 mg/dL A fasting glucose from 100-125 mg/dl is considered impaired (pre-diabetes). Calcium 9.8 8.4-10.2 mg/dL Bilirubin Total 0.6 0.0-1.0 mg/dL Aspartate Amino Transferase 33 5-37 U/L Slight Hemolysis.Interpret result with caution. Alanine Aminotransferase 32 0-40 U/L Total Protein 6.8 6.5-8.0 g/dL Albumin Level 4.0 3.5-5.0 g/dL Alkaline Phosphatase 135 39-117 U/L Lipid Panel Reviewed date:03/28/2025 04:16:38 PM Interpretation: Performing Lab:[facility], [address] [place] [phone] Notes/Report: Triglycerides 97 <150 mg/dL Desirable Triglyceride: less than 150 mg/dL Borderline High Triglyceride 150-199 mg/dL High Triglyceride: 200-499 mg/dL Very High Triglyceride: greater than or equal to 5OO mg/dL Cholesterol 126 <200 mg/dL Desirable Cholesterol: less than 200 mg/dL Borderline High Cholesterol: 200-239 mg/dL High Cholesterol: greater than 239 mg/dL LDL Cholesterol Calculated 77 <100 mg/dL Desirable LDL: less than 100 mg/dL Near Optimal/Above Optimal LDL: 110-129 mg/dL Borderline High LDL: 130-159 mg/dL High LDL: 160-189 mg/dL Very High LDL: greater than or equal to 190 mg/dL HDL Cholesterol 30 >40 mg/dL Desirable HDL: greater than 40 mg/dL Note: This HDL assay may give artificially low results in patients with liver disease. PSA,Total (Free>4and<10) Reviewed date:03/28/2025 04:16:00 PM Interpretation: Performing Lab:[facility], [address] [place] [phone] Notes/Report: PSA,Total (Free>4and<10) 0.68 0.00-4.00 ng/mL A Free PSA was not [...] Duran Alinity i Chemiluminescent Microparticle Immunoassay (CMIA) UA ClnCatch+Micro w/rflx Cul t Reviewed date:03/30/2025 11:56:32 AM Interpretation: Performing Lab:[facility], [address] [facility], [place] [address] Notes/Report: Urine, Clean Catch Color Urine Yellow Appearance Urine Clear PH 6.0 5.0-9.0 Glucose Urine UA Negative Negative mg/dL Urine Blood Negative Negative Specific [place] - Urine 1.020 1.005-1.025 Urine Protein Negative Neg-Trace mg/dL Urine Ketones Negative Negative mg/dL Nitrite Urine Negative Negative Leukocyte Esterase Urine Small (1+) Negative RBC Urine 0-2 0-2 /HPF WBC Urine 0-5 0-5 /HPF Squamous Epithelial Cell Urine 3-5 0-2 /HPF Bacteria Urine None Seen None Seen Hyaline Casts Urine 0-2 0-2 /LPF REASON FOR VISIT FASTING LABS Encounters Encounter Location Date Provider Diagnosis Brennen Chavira MD [address] [place] [phone] 03/28/2025 Brennen Chavira Prostatism N40.0 ; Essential hypertension I10 and Hypercholesterolemia E78.00 Assessments Encounter Date Diagnosis (ICD Code) Assessment Notes Treatment Notes Treatment Clinical Notes Section Notes 03/28/2025 Prostatism (ICD-10 - N40.0) 03/28/2025 Essential hypertensi on (ICD-10 - I10) 03/28/2025 Hypercholesterolemia (ICD-10 - E78.00) Plan Of Treatment Next Appt Details Provider Name:Brennen mendez, 08/01/2025 11:30:00 AM, [address] [place] [address], [phone], Provider Name:Brennen mendez, 10/03/2025 07:30:00 AM, [address] [place] [address], [phone], Provider Name:Brennen mendez, 10/09/2025 02:00:00 PM, [address] [place] [address], [phone], Provider Name:Brennen mendez, 04/02/2026 08:00:00 AM, [address] [place] [address], [phone], Provider Name:Brennen Russell ier, 04/09/2026 02:30:00 PM, [address], [address], [place], [phone], Progress Notes * Robert FLORESDOB:1935 (89 yo M)Acc No.[id number]:03/28/2025 Progress Note Patient: Robert CONRAD Provider: Janette Chavira MD :1935 A ge:89 Y S ex:Male Date:03/28/2025 Address:[address] [place] [address], [address], [facility] Subjective: * Chief Complaints: * 1 . FASTING LABS. * Medical History: Objective: * Vitals: Assessment: * Assessment: 1. P rostatism - N40.0 (Primary) 2 . E ssential hypertension - I10 ? 3 . H ypercholesterolemia - E78.00 Plan: * Treatment: 2. E ssential hypertension L AB: Complete Blood Count Auto Diff (Collection Date & Time - 03/28/2025 11:23 AM) L AB: Comprehensive [place]. Panel Fast (Collection Date & Time - 03/28/2025 11:23 AM) L AB: Lipid Panel (Collection Date & Time - 03/28/2025 11:23 AM) L AB: PSA,Total (Free>4and<10) (Collection Date & Time - 03/28/2025 11:23 AM) L AB: UA ClnCatch+Micro w/rflx Cult (Collection Date & Time - 03/28/2025 11:23 AM) 3. H ypercholesterolemia L AB: Complete Blood Count Auto Diff (Collection Date & Time - 03/28/2025 11:23 AM) L AB: Comprehensive [place]. Panel Fast (Collection Date & Time - 03/28/2025 11:23 AM) L AB: Lipid Panel (Collection Date & Time - 03/28/2025 11:23 AM) L AB: PSA,Total (Free>4and<10) (Collection Date & Time - 03/28/2025 11:23 AM) L AB: UA ClnCatch+Micro w/rflx Cult (Collection Date & Time - 03/28/2025 11:23 AM) * Procedure Codes: 3 6415 VENIPUNCT, ROUTINE* * * The named appointment provid er may or may not be the originator of this progress note, and it is not deemed complete until electronically signed by the appointment provider. Sign off status: Pending * Provider: Janette Chavira MD Date: 0 03/28/2025 Generated for Tiffany mayorga/Dilcia/Lucerosmitting on: 0 07/19/2025 08:18 AM EDT
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
--- OUTSIDE RECORDS SUMMARY | 2025-04-28 06:41 | XMS_ITS ---
Author Organization Brennen Chavira MD Address [address] [place] [phone] Care Team Providers Care Automation Qtp Tester Name Role Phone Brennen Chavira Primary Care Provider REASON FOR VISIT discharge Encounters Encounter Location Date Provider Diagnosis Brennen Chavira MD [address] [place] [address] [place] [phone] 04/28/2025 Brennen Chavira Plan Of Treatment Next Appt Details Provider Name:Brennen mendez, 08/01/2025 11:30:00 AM, [address] [place] [address], [address], [phone], Provider Name:Brennen mendez, 10/03/2025 07:30:00 AM, [address] [place] [address], [address], [phone], Provider Name:Brennen mendez, 10/09/2025 02:00:00 PM, [address], [address], [place], [phone], Provider Name:Brennen Russell vanessa, 04/02/2026 08:00:00 AM, [address] [facility], [address], [place], [phone], Provider Name:Brennen uRssell vanessa, 04/09/2026 02:30:00 PM, [address] [place] [address], [address], [place], [place], [phone], Progress Notes * Robert FLORESDOB:1935 (89 yo M)Acc No.[id number]:04/28/2025 Patient: Robert CONRAD :1935 A ge:89 Y S ex:Male Address:[address] [place] [address], [address], [place], [address] * true * Date: Generated for Tiffany mayorga/Dilcia/eTransmitting on: 0 07/19/2025 08:16 AM EDT
--- OUTSIDE RECORDS SUMMARY | 2025-07-03 07:00 | XMS_ITS ---
Author Organization Brennen Chavira MD Address [address] [place], [place] [id number] Care Team Providers Care Saloonkeeper Name Role Phone Brennen Chavira Primary Care Provider [phone] Allergies Allergen (clinical drug ingredient) Drug/Non Drug Allergy documented on EMR Reaction Allergy Type Onset Date Status OxyCODONE ER vomiting Drug Allergy Acti ve Vicodin vomiting Drug Allergy Active oxycodone OxyContin vomiting Drug Allergy Active lisinopril Lisinopril cough Drug Allergy Activ e REASON FOR VISIT PH/TCM, Please fax visit to Sheryl Tapia [phone] Codie looking for order for compression stockings Medications Medication SIG (Take, Route, Frequency, Duration) Notes Start Date End Date Status amLODIPine Besylate 10 MG 1 tablet Orall y Once a day Active Isosorbide Mononitrate ER 30 MG 1 tablet in the morning Orally Once a day Active Metoprolol Tartrate 50 MG TAKE ONE TABLE T BY MOUTH TWICE A DAY WITH FOOD Active Atorvastatin Calcium 80 MG TAKE 1 TABLET BY MOUTH EVERY DAY Active Omeprazole 20 MG 1 capsule 1/2 to 1 h our before morning meal Orally Once a day for 90 days Active Aspir-Low 81 MG 1 tablet Orally Once a day for 30 day(s) Active Nitrostat 0.4 MG as directed Sublingu al every 5 mins times 3 until pain goes 08/13/2020 Active Meclizine HCl 25 MG 1 tablet as needed O rally every 12 hrs for 10 days 01/27/2025 Active Ondansetron HCl 4 MG 1 tablet Orally Onc e a day for 5 days 01/27/2025 Active Tamsulosin HCl 0.4 MG 2 capsule Orally O nce a day 11/02/2020 Active Immunizations Vaccine Route Administration Date Status Comme nts Influenza High Dose IM Intramuscular 07/03/2025 Administer ed Vital Signs Blood pressure systolic 102 mm Hg 07/03/20 25 Blood pressure diastolic 60 mm Hg 025 Height 68.5 in 07/03/2025 Weight 230 lbs 07/03/2025 BMI 34.46 kg/m2 07/03/2025 Encounters Encounter Location Date Provider Diagnosis Brennen Chavira MD [address] [place], [place] [phone] 07/03/2025 Brennen Chavira Reflux esophagitis K21.00 ; Hypoxemia R09.02 ; Leg edema R60.0 and Encounter for administration of vaccine Z23 Assessments Encounter Date Diagnosis (ICD Code) Assessment Notes Treatment Notes Treatment Clinical Notes Section Notes 07/03/2025 Reflux esophagitis (ICD-10 - K21.00) 07/03/2025 Hypoxemia (ICD-10 - R09.02) has no shortness of breath and normal respiratory rate so seems the o2 sat does not reflect his actual o2. fingers are all bent so doesn't get an acurate readin 07/03/2025 Leg edema (ICD-10 - R60.0) should wear compression stockings 07/03/2025 Encounter for administration of vaccine (ICD-10 - Z23) Plan Of Treatment Medication Medication Name Sig Start Date Stop Date Notes Omeprazole 20 MG 1 capsule 1/2 to 1 h our before morning meal Orally Once a day for 90 days Treatment Notes Assessment Notes Hypoxemia has no shortness of breath and normal respiratory rate so seems the o2 sat does not reflect his actual o2. fingers are all bent so doesn't get an acurate readin Leg edema should wear compress ion stockings Next Appt Details Follow Up: 4 Weeks, Reason: Provider Name:Brennen Russell ier, 08/01/2025 11:30:00 AM, [address], [address], [place], [place], [phone], Provider Name:Brennen Russell ier, 10/03/2025 07:30:00 AM, [address] [place] [address] Drive, [address], [place], [place], [phone], Provider Name:Brennen Russell ier, 10/09/2025 02:00:00 PM, [address] [place] [address], Suite [facility], [place], [place], [phone], Provider Name:Brennen Russell ier, 04/02/2026 08:00:00 AM, [address] [place] [address], [address] [facility], [place], [place], [phone], Provider Name:Brennen Russell ier, 04/09/2026 02:30:00 PM, [address] [place] [address], [address], [place], [place], [phone], Progress Notes * PATSYRobertDOB:1935 (89 yo M)Acc No.[id number]:07/03/2025 Patient: Robert CONRAD Provider: Janette Chavira MD :1935 A ge:89 Y S ex:Male Date:07/03/2025 Address:[facility], [place] [address], [facility] Subjective: * Chief Complaints: * P H/TCMPlease fax visit to Sheryl Tapia [phone] Codie looking for order for compression stockings * HPI: S ymptom(s): patient is a 89 yo male here for transitinal care management visit/ here for follow up for hospital. had fractured femur. has vertigo at times saw will do at home/ vna says his o2 is in 50's . wants some compression stockings. * ROS: G eneral/Constitutional: Denies C hills. [...] Release 1 tablet Orally Once a day Nitrostat 0.4 MG Tablet Sublingual as directed Sublingual every 5 mins times 3 until pain goes Meclizine HCl 25 MG Tablet Chewable 1 tablet as needed Orally every 12 hrs Ondansetron HCl 4 MG Tablet 1 tablet Orally Once a day Omeprazole 20 MG Capsule Delayed Release 1 capsule 1/2 to 1 hour before morning meal Orally Once a day Tamsulosin HCl 0.4 MG Capsule 2 capsule Orally Once a day amLODIPine Besylate 10 MG Tablet 1 tablet Orally Once a day Isosorbide Mononitrate ER 30 MG Tablet Extended Release 24 Hour 1 tablet in the morning Orally Once a day Metoprolol Tartrate 50 MG Tablet TAKE ONE TABLET BY MOUTH TWICE A DAY WITH FOOD Atorvastatin Calcium 80 MG Tablet TAKE 1 TABLET BY MOUTH EVERY DAY Medication List reviewed and reconciled with the patientTaking Aspir-Low 81 MG Tablet Delayed Release 1 tablet Orally Once a day Taking Nitrostat 0.4 MG Tablet Sublingual as directed Sublingual every 5 mins times 3 until pain goes Taking Meclizine HCl 25 MG Tablet Chewable 1 tablet as needed Orally every 12 hrs Taking Ondansetron HCl 4 MG Tablet 1 tablet Orally Once a day Taking Omeprazole 20 MG Capsule Delayed Release 1 capsule 1/2 to 1 hour before morning meal Orally Once a day Taking Tamsulosin HCl [...] MOUTH TWICE A DAY WITH FOOD Taking Atorvastatin Calcium 80 MG Tablet TAKE 1 TABLET BY MOUTH EVERY DAY Medication List reviewed and reconciled with the patient * Allergies: O xyContin: vomitingOxyCODONE ER: vomitingVicodin: vomitingLisinopril: coughyes[Allergies Verified] Objective: * Vitals: H t: 68.5, Wt: 230, BMI:34.46, BP:102/60, Wt-k.33. * Examination: G eneral Examination: GENERAL APPEARANCE: c omfortable with no shortness of breath.. SKIN: g ood turgor. HEART: n o murmurs, rubs, gallops, regular rate and rhythm.? LUNGS: n o wheezes, rales, rhonchi, good air movement, clear to auscultation bilaterally. EXTREMITIES: 2 + pitting edema lower extremities. ? Assessment: * Assessment: 1. R eflux esophagitis - K21.00 (Primary) 2 . H ypoxemia - R09.02 ? 3 . L eg edema - R60.0 4 . E ncounter for administration of vaccine - Z23 Plan: * Treatment: 2. H ypoxemia Notes: has no shortness of breath and normal respiratory rate so seems the o2 sat does not reflect his actual o2. fingers are all bent so doesn't get an acurate readin 3. L eg edema Notes: should wear compression stockings * Immunizations: Influenza High Dose : 0.5 mL (Dose No:1) (Route: Intramuscular) given by Alida Munroe , Office Staff on Right Deltoid * Procedure Codes: 9 0662 FLU VACC PRSV FREE INC [id number] ADMN FLU VAC NO FEE SCHED SAME DAY * Preventive Medicine: Immunizations: I nfluenza H ave you had a flu shot since the most recent June 30? Y es. * Follow Up: 4 Weeks * * Sign off status: Completed true * Provider: Janette Chavira MD Date: 0 07/03/2025 Generated for Tiffany mayorga/Dilcia/Cassandraitting on: 0 07/19/2025 08:17 AM EDT History and Physical Notes * HPI (History of Present Illness) Category Sub-Category Detail Notes Category Not es Symptom(s) patient is a 89 yo male here for transitinal care management visit/ here for follow up for hospital. had fractured femur. has vertigo at times saw will do at home/ vna says his o2 is in 50's . wants some compression stockings. Examination Category Sub-Category Detail Notes Category Not es General Examination GENERAL APPEARANCE: comforta ble with no shortness of breath. HEART: no murmurs, rubs, ga llops, regular rate and rhythm LUNGS: no wheezes, rales, r honchi, good air movement, clear to auscultation bilaterally SKIN: good turgor EXTREMITIES: 2+ pitting edema low er extremities
--- OUTSIDE RECORDS SUMMARY | 2025-07-08 05:46 | XMS_ITS ---
Author Organization Brennen Chavira MD Address [address] [place] [id number] Care Team Providers Care Round Cutter Operator Name Role Phone Brennen Chavira Primary Care Provider [phone] REASON FOR VISIT RF Omeprazole 20mg Medications Medication SIG (Take, Route, Fr equency, Duration) Notes Start Date End Date Status Omeprazole 20 MG 1 capsule 1/2 to 1 h our before morning meal Orally Once a day for 90 days Active Encounters Encounter Location Date Provider Diagnosis Brennen Chavira MD [address] [place], [place] [phone] 07/08/2025 Brennen Chavira Reflux esophagitis K21.00 Assessments Encounter Date Diagnosis (ICD Code) Assessment Notes Treatment Notes Treatment Clinical Notes Section Notes 07/08/2025 Reflux esophagitis (ICD-10 - K21.00) Plan Of Treatment Medication Medication Name Sig Start Date Stop Date Notes Omeprazole 20 MG 1 capsule 1/2 to 1 h our before morning meal Orally Once a day for 90 days Next Appt Details Provider Name:Brennen Russell ier, 08/01/2025 11:30:00 AM, [address] [place] [address], [address], [place], [phone], Provider Name:Brennen Russell ier, 10/03/2025 07:30:00 AM, [address] [place] [address], [address], [place], [place], [phone], Provider Name:Brennen Russell ier, 10/09/2025 02:00:00 PM, [address] [place] [address], [address], [place], [place], [phone], Provider Name:Brennen Russell ier, 04/02/2026 08:00:00 AM, [address] [place] [address], [address], [place], [place], [phone], Provider Name:Brennen Russell ier, 04/09/2026 02:30:00 PM, [address] [place] [address], [address], [place], [place], [phone], Progress Notes * Robert FLORESDOB:1935 (89 yo M)Acc No.[id number]:07/08/2025 Patient: Robert CONRAD :1935 A ge:89 Y S ex:Male Address:[address] [place] [address], [address], [address] * Refills Refill Omeprazole Capsule Delayed Release, 20 MG, Orally, 90, 1 capsule 1/2 to 1 hour before morning meal, Once a day, 90 days, Refills=3 * true * Date: Generated for Castilloi tierra/Dilcia/eTshereesmitting on: 0 07/19/2025 08:20 AM EDT
--- NOTE | ~2025-07-18 | XR_ITS ---
EXAMINATION: XR FEMUR, LEFT CLINICAL INFORMATION: S72.402A - Unspecified fracture of lower end of left femur, initial enco... COMPARISON: None available. TECHNIQUE: AP and lateral views of the left femur were obtained. FINDINGS: Again noted is a buttressing sideplate and screws fixing the distal femoral fracture. The oblique component of the fracture through the metaphysis demonstrates increasing density in the lingula of periosteal new bone formation. The proximal end of the fracture along the medial diaphysis of the femur is more scattered on the current examination and there is continued increased density of periosteal new bone formation. Joint effusion has decreased in size since the prior. Total knee arthroplasty is again noted Moderate vascular opacifications are present in the thigh. XR/XR femur LT 2V IMPRESSION: Continued healing of a distal left femoral fracture status post ORIF. Decreasing left knee joint effusion. Electronically signed by: Rodrigue Kitchen MD 07/18/2025 01:00 PM EDT
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
--- OUTSIDE RECORDS SUMMARY | 2025-07-19 08:18 | XMS_ITS | Clinical Summary ---
Author Organization [facility] Address [address] [facility] [facility] [address] [place] [address] Phone Care Team Providers Care Performing Artist Name Role Phone Brennen Chavira MD Primary [...] episodes of dizziness He was seen at [facility] for this, I do not access to any testing results or notes to reflect this He has an appointment with the vascular specialist tomorrow for this in [place] but he does not remember the name I have requested the [place] here to get the records from [facility] Already on aspirin/atorvastatin. Dyspnea on exertion [...] this time. I will confirm with Dr. Marucs. Continue to optimize other cardiac risk factors. Assessment & Plan (03/23/2018 2:43 PM EDT): He is status post three-vessel bypass February 20, 2018 at [facility] with a ALCALA to LAD, vein [...] set him up in cardiac rehabilitation at . Benign essential hypertension 03/23/2018 Assessment & Plan [...] Date Type Department Care Team Description 06/17/2025 [facility] Only [facility] [address], [address] [place] [address] Juan R Jordan CNP Arteriosclerosis of arterial [...] Vascular [facility] [address] [place] [address] Juan R Jordan, ORNAMENTAL METAL WORKER [address] [place] [address] 08/20/2025 11:30 AM EDT Office Visit [facility] [address], [address] [place] [address] Juan R Jordan, ORNAMENTAL METAL WORKER [address] [place] [address] Health Maintenance Due Date Last Done Comments [...] file Insurance MEDICARE PART A & B [employer] SU[employer] MEDICARE PART A & B [employer] SUPPLEMENT MEDICARE PART A & B [employer] SUPPLEMENT MEDICARE PART A & B [employer] SUPPLEMENT MEDICARE PART A & B [employer] SUPPLEMENT [employer] SUPPLEMENT MEDICARE PART A & B [employer] MEDEX SUPPLEMENT MEDICARE PART A & B [employer] MEDEX SUPPLEMENT MEDICARE PART A & B [employer] MEDEX SUPPLEMENT Care Teams Performing Artist Relationship Specialty Start Date End Date Brennen Chavira MD [address] [place] [address] [place] [address] PCP - General Internal Medicine 08/28/20 Additional Source Comments The information contained in this document represents components of the legal health record. It is not the complete legal health record.[facility]
--- OUTSIDE RECORDS SUMMARY | 2025-07-19 08:19 | XMS_ITS | Patient Health Record ---
Author Organization [facility] Address [address] [place] [phone] Care Team Providers Care Audio Tape Librarian Name Role Phone Brennen Chavira MD Primary Care Provider Quan Pandey [phone] Allergies Allergen (clinical drug ingredient) Drug/Non Drug [...] Notes Problem Flatulence, eructation and gas pain (732775892) Bloating (R14.0) Active confirmed Problem Gallstones (488953138) Gallstones (K80.20) Active confirmed Problem Gastroesophageal reflux disease (421580829) GERD (gastroesophag eal reflux disease) (K21.9) Active confirmed Vital Signs Blood pressure diastolic 77 mm Hg 04/22/2025 Height 71 in 04/22/2025 Blood pressure systolic 111 mm Hg 04/22/2025 Weight 230 lbs 04/22/2025 BMI 32.07 kg/m2 04/22/2025 Encounters Encounter Location Date Provider Diagnosis [facility] [address] [place] [address] 04/22/2025 Quan Cardenas Bloating R14.0 ; GIANNA [...] I did recommend that he try some dsym-fsu-vrkdvfu simethicone product for that as needed. I [...] I did recommend that he try some evvx-rsz-xmerjjn simethicone product for that as needed. I [...] I did recommend that he try some kgfb-kuz-avroaul simethicone product for that as needed. I [...] OF [place] [address] [place] [address] [phone] [id number] BERNADETTE GARNER Self - patient is the insured 0 [employer] ATTN CLAIMS [address] [place] [address] [id number] BERNADETTE GARNER Self - patient is the insured Medical (General) History Medical History History ICD Code Lung nodule Neuropathy/drop foot on the left Hypertension Nephrolithiasis-sees Dr. Rey Denies DM, CVA, Lung disease [place] 2017 GERD Right renal cancer as below Hyperlipidemia Gallstones seen on 2022 ultr asound. We reviewed that at the March 2025 office visit and he is asymptomatic in that regard. 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
--- OUTSIDE RECORDS SUMMARY | 2025-07-19 08:19 | XMS_ITS | Encounter Summary ---
Author Organization [facility] Address [address] [facility] [address] [place] [id number] Phone Care Team Providers Care Plate Worker Helper Name Role Phone Brennen Chavira MD Primary Care Provider Encounter Details Date Type Department Care Team (Late st Contact Info) Description 08/14/2024 Procedure Pass Echo Lab [address] [place] [address] Social History Tobacco Use Types Packs/Day Years [...] 08/13/2025 8:45 AM EDT Appointment [facility] [address] [place] [address] Juan R Jordan, INTERFACE CONTROL OFFICER [address] [place] [address] 08/20/2025 11:30 AM EDT Office Visit [facility] [address] [place] [address] [address] Floor, [address] [place] [address] Juan R Jordan, INTERFACE CONTROL OFFICER [address] [place] [address] [email or web address] documented as of this encounter Visit Diagnoses Not on filedocumented in this encounter Care Teams Plate Worker Helper Relationship Specialty Start Date End Date Brennen Chavira MD [address] [place] [address] [address] PCP - General Internal Medicine 08/28/20 documented as of this encounter Additional Source Comments The information contained in this document represents components of the legal health record. It is not the complete legal health record.[facility]
--- OUTSIDE RECORDS SUMMARY | 2025-07-19 08:19 | XMS_ITS | Patient Health Record ---
[facility] Address [address] [place] [address] Care Team Providers Care Pipe And Test Supervisor Name Role Phone Brennen Chavira MD Primary Care Provider Alexandra Gilliland Unavailable [phone] Allergies Allergen (clinical drug ingredient) Drug/Non Drug Allergy documented on EMR Reaction Allergy Type Onset Date Status oxycodone OxyCONTIN Unknown Drug Allergy Active codeine Codeine Unknown Drug Allergy Active oxycodone Oxycodone Unknown Drug Allergy Active Reason For Referral No Information Medications Medication SIG (Take, Route, Frequency, Duration) Notes Start Date End Date Status AFO- Posterior [place] form-fitted to foot and leg . [...] primary osteoarthritis of the ankle and/or foot (250528075) Primary osteoarthritis , left ankle and foot (M19.072) Active confirmed Problem Non-pressure chronic ulcer of other part of left foot limited to breakdown of skin (L97.521) Active confirmed Problem Acquired hammer toe of right foot (3980157193257962) Other hammer toe(s) (acquired), right foot (M20.41) Active confirmed Problem Acquired hammer toe of left foot (0261645320387888) Other hammer toe(s) (acquired), left foot (M20.42) Active confirmed Problem Neuropathy (107213608) Neuropathy (G62.9) Active confirmed Problem Unsteady gait (29734616) Unsteady gait (R26.81) Active confirmed Plan Of Treatment Pending Test Test Name Order Date [id number] NAIL, 6 OR MORE 04/25/2022 [id number] NAIL, 6 OR MORE 04/11/2023 91373- Debride <25 sq cm 04/25/2022 08076- Debride <25 sq cm 04/11/2023 Insurance Providers Payer Name Payer Address Payer Phone Subscriber Number Group Number Insured Name Patient Relationship to Insured Coverage Start Date Coverage End Date Medicare National [employer] [address] [place] [address] [id number] Robert Flores Self - patient is the insured [employer] [address] [place] [address] [phone] [id number] Robert Flores Self - patient is the [...]
--- OUTSIDE RECORDS SUMMARY | 2025-07-19 08:19 | XMS_ITS | Encounter Summary ---
Author Organization [facility] Address [address] [facility] [address] [place] [address] Phone Care Team Providers Care Chemical Laboratory Technician Name Role Phone Brennen Chavira MD Primary Care Provider Encounter Details Date Type Department Care Team (Late st Contact Info) Description 02/02/2021 Procedure Pass Echo Lab [address] [place] [address] Social History Tobacco Use Types Packs/Day Years [...] 08/13/2025 8:45 AM EDT Appointment [facility] [place]rd [place] [address] Juan R Jordan, SUPERVISOR PASTE PLANT [address] [place] [address] 08/20/2025 11:30 AM EDT Office Visit [facility] [address], [address] [place] [address] Juan R Jordan CNP [address] [place] [address] documented as of this encounter Visit Diagnoses Not on filedocumented in this encounter Care Teams Chemical Laboratory Technician Relationship Specialty Start Date End Date Brennen Chavira MD [address] [place] [address] [address] [place] [address] PCP - General Internal Medicine 08/28/20 documented as of this encounter Additional Source Comments The information contained in this document represents components of the legal health record. It is not the complete legal health record.[facility]
--- OUTSIDE RECORDS SUMMARY | 2025-08-08 20:00 | XMS_ITS | Clinical Summary ---
Author Organization Unknown Care Team Providers Care Stock House Worker Name Role Phone ASHLEY DAVIS, BIANCA Unavailable Unavailable JOSE CARLOS ([facility]) [facility], FLORES Unavailable Unavailable CYN RUBIO, SVETLANA Unavailable Unavailable Payers Payer Name Policy Type Policy Number Effective Date Expira tion Date MEDICARE - [facility] [id number] Problems Condition Name Condition Details Condition Category Status Onset Date Resolution Date Last Treatment Date Treating Clinician Comments UNSP FRACTURE OF LEFT PATELLA, SUBS FOR CLOS FX W ROUTN HEAL Active 10-30 00:00: 00 PERIPROSTH FRACTURE AROUND INTERNAL PROSTH L KNEE JT, SUBS Active 10-30 00:00: 00 UNSP FX LOWER END OF L FEMUR, SUBS FOR CLOS FX W ROUTN HEAL Active 10-30 00:00: 00 VENOUS INSUFFICIENC Y (CHRONIC) (PERIPHERAL) Active 10-30 00:00: 00 NON-PRS CHR ULCER OTH PRT L LOW LEG LIMITED TO BRKDWN SKIN Active 10-30 00:00: 00 HYPERTENSIVE CHRONIC KIDNEY DISEASE W STG 1-4/UNSP CHR KDNY Active 10-30 00:00: 00 CHRONIC KIDNEY DISEASE, STAGE 3 UNSPECIFIED Active 10-30 00:00: 00 ATHSCL HEART DISEASE OF [place] CORONARY ARTERY W/O ANG PCTRS Active 10-30 00:00: 00 OLD MYOCARDIAL INFARCTION Active 10-30 00:00: 00 OCCLUSION AND STENOSIS OF BILATERAL CAROTID ARTERIES Active 10-30 00:00: 00 DYSPHAGIA, UNSPECIFIED Active 10-30 00:00: 00 POLYNEUROPAT HY, UNSPECIFIED Active 10-30 00:00: 00 SPONDYLOSIS W/O MYELOPATHY OR RADICULOPATH Y, LUMBAR REGION Active 10-30 00:00: 00 HYPERLIPIDEM IA, UNSPECIFIED Active 10-30 00:00: 00 BENIGN PROSTATIC HYPERPLASIA WITH LOWER URINARY TRACT SYMP Active 10-30 00:00: 00 OTHER OBSTRUCTIVE AND REFLUX UROPATHY Active 10-30 00:00: 00 HISTORY OF FALLING Active 10-30 00:00: 00 PERSONAL HISTORY OF OTHER MALIGNANT NEOPLASM OF KIDNEY Active 10-30 00:00: 00 PERSONAL HISTORY OF URINARY (TRACT) INFECTIONS Active 10-30 00:00: 00 Problems related to health literacy Active 10-30 00:00: 00 DEPENDENCE ON WHEELCHAIR Active 10-30 00:00: 00 Allergies, Adverse Reactions, Alerts Allergy Name Allergy Type Status Severity Reaction(s) Onset Date Inactive Date Treating Clinician Comments OXYCONTIN Propensity to adverse reactions Active 06-11 15:47: 15 CODEINE Propensity to adverse reactions Active 06-11 15:47: 23 Medications Ordered Medication Name Filled Medication Name Start Date Stop Date Current Medication? Ordering Clinician Indication Dosage Frequency Signature (SIG) Comments Components isosorbide mononitrate ER 60 mg tablet,exte nded release 24 hr 06-02 00:00: 00 Yes [id number] 1 tablet DAILY 1 tablet DAILY (route: oral) Med Classific ation: Cardiovas cular Therapy Agents atorvastati n 80 mg tablet 05-11 00:00: 00 Yes [id number] Per instruc tions EVERY DAY Per instructio ns EVERY DAY (route: oral) Med Classific ation: Cardiovas cular Therapy Agents amlodipine 10 mg tablet 06-11 00:00: 00 Yes [id number] 1 tablet DAILY 1 tablet DAILY (route: oral) Med Classific ation: Cardiovas cular Therapy Agents metoprolol tartrate 50 mg tablet 06-11 00:00: 00 Yes [id number] 1 tablet 2 TIMES DAILY 1 tablet 2 TIMES DAILY (route: oral) Med Classific ation: Cardiovas cular Therapy Agents multivitami n with minerals tablet 06-11 00:00: 00 07-01 23:59 :00 No [id number] 1 tablet DAILY 1 tablet DAILY (route: oral) Med Classific ation: Electroly te Balance-N utritiona l Products Nitrostat 0.4 mg sublingual tablet 06-11 00:00: 00 Yes [id number] 1 tablet NEEDED 1 tablet NEEDED (route: sublingual ) Med Classific ation: Cardiovas cular Therapy Agents tadalafil 5 mg tablet 06-11 00:00: 00 Yes [id number] 1 tablet DAILY 1 tablet DAILY (route: oral) Med Classific ation: Drugs to treat Erectile Dysfuncti on tamsulosin 0.4 mg capsule 06-11 00:00: 00 Yes [id number] 2 capsule DAILY 2 capsule DAILY (route: oral) Med Classific ation: Genitouri nary Therapy Tylenol 325 mg tablet 06-11 00:00: 00 Yes [id number] 2 tablet 3 TIMES DAILY 2 tablet 3 TIMES DAILY (route: oral) Med Classific ation: Analgesic , Anti-infl ammatory or Antipyret ic Vital Signs Vital Name Observation Time Observation Value Commen ts Temperature 2025-07-16 11:43:00.000 98.1 [degF] Temperature 2025-07-16 09:39:00.000 97.6 [degF] Temperature 2025-07-09 08:29:00.000 97.7 [degF] Temperature 2025-07-07 15:03:00.000 97.8 [degF] Temperature 2025-07-04 08:16:00.000 97.7 [degF] Temperature 2025-07-01 16:07:00.000 97.4 [degF] Temperature 2025-06-25 12:48:00.000 97.1 [degF] Temperature 2025-06-23 10:04:00.000 98 [degF] Temperature 2025-06-16 13:35:00.000 97.5 [degF] Temperature 2025-06-11 15:49:00.000 97.6 [degF] BMI (%) 2025-06-11 15:49:00.000 32 kg/m2 Height 2025-06-11 15:49:00.000 71 [in_us] Pulse 2025-07-16 11:43:00.000 62 /min Pulse 2025-07-16 09:39:00.000 60 /min Pulse 2025-07-09 08:29:00.000 72 /min Pulse 2025-07-07 15:03:00.000 71 /min Pulse 2025-07-04 08:16:00.000 76 /min Pulse 2025-07-01 16:07:00.000 63 /min Pulse 2025-06-25 12:48:00.000 53 /min Pulse 2025-06-23 10:04:00.000 72 /min Pulse 2025-06-16 13:35:00.000 63 /min Pulse 2025-06-11 15:49:00.000 68 /min O2 Saturation (%) 2025-07-16 11:43:00.000 96 % O2 Saturation (%) 2025-07-16 09:39:00.000 99 % O2 Saturation (%) 2025-07-09 08:29:00.000 96 % O2 Saturation (%) 2025-07-07 15:03:00.000 97 % O2 Saturation (%) 2025-07-04 08:16:00.000 96 % O2 Saturation (%) 2025-06-23 10:04:00.000 97 % O2 Saturation (%) 2025-06-16 13:35:00.000 97 % Respirations 2025-07-16 11:43:00.000 18 /min Respirations 2025-07-16 09:39:00.000 18 /min Respirations 2025-07-09 08:29:00.000 18 /min Respirations 2025-07-07 15:03:00.000 18 /min Respirations 2025-07-04 08:16:00.000 18 /min Respirations 2025-07-01 16:07:00.000 16 /min Respirations 2025-06-25 12:48:00.000 16 /min Respirations 2025-06-23 10:04:00.000 18 /min Respirations 2025-06-16 13:35:00.000 18 /min Respirations 2025-06-11 15:49:00.000 16 /min Weight (lbs) 2025-06-11 15:49:00.000 230 [lb_av] Systolic Blood Pressure 2025-07-16 11:43:00.000 120 mm [Hg] Systolic Blood Pressure 2025-07-16 09:39:00.000 110 mm [Hg] Systolic Blood Pressure 2025-07-09 08:29:00.000 109 mm [Hg] Systolic Blood Pressure 2025-07-07 15:03:00.000 128 mm [Hg] Systolic Blood Pressure 2025-07-04 08:16:00.000 137 mm [Hg] Systolic Blood Pressure 2025-07-01 16:07:00.000 116 mm [Hg] Systolic Blood Pressure 2025-06-25 12:48:00.000 129 mm [Hg] Systolic Blood Pressure 2025-06-23 10:04:00.000 122 mm [Hg] Systolic Blood Pressure 2025-06-16 13:35:00.000 122 mm [Hg] Systolic Blood Pressure 2025-06-11 15:49:00.000 116 mm [Hg] Diastolic Blood Pressure 2025-07-16 11:43:00.000 64 mm [Hg] Diastolic Blood Pressure 2025-07-16 09:39:00.000 70 mm [Hg] Diastolic Blood Pressure 2025-07-09 08:29:00.000 57 mm [Hg] Diastolic Blood Pressure 2025-07-07 15:03:00.000 66 mm [Hg] Diastolic Blood Pressure 2025-07-04 08:16:00.000 83 mm [Hg] Diastolic Blood Pressure 2025-07-01 16:07:00.000 72 mm [Hg] Diastolic Blood Pressure 2025-06-25 12:48:00.000 74 mm [Hg] Diastolic Blood Pressure 2025-06-23 10:04:00.000 68 mm [Hg] Diastolic Blood Pressure 2025-06-16 13:35:00.000 68 mm [Hg] Diastolic Blood Pressure 2025-06-11 15:49:00.000 72 mm [Hg] Plan of Treatment Planned Activity Planned Date Details Comments Future Scheduled Test SKILLED NU RSE TO EVALUATE PATIENT, IDENTIFY PRIMARY AND CO-MORBID CONDITIONS CODED PER CODING GUIDELINES, AND DEVELOP PATIENT SPECIFIC PLAN OF CARE THAT INCLUDES PATIENT GOAL FOR HOME HEALTH. [code = SKILLED NURSE TO EVALUATE PATIENT, IDENTIFY PRIMARY AND CO-MORBID CONDITIONS CODED PER CODING GUIDELINES, AND DEVELOP PATIENT SPECIFIC PLAN OF CARE THAT INCLUDES PATIENT GOAL FOR HOME HEALTH.] Future Scheduled Test SKILLED NU RSE FOR O/A, TEACHING, AND MANAGEMENT OF CAD W/GA, CAROTID ARTERIES STENOSIS, HLD. [code = SKILLED NURSE FOR O/A, TEACHING, AND MANAGEMENT OF CAD W/GA, CAROTID ARTERIES STENOSIS, HLD.] Future Scheduled Test SKILLED NU RSE FOR O/A, TEACHING AND MANAGEMENT OF CKD FOR EARLY IDENTIFICATION OF EXACERBATION OF DISEASE PROCESS [code = SKILLED NURSE FOR O/A, TEACHING AND MANAGEMENT OF CKD FOR EARLY IDENTIFICATION OF EXACERBATION OF DISEASE PROCESS] Future Scheduled Test NEED FOR S KILLED TEACHING AND INTERVENTION RELATED TO ULCER L CALF SKILLED NURSE OR TRAINED PATIENT/CAREGIVER TO PERFORM WOUND CARE USING CLEAN TECHNIQUE, CLEANSE/IRRIGATE WITH NS, PAT DRY WITH GAUZE, COVER WITH CLEAN DRY DSG. WOUND CARE TO BE PERFORMED QOD AND PRN IF SOILED OR DISLODGED. 1-2 PRN SKILLED NURSE VISITS FOR WOUND CARE DUE TO COMPLICATIONS. SKILLED NURSE TO OBTAIN WOUND CULTURE PRN S/S OF INFECTION. WOUND CARE WILL BE PERFORMED BY TRAINED CAREGIVER ON DAYS WHEN SKILLED NURSE IS NOT SCHEDULED FOR A VISIT. DISCONTINUE WOUND CARE/SUPPLIES ONCE WOUND IS HEALED. [code = NEED FOR SKILLED TEACHING AND INTERVENTION RELATED TO ULCER L CALF SKILLED NURSE OR TRAINED PATIENT/CAREGIVER TO PERFORM WOUND CARE USING CLEAN TECHNIQUE, CLEANSE/IRRIGATE WITH NS, PAT DRY WITH GAUZE, COVER WITH CLEAN DRY DSG. WOUND CARE TO BE PERFORMED QOD AND PRN IF SOILED OR DISLODGED. 1-2 PRN SKILLED NURSE VISITS FOR WOUND CARE DUE TO COMPLICATIONS. SKILLED NURSE TO OBTAIN WOUND CULTURE PRN S/S OF INFECTION. WOUND CARE WILL BE PERFORMED BY TRAINED CAREGIVER ON DAYS WHEN SKILLED NURSE IS NOT SCHEDULED FOR A VISIT. DISCONTINUE WOUND CARE/SUPPLIES ONCE WOUND IS HEALED.] Future Scheduled Test SKILLED NU RSE FOR O/A OF MUSCULOSKELETAL STATUS AND TEACHING ON MEASURES TO MANAGE SP L TKR FX AND TO MAINTAIN SAFETY WITH ACTIVITY [code = SKILLED NURSE FOR O/A OF MUSCULOSKELETAL STATUS AND TEACHING ON MEASURES TO MANAGE SP L TKR FX AND TO MAINTAIN SAFETY WITH ACTIVITY] Future Scheduled Test SKILLED NU RSE FOR O/A AND SKILLED TEACHING IN MANAGEMENT OF BILAT CAROTID STENOSIS CIRCULATORY/VASCULAR DISEASE. [code = SKILLED NURSE FOR O/A AND SKILLED TEACHING IN MANAGEMENT OF BILAT CAROTID STENOSIS CIRCULATORY/VASCULAR DISEASE.] Future Scheduled Test PHYSICAL T HERAPIST TO EVALUATE PATIENT FOR STRENGTH [code = PHYSICAL THERAPIST TO EVALUATE PATIENT FOR STRENGTH] Future Scheduled Test SKILLED NU RSE TO PROVIDE TEACHING ON SIGNS AND SYMPTOMS AND MANAGEMENT OF HYPERTENSION. [code = SKILLED NURSE TO PROVIDE TEACHING ON SIGNS AND SYMPTOMS AND MANAGEMENT OF HYPERTENSION.] Future Scheduled Test PATIENT BREAUX S A RISK OF HOSPITALIZATION AND ED USE. SKILLED NURSE TO ESTABLISH SUPPORT MEASURES TO MINIMIZE RISK OF HOSPITALIZATION AND ED USE, AND INSTRUCT PATIENT/CAREGIVER ON METHODS TO REDUCE AVOIDABLE HOSPITALIZATION AND ED USE. [code = PATIENT HAS A RISK OF HOSPITALIZATION AND ED USE. SKILLED NURSE TO ESTABLISH SUPPORT MEASURES TO MINIMIZE RISK OF HOSPITALIZATION AND ED USE, AND INSTRUCT PATIENT/CAREGIVER ON METHODS TO REDUCE AVOIDABLE HOSPITALIZATION AND ED USE.] Future Scheduled Test SKILLED NU RSE TO PROVIDE INSTRUCTION TO PATIENT/CAREGIVER RELATED TO DISCHARGE PLANNING. [code = SKILLED NURSE TO PROVIDE INSTRUCTION TO PATIENT/CAREGIVER RELATED TO DISCHARGE PLANNING.] Future Scheduled Test SKILLED NU RSE TO PERFORM ENVIRONMENTAL SAFETY RISK ASSESSMENT AND FALL RISK ASSESSMENT AND PROVIDE INSTRUCTION TO IMPLEMENT ENVIRONMENTAL SAFETY AND FALL PREVENTION STRATEGIES THROUGHOUT THE CERTIFICATION PERIOD. SKILLED NURSE WILL MAINTAIN SITUATIONAL AWARENESS AND WILL NOTIFY CLINICAL DOLLYMAN AND PHYSICIAN/PROVIDER WITH ANY CHANGE IN CONDITION. [code = SKILLED NURSE TO PERFORM ENVIRONMENTAL SAFETY RISK ASSESSMENT AND FALL RISK ASSESSMENT AND PROVIDE INSTRUCTION TO IMPLEMENT ENVIRONMENTAL SAFETY AND FALL PREVENTION STRATEGIES THROUGHOUT THE CERTIFICATION PERIOD. SKILLED NURSE WILL MAINTAIN SITUATIONAL AWARENESS AND WILL NOTIFY CLINICAL DOLLYMAN AND PHYSICIAN/PROVIDER WITH ANY CHANGE IN CONDITION.] Future Scheduled Test SKILLED NU RSE FOR OBSERVATION AND ASSESSMENT OF PATIENT S PAIN LEVEL AND EFFECTIVENESS OF PAIN MANAGEMENT REGIMEN. SKILLED NURSE TO INSTRUCT PATIENT/CAREGIVER REGARDING PHARMACOLOGIC AND NON-PHARMACOLOGIC PAIN CONTROL MEASURES. SKILLED NURSE TO REPORT TO PHYSICIAN IF PAIN LEVEL IS OUTSIDE OF ESTABLISHED PARAMETERS. [code = SKILLED NURSE FOR OBSERVATION AND ASSESSMENT OF PATIENT S PAIN LEVEL AND EFFECTIVENESS OF PAIN MANAGEMENT REGIMEN. SKILLED NURSE TO INSTRUCT PATIENT/CAREGIVER REGARDING PHARMACOLOGIC AND NON-PHARMACOLOGIC PAIN CONTROL MEASURES. SKILLED NURSE TO REPORT TO PHYSICIAN IF PAIN LEVEL IS OUTSIDE OF ESTABLISHED PARAMETERS.] Future Scheduled Test SKILLED NU RSE TO ASSESS PATIENT'S SKIN INTEGRITY AND INSTRUCT PATIENT/CAREGIVER ON MEASURES TO PREVENT PRESSURE ULCERS. [code = SKILLED NURSE TO ASSESS PATIENT'S SKIN INTEGRITY AND INSTRUCT PATIENT/CAREGIVER ON MEASURES TO PREVENT PRESSURE ULCERS.] Future Scheduled Test SKILLED NU RSE TO INSTRUCT PATIENT/CAREGIVER ON S/S OF NEUROPATHY AND METHODS TO MANAGE. [code = SKILLED NURSE TO INSTRUCT PATIENT/CAREGIVER ON S/S OF NEUROPATHY AND METHODS TO MANAGE.] Future Scheduled Test SKILLED NU RSE TO REVIEW PATIENT MEDICATIONS (PRESCRIPTION/OTC). INSTRUCT PATIENT/CAREGIVER ON ALL MEDICATIONS INCLUDING PURPOSE, WHEN TO TAKE, IMPORTANCE OF MEDICATION ADHERENCE, MONITORING OF EFFECTIVENESS, ADVERSE DRUG REACTIONS, POSSIBLE SIDE EFFECTS, AND WHEN TO NOTIFY AGENCY OR PHYSICIAN/PROVIDER OF ANY CONCERNS. [code = SKILLED NURSE TO REVIEW PATIENT MEDICATIONS (PRESCRIPTION/OTC). INSTRUCT PATIENT/CAREGIVER ON ALL MEDICATIONS INCLUDING PURPOSE, WHEN TO TAKE, IMPORTANCE OF MEDICATION ADHERENCE, MONITORING OF EFFECTIVENESS, ADVERSE DRUG REACTIONS, POSSIBLE SIDE EFFECTS, AND WHEN TO NOTIFY AGENCY OR PHYSICIAN/PROVIDER OF ANY CONCERNS.] Goal Patient Goal - WALK AGAIN Goal Provider Goal - A PLAN OF CARE WILL BE ESTABLISHED THAT MEETS PATIENT'S NURSING HOME NEEDS AND INCLUDES PATIENT GOAL FOR HOME HEALTH. Goal Provider Goal - PATIENT/CAREGIVER WILL VERBALIZE/DEMONSTRATE MANAGEMENT OF CARDIAC DISEASE PROCESS AND EXACERBATIONS WILL BE IDENTIFIED AND PROMPTLY REPORTED THROUGHOUT THE CERTIFICATION PERIOD. Goal Provider Goal - PATIENT/CAREGIVER WILL VERBALIZE UNDERSTANDING OF GENITOURINARY DISEASE PROCESS, AND EXACERBATIONS OF GENITOURINARY DISEASE WILL BE PROMPTLY IDENTIFIED FOR EARLY INTERVENTION THROUGHOUT THE CERTIFICATION PERIOD. Goal Provider Goal - WOUND CARE WILL BE COMPLETED AND PATIENT WILL HAVE IMPROVED WOUND STATUS EVIDENCED BY NO SIGNS AND SYMPTOMS OF INFECTION, DECREASED WOUND SIZE, AND/OR NO COMPLICATIONS BY THE END OF THE CERTIFICATION PERIOD. Goal Provider Goal - PATIENT/CAREGIVER WILL VERBALIZE/DEMONSTRATE ABILITY TO MANAGE MUSCULOSKELETAL DISEASE WHILE MAINTAINING SAFETY THROUGHOUT THE EPISODE. Goal Provider Goal - PATIENT/CAREGIVER WILL VERBALIZE/DEMONSTRATE THE ABILITY TO MANAGE CIRCULATORY DISEASE PROCESS AND EXACERBATIONS WILL BE IDENTIFIED FOR EARLY INTERVENTION THROUGHOUT THE CERTIFICATION PERIOD. Goal Provider Goal - A PHYSICAL THERAPY EVALUATION TO BE COMPLETED WITH RECOMMENDATIONS AND/OR WRITTEN PLAN OF TREATMENT ESTABLISHED FOR PHYSICIAN S SIGNATURE. Goal Provider Goal - PATIENT/CAREGIVER WILL VERBALIZE SIGNS AND SYMPTOMS OF HYPERTENSION AND WILL BE ABLE TO DEMONSTRATE ABILITY TO MANAGE EXACERBATION BY END OF THE EPISODE. Goal Provider Goal - PATIENT WILL HAVE SUPPORT MEASURES ESTABLISHED TO PREVENT HOSPITALIZATION AND ED USE AND PATIENT/CAREGIVER WILL VERBALIZE/DEMONSTRATE METHODS TO REDUCE AVOIDABLE HOSPITALIZATION AND ED USE BY END OF EPISODE. Goal Provider Goal - PATIENT/CAREGIVER WILL VERBALIZE UNDERSTANDING OF DISCHARGE PLANNING INSTRUCTIONS BY DATE OF DISCHARGE. Goal Provider Goal - PATIENT/CAREGIVER WILL VERBALIZE/DEMONSTRATE EFFECTIVE ENVIRONMENTAL SAFETY AND FALL PREVENTION STRATEGIES, WILL REMAIN SAFE IN THE COMMUNITY, AND WILL BE FREE OF DANGER TO SELF AND OTHERS THROUGHOUT THE CERTIFICATION PERIOD. Goal Provider Goal - PATIENT/CAREGIVER WILL DEMONSTRATE UNDERSTANDING OF PHARMACOLOGIC AND NONPHARMACOLOGIC PAIN CONTROL MEASURES AND PATIENT WILL HAVE IMPROVEMENT IN PAIN INTERFERING WITH ACTIVITY EVIDENCED BY PAIN AT A LEVEL THAT IS ACCEPTABLE TO THE PATIENT AND PAIN LEVEL WITHIN ESTABLISHED PARAMETERS BY END OF CERTIFICATION PERIOD. Goal Provider Goal - PATIENT/CAREGIVER WILL VERBALIZE UNDERSTANDING OF PRESSURE ULCER PREVENTION BY END OF THE EPISODE. Goal Provider Goal - PATIENT/CAREGIVER WILL VERBALIZE S/S OF NEUROPATHY AND METHODS TO MANAGE BY END OF CERTIFICATION PERIOD. Goal Provider Goal - PATIENT/CAREGIVER WILL VERBALIZE UNDERSTANDING OF EDUCATION PROVIDED ON MEDICATIONS BY THE END OF THE CERTIFICATION PERIOD. Encounters Start Date/Time End Date/Time Encounter Type Admission Type Attending [facility] Department Encounter ID Discharge Date Discharge Status Discharge Condition Discharge Reason Percent Goals Met 2025-06-11 00:00:00 2025-08-09 00:00:00 Outpatient NEW ADMISSION SVETLANA [facility] [id number]
== END 2025-07-18 08:12 | disposition home or self-care (01) ==
LOC: HO.HOSX 08:11
PROVIDERS: Visit Provider Physician Assistant
DX: S72.402D Unspecified fracture of lower end of left femur, subsequent encounter for closed fracture with routine healing (principal); X58.XXXD Exposure to other specified factors, subsequent encounter
CPT/HCPCS: 73552; 99212

== ENCOUNTER 2025-07-18 11:46 | Outpatient (AMB) | payer MEDICARE, SELFPAY ==
--- OUTSIDE RECORDS SUMMARY | 2025-03-28 03:15 | XMS_ITS ---
Author Organization Brennen Chavira MD Address [address] [place], [place] [phone] Care Team Providers Care Clinical Pharmacist Name Role Phone Brennen Chavira Primary Care Provider [phone] Results Component Value Reference Range Notes Complete Blood Count Auto Di ff Reviewed date:03/30/2025 11:56:09 AM Interpretation: Performing Lab:[facility], [address] [place] [phone] Notes/Report: White Blood Count 8.7 4.8-10.8 X10*3/uL [...] NRBC Abs Auto 0.000 0.0-0.012 X10*3/uL Comprehensive [place]. Panel Fa st Reviewed date:03/30/2025 11:55:45 AM Interpretation: Performing Lab:[facility], [address] [place] [phone] Notes/Report: Sodium 143 135-145 mmol/L Potassium 4.2 [...] Panel Reviewed date:03/28/2025 04:16:38 PM Interpretation: Performing Lab:[facility], [address] [place] [phone] Notes/Report: Triglycerides 97 <150 mg/dL Desirable Triglyceride: [...] (Free>4and<10) Reviewed date:03/28/2025 04:16:00 PM Interpretation: Performing Lab:[facility], [address] [place] [phone] Notes/Report: PSA,Total (Free>4and<10) 0.68 0.00-4.00 ng/mL A [...] t Reviewed date:03/30/2025 11:56:32 AM Interpretation: Performing Lab:[facility], [address] [facility], [place] [address] Notes/Report: Urine, Clean Catch Color Urine Yellow Appearance Urine Clear PH 6.0 5.0-9.0 Glucose Urine UA Negative Negative mg/dL Urine Blood Negative Negative Specific [place] - Urine 1.020 1.005-1.025 Urine Protein Negative [...] Location Date Provider Diagnosis Brennen Chavira MD [address] [place] [phone] 03/28/2025 Brennen Chavira Prostatism N40.0 ; Essential hypertension I10 and Hypercholesterolemia E78.00 Assessments Encounter Date Diagnosis (ICD Code) Assessment Notes Treatment Notes Treatment Clinical Notes Section Notes 03/28/2025 Prostatism (ICD-10 - N40.0) 03/28/2025 Essential hypertensi on (ICD-10 - I10) 03/28/2025 Hypercholesterolemia (ICD-10 - E78.00) Plan Of Treatment Next Appt Details Provider Name:Brennen mendez, 08/01/2025 11:30:00 AM, [address] [place] [address], [phone], Provider Name:Brennen mendez, 10/03/2025 07:30:00 AM, [address] [place] [address], [phone], Provider Name:Brennen mendez, 10/09/2025 02:00:00 PM, [address] [place] [address], [phone], Provider Name:Brennen mendez, 04/02/2026 08:00:00 AM, [address] [place] [address], [phone], Provider Name:Brennen Russell ier, 04/09/2026 02:30:00 PM, [address], [address], [place], [phone], Progress Notes * Robert FLORESDOB:1935 (89 yo M)Acc No.[id number]:03/28/2025 Progress Note Patient: Robert CONRAD Provider: Janette Chavira MD :1935 A ge:89 Y S ex:Male Date:03/28/2025 Address:[address] [place] [address], [address], [facility] Subjective: * Chief Complaints: * 1 . FASTING LABS. * Medical History: Objective: * Vitals: Assessment: * Assessment: 1. P rostatism - N40.0 (Primary) 2 . E ssential hypertension - I10 ? 3 . H ypercholesterolemia - E78.00 Plan: * Treatment: 2. E ssential hypertension L AB: Complete Blood Count Auto Diff (Collection Date & Time - 03/28/2025 11:23 AM) L AB: Comprehensive [place]. Panel Fast (Collection Date & Time - [...] - 03/28/2025 11:23 AM) L AB: Comprehensive [place]. Panel Fast (Collection Date & Time - [...] MD Date: 0 03/28/2025 Generated for Tiffany mayorga/Dilcia/Cassandraitting on: 0 07/18/2025 12:18 PM EDT
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
--- OUTSIDE RECORDS SUMMARY | 2025-04-28 06:41 | XMS_ITS ---
Author Organization Brennen Chavira MD Address [address] [place] [phone] Care Team Providers Care Grinding Machine Operator Portable Name Role Phone Brennen Chavira Primary Care Provider [phone] REASON FOR VISIT discharge Encounters Encounter Location Date Provider Diagnosis Brennen Chavira MD [address] [place] [address] [address] [place] [phone] 04/28/2025 Brennen Chavira Plan Of Treatment Next Appt Details Provider Name:Brennen mendez, 08/01/2025 11:30:00 AM, [address] [place] [address], [address], [phone], Provider Name:Brennen mendez, 10/03/2025 07:30:00 AM, [address] [place] [address], [address], [phone], Provider Name:Brennen mendez, 10/09/2025 02:00:00 PM, [address] [facility], [address], [place], [phone], Provider Name:Brennen Russell vanessa, 04/02/2026 08:00:00 AM, [address] [facility], [address], [place], [place], [phone], Provider Name:Brennen Russell vanessa, 04/09/2026 02:30:00 PM, [address] [place] [address], [address], [place], [place], [phone], Progress Notes * Robert FLORESDOB:1935 (89 yo M)Acc No.[id number]:04/28/2025 Patient: Robert CONRAD :1935 A ge:89 Y S ex:Male Address:[address] [place] [address], [address], [place], [address] * true * Date: Generated for Tiffany mayorga/Dilcia/eTransmitting on: 0 07/18/2025 12:17 PM EDT
--- OUTSIDE RECORDS SUMMARY | 2025-07-03 07:00 | XMS_ITS ---
Author Organization Brennen Chavira MD Address [address] [place], [place] [phone] Care Team Providers Care Licensing Registration Examiner Name Role Phone Brennen Chavira Primary Care Provider Allergies Allergen (clinical drug ingredient) Drug/Non Drug Allergy documented on EMR Reaction Allergy Type Onset Date Status OxyCODONE ER vomiting Drug Allergy Acti ve Vicodin vomiting Drug Allergy Active oxycodone OxyContin vomiting Drug Allergy Active lisinopril Lisinopril cough Drug Allergy Activ e REASON FOR VISIT PH/TCM, Please fax visit to Sheryl Tapia [phone] Codie looking for order for compression stockings [...] Date Provider Diagnosis Brennen Chavira MD [address] [place], [place] [phone] 07/03/2025 Brennen Chavira Reflux esophagitis K21.00 ; [...] Name:Brennen Russell ier, 08/01/2025 11:30:00 AM, [address], [address], [place], [place], [phone], Provider Name:Brennen Russell ier, 10/03/2025 07:30:00 AM, [address] [place] [address] Drive, [address], [place], [place], [phone], Provider Name:Brennen Russell ier, 10/09/2025 02:00:00 PM, [address] [place] [address], Suite [facility], [place], [place], [phone], Provider Name:Brennen Russell ier, 04/02/2026 08:00:00 AM, [address] [place] [address], Suite [facility], [place], [place], [phone], Provider Name:Brennen Russell ier, 04/09/2026 02:30:00 PM, [address] [place] [address], [address], [place], [place], [phone], Progress Notes * PATSYRobertDOB:1935 (89 yo M)Acc No.[id number]:07/03/2025 Patient: Robert CONRAD Provider: Janette Chavira MD :1935 A ge:89 Y S ex:Male Date:07/03/2025 Address:[facility], [place] [address], [facility] Subjective: * Chief Complaints: * P H/TCMPlease fax visit to Sheryl Tapia [phone] Codie looking for order for compression stockings [...] 9 0662 FLU VACC PRSV FREE INC [id number] ADMN FLU VAC NO FEE SCHED SAME DAY * Preventive Medicine: Immunizations: I nfluenza H ave you had a flu shot since the most recent June 30? Y es. * Follow Up: 4 Weeks * * Sign off status: Completed true * Provider: Janette Chavira MD Date: 0 07/03/2025 Generated for Tiffany mayorga/Dilcia/Cassandraitting on: 0 07/18/2025 12:18 PM EDT History and Physical Notes * [...]
--- OUTSIDE RECORDS SUMMARY | 2025-07-08 05:46 | XMS_ITS ---
Author Organization Brennen Chavira MD Address [address] [place] [phone] Care Team Providers Care Assurance Manager Insurance Name Role Phone Brennen Chavira Primary Care Provider REASON FOR VISIT RF Omeprazole 20mg Medications Medication SIG (Take, Route, Fr equency, Duration) Notes Start Date End Date Status Omeprazole 20 MG 1 capsule 1/2 to 1 h our before morning meal Orally Once a day for 90 days Active Encounters Encounter Location Date Provider Diagnosis Brennen Chavira MD [address] [place], [place] [id number] 07/08/2025 Brennen Chavira Reflux esophagitis K21.00 Assessments [...] Provider Name:Brennen Russell ier, 08/01/2025 11:30:00 AM, [address] [place] [address], [address], [place], [id number], Provider Name:Brennen Russell ier, 10/03/2025 07:30:00 AM, [address] [place] [address], [address], [place], [place], [phone], Provider Name:Brennen Russell ier, 10/09/2025 02:00:00 PM, [address] [place] [address], [address], [place], [phone], Provider Name:Brennen Russell ier, 04/02/2026 08:00:00 AM, [address] [place] [address], [address], [place], [place], [phone], Provider Name:Brennen Russell ier, 04/09/2026 02:30:00 PM, [address] [place] [address], [address], [place], [place], [phone], Progress Notes * Robert FLORESDOB:1935 (89 yo M)Acc No.[id number]:07/08/2025 Patient: Robert CONRAD :1935 A ge:89 Y S ex:Male Address:[address] [place] [address], [address], [address] * Refills Refill Omeprazole Capsule Delayed Release, 20 MG, Orally, 90, 1 capsule 1/2 to 1 hour before morning meal, Once a day, 90 days, Refills=3 * true * Date: Generated for Tiffany mayorga/Dilcia/eTshereesmitting on: 0 07/18/2025 12:18 PM EDT
--- NOTE | 2025-07-18 12:07 | A.OFFVIS_ITS ---
Intake Visit Reasons: PO-Lt distal femur ORIF 04/23/25 NE with XR Intake Note: Robert is a 89 year old male who presents today for a post operative appointment s/p left distal femur ORIF 04/23/25 NE. At his last visit he shoulder continue to work with physical therapy and to work on glute, core and quad strengthening. As well as to remain non weight-bearing on the left lower extremity. Patient may weight- bear on his right lower extremity. Patient states he is doing well, no concerns at the moment. Allergies oxycodone (OxyContin) Allergy (Unknown, Verified 07/18/25 12:08) Unknown codeine (CODEINE) Adverse Reaction (Mild, Verified 07/18/25 12:08) Nausea and Vomiting HPI HPI PO-Lt distal femur ORIF 04/23/25 NE with XR: Details: Mr. Flores is an 89-year-old male who presents to the office today status post left distal femur retrograde IM nail performed on 04/23/[address] Perez. Patient reports that over the past few weeks the patient has been weight-bearing as tolerated on the left lower extremity despite recommendations to remain nonweightbearing. At his last appointment additional recommendations were made to physical therapy to continue working on glute core quad strengthening as well as nonweightbearing left lower extremity. Patient denies any pain at this time. He had been primarily using a wheelchair. 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 No surrounding erythema or drainage. No signs of infection. Incision site is well approximated and completely healed. Patient is able to demonstrate left knee range of motion 0-110 degrees. Denies any numbness or tingling. Able to dorsiflex and plantar flex. NVI. Psych Appearance: grossly normal Mental Status: mental status grossly normal Attitude: cooperative Assessment & Plan Assessment & Plan (1) Closed fracture of left distal femur: Code(s): S72.402A - Unspecified fracture of lower end of left femur, initial encounter for closed fracture Category: Medical Plan Mr. Flores is an 89-year-old male who presents to the office today status post left distal femur retrograde IM nail performed on 04/23/[address] Perez. Patient reports that over the past few weeks the patient has been weight-bearing as tolerated on the left lower extremity despite recommendations to remain nonweightbearing. At his last appointment additional recommendations were made to physical therapy to continue working on glute core quad strengthening as well as nonweightbearing left lower extremity. Patient denies any pain at this time. He had been primarily using a wheelchair. Patient may begin weight-bearing as tolerated with the use of a walker on the left lower extremity. I have provided an updated physical therapy prescription to work on glute core quad strengthening as well as gait training with the use of a walker. The patient and his were enquiring about a Rollator walker. I have recommended that he use a front wheel walker at this time for safety. I have recommended that should the patient begin weight-bearing and has a sudden onset of increased pain he should stop weight-bearing immediately and contact the orthopedic office or present to the emergency department. He demonstrates understanding with this. He will follow up with me in 8 weeks with repeat x- rays, sooner if needed. X-rays of the left femur which were obtained while in the office today and were reviewed by me, Liana Tiwari PA-C, revealed intact orthopedic hardware with routine healing. Orders: Orders XR femur LT 2V Today S72.402A - Unspecified fracture of lower end of left femur, initial encounter for closed fracture PT Evaluation and Treatment Today S72.402A - Unspecified fracture of lower end of left femur, initial encounter for closed fracture Medications: New walker Folding front wheeled walker 1 ea 0RF s/p left distal femur ORIF S72.402A - Unspecified fracture of lower end of left femur, initial encounter for closed fracture Coding Level of Care Code Global (48310) Diagnoses Closed fracture of left distal femur S72.402A
--- OUTSIDE RECORDS SUMMARY | 2025-07-18 12:18 | XMS_ITS | Patient Health Record ---
[facility] Address [address] [place] [address] Care Team Providers Care Insulation Packer Name Role Phone Brennen Chavira MD Primary Care Provider Alexandra Gilliland Unavailable [phone] Allergies Allergen (clinical drug ingredient) Drug/Non Drug Allergy documented on EMR Reaction Allergy Type Onset Date Status oxycodone OxyCONTIN Unknown Drug Allergy Active codeine Codeine Unknown Drug Allergy Active oxycodone Oxycodone Unknown Drug Allergy Active Reason For Referral No Information Medications Medication SIG (Take, Route, Frequency, Duration) Notes Start Date End Date Status AFO- Posterior [place] form-fitted to foot and leg . [...] primary osteoarthritis of the ankle and/or foot (423558384) Primary osteoarthritis , left ankle and foot (M19.072) Active confirmed Problem Non-pressure chronic ulcer of other part of left foot limited to breakdown of skin (L97.521) Active confirmed Problem Acquired hammer toe of right foot (3017463014950601) Other hammer toe(s) (acquired), right foot (M20.41) Active confirmed Problem Acquired hammer toe of left foot (0935711297942914) Other hammer toe(s) (acquired), left foot (M20.42) Active confirmed Problem Neuropathy (582177935) Neuropathy (G62.9) Active confirmed Problem Unsteady gait (66909132) Unsteady gait (R26.81) Active confirmed Plan Of Treatment Pending Test Test Name Order Date [id number] NAIL, 6 OR MORE 04/25/2022 [id number] NAIL, 6 OR MORE 04/11/2023 19254- Debride <25 sq cm 04/25/2022 68457- Debride <25 sq cm 04/11/2023 Insurance Providers Payer Name Payer Address Payer Phone Subscriber Number Group Number Insured Name Patient Relationship to Insured Coverage Start Date Coverage End Date Medicare [employer] [address] [place] [address] [id number] Robert Flores Self - patient is the insured [employer] [address] [place] [address] [phone] [id number] Robert Flores Self - patient is the [...]
--- OUTSIDE RECORDS SUMMARY | 2025-07-18 12:18 | XMS_ITS | Patient Health Record ---
Author Organization Brennen Chavira MD Address [address] [place], [place] [id number] Care Team Providers Care Cook Soup Name Role Phone Brennen Chavira Primary Care Provider [phone] Allergies Allergen (clinical drug ingredient) Drug/Non Drug Allergy documented on EMR Reaction Allergy Type Onset Date Status OxyCODONE ER vomiting Drug Allergy Acti ve Vicodin vomiting Drug Allergy Active oxycodone OxyContin vomiting Drug Allergy Active lisinopril Lisinopril cough Drug Allergy Activ e Results Component Value Reference Range Notes Liver Panel Reviewed date:10/07/2024 12:51:29 PM Interpretation: Performing Lab:[facility], [address] [place] [phone] Notes/Report: Bilirubin Total 0.6 0.0-1.0 mg/dL Bilirubin Direct 0.2 0.0-0.5 mg/dL Aspartate Amino Transferase 31 5-37 U/L Alanine Aminotransferase 34 0-40 U/L Total Protein 6.6 6.5-8.0 g/dL Albumin Level 3.9 3.5-5.0 g/dL Alkaline Phosphatase 117 39-117 U/L Lipid Panel with Reflex Reviewed date:10/08/2024 12:37:25 PM Interpretation: Performing Lab:[facility], [address] [place] [phone] Notes/Report: Triglycerides 86 <150 mg/dL Desirable Triglyceride: [...] low results in patients with liver disease. Complete Blood Count Auto Di ff Reviewed date:03/30/2025 11:56:09 AM Interpretation: Performing Lab:[facility], [address] [place] [phone] Notes/Report: White Blood Count 8.7 4.8-10.8 X10*3/uL [...] NRBC Abs Auto 0.000 0.0-0.012 X10*3/uL Comprehensive [place]. Panel Fa st Reviewed date:03/30/2025 11:55:45 AM Interpretation: Performing Lab:[facility], [address] [place] [phone] Notes/Report: Sodium 143 135-145 mmol/L Potassium 4.2 [...] Panel Reviewed date:03/28/2025 04:16:38 PM Interpretation: Performing Lab:[facility], [address] [place] [phone] Notes/Report: Triglycerides 97 <150 mg/dL Desirable Triglyceride: [...] (Free>4and<10) Reviewed date:03/28/2025 04:16:00 PM Interpretation: Performing Lab:[facility], [address] [place] [phone] Notes/Report: PSA,Total (Free>4and<10) 0.68 0.00-4.00 ng/mL A [...] t Reviewed date:03/30/2025 11:56:32 AM Interpretation: Performing Lab:[facility], [address] [place] [phone] Notes/Report: Urine, Clean Catch Color Urine Yellow Appearance Urine Clear PH 6.0 5.0-9.0 Glucose Urine UA Negative Negative mg/dL Urine Blood Negative Negative Specific [place] - Urine 1.020 1.005-1.025 Urine Protein Negative Neg-Trace mg/dL Urine Ketones Negative Negative mg/dL Nitrite Urine Negative Negative Leukocyte Esterase Urine Small (1+) Negative RBC Urine 0-2 0-2 /HPF WBC Urine 0-5 0-5 /HPF Squamous Epithelial Cell Urine 3-5 0-2 /HPF Bacteria Urine None Seen None Seen Hyaline Casts Urine 0-2 0-2 /LPF Occult Blood, Stool, Guaiac Reviewed date:04/08/2025 03:07:47 PM Interpretation:Negative Performing Lab: Notes/Report: Negative Occult Blood, Stool, Guaiac Neg Hold Gold Reviewed date:10/07/2024 12:52:06 PM Interpretation: Performing Lab:[facility], [address] [place] [phone] Notes/Report: Mack Gold See Note Specimen held untested for 24 hours; Call to request Chemistry testing. US renal BI Reviewed date:11/08/2024 05:26:01 PM Interpretation: Performing Lab: Notes/Report: [facility] [address] [place] [address] [place] [address] Ultrasound Report Signed Patient: Robert Garner MR#: [id number] 281 : 1935 Acct:[id number] Age/Sex: 89 / M ADM Date: 11/06/24 Loc: .[facility]GCX Attending Dr: West Rey MD Ordering Physician: West Rey MD Date of Service: 11/06/24 Procedure(s): US renal BI Accession Number(s): [id number] cc: West Rey MD; Brennen Chavira MD [...] in OV> 11/07/241813 DD/ 13 TD/TT: 11/07/241813 Accounting Reconciliation Clerk: [facility] [address] [place] [address] [place] [address] Ultrasound Report Signed Patient: Guy Garner MR#: [id number] 281 : 1935 Acct:[id number] Age/Sex: 89 / M ADM Date: 11/06/24 [facility]: Cynthia Siddiqi MD Ordering Physician: West Rey MD Date of Service: 11/06/24 Procedure(s): US lucho al BI Accession Number(s): [id number] cc: West Rey MD; Brennen Chavira MD CLINICAL HISTORY: N2 0.0 - Calculus of kidney US Renal Comparison: None Findings: Right nephrectomy by history. Left kidney normal s ize and echotexture, 14.3 cm length. There are [...] in OV> 11/07/241813 DD/ 13 TD/TT: 11/07/241813 Accounting Reconciliation Clerk: Urine Culture Reviewed date:03/30/2025 11:47:42 AM Interpretation: Performing Lab:[facility], [address] [place] [phone] Notes/Report: Urine Culture Report Result Urine Culture > 100,000 cfu/ml Urine Culture Mixed bacterial dede a characteristic of Urine Culture urogenital contamination. Complete Blood Count Auto Di ff Reviewed date:04/22/2025 05:35:24 PM Interpretation: Performing Lab:[facility], [address] [place] [phone] Notes/Report: White Blood Count 11.8 4.8-10.8 X10*3/uL Red Blood Count 5.12 4.60-5.80 X10*6/uL Hemoglobin 14.6 14.0-18.0 g/dl Hematocrit 42.6 42.0-52.0 % Mean Corpuscular Volume 83.2 80.0-98.0 fL Mean Corpuscular Hemoglobin 28.5 27.0-33.0 pg Mean Corpuscular HGB Conc 34.3 31.0-36.0 g/dl Red Cell Distribution Width 14.4 11.0-16.0 % Platelet Count 177 160-400 X10*3/uL Mean Platelet Volume 10.2 9.4-12.4 fL Neutrophils Percent Auto 82.9 45-73 % Imm Gran Pct Auto 0.4 0.0-0.4 % Lymphocytes Percent Auto 9.2 20-40 % Monocytes Percent Auto 6.9 2-11 % Eosinophils Percent Auto 0.3 0-4 % Basophils Percent Auto 0.3 0-2 % NRBC Pct Auto 0.0 0.0-0.2 /100WBC Neutrophils Absolute Auto 9.8 2.0-8.3 x10*3/u L Imm Gran Abs Auto 0.05 0.00-0.03 X10*3/uL Lymphocytes Absolute Auto 1.1 1.2-4.9 X10*3/u L Monocytes Absolute Auto 0.8 0.1-1.2 X10*3/uL Eosinophils Absolute Auto 0.0 0.0-0.4 X10*3/u L Basophils Absolute Auto 0.0 0.0-0.2 X10*3/uL NRBC Abs Auto 0.000 0.0-0.012 X10*3/uL Prothrombin Time INR Reviewed date:04/22/2025 05:35:32 PM Interpretation: Performing Lab:[facility], [address] [place] [phone] Notes/Report: Prothrombin Time 13.2 10.9-12.4 SEC INTERNATIONAL NORM RATIO 1.2 0.9-1.1 INTERNATIONAL NORMALIZED RATIO (INR) REFERENCE RANGES Reference Range For patients not on anticoagulant therapy: 0.9 - 1.1 INR ranges for oral anticoagulant therapy: For prevention and treatment of venous thrombosis and pulmonary embolism: 2.0 - 3.0 For acute myocardial infarction with aspirin therapy: 2.0 - 3.0 For acute myocardial infarction without aspirin therapy: 3.0 - 4.0 For patients with mechanical prosthetic heart valves: 2.5 - 3.5 Partial Thromboplastin Time Reviewed date:04/22/2025 05:35:40 PM Interpretation: Performing Lab:[facility], [address] [place] [phone] Notes/Report: Partial Thromboplastin Time 38.5 26.0-36.8 SEC For information regarding the monitoring of direct thrombin inhibitors, please refer to Pharmacy. Comprehensive Met. Panel Reviewed date:04/22/2025 05:22:20 PM Interpretation: Performing Lab:[facility], [address] [place] [phone] Notes/Report: Sodium 139 135-145 mmol/L Potassium 4.3 3.3-5.1 mmol/L Slight Hemolysis.Interpret result with caution. Chloride 109 96-108 mmol/L Carbon Dioxide 22 22-29 mmol/L Anion Gap 12 12-20 Blood Urea Nitrogen 20 9-16 mg/dL Creatinine 1.01 0.5-1.4 mg/dL Creatinine Clr Calc Pharmacy 61.5 eGFR (calculated from the MDRD study equation) and eCrCl (calculated from the Cockcroft-Gault equation) are based on different parameters and may not yield comparable results. If eCrCl result is absurd, please check patient's height/weight. Estimated Glomerular Filt Rate > 60 Chronic Kidney Disease: Estimated GFR < 60 mL/min/1.73m2 Severe Kidney Disease: Estimated GFR < 15 mL/min/1.73m2 Glucose Random 117 60-115 mg/dL Calcium 9.5 8.4-10.2 mg/dL Bilirubin Total 1.0 0.0-1.0 mg/dL Aspartate Amino Transferase 39 5-37 U/L Slight Hemolysis.Interpret result with caution. Alanine Aminotransferase 26 0-40 U/L Total Protein 7.1 6.5-8.0 g/dL Albumin Level 4.2 3.5-5.0 g/dL Alkaline Phosphatase 131 39-117 U/L Type and Screen Reviewed date:04/23/2025 07:41:41 PM Interpretation: Performing Lab:[facility], [address] [place] [phone] Notes/Report: Blood Type OP Antibody Screen NEGATIVE CT cervical spine wo con Reviewed date:04/22/2025 05:33:14 PM Interpretation: Performing Lab: Notes/Report: [address] [address] [address] Scan Report Signed Patient: Robert Garner MR#: [id number] 281 : 1935 Acct:[id number] Age/Sex: 89 / M ADM Date: 04/22/25 Loc: HO.ED Attending Dr: Ordering Physician: Tk Chairez Date of Service: 04/22/25 Procedure(s): CT cervical spine wo IV con Accession Number(s): [id number] cc: Tk Chairez; Brennen Chavira MD Report Number: [id number]: Total DLP = 1354.00 mGy-cm EXAMINATION: CT CERVICAL SPINE WITHOUT CONTRAST CLINICAL INFORMATION: Trauma, fall DLP: 1354 mGY*cm COMPARISON: None available. TECHNIQUE: Axial CT was performed from the skull base through upper T3. No contrast This CT examination was performed using dose optimization techniques as appropriate, variously including the following: *Automated exposure control *Adjustment of mA and/or kV according to patient size (this includes techniques or standardized protocols for targeted exams where dose is matched to indication/reason for exam; i.e. extremities or head) *Use of iterative reconstruction technique FINDINGS: There are severe degenerative changes involving the C1-C2 articulation. Posterior C1 ring articulates with the C2 spinous process. There is also amorphous calcification in the soft tissues extending from clivus to posterior C2 body and and ligamentum flavum at C2. There is sclerosis and degenerative cystic change in the dense. Degenerative disc disease is most advanced at C5-6 and C6-7 with moderate to severe loss of disc height, endplate irregularity, osteophytes, and faint calcification within the disc. There is likely spinal stenosis, most pronounced at C6-7. There is also moderate to severe facet arthropathy with sclerosis and osteophytes. This is most advanced on the right at C3-4 and C4-5. Bony foraminal narrowing is most advanced at C3-4 on the right No fractures are evident. Soft tissues are grossly unremarkable. 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 No acute fracture. Fleischner guidelines were followed. Electronically signed by: Rodrigue Kitchen MD 04/22/2025 12:49 PM EDT RP Dictated By: Rodrigue Kitchen MD Signed By: <Electronically signed by Rodrigue Kitchen MD in OV> 04/22/25 1249 DD/ 1206 TD/TT: 04/22/25 1233 Accounting Reconciliation Clerk: [address] [address] [address] Scan Report Signed Patient: Guy Garner MR#: [id number] 281 : 1935 Acct:[id number] Age/Sex: 89 / M ADM Date: 04/22/25 Loc: HO.ED Attending Dr: Ordering Physician: Tk Chairez Date of Service: 04/22/25 Procedure(s): CT cervical spine wo IV con Accession Number(s): [id number] cc: Tk Chairez; Brennen Chavira MD Report Number: [id number]: Total DLP = 1354.00 mGy-cm EXAMINATION: CT CERVICAL SPINE WITHOUT CONTRAST CLINICAL INFORMATION: Trauma, fall DLP: 1354 mGY*cm COMPARISON: None available. TECHNIQUE: Axial CT was perform ed from the skull base through upper T3. No contrast This CT examination was performed using dose optimization techniques as appropriate, various ly including the following: *Automated exposure control *Adjustment of mA and/or kV according to patient size (this includes techniques or standardized protocols for targeted exams where dose is matched to indication/reason for exam; i.e. extremities or head) *Use of iterative reconstruction technique FINDINGS: There are severe degenerative changes involving the C1-C2 articulation. Posterior C1 ring articulates with the C2 spinous process. There is also amorph ous calcification in the soft tissues extending from clivus to posterior C2 body and and ligamentum flavum at C2. There is sclerosis and degenerative cystic change in the dense. Degenerative disc disease is most advanced at C5-6 and C6-7 with moderate to severe l oss of disc height, endplate irregularity, osteophytes, and kitty nt calcification within the disc. There is likely spinal stenosis, mos t pronounced at C6-7. There is also moderate to severe facet arthropathy with sclerosis and osteophytes. This is most advanced on the righ t at C3-4 and C4-5. Bony foraminal narrowing is most advanced at C3-4 on the right No fractures are evident. Soft tissues are grossly unremarkable. CT/CT cervical spine wo IV con IMPRESSION: Multilevel degenerat payton disc disease likely secondary to CPPD arthropathy with spi nal stenosis and foraminal narrowing. No acute fracture. Fleischner guideline s were followed. Electronically michael d by: Rodrigue Kitchen MD 04/22/2025 12:49 PM EDT RP Dictated By: Rodrigue Kitchen MD Signed By: <Electronically signed by Rodrigue Kitchen MD in OV> 04/22/25 1249 DD/ 1206 TD/TT: 04/22/25 1233 Accounting Reconciliation Clerk: CT head/brain wo con Reviewed date:04/24/2025 11:02:25 AM Interpretation: Performing Lab: Notes/Report: [address] [address] [address] Scan Report Signed Patient: Robert Garner MR#: [id number] 281 : 1935 Acct:[id number] Age/Sex: 89 / M ADM Date: 04/22/25 Loc: HO.ED Attending Dr: Ordering Physician: Tk Chairez Date of Service: 04/22/25 Procedure(s): CT head/brain wo IV con Accession Number(s): [id number] cc: Tk Chairez; Brennen Chavira MD Report Number: [id number]: Total DLP = 0.00 mGy-cm EXAMINATION: CT HEAD WITHOUT CONTRAST CLINICAL INFORMATION: Trauma, fell COMPARISON: None available. TECHNIQUE: Contiguous axial imaging was performed from the skull base to vertex without intravenous administration of contrast. This CT examination was performed using dose optimization techniques as appropriate, variously including the following: *Automated exposure control *Adjustment of mA and/or kV according to patient size (this includes techniques or standardized protocols for targeted exams where dose is matched to indication/reason for exam; i.e. extremities or head) *Use of iterative reconstruction technique DLP: 1354 mGY*cm FINDINGS: There is no acute ischemic change. Moderate periventricular and deep white matter hypodensities are present, typically associated with chronic small vessel ischemic disease. There is no intracranial hemorrhage. There is no mass-effect or midline shift. There is mild generalized atrophy. Ventricles are mildly prominent given the degree of atrophy. Focal calcification is present in the right globe, medial to the iris/lense. Mild mucosal thickening is present in the maxillary sinuses and anterior ethmoid air cells. There is also opacification of the left greater than right mastoid air cells. There are no bony abnormalities. CT/CT head/brain wo IV con IMPRESSION: No acute intracranial abnormality. 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 Ventricles are mildly prominent given the degree of atrophy raising question of normal pressure hydrocephalus. Mild chronic mucosal thickening in the maxillary sinuses and ethmoid air cells. Bilateral mastoid air cell effusions. Electronically signed by: Rodrigue Kitchen MD 04/22/2025 12:42 PM EDT Dictated By: Rodrigue Kitchen MD Signed By: <Electronically signed by Rodrigue Kitchen MD in OV> 04/22/25 1242 DD/ 1106 TD/TT: 04/22/25 1233 Accounting Reconciliation Clerk: [place] [address] CT Scan Report Signed Patient: Guy Garner MR#: [id number] 281 : 1935 Acct:[id number] Age/Sex: 89 / M ADM Date: 04/22/25 Loc: HO.ED Attending Dr: Ordering Physician: Tk Chairez Date of Service: 04/22/25 Procedure(s): CT head/brain wo IV con Accession Number(s): [id number] cc: Tk Chairez; Brennen Chavira MD Report Number: [id number]: Total DLP = 0.00 mGy-cm EXAMINATION: CT HEAD WITHOUT CONTRAST CLINICAL INFORMATION: Trauma, fell COMPARISON: None available. TECHNIQUE: Contiguous axial imaging was performed from the skull base to vertex without intravenous administration of contrast. This CT examination was performed using dose optimization techniques as appropriate, various ly including the following: *Automated exposure control *Adjustment of mA and/or kV according to patient size (this includes techniques or standardized protocols for targeted exams where dose is matched to indication/reason for exam; i.e. extremities or head) *Use of iterative reconstruction technique DLP: 1354 mGY*cm FINDINGS: There is no acute ischemic change. Moderate periventricular and deep white matter hypodensities are present, typically associated with chronic small vessel ischemic disease. There is no intracranial hemorrhage. There is no mass-eff ect or midline shift. There is mild generalized atrophy. Ventricles are mildl y prominent given the degree of atrophy. Focal calcification is present in the right globe, medial to the iris/lense. Mild mucosal thicken ing is present in the maxillary sinuses and anterior ethmoid air cells. There is also opacification of the left greater than right mastoid air cells. There are no bony abnormalities. CT/CT head/brain wo IV con IMPRESSION: No acute intracrania l abnormality. 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 Ventricles are mildly prominent giv en the degree of atrophy raising question of normal pressure hydrocephalus. Mild chronic mucosal thickening in the maxillary sinuses and ethmoid air cells. Bilateral mastoid air cell effusions. Electronically michael d by: Rodriuge Kitchen MD 04/22/2025 12:42 PM EDT Dictated By: Rodrigue Kitchen MD Signed By: <Electronically signed by Rodrigue Kitchen MD in OV> 04/22/25 1242 DD/ 1106 TD/TT: 04/22/25 1233 Accounting Reconciliation Clerk: XR hip LT w PEL1V Reviewed date:04/22/2025 03:01:15 PM Interpretation: Performing Lab: Notes/Report: [address] [address] XRay Report Signed Patient: Robert Garner MR#: [id number] 281 : 1935 Acct:[id number] Age/Sex: 89 / M ADM Date: 04/22/25 Loc: HO.ED Attending Dr: Ordering Physician: Tk Chairez Date of Service: 04/22/25 Procedure(s): XR hip LT w PEL1V Accession Number(s): [id number] cc: Tk Chairez; Brennen Chavira MD EXAMINATION: XR HIP, LEFT CLINICAL INFORMATION: fall COMPARISON: None available. TECHNIQUE: AP and cross lateral views of the left hip. FINDINGS: No acute cortical disruption or gross malalignment. No lytic or blastic lesions. Degenerative changes in the stents as well as and the left sacroiliac joint as well as the coxofemoral joint. Vascular calcifications. 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 Atherosclerosis disease, peripheral. Electronically signed by: Marcelino Soliz MD 04/22/2025 02:46 PM EDT RP Dictated By: Marcelino Jeffries MD Signed By: <Electronically signed by Marcelino Muñoz MD in OV> 04/22/25 1446 DD/ 1318 TD/TT: 04/22/25 1443 Accounting Reconciliation Clerk: [place] [address] XRay Report Signed Patient: Guy Garner MR#: [id number] 281 : 1935 Acct:[id number] Age/Sex: 89 / M ADM Date: 04/22/25 Loc: HO.ED Attending Dr: Ordering Physician: Tk Chairez Date of Service: 04/22/25 Procedure(s): XR hip LT w PEL1V Accession Number(s): [id number] cc: Tk Chairez; Brennen Chavira MD EXAMINATION: XR HIP, LEFT CLINICAL INFORMATION: fall COMPARISON: None available. TECHNIQUE: AP and cross lateral views of the left hip. FINDINGS: No acute cortical disruption or gross malalignment. No lytic or blastic lesions. Degenerativ e changes in the stents as well as and the left sacroiliac joint as well as the coxofemoral joint. Vascular calcifications. 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 Atherosclerosis disease, peripheral. Electronically michael d by: Marcelino Soliz MD 04/22/2025 02:46 PM EDT RP Dictated By: Marcelino Enriquez MD Signed By: <Electronically signed by Marcelino Muñoz MD in OV> 04/22/25 1446 DD/ 1318 TD/TT: 04/22/25 1443 Accounting Reconciliation Clerk: XR tibia fibula LT 2V Reviewed date:04/22/2025 03:01:36 PM Interpretation: Performing Lab: Notes/Report: [address] [address] XRay Report Signed Patient: Robert Garner MR#: [id number] 281 : 1935 Acct:[id number] Age/Sex: 89 / M ADM Date: 04/22/25 Loc: .ED Attending Dr: Ordering Physician: Tk Chairez Date of Service: 04/22/25 Procedure(s): XR tibia fibula LT 2V Accession Number(s): [id number] cc: Tk Chairez; Brennen Chavira MD Exam: 2 view lower leg, left TECHNIQUE: AP and lateral x-rays of the left lower leg. INDICATION: Fall, femoral fracture. Prior: None FINDINGS: Total knee arthroplasty is noted. 2 surgical carley are present in the soft tissues medial to the calf region. There is moderate fatty replacement of the lower leg musculature. Moderate vascular calcifications are also present. Degenerative changes are present in the midfoot with degenerative cysts and marginal osteophytes. No fractures are identified in the tibia and fibula. XR/XR tibia fibula LT 2V IMPRESSION: No tibia and fibula fracture. Electronically signed by: Rodrigue Kitchen MD 04/22/2025 02:53 PM EDT RP Dictated By: Rodrigue Kitchen MD Signed By: <Electronically signed by Rodrigue Kitchen MD in OV> 04/22/25 1453 DD/ 1309 TD/TT: 04/22/25 1443 Accounting Reconciliation Clerk: [address] [address] XRay Report Signed Patient: Guy Garner MR#: [id number] 281 : 1935 Acct:[id number] Age/Sex: 89 / M ADM Date: 04/22/25 Loc: HO.ED Attending Dr: Ordering Physician: Tk Chairez Date of Service: 04/22/25 Procedure(s): XR tib ia fibula LT 2V Accession Number(s): [id number] cc: Tk Chairez; Brennen Chavira MD Exam: 2 view lower l eg, left TECHNIQUE: AP and lateral x-rays of the left lower leg. INDICATION: Fall, femoral fracture. Prior: None FINDINGS: Total knee arthropla sty is noted. 2 surgical carley a re present in the soft tissues medial to the calf region. There is moderate fa tty replacement of the lower leg musculature. Moderate vascular calcifications are also present. Degenerative changes are present in the midfoot with degenerative cysts and marginal osteophytes. No fractures are identified in the tibia and fibula. XR/XR tibia fibula LT 2V IMPRESSION: No tibia and fibula fracture. Electronically michael d by: Rodrigue Kitchen MD 04/22/2025 02:53 PM EDT Dictated By: Rodrigue Kitchen MD Signed By: <Electronically signed by Rodrigue Kitchen MD in OV> 04/22/25 1453 DD/ 1309 TD/TT: 04/22/25 1443 Accounting Reconciliation Clerk: XR lumbar spine 2-3V Reviewed date:04/22/2025 05:35:06 PM Interpretation: Performing Lab: Notes/Report: [address] [address] XRay Report Signed Patient: Robert Garner MR#: [id number] 281 : 1935 Acct:[id number] Age/Sex: 89 / M ADM Date: 04/22/25 Loc: HO.ED Attending Dr: Ordering Physician: Tk Chairez Date of Service: 04/22/25 Procedure(s): XR lumbar spine 2-3V Accession Number(s): [id number] cc: Tk Chairez; Brennen Chavira MD EXAMINATION: XR LUMBOSACRAL SPINE CLINICAL INFORMATION: fall COMPARISON: May 05, 2022 TECHNIQUE: AP and cross lateral views FINDINGS: Multilevel marginal osteophyte formation and endplate sclerosis and decreased intervertebral disc height. Vacuum phenomenon at L5-S1. Grade 1 anterolisthesis L4-5. No lytic or blastic lesions. S-shaped curvature of the lumbar spine. Degenerative changes in the hips. Vascular complications, aorta and iliac arteries. XR/XR lumbar spine 2-3V IMPRESSION: Multilevel thoracolumbar spondylosis. Grade 1 anterolisthesis L4-5. Atherosclerosis disease. Electronically signed by: Marcelino Soliz MD 04/22/2025 02:48 PM EDT RP Dictated By: Marcelino Jeffries MD Signed By: <Electronically signed by Marcelino Muñoz MD in OV> 04/22/25 1448 DD/ 1430 TD/TT: 04/22/25 1443 Accounting Reconciliation Clerk: [place] [address] XRay Report Signed Patient: Guy Garner MR#: [id number] 281 : 1935 Acct:[id number] Age/Sex: 89 / M ADM Date: 04/22/25 Loc: HO.ED Attending Dr: Ordering Physician: Tk Chairez Date of Service: 04/22/25 Procedure(s): XR lum bar spine 2-3V Accession Number(s): [id number] cc: Tk Chairez; Brennen Chavira MD EXAMINATION: XR LUMBOSACRAL SPINE CLINICAL INFORMATION: fall COMPARISON: May 05, 2022 TECHNIQUE: AP and cross lateral views FINDINGS: Multilevel marginal osteophyte formation and endplate sclerosis and decreased intervertebral disc height. Vacuum phenomenon at L5-S1. Grade 1 anterolisthesis L4-5. No lytic or blastic lesions. S-shaped curvature of the lumbar spine. Degenerative changes in the hips. Vascular complications, aorta and iliac arteries. XR/XR lumbar spine 2-3V IMPRESSION: Multilevel thoracolumbar spondylosis. Grade 1 anterolisthe sis L4-5. Atherosclerosis disease. Electronically michael d by: Marcelino Soliz MD 04/22/2025 02:48 PM EDT RP Dictated By: Marcelino Enriquez MD Signed By: <Electronically signed by Marcelino Muñoz MD in OV> 04/22/25 1448 DD/ 1430 TD/TT: 04/22/25 1443 Accounting Reconciliation Clerk: XR knee LT 2V Reviewed date:04/22/2025 05:34:40 PM Interpretation: Performing Lab: Notes/Report: [address] [address] XRay Report Signed Patient: Robert Garner MR#: [id number] 281 : 1935 Acct:[id number] Age/Sex: 89 / M ADM Date: 04/22/25 Loc: .ED Attending Dr: Ordering Physician: Tk Chairez Date of Service: 04/22/25 Procedure(s): XR knee LT 2V Accession Number(s): [id number] cc: Tk Chairez; Brennen Chavira MD EXAMINATION: XR KNEE, LEFT CLINICAL INFORMATION: fall , fracture COMPARISON: None available. TECHNIQUE: AP and lateral x-rays of the left knee. FINDINGS: 3 compartment uteroplasty has been performed. There is a fracture just cephalad to the femoral component extending from the anterior margin of the femoral component and extending obliquely through the distal diaphysis of the femur. There is there is 30% posterior offset of the femoral component relative to the femoral diaphysis. There is mild lateral offset distal to the fracture. Moderate vascular calcifications are present in the femoral artery and popliteal artery. There is a joint effusion. XR/XR knee LT 2V IMPRESSION: Periprosthetic fracture just cephalad to the femoral component of a left knee arthroplasty. Fracture line extends to the anterior superior margin of the femoral component. Electronically signed by: Rodrigue Kitchen MD 04/22/2025 02:51 PM EDT RP Dictated By: Rodrigue Kitchen MD Signed By: <Electronically signed by Rodrigue Kitchen MD in OV> 04/22/25 1451 DD/ 1308 TD/TT: 04/22/25 1443 Accounting Reconciliation Clerk: [place] [address] XRay Report Signed Patient: Guy Garner MR#: [id number] 281 : 1935 Acct:[id number] Age/Sex: 89 / M ADM Date: 04/22/25 Loc: HO.ED Attending Dr: Ordering Physician: Tk Chairez Date of Service: 04/22/25 Procedure(s): XR kne e LT 2V Accession Number(s): [id number] cc: Tk Chairez; Brennen Chavira MD EXAMINATION: XR KNEE, LEFT CLINICAL INFORMATION: fall , fracture COMPARISON: None available. TECHNIQUE: AP and lateral x-ray s of the left knee. FINDINGS: 3 compartment uteroplasty has been performed. There is a fracture just cephalad to the femoral component extending from the anterior margin of the femoral component and extending obliquely through th e distal diaphysis of the femur. There is there is 30 % posterior offset of the femoral component relative to the femo ral diaphysis. There is mild latera l offset distal to the fracture. Moderate vascular calcifications are present in the femoral artery and popliteal artery. There is a joint effusion. XR/XR knee LT 2V IMPRESSION: Periprosthetic fract ure just cephalad to the femoral component of a left knee arthroplas ty. Fracture line extends to the anterior superior margin of the femora l component. Electronically michael d by: Rodrigue Kitchen MD 04/22/2025 02:51 PM EDT RP Dictated By: Rodrigue Kitchen MD Signed By: <Electronically signed by Rodrigue Kitchen MD in OV> 04/22/25 1451 DD/ 1308 TD/TT: 04/22/25 1443 Accounting Reconciliation Clerk: Complete Blood Count no Diff Reviewed date:04/23/2025 07:43:34 PM Interpretation: Performing Lab:[facility], [address] [place] [id number] Notes/Report: White Blood Count 14.7 4.8-10.8 X10*3/uL Red Blood Count 4.98 4.60-5.80 X10*6/uL Hemoglobin 14.2 14.0-18.0 g/dl Hematocrit 42.2 42.0-52.0 % Mean Corpuscular Volume 84.7 80.0-98.0 fL Mean Corpuscular Hemoglobin 28.5 27.0-33.0 pg Mean Corpuscular HGB Conc 33.6 31.0-36.0 g/dl Red Cell Distribution Width 14.6 11.0-16.0 % Platelet Count 175 160-400 X10*3/uL Mean Platelet Volume 10.4 9.4-12.4 fL NRBC Pct Auto 0.0 0.0-0.2 /100WBC NRBC Abs Auto 0.000 0.0-0.012 X10*3/uL Basic Metabolic Panel Reviewed date:04/23/2025 07:43:09 PM Interpretation: Performing Lab:[facility], [address] [place] [id number] Notes/Report: Sodium 140 135-145 mmol/L Potassium 4.0 3.3-5.1 mmol/L Chloride 107 96-108 mmol/L Carbon Dioxide 25 22-29 mmol/L Anion Gap 12 12-20 Blood Urea Nitrogen 18 9-16 mg/dL Creatinine 0.95 0.5-1.4 mg/dL Creatinine Clr Calc Pharmacy 65.9 eGFR (calculated from the MDRD study equation) and eCrCl (calculated from the Cockcroft-Gault equation) are based on different parameters and may not yield comparable results. If eCrCl result is absurd, please check patient's height/weight. Estimated Glomerular Filt Rate > 60 Chronic Kidney Disease: Estimated GFR < 60 mL/min/1.73m2 Severe Kidney Disease: Estimated GFR < 15 mL/min/1.73m2 Glucose Random 138 60-115 mg/dL Calcium 9.1 8.4-10.2 mg/dL FL guidance in OR Reviewed date:04/24/2025 12:53:22 PM Interpretation: Performing Lab: Notes/Report: [address] [address] Fluoroscopy Report Signed Patient: Robert Garner MR#: [id number] 281 : 1935 Acct:[id number] Age/Sex: 89 / M ADM Date: 04/22/25 Loc: HO.S3 352-[address]: Valorie Nava MD Ordering Physician: Jesus Perez MD Date of Service: 04/23/25 Procedure(s): FL guidance in OR Accession Number(s): [id number] cc: Brennen Chavira MD; Jesus Perez MD EXAMINATION: FL GUIDANCE ONLY HISTORY: Left distal femur fracture COMPARISON: Correlation is made with plain films of the left knee dated 04/22/2025. TECHNIQUE: Fluoroscopy time: 0.5 minutes. Cumulative Dose: 3.61 mGy. DAP: 0.0620 mGym2 Images: 7. FINDINGS: Fluoroscopic spot films of the left femur demonstrate internal fixation of the previously seen fracture of the distal femoral metaphysis with a sideplate and multiple orthopedic screws. Again seen is a total knee prosthesis. FL/FL guidance in OR IMPRESSION: Fluoroscopy during procedure. Please see procedure report for additional information. Electronically signed by: Quan Kramer MD 04/24/2025 07:03 AM EDT Dictated By: Quan Kramer MD Signed By: <Electronically signed by Quan Kramer MD in OV> 04/24/25 0703 DD/ 1615 TD/TT: 04/23/25 1745 Accounting Reconciliation Clerk: [address] [address] Fluoroscopy Report Signed Patient: Guy Garner MR#: [id number] 281 : 1935 Acct:[id number] Age/Sex: 89 / M ADM Date: 04/22/25 Loc: HO.S3 352-[address]: Valorie Nava MD Ordering Physician: Jesus Perez MD Date of Service: 04/23/25 Procedure(s): FL guidance in OR Accession Number(s): [id number] cc: Brennen Chavira MD; Jesus Perez MD EXAMINATION: FL GUIDANCE ONLY HISTORY: Left distal femur fracture COMPARISON: Correlation is made with plain films of the left knee dated 04/22/2025. TECHNIQUE: Fluoroscopy time: 0. 5 minutes. Cumulative Dose: 3.6 1 mGy. DAP: 0.0620 mGym2 Images: 7. FINDINGS: Fluoroscopic spot fi lms of the left femur demonstrate internal fixation of the previously se en fracture of the distal femoral metaphysis with a sideplate and multip le orthopedic screws. Again seen is a total knee prosthesis. FL/FL guidance in OR IMPRESSION: Fluoroscopy during procedure. Please see procedure report for additional information. Electronically michael d by: Quan Kramer MD 04/24/2025 07:03 AM EDT RP Dictated By: Quan Kramer MD Signed By: <Electronically signed by Quan Kramer MD in OV> 04/24/25 0703 DD/ 1615 TD/TT: 04/23/25 1745 Accounting Reconciliation Clerk: Complete Blood Count Auto Di ff Reviewed date:04/25/2025 12:59:27 PM Interpretation: Performing Lab:[facility], [address] [place] [phone] Notes/Report: White Blood Count 13.8 4.8-10.8 X10*3/uL Red Blood Count 4.66 4.60-5.80 X10*6/uL Hemoglobin 13.4 14.0-18.0 g/dl Hematocrit 39.8 42.0-52.0 % Mean Corpuscular Volume 85.4 80.0-98.0 fL Mean Corpuscular Hemoglobin 28.8 27.0-33.0 pg Mean Corpuscular HGB Conc 33.7 31.0-36.0 g/dl Red Cell Distribution Width 14.4 11.0-16.0 % Platelet Count 157 160-400 X10*3/uL Mean Platelet Volume 10.5 9.4-12.4 fL Neutrophils Percent Auto 83.7 45-73 % Imm Gran Pct Auto 0.4 0.0-0.4 % Lymphocytes Percent Auto 7.1 20-40 % Monocytes Percent Auto 8.7 2-11 % Eosinophils Percent Auto 0.0 0-4 % Basophils Percent Auto 0.1 0-2 % NRBC Pct Auto 0.0 0.0-0.2 /100WBC Neutrophils Absolute Auto 11.5 2.0-8.3 x10*3/u L Imm Gran Abs Auto 0.06 0.00-0.03 X10*3/uL Lymphocytes Absolute Auto 1.0 1.2-4.9 X10*3/u L Monocytes Absolute Auto 1.2 0.1-1.2 X10*3/uL Eosinophils Absolute Auto 0.0 0.0-0.4 X10*3/u L Basophils Absolute Auto 0.0 0.0-0.2 X10*3/uL NRBC Abs Auto 0.000 0.0-0.012 X10*3/uL Basic Metabolic Panel Reviewed date:04/25/2025 12:48:05 PM Interpretation: Performing Lab:[facility], [address] [place] [phone] Notes/Report: Sodium 137 135-145 mmol/L Potassium 4.0 3.3-5.1 mmol/L Chloride 105 96-108 mmol/L Carbon Dioxide 22 22-29 mmol/L Anion Gap 14 12-20 Blood Urea Nitrogen 17 9-16 mg/dL Creatinine 0.97 0.5-1.4 mg/dL Creatinine Clr Calc Pharmacy 64.6 eGFR (calculated from the MDRD study equation) and eCrCl (calculated from the Cockcroft-Gault equation) are based on different parameters and may not yield comparable results. If eCrCl result is absurd, please check patient's height/weight. 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 Referred Provider Specialty Physical The rapist General Notes Carmen Jiménez 0 03/21/2025 10:33:08 AM > info refaxed Referral Priority Routine Referral Appointment Date 04/28/2025 Reason eval and treat Diagnosis 1 Reflux esophagitis ( K21.00) Referral Organization Brennen Chavira MD Referring Provider First Name Brennen Referring Provider Last Name Cait Referring Provider Speciality Internal edicine Referred Provider Quan Cardenas Referred Provider Specialty Gastroentero logy General Notes Carmen Jiménez 0 03/28/2025 07:43:09 AM >info faxedTino Annette 03/31/2025 02:38:00 PM > patient is aware of appt, info also mailed to patient, OfeliaTrudyTriny Vance 05/09/2025 12:43:32 PM >OFFICE NOTE RECD Referral Priority Routine Referral Appointment Date 04/22/2025 Reason leg ulcer Diagnosis 1 Leg ulcer, left, bauman ited to breakdown of skin (L97.921) Referral Organization Brennen Chavira MD Referring Provider First Name Brennen Referring Provider Last Name Cait [facility] Referred Provider [facility] Referred Provider Specialty Unknown General Notes Carmen Jiménez 0 04/11/2025 11:14:17 AM >info faxed [phone] Annette 04/22/2025 08:35:50 AM > patient is aware of appt Referral Priority Routine Referral Appointment Date 04/22/2025 Reason SITA Diagnosis 1 SITA (obstructive sle ep apnea) (G47.33) Referral Organization Brennen Chavira MD Referring Provider First Name Brennen Referring Provider Last Name Cait Referring Provider Speciality Internal edicine Referred Provider Melvina Reese Referred Provider Specialty Neurology General Notes Carmen Jiménez 0 04/11/2025 11:14:57 AM > referral info faxedTino Annette 04/22/2025 08:37:42 AM > patient is aware of appt Referral Priority Routine Referral Appointment Date 06/11/2025 Reason for question of norm al pressure hydroecephalus Diagnosis 1 Normal pressure hydr ocephalus (G91.2) Referral Organization Brennen Chavira MD Referring Provider First Name Brennen Referring Provider Last Name Cait Referring Provider Speciality Internal M edicine Referred Provider Nazanin Hwang Referred Provider Specialty Neurology General Notes Carmen Jiménez 0 04/24/2025 10:58:59 AM >info faxed, Carmen Jiménez 05/08/2025 03:27:53 PM > was told to call back next week, appt is being worked on, Carmen Jiménez 05/16/2025 03:24:01 PM > was told to call back next week, Carmen Jiménez 06/05/2025 11:19:35 AM >referral info mailed to patient Referral Priority Routine Referral Appointment Date 08/28/2025 Medications Medication SIG (Take, Route, Frequency, Duration) Notes Start Date End Date Status Omeprazole 20 MG 1 capsule 1/2 to 1 h our before morning meal Orally Once a day for 90 days Active amLODIPine Besylate 10 MG 1 tablet Orall y Once a day Active Isosorbide Mononitrate ER 30 MG 1 tablet in the morning Orally Once a day Active Metoprolol Tartrate 50 MG TAKE ONE TABLE T BY MOUTH TWICE A DAY WITH FOOD Active Atorvastatin Calcium 80 MG TAKE 1 TABLET BY MOUTH EVERY DAY Active Aspir-Low 81 MG 1 tablet Orally [...] was give n the vaccine at the MD DECLINED, PNEUMO Unknown 07/18/2017 Administered pt was given the vaccine at the MD Prevnar 13 IM Intramuscular 04/21/2015 Administered was gi demetra the vaccine at the MD TDaP IM Intramuscular 11/23/2012 Administered was gi demetra the vaccine at the MD. 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 Problem 8231993 Diverticulitis o f large intestine without perforation or abscess without bleeding (K57.32) Active confirmed Problem 74637724 Essential hypert ension (I10) Active confirmed Problem 79143551 Kidney stones (N20.0) Active confirmed Problem Normal pressure hydrocephalus (99617905) 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 Problem 164026132 History of renal cell cancer (Z85.528) Active confirmed Problem 228989693 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) Active confirmed Problem 27530598 Hypercholesterol emia (E78.00) Active confirmed Problem 125920731 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 Problem Obstructive sleep apnea syndrome (55083948) SITA (obstructive sleep apnea) (G47.33) Active confirmed Problem Ulcer of left lower leg (disorder) (14739370712224417) Leg ulcer, left, limited to breakdown of skin (L97.921) Active confirmed Problem Gait difficulty (38133029) Gait difficulty (R26.9) Active confirmed Problem 036556441 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) Active confirmed Problem 89477886071870623 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) Active confirmed Problem Impairment of balance (857816378) Balance problem (R26.89) Active confirmed Vital Signs Blood pressure diastolic 60 mm Hg 07/03/2025 Height 68.5 in 07/03/2025 Blood pressure systolic 102 mm Hg 07/03/2025 Weight 230 lbs 07/03/2025 BMI 34.46 kg/m2 07/03/2025 Encounters Encounter Location Date Provider Diagnosis Brennen Chavira MD [address] [place] [address] [id number] 07/22/2024 Brennen Chavira Encounter for immuni zation Z23 Brennen Chavira MD [address] [place] [address] [id number] 10/07/2024 Brennen Chavira Hypercholesterolemia E78.00 Brennen Chavira MD [address] [place] [address] [id number] 03/28/2025 Brennen Chavira Prostatism N40.0 ; Essential hypertension I10 and Hypercholesterolemia E78.00 Brennen Chavira MD [address] [place] [address] [id number] 10/15/2024 Brennen Chavira Angina concurrent wi th and due to 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 I25.709 ; Hypercholesterolemia E78.00 and Essential hypertension I10 Brennen Chavira MD [address] [place] [address] [id number] 01/27/2025 Brennen Chavira Vertigo R42 Brennen Chavira MD [address] [place] [address] [id number] 03/20/2025 Brennen Chavira Labyrinthine dysfunc tion, 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 and Reflux esophagitis K21.00 Brennen Chavira MD [address] [place] [address] [id number] 04/08/2025 Brennen Chavira Essential hypertensi on I10 ; Hypercholesterolemia E78.00 ; SITA (obstructive sleep apnea) G47.33 ; Leg ulcer, left, limited to breakdown of skin L97.921 ; Prostatism N40.0 ; Reflux esophagitis K21.00 ; Colon cancer screening Z12.11 and Depression screening Z13.31 Brennen Chavira MD [address] [place] [address] [id number] 07/03/2025 Brennen Chavira Reflux esophagitis K 21.00 ; Hypoxemia R09.02 ; Leg edema R60.0 and Encounter for administration of vaccine Z23 Brennne Chavira MD [address] [place] [address] [id number] 04/28/2025 Brennen Chavira MD [address] [place] [address] [id number] 07/08/2025 Brennen Chavira Reflux esophagitis K 21.00 Assessments Encounter Date Diagnosis (ICD Code) Assessment Notes Treatment Notes Treatment Clinical Notes Section Notes 07/22/2024 Encounter for immunization (ICD-10 - Z23) 10/07/2024 Hypercholesterolemia (ICD-10 - E78.00) 03/28/2025 Prostatism (ICD-10 - N40.0) 10/15/2024 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 encouraged to take nitro for pain. had echo that was normal/ cholesterol was good and lft's normal, will continue current regiment 10/15/2024 Hypercholesterolemia (ICD-10 - E78.00) stable, will continue current regiment 01/27/2025 Vertigo (ICD-10 - R42) has b een evaluated at [facility] for this 9 mo ago when it was worse. had ct angio and ct head./ have gien him a maneuver for that, patient verbalized understanding of medication nd directions for use, will continue to monitor sx's 03/20/2025 Labyrinthine dysfunction, bilateral (ICD-10 - H83.2X3) referral to physical therapy 03/20/2025 Reflux esophagitis (ICD-10 - K21.00) will continue on omeprazole 04/08/2025 Essential hypertensi on (ICD-10 - I10) running a little high, will continue current regiment and will continue to monitor 04/08/2025 Hypercholesterolemia (ICD-10 - E78.00) doing well on meds, will continue current regiment 07/03/2025 Reflux esophagitis (ICD-10 - K21.00) 07/03/2025 Hypoxemia (ICD-10 - R09.02) has no shortness of breath and normal respiratory rate so seems the o2 sat does not reflect his actual o2. fingers are all bent so doesn't get an acurate readin 07/08/2025 Reflux esophagitis (ICD-10 - K21.00) 03/28/2025 Essential hypertensi on (ICD-10 - I10) 10/15/2024 Essential hypertensi on (ICD-10 - I10) doing well, will continue current regiment 04/08/2025 SITA (obstructive sle ep apnea) (ICD-10 - G47.33) send to sleep medicine 07/03/2025 Leg edema (ICD-10 - R60.0) should wear compression stockings 03/28/2025 Hypercholesterolemia (ICD-10 - E78.00) 04/08/2025 Leg ulcer, left, limited to breakdown of skin (ICD-10 - L97.921) referral to wound clinic 07/03/2025 Encounter for administration of vaccine (ICD-10 - Z23) 04/08/2025 Prostatism (ICD-10 - N40.0) stable, will [...] Provider Name:Brennen Russell ier, 08/01/2025 11:30:00 AM, [address] [place] [address], [address] [facility], [place], [place], [id number], Provider Name:Brennen Russell ier, 10/03/2025 07:30:00 AM, [address] [place] [address], [address], [place], [place], [id number], Provider Name:Brennen Russell ier, 10/09/2025 02:00:00 PM, [address] [place] [address], [address] [facility], [place], [place], [phone], Provider Name:Brennen Russell ier, 04/02/2026 08:00:00 AM, [address] [place] [address], [address] [facility], [place], [place], [phone], Provider Name:Brennen Russell ier, 04/09/2026 02:30:00 PM, [address] [place] [address], [address] [facility], [place], [place], [phone], Insurance Providers Payer Name Payer Address Payer Phone Subscriber Number Group Number Insured Name Patient Relationship to Insured Coverage Start Date Coverage End Date [employer] [address] [place] [address] [id number] Robert Garner Self - patient is the insured [employer] [place] [address] [place] [address] [id number] Robert Garner Self - patient is the insured Medical (General) History Medical History History ICD Code Pt can not any Pain Meds asending aortic aneurysm see n on ct at [facility] 2018 needs repeat in one year (Order in Nurse Folder for 02/2019) a Lung nodule seen on imaging study R91.1 Lung nodule seen on imaging study Aneurysm I72.[address] chest with no aneurysm Surgical History Surgery Date(Month/Year) total right knee replacement w/ Dr Instr um 09/2017 Left ESWL 11/[address] Venkat Andrea 2017
--- OUTSIDE RECORDS SUMMARY | 2025-07-18 12:18 | XMS_ITS | Clinical Summary ---
Author Organization [facility] Address [address] [facility] [address] [place] [address] Phone Care Team Providers Care Actuarial Analyst Name Role Phone Brennen Chavira MD Primary [...] episodes of dizziness He was seen at [facility] for this, I do not access to any testing results or notes to reflect this He has an appointment with the vascular specialist tomorrow for this in [place] but he does not remember the name I have requested the MA here to get the records from [facility] Already on aspirin/atorvastatin. Dyspnea on exertion [...] post three-vessel bypass February 20, 2018 at [facility] with a ALCALA to LAD, vein graft [...] set him up in cardiac rehabilitation at [facility]. Benign essential hypertension 03/23/2018 Assessment [...] Plan (03/23/2018 2:42 PM EDT): Continue atorvastatin. Encounters Date Type Department Care Team Description 06/17/2025 [facility] Only [facility] [address] Floor, [address] [place] [address] Juan R Jordan CNP Arteriosclerosis of arterial coronary artery bypass graft; Bilateral carotid artery stenosis; Benign essential hypertension; Dyspnea on exertion from Last 3 Months Immunizations No known immunizations Social History Tobacco [...] Care Team (Late st Contact Info) Description 08/13/2025 8:45 AM EDT Appointment [facility] [address] [place] [address] Juan R Jordan, BLOWN FILM EXTRUSION OPERATOR [address] [place] [address] 08/20/2025 11:30 AM EDT Office Visit [facility] [address] Floor, [address] [place] [address] Juan R Jordan, BLOWN FILM EXTRUSION OPERATOR [address] [place] [address] Health Maintenance Due Date Last Done Comments DEPRESSION SCREENING 1947 ZOSTER VACCINES (1 of 2) 1985 RSV VACCINE (1 - 1-dose 75+ series) 2010 Adult Td,Tdap Booster 11/23/2022 11/23/2012 INFLUENZA VACCINE (#1) 2025 , 07/19/2020, 07/09/2019, Additional history exists COVID-19 VACCINE ( season) 2025 09/17/2021, 01/01/2021, 12/04/2020 PNEUMOCOCCAL VACCINES (50+ years) [...] topic Medical Devices Not on file Insurance MEDICARE PART A & B [employer] [employer] SUPPLEMENT MEDICARE PART A & B [employer] [employer] SUPPLEMENT MEDICARE PART A & B [employer] SUPPLEMENT MEDICARE PART A & B [employer] SUPPLEMENT MEDICARE PART A & B [employer] MED[employer] SUPPLEMENT [employer] MED[employer] SUPPLEMENT MEDICARE PART A & B [employer] MED[employer] SUPPLEMENT MEDICARE PART A & B Online [employer] MEDEX SUPPLEMENT MEDICARE PART A & B [employer]EX SUPPLEMENT Care Teams Actuarial Analyst Relationship Specialty Start Date End Date Brennen Chavira MD [address] [place] [address] [place] [address] PCP - General Internal Medicine 08/28/20 Additional Source Comments The information contained in this document represents components of the legal health record. It is not the complete legal health record.[facility]
--- OUTSIDE RECORDS SUMMARY | 2025-07-18 12:18 | XMS_ITS | Encounter Summary ---
Author Organization [facility] Address [address] [facility] [address] [place] [address] Phone Care Team Providers Care Supervisor Green End Department Name Role Phone Brennen Chavira MD Primary Care Provider Encounter Details Date Type Department Care Team (Late st Contact Info) Description 02/02/2021 Procedure Pass [facility] [address] [place] [address] Social History Tobacco Use Types Packs/Day Years [...] 08/13/2025 8:45 AM EDT Appointment [facility] [address] [place] [address] Juan R Jordan, PHYSICAL THERAPY AIDES TEACHER [address] [place] [address] [email or web address] 08/20/2025 11:30 AM EDT Office Visit [facility] [address] Floor, [address] [place] [address] Juan R Jordan CNP [address] [place] [address] documented as of this encounter Visit Diagnoses Not on filedocumented in this encounter Care Teams Supervisor Green End Department Relationship Specialty Start Date End Date Brennen Chavira MD [address] [place] [address] [address] [place] [address] PCP - General Internal Medicine 08/28/20 documented as of this encounter Additional Source Comments The information contained in this document represents components of the legal health record. It is not the complete legal health record.[facility]
--- OUTSIDE RECORDS SUMMARY | 2025-07-18 12:18 | XMS_ITS | Clinical Summary ---
Author Organization [facility] Address [address] [facility] [address] [place] [address] Care Team Providers Care Alliance Director Name Role Phone Unavailable Primary Care Provider [...] 11/23/2012, 11/16/2012, 11/30/2006 COVID-19 Vaccine ( - 2024- season) 2025 10/13/2022, 09/17/2021, 01/01/2021, Additional history exists Influenza Vaccine (#1) 2025 4, 08/01/2023, 08/11/2022, Additional history exists Dental Oral [...]
--- OUTSIDE RECORDS SUMMARY | 2025-07-18 12:19 | XMS_ITS | Patient Health Record ---
Author Organization [facility] Address [address] [place] [id number] Care Team Providers Care Prom Burn Off Operator Name Role Phone Brennen Chavira MD Primary Care Provider Quan Pandey [phone] Allergies Allergen (clinical drug ingredient) Drug/Non Drug [...] Notes Problem Flatulence, eructation and gas pain (386714337) Bloating (R14.0) Active confirmed Problem Gallstones (037697528) Gallstones (K80.20) Active confirmed Problem Gastroesophageal reflux disease (251947925) GERD (gastroesophag eal reflux disease) (K21.9) Active confirmed Vital Signs Blood pressure diastolic 77 mm Hg 04/22/2025 Height 71 in 04/22/2025 Blood pressure systolic 111 mm Hg 04/22/2025 Weight 230 lbs 04/22/2025 BMI 32.07 kg/m2 04/22/2025 Encounters Encounter Location Date Provider Diagnosis [facility] [address] [place] [address] 04/22/2025 Quan Cardenas Bloating R14.0 ; GIANNA [...] I did recommend that he try some [id number]-emi-yltscdf simethicone product for that as needed. I [...] I did recommend that he try some izrx-byf-ocosrer simethicone product for that as needed. I [...] I did recommend that he try some dbxg-xbe-nvtlpzk simethicone product for that as needed. 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 Rey Denies DM, CVA, Lung disease [place] 2017 GERD Right renal cancer as below Hyperlipidemia Gallstones seen on 2022 ultr asound. We reviewed that at the March 2025 office visit and he is asymptomatic in that regard. 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
--- OUTSIDE RECORDS SUMMARY | 2025-07-18 12:19 | XMS_ITS | Encounter Summary ---
Author Organization [facility] Address [address] [facility] [address] [place] [address] Phone Care Team Providers Care Chain Link Fence Installer Name Role Phone Brennen Chavira MD Primary Care Provider Encounter Details Date Type Department Care Team (Late st Contact Info) Description 08/14/2024 Procedure Pass Echo Lab [address] [place] [address] Social History Tobacco Use Types Packs/Day Years [...] 08/13/2025 8:45 AM EDT Appointment [facility] [address] [place] [address] Juan R Jordan, CORRECTIONAL MANAGER [address] [place] [address] 08/20/2025 11:30 AM EDT Office Visit [facility] [address] [place] [address] [address] Floor, [address] [place] [address] Juan R Jordan, CORRECTIONAL MANAGER [address] [place] [address] [email or web address] documented as of this encounter Visit Diagnoses Not on filedocumented in this encounter Care Teams Chain Link Fence Installer Relationship Specialty Start Date End Date Brennen Chavira MD [address] [place] [address] [address] PCP - General Internal Medicine 08/28/20 documented as of this encounter Additional Source Comments The information contained in this document represents components of the legal health record. It is not the complete legal health record.[facility]
--- OUTSIDE RECORDS SUMMARY | 2025-08-08 20:00 | XMS_ITS | Clinical Summary ---
Author Organization Unknown Care Team Providers Care Funeral Home Attendant Name Role Phone ASHLEY DAVIS, BIANCA Unavailable Unavailable JOSE CARLOS ([facility]) [facility] - PT, FLORES Unavailable Unavailable CYN RUBIO, SVETLANA Unavailable Unavailable Payers Payer Name Policy Type Policy Number Effective Date Expira tion Date MEDICARE - FORMERLY [facility] [id number] Problems Condition Name Condition Details Condition Category [...] 10-30 00:00: 00 ATHSCL HEART DISEASE OF [place] CORONARY ARTERY W/O ANG PCTRS Active 10-30 [...] release 24 hr 06-02 00:00: 00 Yes [id number] 1 tablet DAILY 1 tablet DAILY (route: oral) Med Classific ation: Cardiovas cular Therapy Agents atorvastati n 80 mg tablet 05-11 00:00: 00 Yes [id number] Per instruc tions EVERY DAY Per instructio ns EVERY DAY (route: oral) Med Classific ation: Cardiovas cular Therapy Agents amlodipine 10 mg tablet 06-11 00:00: 00 Yes [id number] 1 tablet DAILY 1 tablet DAILY (route: oral) Med Classific ation: Cardiovas cular Therapy Agents metoprolol tartrate 50 mg tablet 06-11 00:00: 00 Yes [id number] 1 tablet 2 TIMES DAILY 1 tablet 2 TIMES DAILY (route: oral) Med Classific ation: Cardiovas cular Therapy Agents multivitami n with minerals tablet 06-11 00:00: 00 07-01 23:59 :00 No [id number] 1 tablet DAILY 1 tablet DAILY (route: oral) Med Classific ation: Electroly te Balance-N utritiona l Products Nitrostat 0.4 mg sublingual tablet 06-11 00:00: 00 Yes [id number] 1 tablet NEEDED 1 tablet NEEDED (route: sublingual ) Med Classific ation: Cardiovas cular Therapy Agents tadalafil 5 mg tablet 06-11 00:00: 00 Yes [id number] 1 tablet DAILY 1 tablet DAILY (route: oral) Med Classific ation: Drugs to treat Erectile Dysfuncti on tamsulosin 0.4 mg capsule 06-11 00:00: 00 Yes [id number] 2 capsule DAILY 2 capsule DAILY (route: oral) Med Classific ation: Genitouri nary Therapy Tylenol 325 mg tablet 06-11 00:00: 00 Yes [id number] 2 tablet 3 TIMES DAILY 2 tablet [...] FOR O/A, TEACHING, AND MANAGEMENT OF CAD W/OH, CAROTID ARTERIES STENOSIS, HLD. [code = SKILLED NURSE FOR O/A, TEACHING, AND MANAGEMENT OF CAD W/OH, CAROTID ARTERIES STENOSIS, HLD.] Future Scheduled Test [...] MAINTAIN SITUATIONAL AWARENESS AND WILL NOTIFY CLINICAL RESAWYER AND PHYSICIAN/PROVIDER WITH ANY CHANGE IN CONDITION. [code = SKILLED NURSE TO PERFORM ENVIRONMENTAL SAFETY RISK ASSESSMENT AND FALL RISK ASSESSMENT AND PROVIDE INSTRUCTION TO IMPLEMENT ENVIRONMENTAL SAFETY AND FALL PREVENTION STRATEGIES THROUGHOUT THE CERTIFICATION PERIOD. SKILLED NURSE WILL MAINTAIN SITUATIONAL AWARENESS AND WILL NOTIFY CLINICAL RESAWYER AND PHYSICIAN/PROVIDER WITH ANY CHANGE IN CONDITION.] [...] CARE WILL BE ESTABLISHED THAT MEETS PATIENT'S [facility] NEEDS AND INCLUDES PATIENT GOAL FOR HOME [...] End Date/Time Encounter Type Admission Type Attending [facility] Department Encounter ID Discharge Date Discharge Status Discharge Condition Discharge Reason Percent Goals Met 2025-06-11 00:00:00 2025-08-09 00:00:00 Outpatient NEW ADMISSION SVETLANA ADDISON [facility] [id number] 59.38
== END 2025-07-18 12:39 | disposition home or self-care (01) ==
LOC: HO.HOS 11:47
PROVIDERS: Visit Provider Physician Assistant
DX: S72.402A Unspecified fracture of lower end of left femur, initial encounter for closed fracture (principal)
CPT/HCPCS: 99024

== ENCOUNTER 2025-08-28 12:54 | Outpatient (AMB) | payer MEDICARE, SELFPAY ==
--- OUTSIDE RECORDS SUMMARY | 2024-10-07 03:15 | XMS_ITS ---
Author Organization Brennen Chavira MD Address [address] [place], [place] [id number] Care Team Providers Care Networking Technician Name Role Phone Brennen Chavira Primary Care Provider Results Component Value Reference Range Notes Liver Panel Reviewed date:10/07/2024 12:51:29 PM Interpretation: Performing Lab:[facility], [address] [place] [id number] Notes/Report: Bilirubin Total 0.6 0.0-1.0 mg/dL Bilirubin Direct 0.2 0.0-0.5 mg/dL Aspartate Amino Transferase 31 5-37 U/L Alanine Aminotransferase 34 0-40 U/L Total Protein 6.6 6.5-8.0 g/dL Albumin Level 3.9 3.5-5.0 g/dL Alkaline Phosphatase 117 39-117 U/L Lipid Panel with Reflex Reviewed date:10/08/2024 12:37:25 PM Interpretation: Performing Lab:[facility], [address] [place] [address] Notes/Report: Triglycerides 86 <150 mg/dL Desirable Triglyceride: less than 150 mg/dL Borderline High Triglyceride 150-199 mg/dL High Triglyceride: 200-499 mg/dL Very High Triglyceride: greater than or equal to 5OO mg/dL Cholesterol 126 <200 mg/dL Desirable Cholesterol: less than 200 mg/dL Borderline High Cholesterol: 200-239 mg/dL High Cholesterol: greater than 239 mg/dL LDL Cholesterol Calculated 78 <100 mg/dL Desirable LDL: less than 100 mg/dL Near Optimal/Above Optimal LDL: 110-129 mg/dL Borderline High LDL: 130-159 mg/dL High LDL: 160-189 mg/dL Very High LDL: greater than or equal to 190 mg/dL HDL Cholesterol 31 >40 mg/dL Desirable HDL: greater than 40 mg/dL Note: This HDL assay may give artificially low results in patients with liver disease. REASON FOR VISIT FASTING LIPIDS Encounters Encounter Location Date Provider Diagnosis Brennen Chavira MD [address] [place] [id number] 10/07/2024 Brennen Chavira Hypercholesterolemia E78.00 Assessments Encounter Date Diagnosis (ICD Code) Assessment Notes Treatment Notes Treatment Clinical Notes Section Notes 10/07/2024 Hypercholesterolemia (ICD-10 - E78.00) Plan Of Treatment Next Appt Details Provider Name:Brennen mendez, 10/03/2025 07:30:00 AM, [address] [place] [address], [phone], Provider Name:Brennen mendez, 10/09/2025 02:00:00 PM, [address] [place] [address], [id number], Provider Name:Brennen mendez, 04/02/2026 08:00:00 AM, [address] [place] [address], [phone], Provider Name:Brennen mendez, 04/09/2026 02:30:00 PM, [address] [place] [address], [phone], Progress Notes * Luisa FLORES:1935 (89 yo M)Acc No.[id number]:10/07/2024 Progress Note Patient: Robert CONRAD Provider: Janette Chavira MD :1935 A ge:89 Y S ex:Male Date:10/07/2024 Address:[address] [place] [address], [place] [address] Subjective: * Chief Complaints: * 1 . FASTING LIPIDS. * Medical History: Objective: * Vitals: Assessment: * Assessment: 1. H ypercholesterolemia - E78.00 (Primary) Plan: * Treatment: * Procedure Codes: 3 6415 VENIPUNCT, ROUTINE* * * The named appointment provid er may or may not be the originator of this progress note, and it is not deemed complete until electronically signed by the appointment provider. Sign off status: Pending * Provider: Janette Chavira MD Date: 1 12/08/2023 Generated for Tiffany mayorga/Dilcia/Cassandraitting on: 1 03:47 PM EDT
--- OUTSIDE RECORDS SUMMARY | 2024-10-15 10:15 | XMS_ITS ---
Author Organization Brennen Chavira MD Address [address] [place], [place] [id number] Care Team Providers Care Doubling Machine Operator Name Role Phone Brennen Chavira Primary Care Provider Allergies Allergen (clinical drug ingredient) Drug/Non Drug Allergy documented on EMR Reaction Allergy Type Onset Date Status OxyCODONE ER vomiting Drug Allergy Acti ve Vicodin vomiting Drug Allergy Active oxycodone OxyContin vomiting Drug Allergy Active lisinopril Lisinopril cough Drug Allergy Activ e REASON FOR VISIT 6 MO F/U Medications Medication SIG (Take, Route, Frequency, Duration) Notes Start Date End Date Status Tamsulosin HCl 0.4 MG 2 capsule Orally O nce a day 11/02/2020 Active Atorvastatin Calcium 80 MG TAKE ONE TABL ET BY MOUTH EVERY DAY Active Metoprolol Tartrate 50 MG TAKE ONE TABLE T BY MOUTH TWICE A DAY WITH FOOD Active Nitrostat 0.4 MG as directed Sublingu al every 5 mins times 3 until pain goes 08/13/2020 Active Aspir-Low 81 MG 1 tablet Orally Once a day for 30 day(s) Active Isosorbide Mononitrate ER 30 MG 1 tablet in the morning Orally Once a day Active amLODIPine Besylate 10 MG 1 tablet Orall y Once a day Active Vital Signs Blood pressure systolic 134 mm Hg 10/15/20 24 Blood pressure diastolic 58 mm Hg 024 Height 68.5 in 10/15/2024 Weight 238 lbs 10/15/2024 BMI 35.66 kg/m2 10/15/2024 weight is up 4 pounds since 06-24-24 Encounters Encounter Location Date Provider Diagnosis Brennen Chavira MD [address] [place], [place] [id number] 10/15/2024 Brennen Chavira 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 encouraged to take nitro for pain. had echo that was normal/ cholesterol was good and lft's normal, will continue current regiment 10/15/2024 Hypercholesterolemia (ICD-10 - E78.00) stable, will continue current regiment 10/15/2024 Essential hypertensi on (ICD-10 - I10) doing well, will continue current regiment Plan Of Treatment Medication Medication Name Sig Start Date Stop Date Notes Atorvastatin Calcium 80 MG TAKE ONE TABL ET BY MOUTH EVERY DAY Metoprolol Tartrate 50 MG TAKE ONE TABLE T BY MOUTH TWICE A DAY WITH FOOD Nitrostat 0.4 MG as directed Sublingu al every 5 mins times 3 until pain goes 08/13/2020 Isosorbide Mononitrate ER 30 MG 1 tablet in the morning Orally Once a day amLODIPine Besylate 10 MG 1 tablet Orally Once a day Treatment Notes Assessment Notes Angina concurrent with and d ue to 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 encouraged to take nitro for pain. had echo that was normal/ cholesterol was good and lft's normal, will continue current regiment Hypercholesterolemia stable, will contin ue current regiment Essential hypertension doing well, will continue current regiment Next Appt Details Provider Name:Brennen Russell ier, 10/03/2025 07:30:00 AM, [address], [address], [place], [place], [phone], Provider Name:Brennen Russell ier, 10/09/2025 02:00:00 PM, [address], [address], [place], [place], [phone], Provider Name:Brennen Russell ier, 04/02/2026 08:00:00 AM, [address], [address], [place], [place], [phone], Provider Name:Brennen Russell ier, 04/09/2026 02:30:00 PM, [address], [address], [place], [place], [phone], Progress Notes * Robert FLORESDOB:1935 (89 yo M)Acc No.[id number]:10/15/2024 Progress Notes Patient: Robert Soriano Provider: Janette Chavira MD :1935 A ge:89 Y S ex:Male Date:10/15/2024 Address:[address] [place], [place] [address] [facility], [place] [address], [facility] Subjective: * Chief Complaints: * 6 MO F/U * HPI: S ymptom(s): patient is a 89 yo male here for 6 month follow up visit. just had echo last week. back to see him after the iday. * ROS: G eneral/Constitutional: Denies C hills. D enies F atigue. D enies F ever. D enies H eadache. E NT: Patient denies d ecreased sense of smell , any loss of taste , sore throat. D enies S ore throat. R espiratory: Denies C ough. D enies S hortness of breath at rest. D enies S hortness of breath with exertion. G astrointestinal: Denies D iarrhea. D enies N ausea. M usculoskeletal: Patient denies m uscle aches. P eripheral Vascular: Patient denies r ed and blue toes. * Medical History: * Surgical History: * Hospitalization/Major Diagno stic Procedure: * Medications: T akingAspir-Low 81 MG Tablet Delayed Release 1 tablet Orally Once a dayTamsulosin HCl 0.4 MG Capsule 2 capsule Orally Once a dayamLODIPine Besylate 10 MG Tablet 1 tablet Orally Once a dayIsosorbide Mononitrate ER 30 MG Tablet Extended Release 24 Hour 1 tablet in the morning Orally Once a dayAtorvastatin Calcium 80 MG Tablet TAKE ONE TABLET BY MOUTH EVERY DAY Metoprolol Tartrate 50 MG Tablet TAKE ONE TABLET BY MOUTH TWICE A DAY WITH FOOD Taking Aspir-Low 81 MG Tablet Delayed Release 1 tablet Orally Once a dayTaking Tamsulosin HCl 0.4 MG Capsule 2 capsule Orally Once a dayTaking amLODIPine Besylate 10 MG Tablet 1 tablet Orally Once a dayTaking Isosorbide Mononitrate ER 30 MG Tablet Extended Release 24 Hour 1 tablet in the morning Orally Once a dayTaking Atorvastatin Calcium 80 MG Tablet TAKE ONE TABLET BY MOUTH EVERY DAY Taking Metoprolol Tartrate 50 MG Tablet TAKE ONE TABLET BY MOUTH TWICE A DAY WITH FOOD Not-Taking/PRNNitrostat 0.4 MG Tablet Sublingual as directed Sublingual every 5 mins times 3 until pain goesMedication List reviewed and reconciled with the patientNot-Taking/PRN Nitrostat 0.4 MG Tablet Sublingual as directed Sublingual every 5 mins times 3 until pain goesMedication List reviewed and reconciled with the patient * Allergies: O xyContin: vomitingOxyCODONE ER: vomitingVicodin: vomitingLisinopril: coughyes[Allergies Verified] Objective: * Vitals: H t: 68.5, Wt:238, BMI:35.66, BP:134/58 weight is up 4 pounds since 06-24-24. * P ast Orders: L ab:Liver Panel (Order Date - 10/07/2024) (Collection Date - 10/07/2024) Value Reference Range Bilirubin Total 0.6 0.0-1.0 - mg/dL Bilirubin Direct 0.2 0.0-0.5 - mg/dL Aspartate Amino Transferase 31 5-37 - U/L Alanine Aminotransferase 34 0-40 - U/L Total Protein 6.6 6.5-8.0 - g/dL Albumin Level 3.9 3.5-5.0 - g/dL Alkaline Phosphatase 117 39-117 - U/L L ab:Lipid Panel with Reflex (Order Date - 10/07/2024) (Collection Date - 10/07/2024) Value Reference Range Triglycerides 86 <150 - mg/dL Cholesterol 126 <200 - mg/dL LDL Cholesterol Calculated 78 <100 - mg/dL HDL Cholesterol 31 L >40 - mg/dL * Examination: G eneral Examination: GENERAL APPEARANCE: a lert, well hydrated, in no distress.? HEAD: n ormocephalic. SKIN: g ood turgor. HEART: n o murmurs, rubs, gallops , regular rate and rhythm. LUNGS: n o wheezes, rales, rhonchi , good air movement , clear to auscultation bilaterally. Assessment: * Assessment: 1. 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 H ypercholesterolemia - E78.00 3 . E ssential hypertension - I10 Plan: * Treatment: 2. H ypercholesterolemia Continue Atorvastatin Calcium Tablet, 80 MG, TAKE ONE TABLET BY MOUTH EVERY DAY. Notes: stable, will continue current regiment 3. E ssential hypertension Continue amLODIPine Besylate Tablet, 10 MG, 1 tablet, Orally, Once a day; C ontinue Isosorbide Mononitrate ER Tablet Extended Release 24 Hour, 30 MG, 1 tablet in the morning, Orally, Once a day; Continue Metoprolol Tartrate Tablet, 50 MG, TAKE ONE TABLET BY MOUTH TWICE A DAY WITH FOOD.? Notes: doing well, will continue current regiment * Procedure Codes: G 2211 Complex e/m visit add on * * Sign off status: Completed true * Provider: Janette Chavira MD Date: 12/16/2023 Generated for Tiffany mayorga/Dilcia/eTransmitting on: 03:48 PM EDT History and Physical Notes * HPI (History of Present Illness) Category Sub-Category Detail Notes Category Not es Symptom(s) patient is a 89 yo male here for 6 month follow up visit. just had echo last week. back to see him after the holiday Examination Category Sub-Category Detail Notes Category Not es General Examination GENERAL APPEARANCE: alert, w ell hydrated, in no distress HEAD: normocephalic HEART: no murmurs, rubs, ga llops , regular rate and rhythm LUNGS: no wheezes, rales, r honchi , good air movement , clear to auscultation bilaterally SKIN: good turgor
--- OUTSIDE RECORDS SUMMARY | 2025-01-27 07:30 | XMS_ITS ---
Author Organization Brennen Chavira MD Address [address] [place], [place] [id number] Care Team Providers Care Architectural Wood Model Maker Name Role Phone Brennen Chavira Primary Care Provider [phone] Allergies Allergen (clinical drug ingredient) Drug/Non Drug Allergy documented on EMR Reaction Allergy Type Onset Date Status OxyCODONE ER vomiting Drug Allergy Acti ve Vicodin vomiting Drug Allergy Active oxycodone OxyContin vomiting Drug Allergy Active lisinopril Lisinopril cough Drug Allergy Activ e REASON FOR VISIT dizzy spells off and on x 2 months but this weekend vomited x 2 after the dizzyspell, Accompanied by Medications Medication SIG (Take, Route, Frequency, Duration) Notes Start Date End Date Status amLODIPine Besylate 10 MG 1 tablet Orall y Once a day Active Isosorbide Mononitrate ER 30 MG 1 tablet in the morning Orally Once a day Active Nitrostat 0.4 MG as directed Sublingu al every 5 mins times 3 until pain goes 08/13/2020 Active Atorvastatin Calcium 80 MG TAKE 1 TABLET BY MOUTH EVERY DAY for 90 Active Metoprolol Tartrate 50 MG TAKE ONE TABLE T BY MOUTH TWICE A DAY WITH FOOD Active Aspir-Low 81 MG 1 tablet Orally Once a day for 30 day(s) Active Tamsulosin HCl 0.4 MG 2 capsule Orally O nce a day 11/02/2020 Active Meclizine HCl 25 MG 1 tablet as needed O rally every 12 hrs for 10 days 01/27/2025 Active Ondansetron HCl 4 MG 1 tablet Orally Onc e a day for 5 days 01/27/2025 Active Vital Signs Blood pressure systolic 124 mm Hg 01/28/20 25 Blood pressure diastolic 60 mm Hg 025 Height 68.5 in 01/27/2025 Weight 242 lbs 01/27/2025 BMI 36.26 kg/m2 01/27/2025 Encounters Encounter Location Date Provider Diagnosis Brennen Chavira MD [address] [place] [address] [address] [place], [place] [id number] 01/27/2025 Brennen Chavira Vertigo R42 Assessments Encounter Date Diagnosis (ICD Code) Assessment Notes Treatment Notes Treatment Clinical Notes Section Notes 01/27/2025 Vertigo (ICD-10 - R42) has been evaluated at [facility] for this 9 mo ago when it was worse. had ct angio and ct head./ have gien him a maneuver for that, patient verbalized understanding of medication nd directions for use, will continue to monitor sx's Plan Of Treatment Medication Medication Name Sig Start Date Stop Date Notes Meclizine HCl 25 MG 1 tablet as needed O rally every 12 hrs for 10 days 01/27/2025 Ondansetron HCl 4 MG 1 tablet Orally Once a day for 5 days 01/27/2025 Treatment Notes Assessment Notes Vertigo has been evaluated a t [facility] for this 9 mo ago when it was worse. had ct angio and ct head./ have gien him a maneuver for that, patient verbalized understanding of medication nd directions for use, will continue to monitor sx's Next Appt Details Provider Name:Brennen mendez, 10/03/2025 07:30:00 AM, [address] [place] [address], [address], [place], [place], [id number], Provider Name:Brennen mendez, 10/09/2025 02:00:00 PM, [address], [address], [place], [place], [phone], Provider Name:Brennen Russell ier, 04/02/2026 08:00:00 AM, [address], [address], [place], [id number], Provider Name:Brennen Russell ier, 04/09/2026 02:30:00 PM, [address], [address], [place], [id number], Progress Notes * Robert FLORESDOB:1935 (89 yo M)Acc No.[id number]:01/27/2025 Progress Notes Patient: Robert CONRAD Provider: Janette Chavira MD :1935 A ge:89 Y S ex:Male Date:01/27/2025 Address:[address] [place] [address], [place] [address], [facility] Subjective: * Chief Complaints: * D yasmin spells off and on x 2 months but this weekend vomited x 2 after the dizzyspellAccompanied by * HPI: S ymptom(s): patient is a 89 yo male here with complaint of vertigo and vomiting. had a terrible headache and vomiting.room spinning. had vertigo last summer, had vertigo went by ambulance to [place]. * ROS: G eneral/Constitutional: Denies C hills. D enies F atigue. D enies F ever. A dmits H eadache. E NT: Patient denies d ecreased sense of smell, any loss of taste, sore throat. D enies S ore throat. R espiratory: Denies C ough. D enies S hortness of breath at rest. D enies S hortness of breath with exertion. G astrointestinal: Denies A bdominal pain. D enies D iarrhea. A dmits N ausea. A dmits V omiting, x 2 this weekend after a dizzy spell. ? M usculoskeletal: Patient denies m uscle aches. P eripheral Vascular: Patient denies r ed and blue toes. * Medical History: * Surgical History: * Hospitalization/Major Diagno stic Procedure: * Medications: T akingAspir-Low 81 MG Tablet Delayed Release 1 tablet Orally Once a day Tamsulosin HCl 0.4 MG Capsule 2 capsule Orally Once a day amLODIPine Besylate 10 MG Tablet 1 tablet Orally Once a day Isosorbide Mononitrate ER 30 MG Tablet Extended Release 24 Hour 1 tablet in the morning Orally Once a day Metoprolol Tartrate 50 MG Tablet TAKE ONE TABLET BY MOUTH TWICE A DAY WITH FOOD Nitrostat 0.4 MG Tablet Sublingual as directed Sublingual every 5 mins times 3 until pain goes Atorvastatin Calcium 80 MG Tablet TAKE 1 TABLET BY MOUTH EVERY DAY Medication List reviewed and reconciled with the patientTaking Aspir-Low 81 MG Tablet Delayed Release 1 tablet Orally Once a day Taking Tamsulosin HCl 0.4 MG Capsule 2 capsule Orally Once a day Taking amLODIPine Besylate 10 MG Tablet 1 tablet Orally Once a day Taking Isosorbide Mononitrate ER 30 MG Tablet Extended Release 24 Hour 1 tablet in the morning Orally Once a day Taking Metoprolol Tartrate 50 MG Tablet TAKE ONE TABLET BY MOUTH TWICE A DAY WITH FOOD Taking Nitrostat 0.4 MG Tablet Sublingual as directed Sublingual every 5 mins times 3 until pain goes Taking Atorvastatin Calcium 80 MG Tablet TAKE 1 TABLET BY MOUTH EVERY DAY Medication List reviewed and reconciled with the patient * Allergies: O xyContin: vomitingOxyCODONE ER: vomitingVicodin: vomitingLisinopril: cough Objective: * Vitals: H t: 68.5, Wt: 242, BMI:36.26, BP:124/60, Wt-k.77. * Examination: G eneral Examination: GENERAL APPEARANCE: a lert, well hydrated, in no distress.? HEAD: n ormocephalic. EYES: n o nystagmus. NECK/THYROID: n o carotid bruit. SKIN: g ood turgor. HEART: n o murmurs, rubs, gallops, regular rate and rhythm.? LUNGS: n o wheezes, rales, rhonchi, good air movement, clear to auscultation bilaterally. Assessment: * Assessment: 1. V carl - R42 (Primary) Plan: * Treatment: * Procedure Codes: * * Sign off status: Completed true * Provider: Janette Chavira MD Date: 0 01/27/2025 Generated for Tiffany mayorga/Dilcia/Cassandraitting on: 1 03:47 PM EDT History and Physical Notes * HPI (History of Present Illness) Category Sub-Category Detail Notes Category Not es Symptom(s) patient is a 89 yo male here with complaint of vertigo and vomiting. had a terrible headache and vomiting.room spinning. had vertigo last summer, had vertigo [facility] Examination Category Sub-Category Detail Notes Category Not es General Examination GENERAL APPEARANCE: alert, w ell hydrated, in no distress HEAD: normocephalic EYES: no nystagmus NECK/THYROID: no carotid bruit HEART: no murmurs, rubs, ga llops, regular rate and rhythm LUNGS: no wheezes, rales, r honchi, good air movement, clear to auscultation bilaterally SKIN: good turgor
--- OUTSIDE RECORDS SUMMARY | 2025-03-20 09:45 | XMS_ITS ---
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 Referred Provider Specialty Physical The rapist General Notes Carmen Jiménez 0 03/21/2025 10:33:08 AM > info refaxed Referral Priority Routine Referral Appointment Date 04/28/2025 Reason eval and treat Diagnosis 1 Reflux esophagitis ( K21.00) Referral Organization Brennen Chavira MD Referring Provider First Name Brennen Referring Provider Last Name Cait Referring Provider Speciality Internal M edicine Referred Provider Quan Cardenas Referred Provider Specialty Gastroentero logy General Notes Carmen Jiménez 0 03/28/2025 07:43:09 AM >info faxed, Carmen Jiménez 03/31/2025 02:38:00 PM > patient is aware of appt, info also mailed to patient, OfeliaTrudyTriny Vance 05/09/2025 12:43:32 PM >OFFICE NOTE RECD Referral Priority Routine Referral Appointment Date 04/22/2025 REASON FOR VISIT still dizzy, Accompanied by Medications Medication SIG (Take, Route, Frequency, Duration) Notes Start Date End Date Status Metoprolol Tartrate 50 MG TAKE ONE TABLE T BY MOUTH TWICE A DAY WITH FOOD Active Ondansetron HCl 4 MG 1 tablet Orally Onc e a day for 5 days 01/27/2025 Active Meclizine HCl 25 MG 1 tablet as needed O rally every 12 hrs for 10 days 01/27/2025 Active Nitrostat 0.4 MG as directed Sublingu al every 5 mins times 3 until pain goes 08/13/2020 Active Atorvastatin Calcium 80 MG TAKE 1 TABLET BY MOUTH EVERY DAY for 90 Active Tamsulosin HCl 0.4 MG 2 capsule Orally O nce a day 11/02/2020 Active amLODIPine Besylate 10 MG 1 tablet Orall y Once a day Active Isosorbide Mononitrate ER 30 MG 1 tablet in the morning Orally Once a day Active Omeprazole 20 MG 1 capsule 1/2 to 1 h our before morning meal Orally Once a day Active Aspir-Low 81 MG 1 tablet Orally Once a day for 30 day(s) Active Problems Problem Type SNOMED Code ICD Code Onset Dates Problem Status W/U Status Risk Notes Problem Labyrinthine dysfunction (7763073) Labyrinthine dysfunction, 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 Problem Reflux esophagitis (859658525) Reflux esophagitis (K21.00) Active confirmed Vital Signs Blood pressure systolic 144 mm Hg 03/20/20 25 Blood pressure diastolic 60 mm Hg 025 Height 68.5 in 03/20/2025 Weight 239 lbs 03/20/2025 BMI 35.81 kg/m2 03/20/2025 weightbis down 3 pounds [facility] 01-27-25 Encounters Encounter Location Date Provider Diagnosis Brennen Chavira MD [address] [place] [address] [place] [phone] 03/20/2025 Brennen Chavira Labyrinthine dysfunction, 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 and Reflux esophagitis K21.00 Assessments Encounter Date Diagnosis (ICD Code) Assessment Notes Treatment Notes Treatment Clinical Notes Section Notes 03/20/2025 Labyrinthine dysfunction, bilateral (ICD-10 - H83.2X3) referral to physical therapy 03/20/2025 Reflux esophagitis (ICD-10 - K21.00) will continue on omeprazole Plan Of Treatment Treatment Notes Assessment Notes Labyrinthine dysfunction, bilateral refe rral to physical therapy Reflux esophagitis will continue on ome prazole Referrals Referral Date Details 03/20/2025 03/20/2025, please e jesika and treat, [facility] 03/20/2025 03/20/2025, eval and treatQuan Next Appt Details Provider Name:Brennen mendez, 10/03/2025 07:30:00 AM, [address] [place] [address], Suite [facility], [place], [place], [phone], Provider Name:Brennen mendez, 10/09/2025 02:00:00 PM, [address] [place] [address], [address], [phone], Provider Name:Brennen mendez, 04/02/2026 08:00:00 AM, [address] [place] [address], [address], [phone], Provider Name:Brennen mendez, 04/09/2026 02:30:00 PM, [address] [place] [address], [address], [phone], Progress Notes * Luisa FLORES:1935 (89 yo M)Acc No.[id number]:03/20/2025 Progress Notes Patient: Robert CONRAD Provider: Janette Chavira MD :1935 A ge:89 Y S ex:Male Date:03/20/2025 Address:[address], [place], [facility] Subjective: * Chief Complaints: * S till dizzyAccompanied by * HPI: S ymptom(s): patient is a 89 yo male here with compaint of dizziness/ world spinning around and felt nausea.took? meclizine and zofran. * ROS: G eneral/Constitutional: Denies C hills. D enies F atigue. D enies F ever. D enies H eadache. E NT: Denies S ore throat. R espiratory: Denies C ough. D enies S hortness of breath at rest. D enies S hortness of breath with exertion. G astrointestinal: Denies D iarrhea. D enies N ausea. * Medical History: * Surgical History: * Hospitalization/Major Diagno stic Procedure: * Medications: T akingOmeprazole 20 MG Capsule Delayed Release 1 capsule 1/2 to 1 hour before morning meal Orally Once a day Aspir-Low 81 MG Tablet Delayed Release 1 [...] TAKE 1 TABLET BY MOUTH EVERY DAY Meclizine HCl 25 MG Tablet Chewable 1 tablet as needed Orally every 12 hrs Ondansetron HCl 4 MG Tablet 1 tablet Orally Once a day Medication List reviewed and reconciled with the patientTaking Omeprazole 20 MG Capsule Delayed Release 1 capsule 1/2 to 1 hour before morning meal Orally Once a day Taking Aspir-Low 81 MG Tablet Delayed Release [...] TAKE 1 TABLET BY MOUTH EVERY DAY Taking Meclizine HCl 25 MG Tablet Chewable 1 tablet as needed Orally every 12 hrs Taking Ondansetron HCl 4 MG Tablet 1 tablet Orally Once a day Medication List reviewed and reconciled with the patient * Allergies: O xyContin: vomitingOxyCODONE ER: vomitingVicodin: vomitingLisinopril: coughyes[Allergies Verified] Objective: * Vitals: H t: 68.5, Wt: 239, BMI:35.81, BP:144/60, Wt-k.41. weightbis down 3 pounds since 01-27-25. * Examination: G eneral Examination: GENERAL APPEARANCE: a lert, well hydrated, in no distress.? HEAD: n ormocephalic. SKIN: g ood turgor. HEART: r egular rate and rhythm, no murmurs, rubs, gallops.? LUNGS: n o wheezes, rales, rhonchi, good air movement, clear to auscultation bilaterally. Assessment: * Assessment: 1. L abyrinthine dysfunction, bilateral - H83.2X3 (Primary) 2 . R eflux esophagitis - K21.00 Plan: * Treatment: 2. R eflux esophagitis Notes: will continue on omeprazole Referral To:Quan Cardenas Gastroenterology Reason:eval and treat 3. O thers Referral To:[facility] Physical Therapist Reason:please eval and treat * Procedure Codes: * * Sign off status: Completed true * Provider: Janette Chavira MD Date: 0 03/20/2025 Generated for Tiffany mayorga/Dilcia/eTzullyitting on: 03:48 PM EDT History and Physical Notes * HPI (History of Present Illness) Category Sub-Category Detail Notes Category Not es Symptom(s) patient is a 89 yo male here with compaint of dizziness/ world spinning around and felt nausea.took meclizine and zofran Examination Category Sub-Category Detail Notes Category Not es General Examination GENERAL APPEARANCE: alert, w ell hydrated, in no distress HEAD: normocephalic HEART: regular rate and rhy thm, no murmurs, rubs, gallops LUNGS: no wheezes, rales, r honchi, good air movement, clear to auscultation bilaterally SKIN: good turgor Consultation Request Notes Referral Date Referring Provider Referred Provider Not es 03/20/2025 Brennen Chavira [facility] please ev al and treat 03/20/2025 Brennen Chaviar Robert eval and diamond mistry
--- OUTSIDE RECORDS SUMMARY | 2025-03-28 03:15 | XMS_ITS ---
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 Panel Fa st Reviewed date:03/30/2025 11:55:45 AM Interpretation: Performing Lab:[facility], [address] [place] [phone] Notes/Report: Sodium 143 135-145 mmol/L Potassium 4.2 [...] Panel Reviewed date:03/28/2025 04:16:38 PM Interpretation: Performing Lab:[facility], [address] [place] [phone] Notes/Report: Triglycerides 97 <150 mg/dL Desirable Triglyceride: [...] (Free>4and<10) Reviewed date:03/28/2025 04:16:00 PM Interpretation: Performing Lab:[facility], [address] [place] [phone] Notes/Report: PSA,Total (Free>4and<10) 0.68 0.00-4.00 ng/mL A [...] t Reviewed date:03/30/2025 11:56:32 AM Interpretation: Performing Lab:[facility], [address] [facility], [place] [address] Notes/Report: Urine, Clean Catch Color Urine Yellow Appearance Urine Clear PH 6.0 5.0-9.0 Glucose Urine UA Negative Negative mg/dL Urine Blood Negative Negative Specific [place] - Urine 1.020 1.005-1.025 Urine Protein Negative [...] Date Provider Diagnosis Brennen Chavira MD [address] [place] [phone] 03/28/2025 Brennen Chavira Prostatism N40.0 ; Essential hypertension I10 and Hypercholesterolemia E78.00 Assessments Encounter Date Diagnosis (ICD Code) Assessment Notes Treatment Notes Treatment Clinical Notes Section Notes 03/28/2025 Prostatism (ICD-10 - N40.0) 03/28/2025 Essential hypertensi on (ICD-10 - I10) 03/28/2025 Hypercholesterolemia (ICD-10 - E78.00) Plan Of Treatment Next Appt Details Provider Name:Brennen mendez, 10/03/2025 07:30:00 AM, [address] [place] [address], [phone], Provider Name:Brennen mendez, 10/09/2025 02:00:00 PM, [address] [place] [address], [phone], Provider Name:Brennen mendez, 04/02/2026 08:00:00 AM, [address] [place] [address], [phone], Provider Name:Brennen mendez, 04/09/2026 02:30:00 PM, [address] [place] [address], [phone], Progress Notes * Robert FLORESDOB:1935 (89 yo M)Acc No.[id number]:03/28/2025 Progress Note Patient: Robert CONRAD Provider: Janette Chavira MD :1935 A ge:89 Y S ex:Male Date:03/28/2025 Address:[address] [place], [place] [address]y [facility], [address] [facility], [facility] Subjective: * Chief Complaints: * 1 . FASTING LABS. * Medical History: Objective: * Vitals: Assessment: * Assessment: 1. P rostatism - N40.0 (Primary) 2 . E ssential hypertension - I10 ? 3 . H ypercholesterolemia - E78.00 Plan: * Treatment: 2. E ssential hypertension L AB: Complete Blood Count Auto Diff (Collection Date & Time - 03/28/2025 11:23 AM) L AB: Comprehensive [place]. Panel Fast (Collection Date & Time - [...] - 03/28/2025 11:23 AM) L AB: Comprehensive [place]. Panel Fast (Collection Date & Time - [...] MD Date: 0 03/28/2025 Generated for Tiffany mayorga/Dilcia/Cal on: 1 03:47 PM EDT
--- OUTSIDE RECORDS SUMMARY | 2025-04-08 09:30 | XMS_ITS ---
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 Name Role Phone Brennen Chavira Primary [...] M edicine Referred Provider Wound Clinic, at [facility] Referred Provider Specialty Unknown General Notes Carmen Jiménez 0 04/11/2025 11:14:17 AM >info faxed [phone] Annette 04/22/2025 08:35:50 AM > patient is [...] Risk Notes Problem Obstructive sleep apnea syndrome (80205647) SITA (obstructive sleep apnea) (G47.33) Active confirmed Problem Ulcer of left lower leg (disorder) (473474471499545 03) Leg ulcer, left, limited to breakdown of skin (L97.921) Active confirmed Vital Signs Blood pressure systolic 154 mm Hg 04/08/20 25 Blood pressure diastolic 60 mm Hg 025 Height 68.5 in 04/08/2025 Weight 246 lbs 04/08/2025 BMI 36.86 kg/m2 04/08/2025 weight is gabino 7 pounds since 03-20-25 Encounters Encounter Location Date Provider Diagnosis Brennen Chavira MD [address] [place] [address] [address] [place], [place] [phone] 04/08/2025 Brennen Chavira Essential hypertensi on I10 [...] regiment SITA (obstructive sleep apnea) send to [facility] medicine Leg ulcer, left, limited to breakdown of skin referral to wound clinic Prostatism stable, will continu e current regiment Reflux esophagitis stable, will continu e current regiment Colon cancer screening guaiac negative Depression screening negative screen Referrals Referral Date Details 04/08/2025 04/08/2025, leg ulce r, at [facility] Wound Clinic 04/08/2025 04/08/2025, SITA, Ran jorge Reese Next Appt Details Follow Up: 6 Months, Reason: Provider Name:Brennen mendez, 10/03/2025 07:30:00 AM, [address] [place] [address], [place] [address], [place], [place], [phone], Provider Name:Brennen mendez, 10/09/2025 02:00:00 PM, [address] [place] [address], [address] [facility], [place], [place], [phone], Provider Name:Brennen mendez, 04/02/2026 08:00:00 AM, [address] [place] [address], Suite [facility], [place], [phone], Provider Name:Brennen mendez, 04/09/2026 02:30:00 PM, [address], [address], [place], [place], [phone], Progress Notes * Robert FLORESDOB:1935 (89 yo M)Acc No.[id number]:04/08/2025 Patient: Robert CONRAD Provider: Janette Chavira MD :1935 A ge:89 Y S ex:Male Date:04/08/2025 Address:[address] [place], [place] [address] [facility], [facility] [address], [facility] Subjective: * Chief Complaints: * R eview [...] mg/dL Urine Blood Negative Negative - Specific [place] - Urine 1.020 1.005-1.025 - Urine Protein [...] Auto 0.000 0.0-0.012 - X10*3/uL L ab:Comprehensive [place]. Panel Fast (Order Date - 03/28/2025) (Collection [...] Notes: referral to wound clinic Referral To:at [facility] Wound Clinic Unknown Reason:leg ulcer 5. P [...] Procedure Codes: 8 2270 TEST FOR BLOOD, [id number] Complex e/m visit add on * Preventive Medicine: Counseling: C are goal follow-up plan: C ounseling for abnormal BMI provided?Yes, A gonzalo Normal BMI Follow-up G iving encouragement to exercise. * Follow Up: 6 Months * * Sign off status: Completed true * Provider: Janette Chavira MD Date: 0 04/08/2025 Generated for Tiffany mayorga/Dilcia/Cal on: 1 03:48 PM EDT History and Physical Notes [...] es 04/08/2025 Brennen Chavira Wound Clinic, at [facility] leg ulcer 04/08/2025 Brennen Chavira Rani OSA
--- OUTSIDE RECORDS SUMMARY | 2025-04-28 06:41 | XMS_ITS ---
Author Organization Brennen Chavira MD Address [address] [place] [phone] Care Team Providers Care Pharmacist Apprentice Name Role Phone Brennen Chavira Primary Care Provider [phone] REASON FOR VISIT discharge Encounters Encounter Location Date Provider Diagnosis Brennen Chavira MD [address] [place] [address] [place] [phone] 04/28/2025 Brennen Chavira Plan Of Treatment Next Appt Details Provider Name:Brennen mendez, 10/03/2025 07:30:00 AM, [address] [place] [address], [place] [address], [place], [place], [phone], Provider Name:Brennen mendez, 10/09/2025 02:00:00 PM, [address] [place] [address], [address], [phone], Provider Name:Brennen mendez, 04/02/2026 08:00:00 AM, [address], [address], [place], [place], [phone], Provider Name:Brennen Russell vanessa, 04/09/2026 02:30:00 PM, [address], [address], [place], [phone], Progress Notes * Robert FLORESDOB:1935 (89 yo M)Acc No.[id number]:04/28/2025 Patient: Robert CONRAD :1935 A ge:89 Y S ex:Male Address:[address] [place] [address], [address], [place], [address] * true * Date: Generated for Tiffany mayorga/Dilcia/Lucerosmitting on: 03:46 PM EDT
--- OUTSIDE RECORDS SUMMARY | 2025-07-03 07:00 | XMS_ITS ---
Author Organization Brennen Chavira MD Address [address] [place], [place] [phone] Care Team Providers Care Personal Banking Assistant Name Role Phone Brennen Chavira Primary Care Provider Allergies Allergen (clinical drug ingredient) Drug/Non Drug Allergy documented on EMR Reaction Allergy Type Onset Date Status OxyCODONE ER vomiting Drug Allergy Acti ve Vicodin vomiting Drug Allergy Active oxycodone OxyContin vomiting Drug Allergy Active lisinopril Lisinopril cough Drug Allergy Activ e REASON FOR VISIT PH/TCM, Please fax visit to Sheryl Tapia [phone] Codie looking for order for compression stockings [...] Date Provider Diagnosis Brennen Chavira MD [address] [place], [place] [phone] 07/03/2025 Brennen Chavira Reflux esophagitis K21.00 ; [...] 4 Weeks, Reason: Provider Name:Brennen Russell ier, 10/03/2025 07:30:00 AM, [address] [facility], [address], [place], [place], [phone], Provider Name:Brennen Dacosta Yvonne ier, 10/09/2025 02:00:00 PM, [address] [facility] [address], [address], [place], [place], [phone], Provider Name:Brennen Dacosta Yvonne ier, 04/02/2026 08:00:00 AM, [address] [place] [address], [address] [facility], [place], [place], [phone], Provider Name:Brennen Russell ier, 04/09/2026 02:30:00 PM, [address] [place] [address], [address] [facility], [place], [place], [phone], Progress Notes * Robert FLORESDOB:1935 (89 yo M)Acc No.[id number]:07/03/2025 Patient: Robert CONRAD Provider: Janette Chavira MD :1935 A ge:89 Y S ex:Male Date:07/03/2025 Address:[address] [place] [address], [place] [address], [facility] Subjective: * Chief Complaints: * P H/TCMPlease fax visit to Sheryl Tapia [phone] Codie looking for order for compression stockings [...] 9 0662 FLU VACC PRSV FREE INC [id number] ADMN FLU VAC NO FEE SCHED SAME DAY * Preventive Medicine: Immunizations: I nfluenza H ave you had a flu shot since the most recent June 30? Y es. * Follow Up: 4 Weeks * * Sign off status: Completed true * Provider: Janette Chavira MD Date: 0 07/03/2025 Generated for Tiffany mayorga/Dilcia/eTransmitting on: 1 03:46 PM EDT History and Physical Notes * [...]
--- OUTSIDE RECORDS SUMMARY | 2025-07-08 05:46 | XMS_ITS ---
Author Organization Brennen Chavira MD Address [address] [place] [phone] Care Team Providers Care Mailmaster Name Role Phone Brennen Chavira Primary Care Provider REASON FOR VISIT RF Omeprazole 20mg Medications Medication SIG (Take, Route, Fr equency, Duration) Notes Start Date End Date Status Omeprazole 20 MG 1 capsule 1/2 to 1 h our before morning meal Orally Once a day for 90 days Active Encounters Encounter Location Date Provider Diagnosis Brennen Chavira MD [address] [place], [place] [phone] 07/08/2025 Brennen Chavira Reflux esophagitis K21.00 Assessments [...] 07:30:00 AM, [address], [address], [place], [phone], Provider Name:Brennen Russell ier, 10/09/2025 02:00:00 PM, [address], [address], [place], [phone], Provider Name:Brennen Russell ier, 04/02/2026 08:00:00 AM[address], [address], [place], [place], [phone], Provider Name:Brennen Russell ier, 04/09/2026 02:30:00 PM, [address] [place] [address] Drive, [address], [place], [place], [phone], Progress Notes * Robert FLORESDOB:1935 (89 yo M)Acc No.[id number]:07/08/2025 Patient: Robert CONRAD :1935 A ge:89 Y S ex:Male Address:[address] [place] [address], [place] [address], [place], [address] * Refills Refill Omeprazole Capsule Delayed Release, 20 MG, Orally, 90, 1 capsule 1/2 to 1 hour before morning meal, Once a day, 90 days, Refills=3 * true * Date: Generated for Tiffany mayorga/Dilcia/eTshereesmitting on: 03:48 PM EDT
--- OUTSIDE RECORDS SUMMARY | 2025-08-14 09:45 | XMS_ITS ---
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 Role Phone Brennen Chavira Primary Care Provider Allergies Allergen (clinical drug ingredient) Drug/Non Drug Allergy documented on EMR Reaction Allergy Type Onset Date Status OxyCODONE ER vomiting Drug Allergy Acti ve Vicodin vomiting Drug Allergy Active oxycodone OxyContin vomiting Drug Allergy Active lisinopril Lisinopril cough Drug Allergy Activ e REASON FOR VISIT 4 WK F/U, Accompanied by Medications Medication SIG (Take, Route, Frequency, Duration) Notes Start Date End Date Status Omeprazole 20 MG 1 capsule 1/2 to 1 h our before morning meal Orally Once a day for 90 days Active Meclizine HCl 25 MG 1 tablet as needed O rally every 12 hrs for 10 days 01/27/2025 Active Atorvastatin Calcium 80 MG TAKE 1 [...] times 3 until pain goes 08/13/2020 Active Ondansetron HCl 4 MG 1 tablet Orally Onc e a day for 5 days 01/27/2025 Active Tamsulosin HCl 0.4 MG 2 capsule Orally O nce a day 11/02/2020 Active amLODIPine Besylate 10 MG 1 tablet Orall y Once a day Active Vital Signs Blood pressure systolic 104 mm Hg 08/14/20 25 Blood pressure diastolic 56 mm Hg 025 Height 68.5 in 08/14/2025 Weight 230 lbs 08/14/2025 BMI 34.46 kg/m2 08/14/2025 Encounters Encounter Location Date Provider Diagnosis Brennen Chavira MD [address] [place] [id number] 08/14/2025 Brennen Chavira Vertigo R42 ; Labyrinthine dysfunction, 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 and History of hip fracture Z87.81 Assessments Encounter Date Diagnosis (ICD Code) Assessment Notes Treatment Notes Treatment Clinical Notes Section Notes 08/14/2025 Vertigo (ICD-10 - R42) 08/14/2025 Labyrinthine dysfunction, bilateral (ICD-10 - 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.2X3) 08/14/2025 History of hip fracture (ICD-10 - Z87.81) doing well with theerapy Plan Of Treatment Medication Medication Name Sig Start Date Stop Date Notes Meclizine HCl 25 MG 1 tablet as needed O rally every 12 hrs for 10 days 01/27/2025 Treatment Notes Assessment Notes History of hip fracture doing well with theerapy Next Appt Details Follow Up: 3 Months, Reason: Provider Name:Brennen mendez, 10/03/2025 07:30:00 AM, [address] [place] [address], [address], [phone], Provider Name:Brennen mendez, 10/09/2025 02:00:00 PM, [address] [place] [address], [address], [phone], Provider Name:Brennen Russell ier, 04/02/2026 08:00:00 AM, [address], [address], [place], [place], [phone], Provider Name:Brennen Russell ier, 04/09/2026 02:30:00 PM, [address], [address], [place], [place], [phone], Progress Notes * Robert FLORESDOB:1935 (89 yo M)Acc No.[id number]:08/14/2025 Progress Notes Patient: Robert CONRAD Provider: Janette Chavira MD :1935 A ge:89 Y S ex:Male Date:08/14/2025 Address:[address] [place] [address], [place] [address], [id number] Subjective: * Chief Complaints: * 4 WK F/UAccompanied by * HPI: S ymptom(s): patient is a 89 yo male here for 4 weeek follow up visit/ doing better using walker/ fell in the house using walker. no injury. * ROS: G eneral/Constitutional: Denies C hills. D enies F atigue. D enies F ever. D enies H eadache. E NT: Denies S ore throat. R espiratory: Denies C ough. D enies S hortness of breath at rest. A dmits S hortness of breath with exertion. G [...] Tablet 1 tablet Orally Once a day Tamsulosin [...] TAKE 1 TABLET BY MOUTH EVERY DAY Omeprazole 20 MG Capsule Delayed Release 1 capsule 1/2 to 1 hour before morning meal Orally Once a day Medication List reviewed [...] 1 TABLET BY MOUTH EVERY DAY Taking Omeprazole 20 MG Capsule Delayed Release 1 capsule 1/2 to 1 hour before morning meal Orally Once a day Medication List reviewed and reconciled with the patient * Allergies: O xyContin: vomitingOxyCODONE ER: vomitingVicodin: vomitingLisinopril: coughyes[Allergies Verified] Objective: * Vitals: H t: 68.5, Wt: 230, BMI:34.46, BP:104/56, Wt-k.33. * Examination: G eneral Examination: GENERAL APPEARANCE: a lert, well hydrated, in no distress.? HEAD: n ormocephalic. SKIN: g ood turgor. HEART: n o murmurs, rubs, gallops, regular rate and rhythm.? LUNGS: n o wheezes, rales, rhonchi, good air movement, clear to auscultation bilaterally. Assessment: * Assessment: 1. V ertigo - R42 (Primary) 2 . L abyrinthine dysfunction, bilateral - H83.2X3 3 . H istory of hip fracture - Z87.81 Plan: * Treatment: 2. H istory of hip fracture Notes: doing well with theerapy * Procedure Codes: * Follow Up: 3 Months * * Sign off status: Completed true * Provider: Janette Chavira MD Date: 1 Generated for Tiffany mayorga/Dilcia/Cassandraitting on: 03:48 PM EDT History and Physical Notes * HPI (History of Present Illness) Category Sub-Category Detail Notes Category Not es Symptom(s) patient is a 89 yo male here for 4 weeek follow up visit/ doing better using walker/ fell in the house using walker. no injury Examination Category Sub-Category Detail Notes Category Not es General Examination GENERAL APPEARANCE: alert, w ell hydrated, in no distress HEAD: normocephalic HEART: no murmurs, rubs, ga llops, regular rate and rhythm LUNGS: no wheezes, rales, r honchi, good air movement, clear to auscultation bilaterally SKIN: good turgor
--- NOTE | 2025-08-28 13:02 | MHC.OFFVIS ---
Intake Visit Reasons: NPH Allergies oxycodone (OxyContin) Allergy (Unknown, Verified 07/18/25 12:08) Unknown codeine (CODEINE) Adverse Reaction (Mild, Verified 07/18/25 12:08) Nausea and Vomiting HPI Comments Details: The patient is an 89-year-old male presenting with dizziness and unsteadiness. He started experiencing episodes about a month ago with symptoms such as unsteadiness when walking, resulting in his incapacity to leave bed the following day due to dizziness combined with nausea and vomiting. His dizziness lacks the spinning sensation typical of vertigo but is accompanied by a gradual onset leading to extended periods in bed. Pre-existing severe peripheral neuropathy exacerbates his unstable gait, necessitating the use of a walker. The symptom pattern has been intermittent, with the last significant occurrence about a week ago, marked by feeling unwell throughout the day. Dizziness episodes usually develop gradually and do not lead to confusion or other severe cognitive issues. Previous medical evaluations, including a CT scan of the head, showed no significant findings. He received a vertigo diagnosis at [facility] approximately a year ago, following various tests. However, the symptoms' characteristics suggest they might differ from traditional vertigo manifestations. Given the circumstances, vertigo therapy was deemed unnecessary, and he awaits an EEG to explore brain electrical activity for further insight. [facility] Medical History (Updated 08/28/25 @ 13:13 by Barry Hwang MD) Peripheral neuropathy Nephrolithiasis Dysphagia Degenerative joint disease (DJD) of lumbar spine Hyperlipidemia Hypertension Renal hematoma BPH w urinary obs/LUTS Surgical History (Updated 05/03/25 @ 00:01 by Александр Eldridge) S/P triple vessel bypass Social History Household Members: Spouse Household Members Other:: 4 kids Housing: Condominium Do you presently have visiting nurse or other home services: No Patient Tobacco Use Status: Never used Tobacco Advance Directives Date on File: 04/22/25 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 Complain of weight loss and gain and high blood pressure. HEENT:? Complain of hearing loss. Cardiovascular:?No chest pain, palpitations, orthopnea, PND, or leg swelling. Respiratory:? Complain of chest pain. Gastrointestinal:?No nausea, vomiting, abdominal pain, diarrhea, or constipation. Genitourinary:? Complain of urinary urgency and frequency. Musculoskeletal:? Complain of joint pain, limited movements, and back pain. Neurological:? Complain of difficulty walking, numbness and tingling, headaches, dizziness. Psychiatric:?No anxiety, depression, mood swings, sleep disturbance, or hallucinations. Endocrine:?No heat/cold intolerance, polydipsia, polyuria, or hair/skin changes. Hematologic/Lymphatic:?No easy bruising, bleeding, or lymphadenopathy. Integumentary (Skin):?No rash, lesions, itching, or color changes. Allergic/Immunologic:?No seasonal allergies, hives, or recurrent infections. Physical Exam Neuro Other: Mental Status: Alert and oriented to person, place, and time. Normal attention. Normal spontaneous speech, fluency, and comprehension. No obvious issues with mood and memory. Affect is appropriate. Cranial Nerves: CN II: Visual rubio full to confrontation, visual acuity intact. CN III, IV, : Pupils equal, round, reactive to light and accommodation. Extraocular movements are normal. CN V: Facial sensation is normal. CN VII: Facial movements symmetrical. CN VIII: Hearing intact to bedside conversation is normal. CN IX, X: Palate elevates symmetrically. CN XI: Shoulder shrug and head turn symmetrical. CN XII: Tongue midline without atrophy or fasciculations. Motor: Deep tendon reflexes are absent. Slow pace slightly wide-based gait with a walker. Extrapyramidal: Full facial expressions and blinking. No rigidity. Movements are appropriate with no tremor or abnormality. Speech: Normal; no dysarthria or tremor. 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 in Jan 2025: Mod MVD, mild atrophy Code(s): R26.89 - Other abnormalities of gait and mobility Category: Medical (3) Dizziness: Code(s): R42 - Dizziness and giddiness Category: Medical Plan 89 years old man with underlying severe axonal sensory motor peripheral neuropathy affecting his balance and walking for which she has been using a walker, his head CT revealing [id number] microvascular ischemic changes and mild cerebral atrophy further contributing to his loss of balance, started having a different type of symptoms of sudden onset of dizziness that was not a vertigo type. Typically he felt not well and preferred to go to bed and said that he was not well for a day or 2 without any obvious cold or flu-like illness or any other symptom. Last episode was few days ago. One time he had been to hospital and no obvious reason was found. His examination is consistent with severe neuropathy. I have ordered an EEG to rule out seizure disorder, which was also a good possibility to explain his symptoms. Orders: Orders EEG Routine Today G40.909 - Epilepsy, unspecified, not intractable, without status epilepticus Coding Level of Care Code New Pt Level 4 (73781) Diagnoses Peripheral polyneuropathy G62.9 Peripheral neuropathy type: polyneuropathy, unspecified Multifactorial gait disorder R26.89 Dizziness R42
--- OUTSIDE RECORDS SUMMARY | 2025-08-28 15:46 | XMS_ITS | Clinical Summary ---
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
--- OUTSIDE RECORDS SUMMARY | 2025-08-28 15:47 | XMS_ITS | Encounter Summary ---
Author Organization [facility] Address [address] [facility] [address] [place] [address] Phone Care Team Providers Care Plant Assigner Name Role Phone Brennen Chavira MD Primary Care Provider Encounter Details Date Type Department Care Team (Late st Contact Info) Description 02/02/2021 Procedure Pass Echo Lab [place] [place] [address] Social History Tobacco Use Types Packs/Day Years [...] Care Team (Late st Contact Info) Description 02/18/2026 11:00 AM EDT Office Visit [facility] [address] [place] [address] [address]rd Floor, [address] [place] [address] Juan R Jordan, GENERAL ROAD FOREMAN [address] [place] [id number] [email or web address] documented as of this encounter Visit Diagnoses Not on filedocumented in this encounter Care Teams Plant Assigner Relationship Specialty Start Date End Date Brennen Chavira MD [address] [place] [address] [facility] [place] [address] PCP - General Internal Medicine 08/28/20 documented as of this encounter Additional Source Comments The information contained in this document represents components of the legal health record. It is not the complete legal health record.[facility]
--- OUTSIDE RECORDS SUMMARY | 2025-08-28 15:47 | XMS_ITS | Patient Health Record ---
Author [facility] Address [address] [place] [address] Care Team Providers Care Bankruptcy Law Specialist Name Role Phone Brennen Chavira MD Primary Care Provider Alexandra Gilliland Unavailable [phone] Allergies Allergen (clinical drug ingredient) Drug/Non Drug Allergy documented on EMR Reaction Allergy Type Onset Date Status oxycodone OxyCONTIN Unknown Drug Allergy Active codeine Codeine Unknown Drug Allergy Active oxycodone Oxycodone Unknown Drug Allergy Active Reason For Referral No Information Medications Medication SIG (Take, Route, Frequency, Duration) Notes Start Date End Date Status AFO- Posterior [place] form-fitted to foot and leg . [...] primary osteoarthritis of the ankle and/or foot (426006455) Primary osteoarthritis , left ankle and foot (M19.072) Active confirmed Problem Non-pressure chronic ulcer of other part of left foot limited to breakdown of skin (L97.521) Active confirmed Problem Acquired hammer toe of right foot (5024036717331081) Other hammer toe(s) (acquired), right foot (M20.41) Active confirmed Problem Acquired hammer toe of left foot (9418271976819038) Other hammer toe(s) (acquired), left foot (M20.42) Active confirmed Problem Neuropathy (725772839) Neuropathy (G62.9) Active confirmed Problem Unsteady gait (78600769) Unsteady gait (R26.81) Active confirmed Plan Of Treatment Pending Test Test Name Order Date [id number] NAIL, 6 OR MORE 04/25/2022 [id number] NAIL, 6 OR MORE 04/11/2023 10775- Debride <25 sq cm 04/25/2022 52908- Debride <25 sq cm 04/11/2023 Insurance Providers Payer Name Payer Address Payer Phone Subscriber Number Group Number Insured Name Patient Relationship to Insured Coverage Start Date Coverage End Date Medicare National [employer]t [employer] [address] [place] [address] [id number] Robert Flores Self - patient is the insured [employer] [address] [place] [address] [id number] Robert Flores Self - patient is the [...]
--- OUTSIDE RECORDS SUMMARY | 2025-08-28 15:47 | XMS_ITS | Clinical Summary ---
Author Organization Formerly [facility] Address [address] [facility] [address] [place] [phone] Phone Care Team Providers Care Balance Wheel Hand Filer Name Role Phone Brennen Chavira MD Primary [...] episodes of dizziness He was seen at [facility] for this, I do not access to any testing results or notes to reflect this He has an appointment with the vascular specialist tomorrow for this in [place] but he does not remember the name I have requested the [place] here to get the records from [facility] Already on aspirin/atorvastatin. Dyspnea on exertion [...] post three-vessel bypass February 20, 2018 at [facility] with a ALCALA to LAD, vein [...] set him up in cardiac rehabilitation at [facility]. Benign essential hypertension 03/23/2018 Assessment & [...] Encounters Date Type Department Care Team Description 08/20/2025 11:30 AM EDT Office Visit [facility] [address] [place] [address] 3rd Floor, [address] [place] [address] Juan R Jordan, Sarah Maddox PA-C, MPH Benign essential hypertension (Primary Dx) 08/13/2025 8:40 AM EDT - 08/13/2025 11:59 PM EDT Hospital Encounter [facility] [address] [place] [address] Juan R Jordan, [place] Discharge Disposition: Home or Self Care 06/17/2025 Orders Only [facility] [address] Floor, [address] [place] [address] Juan R Jordan, [place] Arteriosclerosis of arterial coronary artery bypass graft; [...] Sign Reading Time Taken Comments Blood Pressure 142/70 08/20/2025 10:57 AM EDT Pulse 65 08/20/2025 10:57 AM EDT Temperature - - Respiratory Rate 18 06/25/2018 2:36 PM EDT Oxygen Saturation 94% 08/20/2025 10:57 AM EDT Inhaled Oxygen Concentration - - Weight 110.2 kg (243 lb) 08/20/2025 10:57 AM EDT Height 177.8 cm (5' 10 ) 08/20/2025 10:57 AM EDT Body Mass Index 34.87 08/20/2025 10:57 AM EDT Plan of Treatment Upcoming Encounters Date Type Department Care Team (Late st Contact Info) Description 02/18/2026 11:00 AM EDT Office Visit [facility] [address] [facility] [address], [address] [place], [place] [id number] Juan R Jordan, PAINTER MAINTENANCE [address] [place] [id number] [email or web address] Maintenance Due Date Last Done Comments [...] this topic Medical Devices Not on file Procedures Procedure Name Priority Date/Time Associated Diagnosis Comments US CAROTID DUPLEX COMPLETE (BILATERAL) Routine 08/13/2025 9:16 AM EDT Arteriosclerosis of arterial coronary artery bypass graft Bilateral carotid artery stenosis Benign essential hypertension Dyspnea on exertion from Last 3 Months Results * US Carotid Duplex Complete (Bilateral) (08/13/2025 9:16 AM EDT) Height 178 cm Weight 110 kg Anatomical Region Laterality Modality Heart, Thoracic Vasculature, Neck Ultrasound Narrative 08/15/2025 6:38 AM EDT Impression: Right Side: Internal carotid artery stenosis range: 50-69% closer to 60% Vertebral artery is antegrade Subclavian artery is multiphasic. Left Side: Internal carotid artery stenosis range: 16-49% closer to 40% Vertebral artery is antegrade Subclavian artery is multiphasic. No prior study is available for comparison. Carotid Artery Right Right Side: Common Carotid Artery CCA Prox: 109/33 cm/sec CCA Dist: 72/12 cm/sec CCA Plaque: mild Internal Carotid Artery Bulb: 225 cm/sec ICA Prox: 201/20 cm/sec ICA Mid: 149/22 cm/sec ICA Distal: 55/3 cm/sec ICA Plaque: calcified ICA/CCA Ratio: 3.1 External Carotid Artery: 354 cm/sec Vertebral: 70 cm/sec; antegrade Subclavian: 105 cm/sec; multiphasic Carotid Artery Left Left Side: Common Carotid Artery CCA Prox: 106/11 cm/sec CCA Dist: 88/6 cm/sec CCA Plaque: calcified Internal Carotid Artery Bulb: 138 cm/sec ICA Prox: 86/16 cm/sec ICA Mid: 89/16 cm/sec ICA Distal: 74/19 cm/sec ICA Plaque: calcified ICA/CCA Ratio: 1.6 External Carotid Artery: 145 cm/sec Vertebral: 76 cm/sec; antegrade Subclavian: 193 cm/sec; multiphasic Introductory Comments Techniques used for this study included: color flow Doppler and spectral waveform Doppler. Arterial inflow was assessed. Juan R Jordan PAINTER MAINTENANCE CV US NEUROVASCULAR Yina l Result from Last 3 Months Insurance MEDICARE PART A & B [employer] MEDEX SUPPLEMENT Carolina Munoz [address] [id number] MEDICARE PART A & B [employer] MEDEX SUPPLEMENT MEDICARE PART A & B [employer] SUPPLEMENT MEDICARE PART A & B [employer] SUPPLEMENT MEDICARE PART A & B [employer] MED[employer] SUPPLEMENT MEDICARE PART A & B [employer] SUPPLEMENT MEDICARE PART A & B [employer] SUPPLEMENT MEDICARE PART A & B [employer] SUPPLEMENT MEDICARE PART A & B [employer]EX SUPPLEMENT Care Teams Balance Wheel Hand Filer Relationship Specialty Start Date End Date Brennen Chavira MD [address] [place] [address] [address] [phone] PCP - General Internal Medicine 08/28/20 Additional Source Comments The information contained in this document represents components of the legal health record. It is not the complete legal health record.[facility]
--- OUTSIDE RECORDS SUMMARY | 2025-08-28 15:48 | XMS_ITS | Encounter Summary ---
Author Organization Formerly [facility] Address [address] [facility] [address] [place] [address] Phone Care Team Providers Care Photographer Helper Name Role Phone Brennen Chavira MD Primary Care Provider Encounter Details Date Type Department Care Team (Late st Contact Info) Description 08/14/2024 Procedure Pass Echo Lab [address] [place] [address] Social History Tobacco Use Types Packs/Day Years [...] Description 02/18/2026 11:00 AM EDT Office Visit [facility] [address] Floor, [address] [place] [address] Juan R Jordan, CERTIFIED FORKLIFT OPERATOR [address] [place] [address] documented as of this encounter Visit Diagnoses Not on filedocumented in this encounter Care Teams Photographer Helper Relationship Specialty Start Date End Date Brennen Chavira MD [address] [place] [address] [address] [place] [address] PCP - General Internal Medicine 08/28/20 documented as of this encounter Additional Source Comments The information contained in this document represents components of the legal health record. It is not the complete legal health record.[facility]
--- OUTSIDE RECORDS SUMMARY | 2025-08-28 15:48 | XMS_ITS | Patient Health Record ---
Author Organization [facility] Address [address] [place] [address] Care Team Providers Care Solder Technician Name Role Phone Brennen Chavira MD Primary Care Provider Quan Pandey [phone] Allergies Allergen (clinical drug ingredient) Drug/Non Drug [...] Notes Problem Flatulence, eructation and gas pain (208161318) Bloating (R14.0) Active confirmed Problem Gallstones (262270427) Gallstones (K80.20) Active confirmed Problem Gastroesophageal reflux disease (455851109) GERD (gastroesophag eal reflux disease) (K21.9) Active confirmed Vital Signs Blood pressure diastolic 77 mm Hg 04/22/2025 Height 71 in 04/22/2025 Blood pressure systolic 111 mm Hg 04/22/2025 Weight 230 lbs 04/22/2025 BMI 32.07 kg/m2 04/22/2025 Encounters Encounter Location Date Provider Diagnosis [facility] [address] [place] [address] 04/22/2025 Quan Cardenas Bloating R14.0 ; GIANNA [...] I did recommend that he try some [id number] simethicone product for that as needed. I [...] I did recommend that he try some [id number]-[id number]-[id number] simethicone product for that as needed. I [...] I did recommend that he try some [id number]-[id number]-[id number] simethicone product for that as needed. 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 Rey Denies DM, CVA, Lung disease [place] 2017 GERD Right renal cancer as below Hyperlipidemia Gallstones seen on 2022 ultr asound. We reviewed that at the March 2025 office visit and he is asymptomatic in that regard. 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
== END 2025-08-28 13:18 | disposition home or self-care (01) ==
LOC: HO.HSM 12:55
PROVIDERS: Visit Provider Psychiatry & Neurology Neurology
DX: G62.9 Polyneuropathy, unspecified (principal); R26.89 Other abnormalities of gait and mobility; R42 Dizziness and giddiness
CPT/HCPCS: 99204

== ENCOUNTER → 2025-08-28 12:54 | Outpatient (BNVA) | payer MEDICARE, SELFPAY | PROVIDERS: Visit Provider Psychiatry & Neurology Neurology | DX: R42 Dizziness and giddiness (principal); R26.89 Other abnormalities of gait and mobility; G62.9 Polyneuropathy, unspecified | CPT/HCPCS: 99202 ==